=== PATIENT | female | born 1945 | race Caucasian/White ===

== ENCOUNTER → 2018-03-06 15:08 | Outpatient (CLI) | payer MEDICARE, OTHER, SELFPAY ==
--- NOTE | 2018-03-06 | DI.RAD.S_ITS ---
PROCEDURE: XR LUMBAR SPINE 2-3V INDICATIONS: BACK PAIN, HIP AND KNEE PAIN TECHNIQUE: 3 views of the lumbar spine were acquired. COMPARISON: None. FINDINGS: Bones: 5 [id number] vertebrae are present. There is normal bony alignment. No vertebral body compression fractures. No suspicious bony lesions. There is diffuse intervertebral disc space narrowing, endplate sclerosis, osteophytosis, and facet sclerosis. Vacuum disc phenomenon is present at L3-4 and L4-5. Soft tissues: Dense atheromatous calcifications are present throughout the abdominal aorta. IMPRESSION: 1. Degenerative change. 2. Aortic atherosclerosis. Dictated by: Deysi Arboleda M.D. on 03/06/2018 at 16:27 Approved by: Deysi Arboleda M.D. on 03/06/2018 at 16:28
--- NOTE | 2018-03-06 | DI.RAD.S_ITS ---
PROCEDURE: XR KNEE LT 3V INDICATIONS: BACK PAIN, HIP AND KNEE PAIN TECHNIQUE: 3 views of the knee were acquired. COMPARISON: None. FINDINGS: Bones: No acute fracture or dislocation. There are small tricompartmental osteophytes and femorotibial compartment narrowing. Soft tissues: No joint effusion. No suspicious soft tissue calcifications. IMPRESSION: Degenerative change. No acute radiographic findings. If there is continued pain, followup exam or additional imaging such as MRI or CT could be performed for further assessment. Dictated by: Deysi Arboleda M.D. on 03/06/2018 at 16:27 Approved by: Deysi Arboleda M.D. on 03/06/2018 at 16:27
--- NOTE | 2018-03-06 | DI.RAD.S_ITS ---
PROCEDURE: XR HIP W PEL IF DONE LT 2V INDICATIONS: BACK PAIN, HIP AND KNEE PAIN TECHNIQUE: AP pelvis with lateral view(s) of the left hip(s). COMPARISON: None. FINDINGS: Bones: No fractures or dislocations. Pelvic ring appears intact. No suspicious bony lesions. Soft tissues: The visualized bowel gas pattern is normal. No suspicious soft tissue calcifications. IMPRESSION: No acute radiographic findings. If there is continued pain, followup exam or additional imaging such as MRI or CT could be performed for further assessment. Dictated by: Deysi Arboleda M.D. on 03/06/2018 at 16:26 Approved by: Deysi Arboleda M.D. on 03/06/2018 at 16:27
== END ==
PROVIDERS: Visit Provider Internal Medicine
DX: M54.5 Low back pain (principal); M25.552 Pain in left hip; M25.562 Pain in left knee
CPT/HCPCS: 72100; 73502; 73562

== ENCOUNTER → 2018-10-28 16:11 | Outpatient (CLI) | payer MEDICARE, OTHER, SELFPAY ==
[2018-10-28 17:52] LABS: Hemoglobin A1C% w Est Avg Glu 5.4 % (4.0-6.0)
[2018-10-28 18:09] LABS: Free T4, Direct Thyroxine 1.08 ng/dL (0.78-2.19)
[2018-10-31 16:05] LABS: Triiodothyronine T3 Total 103 ng/dL (76-181)
== END ==
PROVIDERS: PCP Internal Medicine; Visit Provider Internal Medicine
DX: E03.9 Hypothyroidism, unspecified (principal); R73.03 Prediabetes
CPT/HCPCS: 36415; 83036; 84439; 84443; 84480

== ENCOUNTER → 2019-08-12 15:26 | Outpatient (CLI) | payer MEDICARE, OTHER, SELFPAY ==
[2019-08-12 17:11] LABS: INR 3.2 (0.9-1.3); Prothrombin Time 36.5 SECONDS (10.1-12.7)
[2019-08-12 17:30] LABS: Alanine Aminotransferase 23 IU/L (<35); Albumin 4.5 g/dL (3.5-5.0); Albumin Globulin Ratio 1.4 (1.0-2.8); Alkaline Phosphatase 104 U/L (38-126); Aspartate Aminotransferase 27 IU/L (14-36); BUN Creatinine Ratio 31.3 (6-22); Bilirubin Total 0.5 mg/dL (0.2-1.3); Blood Urea Nitrogen 25 mg/dL (7-17); Carbon Dioxide 28 mmol/L (22-32); Chloride 101 mmol/L (98-107); Cholesterol 216 mg/dL (140-199); Estimated Glomerular Filt Rate > 60.0 mL/min (>60); Globulin 3.2 g/dL (1.7-4.1); Glucose 117 mg/dL (80-110); HDL Cholesterol 74 mg/dL (40-60); HEMOLYSIS < 15 (0-50); Hemoglobin A1C% w Est Avg Glu 5.9 % (4.0-6.0); LDL Cholesterol Calculated 124 mg/dL (<100); Potassium 3.9 mmol/L (3.4-5.1); Sodium 139 mmol/L (137-145); Total Protein 7.7 g/dL (6.3-8.2); Triglycerides 90 mg/dL (35-150)
== END ==
PROVIDERS: PCP Internal Medicine; Referring Provider Internal Medicine; Visit Provider Internal Medicine
DX: I48.91 Unspecified atrial fibrillation (principal); I10 Essential (primary) hypertension; R73.03 Prediabetes; E78.5 Hyperlipidemia, unspecified
CPT/HCPCS: 36415; 80053; 80061; 83036; 85610

== ENCOUNTER → 2020-01-13 12:36 | Outpatient (CLI) | payer MEDICARE, OTHER, SELFPAY ==
[2020-01-13 13:16] LABS: Prothrombin Time 33.9 SECONDS (10.1-12.7)
== END ==
PROVIDERS: PCP Internal Medicine; Referring Provider Internal Medicine; Visit Provider Internal Medicine
DX: I48.91 Unspecified atrial fibrillation (principal)
CPT/HCPCS: 36415; 85610

== ENCOUNTER → 2020-07-23 20:00 | Outpatient (ROUT) | payer MEDICARE, OTHER, SELFPAY ==
[2020-07-23 20:35] LABS: Alanine Aminotransferase 22 IU/L (<35); Albumin 4.3 g/dL (3.5-5.0); Albumin Globulin Ratio 1.4 (1.0-2.8); Alkaline Phosphatase 99 U/L (38-126); Aspartate Aminotransferase 27 IU/L (14-36); BUN Creatinine Ratio 28.8 (6-22); Bilirubin Total 0.6 mg/dL (0.2-1.3); Blood Urea Nitrogen 21 mg/dL (7-17); Calcium 9.6 mg/dL (8.4-10.2); Carbon Dioxide 29 mmol/L (22-32); Chloride 101 mmol/L (98-107); Cholesterol 194 mg/dL (140-199); Estimated Glomerular Filt Rate > 60.0 mL/min (>60); Glucose 124 mg/dL (80-110); HDL Cholesterol 75 mg/dL (40-60); HEMOLYSIS < 15 (0-50); LDL Cholesterol Calculated 101 mg/dL (<100); Potassium 3.7 mmol/L (3.4-5.1); Sodium 137 mmol/L (137-145); Total Protein 7.3 g/dL (6.3-8.2); Triglycerides 89 mg/dL (35-150)
[2020-07-23 21:06] LABS: TSH w/ Reflex to FT4 1.82 uIU/mL (0.47-4.68)
== END ==
PROVIDERS: PCP Internal Medicine; Visit Provider Internal Medicine
DX: I48.91 Unspecified atrial fibrillation (principal); I10 Essential (primary) hypertension; E78.5 Hyperlipidemia, unspecified
CPT/HCPCS: 80053; 80061; 84443

== ENCOUNTER → 2020-08-17 15:33 | Outpatient (CLI) | payer MEDICARE, OTHER, SELFPAY ==
--- NOTE | 2020-08-17 15:35 | DI.ECHO.S_ITS ---
[facility] +---------+ [facility] +---------+ : : [address] [place] : : : : [id number] : : : : Phone: [phone]---------+ Echocardiogram Report + + :Name: PATRIC HERNANDEZ Study Date: 08/17/2020 Height: 66 in : :[facility] ReadingLocation: Weight: 200 lb : : Gender: Female BSA: 2.0 m2 : :: 1945 Age: 75 yrs BP: 136/98 mmHg: :Reason For Study: ATRIAL FIBRILLATION : :Ordering Physician: KEVIN : :BRANDIN Performed By: Christelle Hyde : :Referring: BRANDIN BROWN : + + Interpretation Summary 1) Normal left ventricular thickness, size, wall motion, and systolic function (EF 60-65%). 2) Normal right ventricular size and function. 3) No significant valvular abnormalities. 4) Atrial fibrillation with the ventricular rates in the 100s-130s range present during the study. 5) No prior Echo available for comparison. Procedure: A two-dimensional transthoracic echocardiogram with color flow and Doppler was performed. The study quality was technically adequate. There is no prior echocardiogram noted for this patient. The patient was in atrial fibrillation with heart rates between 95-127 bpm during the exam. Left Ventricle: The left ventricle is normal in size and wall thickness. Left ventricular systolic function appears normal without focal wall motion abnormalities. The ejection fraction is estimated to be 60-65%. Diastolic function could not be accurately assessed due to atrial fibrillation. Right Ventricle: The right ventricle is normal in size and function. Atria: The left atrium is mildly dilated. Right atrial size is normal. There is no Doppler evidence for an interatrial shunt. Mitral Valve: The mitral valve leaflets appear borderline thickened, but open well. There is trace mitral regurgitation. Aortic Valve: The aortic valve opens well. The aortic valve is slightly calcified. There is no aortic valve stenosis. No aortic regurgitation is present. Tricuspid Valve: The tricuspid valve is normal in structure and function. There is trace tricuspid regurgitation. Pulmonary artery pressures cannot be estimated because of the lack of a measurable TR jet velocity but the IVC suggests a CVP of around 3 mmHg. Pulmonic Valve: The pulmonic valve leaflets are thin and pliable; valve motion is normal. There is no pulmonic valvular regurgitation. Great Vessels: The aortic root is normal size. The dimensions of the ascending aorta are normal. The IVC is of normal diameter and collapses greater than 50% with a sniff. This suggests a low right atrial pressure of 3 mm Hg. Pericardium/ Pleura There is no pericardial effusion. There is an anterior echo-free space consistent with a fat pad. There is no pleural effusion. MMode/2D Measurements & Calculations LVIDd: 4.1 cm LVOT diam: 1.9 cm LVIDs: 2.5 cm Ao root diam: 2.9 cm FS: 38.5 % asc Aorta Diam: 2.9 cm EPSS: 1.1 cm Ao Arch Diam (Prox Trans): 3.1 cm IVSd: 1.0 cm LVPWd: 0.80 cm LV garcia. diameter/BSA (cm/m^2): 2.0 LV sys. diameter/BSA (cm/m^2): 1.3 LA A2 area: 19.6 cm2 RA long axis: 6.2 cm LA A4 area: 23.9 cm2 RA area: 18.8 cm2 LA length (vol): 5.8 cm RA vol: 48.7 ml LA vol: 68.9 ml RA : 24.3 ml/m2 LA vol index: 34.4 ml/m2 IVC diam: 0.86 cm TAPSE: 1.8 cm Doppler Measurements & Calculations Ao V2 max: 148.3 cm/sec LVOT Max Himanshu: 109.2 cm/sec Ao V2 mean: 102.8 cm/sec LV V1 max P.8 mmHg Ao max P.8 mmHg LV V1 VTI: 16.8 cm Ao mean P.7 mmHg BALJIT(I,D): 2.0 cm2 Ao V2 VTI: 23.2 cm BALJIT(V,D): 2.0 cm2 sev ratio: 0.72 BALJIT indexed to BSA (cm^2/m^2): 0.99 MV E max himanshu: 102.9 cm/sec PA V2 max: 96.7 cm/sec MV A max himanshu: 1.7 cm/sec PA V2 mean: 64.7 cm/sec MV E/A: 59.5 PA mean P.9 mmHg Med Peak E' Himanshu: 8.4 cm/sec PA pr(Accel): 35.3 mmHg E/E' med: 12.2 Lat Peak E' Himanshu: 10.3 cm/sec E/E' lat: 10.0 E/e' average: 11.1 MV dec time: 0.17 sec SVLVOT): 45.8 ml Reading Physician:05:39 PM
== END ==
PROVIDERS: PCP Internal Medicine; Referring Provider Internal Medicine; Visit Provider Internal Medicine
DX: I48.91 Unspecified atrial fibrillation (principal)
CPT/HCPCS: 93306

== ENCOUNTER → 2020-09-13 15:24 | Outpatient (CLI) | payer MEDICARE, OTHER, SELFPAY ==
[2020-09-22 14:12] LABS: Acetylcholine Blocking AB 16 % (0-25); Acetylcholine Modulating AB <12 % (0-20); Acetylcholine Receptor Bind AB <0.03 nmol/L (0.00-0.24)
[2020-09-24 19:38] LABS: MuSK Antibodies <1.0 U/mL (.)
== END ==
PROVIDERS: PCP Internal Medicine; Referring Provider Ophthalmology; Visit Provider Ophthalmology
DX: H02.403 Unspecified ptosis of bilateral eyelids (principal)
CPT/HCPCS: 36415; 83519

== ENCOUNTER → 2021-03-14 09:04 | Outpatient (CLI) | payer MEDICARE, OTHER, SELFPAY ==
[2021-03-14 13:40] LABS: COVID19 -Nasal RAPID Negative (Negative)
== END ==
PROVIDERS: PCP Internal Medicine; Visit Provider Nurse Practitioner Family
DX: Z20.822 Contact with and (suspected) exposure to COVID-19 (principal); Z01.812 Encounter for preprocedural laboratory examination
CPT/HCPCS: 87635; C9803

== ENCOUNTER 2021-03-15 11:40 | Day surgery (SDC) | payer MEDICARE, OTHER, SELFPAY ==
--- NOTE | 2021-03-15 | PATH_ITS ---
[facility] Accession Number: [id number] . 01 Material submitted: . PART A: colon - TRANSVERSE COLON POLYP PART B: colon - ASCENDING COLON POLYP X4 PART C: cecum - CECUM POLYP . 02 Diagnosis: A. Transverse Colon, Polyp, Biopsy: Colonic mucosa with no diagnostic abnormality consistent with polypoid redundancy. Additional levels were examined. Negative for dysplasia and malignancy. . B. Ascending Colon, Polyp x4, Biopsies: Tubular adenomas. . C. Cecum, Polyp, Biopsy: Tubular adenoma. MRV 03/18/2021 1311 Local . 02 Electronically signed: . Dorie Valente MD, Pathologist NPI- [id number] . 01 Gross description: . Part A: TRANSVERSE COLON POLYP: Received in formalin are minute fragment(s) of menjivar, soft tissue measuring 0.3 x 0.2 x 0.1 cm in aggregate submitted entirely in 1 cassette(s) Part B: ASCENDING COLON POLYP X4: Received in formalin are multiple fragment(s) of menjivar, soft tissue measuring 1.5 x 0.7 x 0.5 cm in aggregate submitted entirely in 1 cassette(s) Part C: CECUM POLYP: Received in formalin is 1 fragment(s) of menjivar, soft tissue measuring 0.5 x 0.3 x 0.1 cm submitted entirely in 1 cassette(s) /QBJ 03/16/2021 0718 Local . 02 Pathologist provided ICD-10: D12.2, D12.0 . 02 CPT . 292143, [id number], [id number] Performed at: 01 [facility] [address] [place] [address] [address] [facility], [place], [place] [id number] MD Zafar Beard MD Phone: [phone] Performed at: 02 [facility] [address] [place] [id number] MD Dorie Valente MD Phone: [phone]
[2021-03-15 12:46] VITALS: BMI 32.1
[2021-03-15 13:02] VITALS: BP 145/80; PULSE 110; RESP 18; TEMP 36.6; O2SAT 93
--- NOTE | 2021-03-15 13:34 | PM.HP.1 ---
History of Present Illness History of Present Illness Date Patient Seen: 03/15/21 Time Patient Seen: 13:34 Chief complaint: COLONOSCOPY Narrative: Here for colonoscopy. I reviewed Dr. Hill's recent clinic note February 15. No changes. Patient History Family & Social History Tobacco & Substance use: Smoking Status Never smoker alcohol intake frequency holiday/special occasion Substance Use Type does not use Meds Home Medications and Allergies Home Medications Medication Instructions Recorded Confirmed Type diltiazem HCl 360 mg capsule,24 360 mg PO QDAY #0 09/04/16 03/15/21 History hr,extended release warfarin 3 mg tablet (Coumadin) 3 mg PO QDAY #0 09/04/16 03/15/21 History enalapril maleate 20 mg tablet 20 mg 03/15/21 History hydrochlorothiazide 50 mg tablet mg 03/15/21 History metoprolol succinate 50 mg 50 mg PO 03/15/21 History tablet,extended release 24 hr simvastatin 40 mg tablet 40 mg 03/15/21 History Review of Systems Review of Systems ROS: Yes All systems reviewed with the patient and are negative except as otherwise documented Exam Vital Signs (past 8 hours): - 03/15/21 13:02 Temperature 97.8 F Pulse Rate 110 H Respiratory Rate 18 Blood Pressure 145/80 H Pulse Oximetry 93 Oxygen Delivery Method Room Air Const General: cooperative and comfortable Orientation: alert HENAK Head: normocephalic Ears: external ears normal Nose: external nose normal Face and sinus: normal facial exam Mouth: oral mucosae normal Eyes General: appearance normal, both eyes and all related structures Neck Neck: normal visual inspection Chest Chest: normal inspection of the chest Resp Effort & Inspection: normal respiratory effort Auscultation: clear to auscultation bilaterally Cardio Rate: regular rate Rhythm: regular rhythm Heart Sounds: no murmurs GI Inspection: normal to inspection Palpation: soft and No tender Auscultation: normal bowel sounds Skin General: no rashes or lesions noted and No jaundice Neuro General: patient alert and moves all extremities Cognition: normal cognition Speech: speech normal Extrem General: edema Psych Appearance: grossly normal Assessment & Plan Assessment & Plan narrative: 76-year-old female with a personal history of colon polyps. She is off her Coumadin for the last 5 days. Colonoscopy is planned for today. Time Spent With Patient Critical Care time: I spent a total of [] minutes of critical care time on this patient's care today; this time is exclusive of procedural time.
--- NOTE | 2021-03-15 13:36 | PM.PREOP ---
Pre-operative Note COVID-19 COVID-19 status: Negative Result date/Date tested (Pos, Neg/Pending): 03/14/21 Interval Note History & Physical reviewed/Exam performed by Physician: Yes Changes to H&P: No ASA Class (for procedural sedation): III
--- NOTE | 2021-03-15 14:24 | PM.OP.ENDO ---
Operative Date/Time/Diagnoses Date of procedure: 03/15/21 Time of procedure: 14:25 Pre-op diagnosis: Personal history of colon polyps Post-op diagnosis: same Procedure & Clinicians Study performed: Colonoscopy with hot snare polypectomy cold forceps polypectomy and prophylactic Endoclip deployment. Same procedure as scheduled: Yes Indications: Personal history of colon polyps. Surgeon: Omi Guerin Procedure Notes SCOAP/Timeout: Done Procedure in detail: After the risks and benefits were explained, written and verbal informed consent was obtained. The patient was brought into the procedure room and placed into the left lateral decubitus position. Please see nurse welt stitch cleaner notes for sedation details. Digital rectal examination was accomplished. The scope was introduced into the patient and advanced under direct visualization to the cecum as identified by the appendiceal orifice and ileocecal valve. The scope was slowly withdrawn to carefully examine the mucosa for any defects or lesions. Comprehensive imaging was accomplished throughout the rectum including the dentate line. The colon was decompressed, the scope was then removed from the patient who tolerated the procedure well. Bowel prep adequate Pediatric colonoscope Scope withdrawal time: 18 minutes Sedation minutes: 40 Complications: none Impression: Patient had some diverticulosis in the left colon. Patient had an extremely lengthy redundant colon. Abdominal pressure the stiffening rajesh were required to achieve cecal intubation. Almost all of the endoscope was required for this exam. The in the cecum there was a diminutive polyp removed with cold forceps. In the ascending colon there were 4 polyps removed with hot snare. These ranged in size from 5-12 mm. They were all sessile. The largest polyp demonstrated a small amount of persistent oozing after polypectomy and therefore a prophylactic Endoclip was deployed to guard against any post polypectomy hemorrhage. In the transverse colon there was 1 small sessile 6 mm polyp removed with hot snare. Procedure time was prolonged secondary to the difficulty with navigation and multiple polyps. Twenty-two modifier is therefore requested. Endoscopic diagnosis 1. Multiple colon polyps 2. Diverticulosis 3. Mild grade 1 internal hemorrhoids 4. Lengthy redundant colon Post-procedure Recommendations: Colonscopy in 3 years Plan for aftercare: 1. Await histopathology 2. Repeat colonoscopy in 3 years time. I would recommend a prolonged slot for this exam. 3. Patient can restart Coumadin starting tomorrow evening. Disposition: PACU
[2021-03-15 14:28] VITALS: BP 100/68; PULSE 102; RESP 15; TEMP 36.8; O2SAT 99
[2021-03-15 14:33] VITALS: BP 106/59; PULSE 81; RESP 15; O2SAT 98
[2021-03-15 14:38] VITALS: BP 112/63; PULSE 87; RESP 16; O2SAT 98
[2021-03-15 14:43] VITALS: BP 126/70; PULSE 99; RESP 12; TEMP 36.9; O2SAT 98
--- NOTE | 2021-03-15 14:47 | SUR.PHASEI ---
Stable pacu stay. to OPD.
[2021-03-15 14:52] VITALS: BP 111/75; PULSE 98; RESP 18; TEMP 36.5; O2SAT 97
== END 2021-03-15 15:00 | disposition home or self-care (01) ==
PROVIDERS: PCP Internal Medicine; Referring Provider Internal Medicine Gastroenterology; Visit Provider Internal Medicine Gastroenterology
PROC: 0DJD8ZZ Inspection of Lower Intestinal Tract, Via Natural or Artificial Opening Endoscopic (ICD-10-PCS; CPT 45378; principal; 2021-03-15 12:30)
DX: Z12.11 Encounter for screening for malignant neoplasm of colon (principal); Z86.010 Personal history of colon polyps; Z79.01 Long term (current) use of anticoagulants; K57.30 Diverticulosis of large intestine without perforation or abscess without bleeding; K64.0 First degree hemorrhoids; D12.0 Benign neoplasm of cecum; D12.2 Benign neoplasm of ascending colon
CPT/HCPCS: 45385; 45380; 45382; J2704

== ENCOUNTER 2021-11-30 11:37 | Inpatient (IN) | payer MEDICARE, OTHER, SELFPAY ==
[2021-11-30] VITALS (16 sets, daily range): BP systolic 98–150; BP diastolic 52–70; PULSE 89–133; RESP 16–23; TEMP 36–36.5; O2SAT 94–100; BMI 38.7; BMI 39.7
--- NOTE | 2021-11-30 11:58 | DI.RAD.S_ITS ---
PROCEDURE: XR CHEST 2V INDICATIONS: shortness of breath TECHNIQUE: 2 views of the chest were acquired. COMPARISON: None. FINDINGS: Surgical changes and devices: None. Lungs and pleura: Lungs are clear. No pleural effusions or pneumothorax. Mediastinum: Mediastinal contours are normal. Heart size is enlarged. Bones and chest wall: No suspicious bony abnormalities. Soft tissues appear unremarkable. IMPRESSION: No acute pulmonary process. Dictated by: Julieta Walters M.D. on 11/30/2021 at 13:13 Approved by: Julieta Walters M.D. on 11/30/2021 at 13:14
--- NOTE | 2021-11-30 12:41 | ED_ITS ---
HPI - General Adult General Chief complaint: Shortness of Breath/Dyspnea Stated complaint: stated legs are bitten by jiggers Time Seen by Provider: 11/30/21 12:04 Source: patient Mode of arrival: Wheelchair History of Present Illness HPI narrative: 76-year-old woman lives independently with history of rate controlled atrial fibrillation anticoagulated on warfarin, hypertension, hyperlipidemia but no prior known diagnosis of congestive heart failure of according to patient. She notes that on November 09 she had right cataract surgery and was significantly more swollen and had trouble getting her shoes on. Over the last week she has no ticed continued swelling in the lower extremities with weeping and then in the last 1-2 days she has noticed increasing redness and ?tiny spots', that she thinks might be bug bites. She notes that there is significant weeping from the legs to the point that she is soaking through socks and leaving puddles of fluid on the floor under her legs. She has been having both orthopnea and dyspnea. Does not complain about chest pain, cough, fevers or palpitations. She has not had vomiting or diarrhea. She notes that she frequently has urgency but she is having no dysuria and urinary symptoms have not changed. Related Data Home Medications Medication Instructions Recorded Confirmed diltiazem HCl 360 mg capsule,24 360 mg PO QDAY ##0 09/04/16 03/15/21 hr,extended release warfarin 3 mg tablet (Coumadin) 3 mg PO QDAY ##0 09/04/16 03/15/21 enalapril maleate 20 mg tablet 20 mg 03/15/21 hydrochlorothiazide 50 mg tablet mg 03/15/21 metoprolol succinate 50 mg 50 mg PO 03/15/21 tablet,extended release 24 hr simvastatin 40 mg tablet 40 mg 03/15/21 Allergies Allergy/AdvReac Type Severity Reaction Status Date / Time No Known Drug Allergies Allergy Verified 11/30/21 11:47 Review of Systems Review of Systems Narrative: Remainder of complete review of systems is otherwise unremarkable except for that included in the HPI. Patient History Medical History (Updated 11/30/21 @ 13:10 by Maggie Quiros MD) Atrial fibrillation Hyperlipidemia Hypertension Social History Smoking Status: Never smoker Smoking Status: Never smoker alcohol intake frequency: holidays/special occasions only Substance Use Type: does not use Exam Initial Vital Signs Initial Vital Signs: Vital Signs Temperature 97.7 F 11/30/21 11:47 Pulse Rate 108 H 11/30/21 11:47 Respiratory Rate 16 11/30/21 11:47 Blood Pressure 123/70 11/30/21 11:47 Pulse Oximetry 94 11/30/21 11:47 Oxygen Delivery Method 11/30/21 11:47 General: Chronically ill-appearing woman mildly dyspnea with able to speak in full sentences and Able to give a complete and coherent history. HEENT: Moist mucous membranes, normal sclera with reactive pupils, Neck: +JVD, supple Respiratory: Lungs with crackles to mid lung garza, no rhonchi. She is not using accessory muscles to breathe. There is no wheeze. Full and symmetrical air movement Cardiac: Irregular, mildly tachycardic, no murmurs appreciated Abdomen: Soft, nontender, good bowel tones, no flank pain Skin: Warm and well perfused upper extremities. Lower extremities with hyperemic induration with bulla developing over left lower extremity, significant swelling and serous drainage. Right lower extremity beginning to develop below with erythema developing around that no overt ulceration at this time. She is able to feel her feet and toes. Neurologic: Globally weak Grossly neurologically intact with no obvious asymmetries or abnormalities Extremities: Dramatic lower extremity edema with moderate upper extremity and facial edema as well. Psych: Cooperative, appropriate insight and affect Course Orders Ordered: ED Orders 11/30/21 11:58 XR chest 2V Stat EKG-12 Lead Stat Measure peak expiratory flow ONCE RT Consult Eval and Treat Now 11/30/21 13:13 EC echo doppler complete Routine 11/30/21 13:16 Complete Blood Count AUTO DIFF Stat Comprehensive Metabolic Panel Stat Lactate (Lactic Acid) Stat NT-proBNP (BNP-Adult 18+) Stat Prothrombin Time INR Stat Troponin & CK Cardiac Panel Stat 11/30/21 13:29 Blood Culture Stat 11/30/21 13:40 COVID19 -Nasal RAPID/Pre-Proc Stat Discontinued Medications Furosemide 120 mg/ Sodium (Chloride) 62 mls @ 124 mls/hr IV NOW ONE Stop: 11/30/21 13:03 Last Admin: 11/30/21 13:41 Dose: 124 mls/hr Documented By: CHRISTOPHER Ceftriaxone Sodium 2,000 mg/ (Sodium Chloride) 100 mls @ 200 mls/hr IV NOW ONE Stop: 11/30/21 13:03 Last Admin: 11/30/21 13:42 Dose: 200 mls/hr Documented By: CHRISTOPHER Metoprolol Tartrate (Metoprolol Ir 25 Mg Tablet) 50 mg PO NOW ONE Stop: 11/30/21 13:03 Last Admin: 11/30/21 13:42 Dose: 50 mg Documented By: CHRISTOPHER Vital Signs Vital signs: Vital Signs - 8 hr 11/30/21 11:47 11/30/21 13:01 11/30/21 13:30 Temperature 97.7 F Pulse Rate 108 H 106 H 97 H Respiratory Rate 16 23 Blood Pressure 123/70 Pulse Oximetry 94 99 100 Oxygen Delivery Method Room Air 11/30/21 13:34 11/30/21 13:34 Temperature Pulse Rate 97 H Respiratory Rate 21 Blood Pressure 121/56 L Pulse Oximetry 97 Oxygen Delivery Method Medical Decision Making Lab Data Result diagrams: 11/30/21 13:16 11/30/21 13:16 Labs: Lab Results 11/30/21 11/30/21 11/30/21 Range/Units 13:16 13:16 13:16 WBC 12.8 H (4.5-11.0) X10^3/uL RBC 4.54 (4.0-5.2) X10^6/uL Hgb 14.4 (12.0-16.0) g/dL Hct 41.7 (36-46) % MCV 91.9 (80-100) fL MCH 31.7 (26-34) PG MCHC 34.5 (30-36) % RDW 14.3 (11.6-14.8) % Plt Count 303 (150-400) X10^3/uL Neut % (Auto) 85.2 H (50-75) % Lymph % (Auto) 9.0 L (25-40) % [place] % (Auto) 5.0 (3-14) % Eos % (Auto) 0.1 L (2-4) % Baso % (Auto) 0.7 (0-2) % Neut # (Auto) 87232 H (7720-5082) /uL Lymph # (Auto) 1200 (0637-8659) /uL [place] # (Auto) 600 (0-900) /uL Eos # (Auto) 0 (0-450) /uL Baso # (Auto) 100 (0-100) /uL PT 24.9 H (10.1-12.7) SECONDS INR 2.2 H (0.9-1.3) Sodium 135 L (137-145) mmol/L Potassium 3.5 (3.4-5.1) mmol/L Chloride 94 L (98-107) mmol/L Carbon Dioxide 35 H (22-32) mmol/L BUN 24 H (7-17) mg/dL Creatinine 1.10 H (0.52-1.04) mg/dL Estimated GFR 52 L (>60) mL/min BUN/Creatinine Ratio 21.8 (6-22) Glucose 122 H (80-110) mg/dL Lactate (0.7-2.1) mmol/L Calcium 9.2 (8.4-10.2) mg/dL Total Bilirubin 1.4 H (0.2-1.3) mg/dL AST 23 (14-36) IU/L ALT 25 (<35) IU/L Alkaline Phosphatase 81 (38-126) U/L Total Creatine Kinase (30-135) U/L CK-MB (CK-2) CK-MB (CK-2) Rel Index Troponin I (0.01-0.034) ng/mL NT-Pro-B Natriuret Pep 306 (<450) pg/mL Total Protein 7.6 (6.3-8.2) g/dL Albumin 4.0 (3.5-5.0) g/dL Globulin 3.6 (1.7-4.1) g/dL Albumin/Globulin Ratio 1.1 (1.0-2.8) SARS-CoV-2 (PCR) (Negative) 11/30/21 11/30/21 11/30/21 Range/Units 13:16 13:16 13:40 WBC (4.5-11.0) X10^3/uL RBC (4.0-5.2) X10^6/uL Hgb (12.0-16.0) g/dL Hct (36-46) % MCV (80-100) fL MCH (26-34) PG MCHC (30-36) % RDW (11.6-14.8) % Plt Count (150-400) X10^3/uL Neut % (Auto) (50-75) % Lymph % (Auto) (25-40) % [place] % (Auto) (3-14) % Eos % (Auto) (2-4) % Baso % (Auto) (0-2) % Neut # (Auto) (8261-1885) /uL Lymph # (Auto) (5950-4066) /uL [place] # (Auto) (0-900) /uL Eos # (Auto) (0-450) /uL Baso # (Auto) (0-100) /uL PT (10.1-12.7) SECONDS INR (0.9-1.3) Sodium (137-145) mmol/L Potassium (3.4-5.1) mmol/L Chloride (98-107) mmol/L Carbon Dioxide (22-32) mmol/L BUN (7-17) mg/dL Creatinine (0.52-1.04) mg/dL Estimated GFR (>60) mL/min BUN/Creatinine Ratio (6-22) Glucose (80-110) mg/dL Lactate 2.3 H (0.7-2.1) mmol/L Calcium (8.4-10.2) mg/dL Total Bilirubin (0.2-1.3) mg/dL AST (14-36) IU/L ALT (<35) IU/L Alkaline Phosphatase (38-126) U/L Total Creatine Kinase 51 (30-135) U/L CK-MB (CK-2) TNP CK-MB (CK-2) Rel Index TNP Troponin I < 0.012 (0.01-0.034) ng/mL NT-Pro-B Natriuret Pep (<450) pg/mL Total Protein (6.3-8.2) g/dL Albumin (3.5-5.0) g/dL Globulin (1.7-4.1) g/dL Albumin/Globulin Ratio (1.0-2.8) SARS-CoV-2 (PCR) Negative (Negative) Urine Dip Bedside Urine Glucose Negative Bedside Urine Bilirubin - Negative Bedside Urine Ketone - Negative Urine Specific [place] 1.030 Bedside Urine Occult Blood - Negative Bedside Urine pH 6.0 Bedside Urine Protein +/- 15 Bedside Urine Urobilinogen +/- 1mg Bedside Urine Nitrite - Negative Bedside Urine Leukocytes - Negative Esterase Point of care testing: Urine Dip Bedside Urine Glucose Negative Bedside Urine Bilirubin - Negative Bedside Urine Ketone - Negative Urine Specific [place] 1.030 Bedside Urine Occult Blood - Negative Bedside Urine pH 6.0 Bedside Urine Protein +/- 15 Bedside Urine Urobilinogen +/- 1mg Bedside Urine Nitrite - Negative Bedside Urine Leukocytes - Negative Esterase Imaging Data Chest x-ray: Radiologist's Impression: FINDINGS:? ? Surgical changes and devices:? None.? ? Lungs and pleura:? Lungs are clear.? No pleural effusions or pneumothorax.? ? Mediastinum:? Mediastinal contours are normal.? Heart size is enlarged.? ? Bones and chest wall:? No suspicious bony abnormalities.? Soft tissues appear unremarkable.? ? IMPRESSION:? No acute pulmonary process. ? ? Dictated by: Julieta Walters M.D. on 11/30/2021 at 13:13? ?? ECG Data Interpretation: Atrial fibrillation at a rate of 107, Normal axis Lateral ST depression MDM Narrative Medical decision making narrative: 76-year-old woman presents with significant lower extremity edema to the point of bulla developing and dramatic weeping. Left with significant cellulitis and right beginning to develop bulla and cellulitis as well. Clinically appears to be in congestive heart failure however her proBNP is minimally elevated. She is in chronic atrial fibrillation appropriately anticoagulated with an INR 2.2 and rate is in the 100 range. She is mildly dyspneic, mildly orthopneic does not appear to be acutely septic. No evidence of acute coronary syndrome. At this point she needs hospital admission for help with diuresis of the lower extremities treatment of the left lower extremity cellulitis and developing cellulitis on the right lower extremity. Ceftriaxone has been initiated in the emergency department, she has been given 120 mg of IV Lasix. Will review care with the hospitalist. Discharge Plan Departure Patient Disposition: Admitted As Inpatient Prescriptions: No Action warfarin [Coumadin] 3 MG tablet 3 mg PO QDAY Qty: 0 diltiazem HCl 360 MG capsule,extended release 24 hr 360 mg PO QDAY Qty: 0 metoprolol succinate 50 mg tablet extended release 24 hr 50 mg PO hydrochlorothiazide 50 mg tablet enalapril maleate 20 mg tablet 20 mg simvastatin 40 mg tablet 40 mg Referrals: Elli Silverio MD [Primary Care Provider] - Admit Date/Time: 11/30/21 14:19
--- NOTE | 2021-11-30 13:13 | DI.ECHO.S_ITS ---
[facility]---------+ [facility] +---------+ : : [address] : : : : [id number] : : : : Phone: [phone]+ Echocardiogram Report + + :Name: PATRIC HERNANDEZ Study Date: 12/01/2021 Height: 66 in : :[facility] ReadingLocation: Weight: 240 lb : : Gender: Female BSA: 2.2 m2 : :: 1945 Age: 76 yrs BP: 113/51 mmHg: :Reason For Study: NEW CONGESTIVE HEART FAILURE : :Ordering Physician: STORM, : :ALONSO Patel Performed By: Christelle Hyde : :Referring: ALONSO ORO : + + Interpretation Summary 1) Normal left ventricular thickness, size, wall motion, and systolic function (EF 60-65%). 2) Normal right ventricular size and function. 3) No significant valvular abnormalities. 4) Compared to the Echo done 08/17/2020, no significant change. Procedure: A two-dimensional transthoracic echocardiogram with color flow and Doppler was performed. The study quality was technically adequate. Comparison is made with the echocardiogram of 08/17/2020. The patient was in atrial fibrillation with heart rates between 85-115 bpm during the exam. Left Ventricle: The left ventricle is normal in size and wall thickness. The ejection fraction is estimated to be 60-65%. Left ventricular systolic function appears normal without focal wall motion abnormalities. Diastolic function could not be accurately assessed due to atrial fibrillation. Right Ventricle: The right ventricle is normal in size and function. Atria: The left atrial size is normal. Right atrial size is normal. There is no Doppler evidence for an interatrial shunt. Mitral Valve: The mitral valve is normal in structure and function. There is trace mitral regurgitation. Aortic Valve: The aortic valve is trileaflet. The aortic valve opens well. There is no aortic valve stenosis. No aortic regurgitation is present. Tricuspid Valve: The tricuspid valve is normal in structure and function. There is trace tricuspid regurgitation. Pulmonic Valve: The pulmonic valve leaflets are thin and pliable; valve motion is normal. There is mild pulmonic regurgitation. Great Vessels: The aortic root is normal size. The dimensions of the ascending aorta are normal. The IVC is of normal diameter and collapses greater than 50% with a sniff. This suggests a low right atrial pressure of 3 mm Hg. Pericardium/ Pleura There is no pericardial effusion. There is no pleural effusion. MMode/2D Measurements & Calculations LVIDd: 4.5 cm LVOT diam: 2.0 cm LVIDs: 2.9 cm Ao root diam: 2.9 cm FS: 36.5 % asc Aorta Diam: 2.9 cm IVSd: 0.83 cm LVPWd: 0.71 cm LV garcia. diameter/BSA (cm/m^2): 2.1 LV sys. diameter/BSA (cm/m^2): 1.3 LA A2 area: 20.2 cm2 RA long axis: 5.8 cm LA A4 area: 20.3 cm2 RA area: 18.4 cm2 LA length (vol): 6.1 cm RA vol: 49.4 ml LA vol: 57.1 ml RA : 22.9 ml/m2 LA vol index: 26.4 ml/m2 IVC diam: 1.7 cm RVD1 (basal): 3.0 cm RVD2 (mid): 2.3 cm TAPSE: 1.7 cm Doppler Measurements & Calculations Ao V2 max: 137.9 cm/sec LVOT Max Dominique: 94.4 cm/sec Ao V2 mean: 92.6 cm/sec LV V1 max P.6 mmHg Ao max P.6 mmHg LV V1 VTI: 14.8 cm Ao mean P.9 mmHg BALJIT(I,D): 1.8 cm2 Ao V2 VTI: 24.7 cm BALJIT(V,D): 2.1 cm2 sev ratio: 0.60 BALJIT indexed to BSA (cm^2/m^2): 0.84 MV E max dominique: 106.2 cm/sec PA V2 max: 96.0 cm/sec MV A max dominique: 2.1 cm/sec PA V2 mean: 64.8 cm/sec MV E/A: 51.3 PA mean P.9 mmHg Med Peak E' Dominique: 9.8 cm/sec PA pr(Accel): 48.2 mmHg E/E' med: 10.9 Lat Peak E' Dominique: 11.4 cm/sec E/E' lat: 9.3 E/e' average: 10.1 MV dec time: 0.22 sec SV(LVOT): 44.8 ml Reading Physician:10:15 AM
[2021-11-30 13:30] LABS: Add Manual Diff / Slide Review NO; Basophils Absolute Auto 100 /uL (0-100); Basophils Percent Auto 0.7 % (0-2); Eosinophils Absolute Auto 0 /uL (0-450); Eosinophils Percent Auto 0.1 % (2-4); Hematocrit 41.7 % (36-46); Hemoglobin 14.4 g/dL (12.0-16.0); Lymphocytes Absolute Auto 1200 /uL (1100-4500); Mean Corpuscular HGB Conc 34.5 % (30-36); Mean Corpuscular Hemoglobin 31.7 PG (26-34); Mean Corpuscular Volume 91.9 fL (80-100); Monocytes Absolute Auto 600 /uL (0-900); Neutrophils Absolute Auto 10900 /uL (1500-7000); Neutrophils Percent Auto 85.2 % (50-75); Platelet Count 303 X10^3/uL (150-400); Red Blood Cell Count 4.54 X10^6/uL (4.0-5.2); Red Cell Distribution Width 14.3 % (11.6-14.8); White Blood Cell Count 12.8 X10^3/uL (4.5-11.0)
[2021-11-30 13:33] LABS: INR 2.2 (0.9-1.3); Prothrombin Time 24.9 SECONDS (10.1-12.7)
[2021-11-30 13:38] LABS: Alanine Aminotransferase 25 IU/L (<35); Albumin Globulin Ratio 1.1 (1.0-2.8); Alkaline Phosphatase 81 U/L (38-126); Aspartate Aminotransferase 23 IU/L (14-36); BUN Creatinine Ratio 21.8 (6-22); Bilirubin Total 1.4 mg/dL (0.2-1.3); Blood Urea Nitrogen 24 mg/dL (7-17); Calcium 9.2 mg/dL (8.4-10.2); Carbon Dioxide 35 mmol/L (22-32); Chloride 94 mmol/L (98-107); Creatine Kinase 51 U/L (30-135); Estimated Glomerular Filt Rate 52 mL/min (>60); Globulin 3.6 g/dL (1.7-4.1); Glucose 122 mg/dL (80-110); HEMOLYSIS < 15 (0-50); Potassium 3.5 mmol/L (3.4-5.1); Sodium 135 mmol/L (137-145); Total Protein 7.6 g/dL (6.3-8.2)
[2021-11-30 13:39] LABS: Lactate (Lactic Acid) 2.3 mmol/L (0.7-2.1)
[2021-11-30] MEDS: FUROSEMIDE 120 MG in SODIUM CHLORIDE 0.9% 50 ML 124 MG IV (13:41)
[2021-11-30] MEDS: cefTRIAXone 2,000 MG in SODIUM CHLORIDE 0.9% 100 ML 200 MG IV (13:42)
[2021-11-30] MEDS: METOPROLOL IR 25 MG TABLET 50 MG PO (13:42)
--- NOTE | 2021-11-30 13:43 | PC.NURSE ---
unable to scan ceftriaxone,verified with Verenice Ortega RN that the med was the correct med and dose.
[2021-11-30 13:47] LABS: NT-proBNP (BNP-Adult 18+) 306 pg/mL (<450)
[2021-11-30 13:50] LABS: Troponin I < 0.012 ng/mL (0.01-0.034)
[2021-11-30 14:05] LABS: COVID19 -Nasal RAPID Negative (Negative)
[2021-11-30 14:24] LABS: Appearance Urine UA CLEAR; Bilirubin Urine UA NEGATIVE (NEGATIVE); Color Urine UA YELLOW; Glucose Urine UA NEGATIVE (Negative); Ketones Urine UA NEGATIVE (NEGATIVE); Leukocyte Esterase Urine UA NEGATIVE (NEGATIVE); Nitrite Urine UA NEGATIVE (Negative); Occult Blood Urine UA NEGATIVE (Negative); Protein Urine UA TRACE (Negative); Specific Gravity Urine UA 1.025 (1.000-1.035)
[2021-11-30 14:33] LABS: Amorphous Sediment Urine 1+; Bacteria Urine Occasional (0-1); RBC Urine None Seen (0-5/HPF); Squamous Epithelial Cell Urine 1-5 /HPF (0-5/HPF); WBC Urine 1-5/HPF (0-5/HPF)
[2021-11-30 14:34] LABS: Mucus Urine 2+ (Negative)
[2021-11-30 15:20] LABS: Reflexed Lactate in 2 Hours Y
[2021-11-30 16:00] LABS: Lactate 2HR (Lactic Acid Rflx) 1.7 mmol/L (0.7-2.1)
--- NOTE | 2021-11-30 17:44 | P.HP_ITS ---
History of Present Illness History of Present Illness Date Patient Seen: 11/30/21 Time Patient Seen: 17:44 Chief complaint: stated legs are bitten by jiggers Narrative: 76 F PMH obesity, HTN, HLD, paroxysmal afib/flutter on Coumadin, JUDIE not on CPAP therapy due to intolerance who presented with 1 week of worsening redness on her bilateral legs. Patient states that for the past couple of weeks she has noticed that her legs have been more swollen than usual. Initially started out as normal skin color, but then they darken slightly before initially her right l eg became bright red which is actually improved today compared to a couple days ago. Her left leg, however, has been swollen, red, and painful for the last couple of days. Over the past couple of weeks as well she has noticed along with her leg swelling that she has been more short of breath. She states that she can only walk about 20 ft before she gets winded. She does not lay flat at night and props herself up with multiple pillows, but she denies any discomfort when lying flat, though she states the last time she did that was about 4 weeks ago. She also reports decreased appetite, weight gain, and some nausea. She denies any chest pain or palpitations. In the emergency room, her blood pressures were variable, as was her heart rate where she had intermittent episodes of AFib with RVR which improved overall with administration of oral metoprolol, which the patient takes at home. The remainder of her vital signs are unremarkable. Initial laboratory evaluation revealed a mild leukocytosis with WBC of 12.8, INR was within therapeutic limits at 2.2. Chemistries revealed a mildly elevated carbon dioxide level at 35 but the remainder of her chemistry panel was unremarkable. Troponin was within normal limits at less than 0.012. ProBNP was also within normal limits at 306, though this can be falsely negative in an obese patient. Urinalysis was unremarkable. COVID-19 testing was negative. Her chest x-ray showed no acute cardiopulmonary process. Patient was admitted for bilateral lower extremity cellulitis and possible new diagnosis of heart failure. She was given 120 mg of IV Lasix in the emergency room. Patient History Medical History Atrial fibrillation Hyperlipidemia Hypertension Surgical History H/O: hysterectomy History of appendectomy Family & Social History Family history unavailable: Yes (Patient does not know family history in her mother or father.) Social History: household members none Prior Living Arrangements House Safety & Behavioral: Feels Safe in Current Yes Environment Been Physically Hurt or No Threatened By a Person Tobacco & Substance use: Smoking Status Former smoker alcohol intake frequency holiday/special occasion Substance Use Type does not use Meds Home Medications and Allergies Home Medications Medication Instructions Recorded Confirmed Type diltiazem HCl 360 mg capsule,24 360 mg PO QDAY ##0 09/04/16 11/30/21 History hr,extended release enalapril maleate 20 mg tablet 10 mg PO DAILY 03/15/21 11/30/21 History hydrochlorothiazide 50 mg tablet 25 mg PO DAILY 03/15/21 11/30/21 History metoprolol succinate 50 mg 50 mg PO DAILY 03/15/21 11/30/21 History tablet,extended release 24 hr simvastatin 40 mg tablet 40 mg PO DAILY 03/15/21 11/30/21 History warfarin 5 mg tablet 2 tab PO DAILY 11/30/21 11/30/21 History Allergies Allergy/AdvReac Type Severity Reaction Status Date / Time No Known Drug Allergies Allergy Verified 11/30/21 11:47 Review of Systems Review of Systems Narrative: All other systems reviewed with the patient and are negative unless otherwise stated. Exam Vital Signs (past 8 hours): - 11/30/21 11:47 11/30/21 13:01 11/30/21 13:30 Temperature 97.7 F Pulse Rate 108 H 106 H 97 H Respiratory Rate 16 23 Blood Pressure 123/70 Pulse Oximetry 94 99 100 Oxygen Delivery Method Room Air Oxygen Flow Rate 11/30/21 13:34 11/30/21 13:34 11/30/21 13:40 Temperature Pulse Rate 97 H 99 H Respiratory Rate 21 20 Blood Pressure 121/56 L Pulse Oximetry 97 97 Oxygen Delivery Method Oxygen Flow Rate 11/30/21 13:40 11/30/21 14:00 11/30/21 14:01 Temperature Pulse Rate 106 H Respiratory Rate 20 Blood Pressure 104/52 L 150/63 H Pulse Oximetry 97 Oxygen Delivery Method Oxygen Flow Rate 11/30/21 14:01 11/30/21 14:20 11/30/21 14:20 Temperature Pulse Rate 108 H 95 H Respiratory Rate 20 21 Blood Pressure 98/55 L Pulse Oximetry 97 98 Oxygen Delivery Method Oxygen Flow Rate 11/30/21 14:30 11/30/21 14:40 11/30/21 14:40 Temperature Pulse Rate 133 H 94 H Respiratory Rate 20 22 Blood Pressure 115/64 Pulse Oximetry 98 Oxygen Delivery Method Oxygen Flow Rate 11/30/21 15:00 11/30/21 15:20 11/30/21 16:17 Temperature 97.5 F L Pulse Rate 100 H 89 Respiratory Rate 22 18 Blood Pressure 123/57 L Pulse Oximetry 98 97 Oxygen Delivery Method Room Air Oxygen Flow Rate 0 0 11/30/21 16:17 Temperature 97.5 F L Pulse Rate 89 Respiratory Rate 18 Blood Pressure 123/57 L Pulse Oximetry 97 Oxygen Delivery Method Oxygen Flow Rate 0 Oxygen Delivery Method Room Air Oxygen Flow Rate 0 Narrative Exam Narrative: General:? Patient is well developed and well nourished, obese with BMI 39.7, in no distress at this time. HEENT:? Normocephalic, atraumatic, extraocular muscles intact, oral pharynx is clear and mucous membranes are moist. Neck: supple and symmetric, trachea is midline, no cervical adenopathy. + JVD Chest:? Normal AP diameter and contour without kyphoscoliosis, no tachypnea, equal chest rise bilaterally. Lungs:? CTA b/l no wheezing rhonchi or rales but poor effort. Cardio:?RRR no m/r/g. Abdomen: S NT ND. No CVA tenderness. Musculoskeletal:? Muscle strength and tone are equal within normal limits, no deformity. Extremities: No edema or joint effusions. No cyanosis or clubbing. Skin:? L > R circumferential erythema, warmth and tenderness to her calves. weeping and blisters on her left. Neuro:? Alert and orientated x3,? sensation to touch intact in all extremities, no gross deficits noted of cranial nerves. Psych:? Patient has a well-kept appearance, appropriate affect, mental status attitude thought context and judgment are appropriate for age. Objective ECG Impression: Atrial fibrillation with rapid ventricular response Low voltage QRS There are mild ST depressions in V5 and V6 along with inferior leads Labs Result Diagrams: 11/30/21 13:16 11/30/21 13:16 Labs: Laboratory Results - last 24 hr 11/30/21 11/30/21 11/30/21 13:16 13:16 13:16 WBC 12.8 H RBC 4.54 Hgb 14.4 Hct 41.7 MCV 91.9 MCH 31.7 MCHC 34.5 RDW 14.3 Plt Count 303 Neut % (Auto) 85.2 H Lymph % (Auto) 9.0 L [place] % (Auto) 5.0 Eos % (Auto) 0.1 L Baso % (Auto) 0.7 Neut # (Auto) 86852 H Lymph # (Auto) 1200 [place] # (Auto) 600 Eos # (Auto) 0 Baso # (Auto) 100 PT 24.9 H INR 2.2 H Sodium 135 L Potassium 3.5 Chloride 94 L Carbon Dioxide 35 H BUN 24 H Creatinine 1.10 H Estimated GFR 52 L BUN/Creatinine Ratio 21.8 Glucose 122 H Lactate Calcium 9.2 Total Bilirubin 1.4 H AST 23 ALT 25 Alkaline Phosphatase 81 Total Creatine Kinase CK-MB (CK-2) CK-MB (CK-2) Rel Index Troponin I NT-Pro-B Natriuret Pep 306 Total Protein 7.6 Albumin 4.0 Globulin 3.6 Albumin/Globulin Ratio 1.1 Urine Color Urine Appearance Urine pH Ur Specific [place] Urine Protein Urine Glucose (UA) Urine Ketones Urine Occult Blood Urine Nitrate Urine Bilirubin Urine Urobilinogen Ur Leukocyte Esterase Urine RBC Urine WBC Ur Squamous Epith Cells Amorphous Sediment Urine Bacteria Urine Mucus Ur Culture Indicated? SARS-CoV-2 (PCR) 11/30/21 11/30/21 11/30/21 13:16 13:16 13:40 WBC RBC Hgb Hct MCV MCH MCHC RDW Plt Count Neut % (Auto) Lymph % (Auto) [place] % (Auto) Eos % (Auto) Baso % (Auto) Neut # (Auto) Lymph # (Auto) [place] # (Auto) Eos # (Auto) Baso # (Auto) PT INR Sodium Potassium Chloride Carbon Dioxide BUN Creatinine Estimated GFR BUN/Creatinine Ratio Glucose Lactate 2.3 H Calcium Total Bilirubin AST ALT Alkaline Phosphatase Total Creatine Kinase 51 CK-MB (CK-2) TNP CK-MB (CK-2) Rel Index TNP Troponin I < 0.012 NT-Pro-B Natriuret Pep Total Protein Albumin Globulin Albumin/Globulin Ratio Urine Color Urine Appearance Urine pH Ur Specific [place] Urine Protein Urine Glucose (UA) Urine Ketones Urine Occult Blood Urine Nitrate Urine Bilirubin Urine Urobilinogen Ur Leukocyte Esterase Urine RBC Urine WBC Ur Squamous Epith Cells Amorphous Sediment Urine Bacteria Urine Mucus Ur Culture Indicated? SARS-CoV-2 (PCR) Negative 11/30/21 11/30/21 14:00 15:35 WBC RBC Hgb Hct MCV MCH MCHC RDW Plt Count Neut % (Auto) Lymph % (Auto) [place] % (Auto) Eos % (Auto) Baso % (Auto) Neut # (Auto) Lymph # (Auto) [place] # (Auto) Eos # (Auto) Baso # (Auto) PT INR Sodium Potassium Chloride Carbon Dioxide BUN Creatinine Estimated GFR BUN/Creatinine Ratio Glucose Lactate 1.7 Calcium Total Bilirubin AST ALT Alkaline Phosphatase Total Creatine Kinase CK-MB (CK-2) CK-MB (CK-2) Rel Index Troponin I NT-Pro-B Natriuret Pep Total Protein Albumin Globulin Albumin/Globulin Ratio Urine Color Yellow Urine Appearance Clear Urine pH 5.0 Ur Specific [place] 1.025 Urine Protein Trace H Urine Glucose (UA) Negative Urine Ketones Negative Urine Occult Blood Negative Urine Nitrate Negative Urine Bilirubin Negative Urine Urobilinogen 1.0 Ur Leukocyte Esterase Negative Urine RBC None seen Urine WBC 1-5/hpf Ur Squamous Epith Cells 1-5 /hpf Amorphous Sediment 1+ Urine Bacteria Occasional (0-1) Urine Mucus 2+ H Ur Culture Indicated? Culture not indicate SARS-CoV-2 (PCR) Assessment & Plan Assessment & Plan narrative: 1. Cellulitis, bilateral, of the lower leg -continue ceftriaxone for non purulence cellulitis, consider vancomycin if no improvement -will check a DVT study of her lower extremities to rule out DVT 2. Possible heart failure, new diagnosis, dyspnea on exertion - TTE pending - continue lasix IV BID starting tomorrow, given 120 mg in the ER. - continue beta leonela and diltiazem. - further possibilites for her symptoms include uncontrolled JUDIE, OHS, pulmonary HTN, or other obstructive lung disease. - possible ST depressions on EKG, though no chest pain. Will repeat troponin / EKG to rule out ACS. 3. obesity, BMI 39 - likely contributing to worsening symptoms and underlying comorbidities. 4. chronic afib /flutter on AC with RVR - continue home warfarin and rate control agents. 5. HTN - continue home medications 6. HLD - continue home medications 7. JUDIE not on CPAP Code: Full, declines surrogate decision maker but this was discussed with patient. DVT: On AC Dispo: Admitted as inpatient as her stay is expected to exceed 2 midnights. I have utilized all available immediate resources to obtain, update, or review the patient's current medications. Time Spent With Patient Critical Care time: I spent a total of [] minutes of critical care time on this patient's care to day; this time is exclusive of procedural time. Quality VTE Deep Vein Thrombosis/Pulmonary Embolism Present on Admission: No MIPS - Admit I confirm the patient?s Advance Care Plan is present, Code status is documented, Surrogate decision maker is in patient?s record [If Yes, STOP here]: No The patient?s Advance Care plan is not present because I confirmed today that the patient does not wish or was not able to name a surrogate decision maker or provide an Advance Care Plan.: Yes
--- NOTE | 2021-11-30 19:19 | DI.US.S_ITS ---
PROCEDURE: US PERIPH VENOUS LOW EXTREM BI INDICATIONS: EDEMA TECHNIQUE: Real-time imaging, as well as color and pulse Doppler interrogation, were performed of the deep veins of both legs from the inguinal ligament to the popliteal fossa. COMPARISON: None. FINDINGS: Right: The common femoral, femoral and popliteal veins are normally compressible, and free of intraluminal thrombus. Color and pulse Doppler demonstrate normal phasic intravascular flow. There is normal augmentation response to distal compression maneuver. Left: The common femoral, femoral and popliteal veins are normally compressible, and free of intraluminal thrombus. Color and pulse Doppler demonstrate normal phasic intravascular flow. There is normal augmentation response to distal compression maneuver. IMPRESSION: Negative for deep venous thrombosis. Dictated by: Nithin Cade M.D. on 12/01/2021 at 7:35 Approved by: Nithin Cade M.D. on 12/01/2021 at 7:35
[2021-11-30] MEDS: ATORVASTATIN 20 MG TABLET 40 MG PO (21:25)
[2021-12-01] VITALS (10 sets, daily range): BP systolic 94–113; BP diastolic 38–71; PULSE 88–110; RESP 18–19; TEMP 35.8–37.2; O2SAT 94–98
[2021-12-01 06:53] LABS: Add Manual Diff / Slide Review NO; Basophils Absolute Auto 100 /uL (0-100); Basophils Percent Auto 0.7 % (0-2); Eosinophils Absolute Auto 100 /uL (0-450); Eosinophils Percent Auto 0.9 % (2-4); Hematocrit 37.4 % (36-46); Hemoglobin 13.1 g/dL (12.0-16.0); Lymphocytes Absolute Auto 1700 /uL (1100-4500); Lymphocytes Percent Auto 20.3 % (25-40); Mean Corpuscular HGB Conc 35.1 % (30-36); Mean Corpuscular Hemoglobin 32.2 PG (26-34); Mean Corpuscular Volume 91.7 fL (80-100); Monocytes Absolute Auto 700 /uL (0-900); Monocytes Percent Auto 7.9 % (3-14); Neutrophils Absolute Auto 5900 /uL (1500-7000); Neutrophils Percent Auto 70.2 % (50-75); Platelet Count 264 X10^3/uL (150-400); Red Blood Cell Count 4.08 X10^6/uL (4.0-5.2); Red Cell Distribution Width 14.1 % (11.6-14.8); White Blood Cell Count 8.4 X10^3/uL (4.5-11.0)
[2021-12-01 06:59] LABS: INR 1.9 (0.9-1.3)
[2021-12-01 07:03] LABS: BUN Creatinine Ratio 23.7 (6-22); Blood Urea Nitrogen 23 mg/dL (7-17); Calcium 8.5 mg/dL (8.4-10.2); Carbon Dioxide 39 mmol/L (22-32); Chloride 95 mmol/L (98-107); Estimated Glomerular Filt Rate > 60 mL/min (>60); Glucose 110 mg/dL (80-110); HEMOLYSIS < 15 (0-50); Magnesium 2.1 mg/dL (1.6-2.3); Potassium 3.4 mmol/L (3.4-5.1); Sodium 135 mmol/L (137-145)
[2021-12-01] MEDS: METOPROLOL ER 50 MG TABLET PO (08:54)
[2021-12-01] MEDS: FUROSEMIDE 40 MG/4 ML VIAL IV ×2 (08:54→17:07)
[2021-12-01] MEDS: dilTIAZem CD 180 MG CAP 360 MG PO (08:54)
--- NOTE | 2021-12-01 09:00 | PC.RNWOUND ---
Patient sitting on side of bed after using restroom, gets back in bed. Hospitalist in to see patient. Patient's LLE redness more severe than RLE- outline marked with pen. There is a 2.5 x 0.4 x 0.05 open area to the left lower leg where the epidermis has split due to increased edema and a 1.5cm intact bulla to the left medial lower leg. There is a large amount of serous drainage from the open area. There is also some serous drainage from RLE but no open areas noted at this time. LLE wound is gently cleansed with saline and dressed with absorptive dressing, secured gently with kerlix, skin prep applied to periwound for protection of surrounding skin. 2+ pitting pedal edema is noted, tender to touch, capillary refill less than 3 seconds. Patient verbalizes understanding of verbal education given by Dr and wound nurse to elevate LEs above heart throughout day and do foot pump exercises. Patient says she does wear compression stockings at home on occasion and when on a plane and wound nurse stresses importance of wearing regularly. Patient tolerates cares well/
[2021-12-01] MEDS: POTASSIUM CHLORIDE 20 MEQ TAB 40 MEQ PO (10:00)
--- NOTE | 2021-12-01 12:09 | P.PN_ITS ---
Subjective Subjective Interval history: pt is c/o legs swelling for 3 weeks now, she contacted PCP for that but nothing was done from her standpoint. She denies chest pain, shortness of breath, denies nausea, vomiting Exam Vital Signs (past 8 hours): - 12/01/21 08:54 12/01/21 10:00 Pulse Rate 90 103 H Blood Pressure 112/53 L 105/46 L Oxygen Delivery Method Room Air Oxygen Flow Rate 0 Const General: cooperative and well developed Orientation: alert, awake and oriented x3 HENMT Head: normal to inspection Ears: external ears normal Mouth: oral mucosae normal Eyes Pupils: PERRL EOM: EOM intact bilaterally Neck Neck: normal visual inspection and full ROM Resp Effort & Inspection: normal respiratory effort Auscultation: clear to auscultation bilaterally Cardio Rate: regular rate Rhythm: regular rhythm GI Palpation: soft and no hepatosplenomegaly Auscultation: normal bowel sounds Skin General: no rashes or lesions noted Neuro General: patient alert, patient awake, patient oriented x3, moves all extremities and no focal motor deficits Speech: speech normal Extrem General: full ROM, edema, pedal edema and other (bilateral edema L>R , + 3 pitting edema up to midshin) Psych Appearance: grossly normal Objective Labs Result Diagrams: 12/01/21 06:30 12/01/21 06:30 Labs: Laboratory Results - last 24 hr 11/30/21 11/30/21 11/30/21 13:16 13:16 13:16 WBC 12.8 H RBC 4.54 Hgb 14.4 Hct 41.7 MCV 91.9 MCH 31.7 MCHC 34.5 RDW 14.3 Plt Count 303 Neut % (Auto) 85.2 H Lymph % (Auto) 9.0 L [place] % (Auto) 5.0 Eos % (Auto) 0.1 L Baso % (Auto) 0.7 Neut # (Auto) 11906 H Lymph # (Auto) 1200 [place] # (Auto) 600 Eos # (Auto) 0 Baso # (Auto) 100 PT 24.9 H INR 2.2 H Sodium 135 L Potassium 3.5 Chloride 94 L Carbon Dioxide 35 H BUN 24 H Creatinine 1.10 H Estimated GFR 52 L BUN/Creatinine Ratio 21.8 Glucose 122 H Lactate Calcium 9.2 Magnesium Total Bilirubin 1.4 H AST 23 ALT 25 Alkaline Phosphatase 81 Total Creatine Kinase CK-MB (CK-2) CK-MB (CK-2) Rel Index Troponin I NT-Pro-B Natriuret Pep 306 Total Protein 7.6 Albumin 4.0 Globulin 3.6 Albumin/Globulin Ratio 1.1 Urine Color Urine Appearance Urine pH Ur Specific [place] Urine Protein Urine Glucose (UA) Urine Ketones Urine Occult Blood Urine Nitrate Urine Bilirubin Urine Urobilinogen Ur Leukocyte Esterase Urine RBC Urine WBC Ur Squamous Epith Cells Amorphous Sediment Urine Bacteria Urine Mucus Ur Culture Indicated? SARS-CoV-2 (PCR) 11/30/21 11/30/21 11/30/21 13:16 13:16 13:40 WBC RBC Hgb Hct MCV MCH MCHC RDW Plt Count Neut % (Auto) Lymph % (Auto) [place] % (Auto) Eos % (Auto) Baso % (Auto) Neut # (Auto) Lymph # (Auto) [place] # (Auto) Eos # (Auto) Baso # (Auto) PT INR Sodium Potassium Chloride Carbon Dioxide BUN Creatinine Estimated GFR BUN/Creatinine Ratio Glucose Lactate 2.3 H Calcium Magnesium Total Bilirubin AST ALT Alkaline Phosphatase Total Creatine Kinase 51 CK-MB (CK-2) TNP CK-MB (CK-2) Rel Index TNP Troponin I < 0.012 NT-Pro-B Natriuret Pep Total Protein Albumin Globulin Albumin/Globulin Ratio Urine Color Urine Appearance Urine pH Ur Specific [place] Urine Protein Urine Glucose (UA) Urine Ketones Urine Occult Blood Urine Nitrate Urine Bilirubin Urine Urobilinogen Ur Leukocyte Esterase Urine RBC Urine WBC Ur Squamous Epith Cells Amorphous Sediment Urine Bacteria Urine Mucus Ur Culture Indicated? SARS-CoV-2 (PCR) Negative 11/30/21 11/30/21 12/01/21 14:00 15:35 06:30 WBC RBC Hgb Hct MCV MCH MCHC RDW Plt Count Neut % (Auto) Lymph % (Auto) [place] % (Auto) Eos % (Auto) Baso % (Auto) Neut # (Auto) Lymph # (Auto) [place] # (Auto) Eos # (Auto) Baso # (Auto) PT 21.0 H INR 1.9 H Sodium Potassium Chloride Carbon Dioxide BUN Creatinine Estimated GFR BUN/Creatinine Ratio Glucose Lactate 1.7 Calcium Magnesium Total Bilirubin AST ALT Alkaline Phosphatase Total Creatine Kinase CK-MB (CK-2) CK-MB (CK-2) Rel Index Troponin I NT-Pro-B Natriuret Pep Total Protein Albumin Globulin Albumin/Globulin Ratio Urine Color Yellow Urine Appearance Clear Urine pH 5.0 Ur Specific [place] 1.025 Urine Protein Trace H Urine Glucose (UA) Negative Urine Ketones Negative Urine Occult Blood Negative Urine Nitrate Negative Urine Bilirubin Negative Urine Urobilinogen 1.0 Ur Leukocyte Esterase Negative Urine RBC None seen Urine WBC 1-5/hpf Ur Squamous Epith Cells 1-5 /hpf Amorphous Sediment 1+ Urine Bacteria Occasional (0-1) Urine Mucus 2+ H Ur Culture Indicated? Culture not indicate SARS-CoV-2 (PCR) 12/01/21 12/01/21 06:30 06:30 WBC 8.4 RBC 4.08 Hgb 13.1 Hct 37.4 MCV 91.7 MCH 32.2 MCHC 35.1 RDW 14.1 Plt Count 264 Neut % (Auto) 70.2 Lymph % (Auto) 20.3 L [place] % (Auto) 7.9 Eos % (Auto) 0.9 L Baso % (Auto) 0.7 Neut # (Auto) 5900 Lymph # (Auto) 1700 [place] # (Auto) 700 Eos # (Auto) 100 Baso # (Auto) 100 PT INR Sodium 135 L Potassium 3.4 Chloride 95 L Carbon Dioxide 39 H BUN 23 H Creatinine 0.97 Estimated GFR > 60 BUN/Creatinine Ratio 23.7 H Glucose 110 Lactate Calcium 8.5 Magnesium 2.1 Total Bilirubin AST ALT Alkaline Phosphatase Total Creatine Kinase CK-MB (CK-2) CK-MB (CK-2) Rel Index Troponin I NT-Pro-B Natriuret Pep Total Protein Albumin Globulin Albumin/Globulin Ratio Urine Color Urine Appearance Urine pH Ur Specific [place] Urine Protein Urine Glucose (UA) Urine Ketones Urine Occult Blood Urine Nitrate Urine Bilirubin Urine Urobilinogen Ur Leukocyte Esterase Urine RBC Urine WBC Ur Squamous Epith Cells Amorphous Sediment Urine Bacteria Urine Mucus Ur Culture Indicated? 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 eventually progressed to Cellulitis - continue empiric ceftriaxone -demarcation line was drawn to see progression in 24 h -continue to elevated legs -wound care on board with BID dressing changes HFpEF likely heart failure with preserved EF ECHO with EF 60% but clinically pt retaining fluids and as above dermatosis stasis because of that pt is eating salty food and I drink a lot of water -states , I have encouraged her to follow los salt diet , decrease po fluids intake - continue diuresis Chronic A fib -continue telemetry monitoring -continue diltiazem -continue anticoagulation -daily INR Hypertension -continue home meds -BP controlled Hyperlipidemia -continue atorvastatin JUDIE secondary to obesity - telemetry monitoring Morbid obesity -counseled in regards to life style modifications -long discussion about diet, salt restriction, fluid restriction DVT prophylaxis: coumadin 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 Quality VTE Deep Vein Thrombosis/Pulmonary Embolism Present on Admission: No
[2021-12-01] MEDS: cefTRIAXone 1,000 MG in SODIUM CHLORIDE 0.9% 100 ML 200 MG IV (12:54)
--- NOTE | 2021-12-01 13:21 | OT.IPNOTE ---
OT eval orders recieved. Chart reviewed and discussed with nursing, patient, and MD. Pt is at her baseline for ADLs and functional mobility and ambulating in the room without assist at this time. Will discharge OT and P.T. orders per discussion with MD. Please reorder if pt shows a decline in functional mobility or ADls.
--- NOTE | 2021-12-01 13:34 | CM.DANOTE ---
Addendum entered by OSWALDO Chou 12/01/21 14:13: ADD: Reviewed note from OCTAVIA, OT. Patient deemed at functional baseline, ambulating w/o assist in room so will be discharged from inpatient therapies. R/o need for HH upon DC BRIAN Original Note: Initial DCP Assessment Note CM team will be following closely to discuss dispo options w/patient. 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 Patient considering moving into an [facility] but states needs assistance navigation selling her home, securing an DENEEN and moving Discharge Planning/Care Management CM Discharge Assessment Start: 12/01/21 13:28 Freq: Status: Active Protocol: Document 12/01/21 13:28 BRIAN (Rec: 12/01/21 13:34 BRIAN [id number]) Discharge Planning Assessment Assigned Commercial Ocean Clammer OSWALDO Bess DPOA/Assigned Designee Name No Contacts per patient Advance Directives? No History Provided By Patient Prior Living Arrangements House Household Members none Type of transportation used prior to Relies on Others admit Independent with ADL's Yes Is patient alert and oriented? Yes Patient/Family Preference Longterm Facility Barriers to Discharge Yes Comment Patient lives alone and relies on [facility] for transport. Patient states no adult children, no family, no friends/Caodaism community etc. Patient has considered Independent living Apt or Assisted Living Facility; she would need to hire someone to help her sell her home and help her move Discharge Plan Longterm Facility Transportation Arrangement TBD Additional Comment Will discuss Dispo options after patient has an opportunity to work w/PT/OT. Patient tearful this afternoon speaking w/hortencia CHACON and does not want to discuss DC planning further
--- NOTE | 2021-12-01 15:04 | PT-IP ANOTE ---
OT reviewed chart and spoke with pt regarding mobility and informed PT that pt is moving independently in her room and discussed to MD and agreed to d/c PT eval order.
[2021-12-01 15:56] LABS: Add Manual Diff / Slide Review NO; Basophils Absolute Auto 100 /uL (0-100); Basophils Percent Auto 1.1 % (0-2); Eosinophils Absolute Auto 100 /uL (0-450); Eosinophils Percent Auto 1.1 % (2-4); Hematocrit 37.4 % (36-46); Hemoglobin 12.8 g/dL (12.0-16.0); Lymphocytes Absolute Auto 1400 /uL (1100-4500); Lymphocytes Percent Auto 15.1 % (25-40); Mean Corpuscular HGB Conc 34.4 % (30-36); Mean Corpuscular Hemoglobin 31.7 PG (26-34); Mean Corpuscular Volume 92.2 fL (80-100); Monocytes Absolute Auto 1000 /uL (0-900); Monocytes Percent Auto 10.3 % (3-14); Neutrophils Absolute Auto 6800 /uL (1500-7000); Neutrophils Percent Auto 72.4 % (50-75); Platelet Count 275 X10^3/uL (150-400); Red Blood Cell Count 4.05 X10^6/uL (4.0-5.2); Red Cell Distribution Width 13.8 % (11.6-14.8); White Blood Cell Count 9.4 X10^3/uL (4.5-11.0)
[2021-12-01 16:02] LABS: INR 1.6 (0.9-1.3); Prothrombin Time 18.2 SECONDS (10.1-12.7)
[2021-12-01 16:09] LABS: BUN Creatinine Ratio 30.5 (6-22); Blood Urea Nitrogen 29 mg/dL (7-17); Calcium 8.1 mg/dL (8.4-10.2); Carbon Dioxide 34 mmol/L (22-32); Chloride 95 mmol/L (98-107); Estimated Glomerular Filt Rate > 60 mL/min (>60); Glucose 111 mg/dL (80-110); HEMOLYSIS < 15 (0-50); Potassium 3.8 mmol/L (3.4-5.1); Sodium 133 mmol/L (137-145)
[2021-12-01] MEDS: WARFARIN 5 MG TABLET 10 MG PO (17:07)
[2021-12-01] MEDS: ACETAMINOPHEN 325 MG TABLET 975 MG PO (18:14)
[2021-12-01] MEDS: ATORVASTATIN 20 MG TABLET 40 MG PO (20:44)
[2021-12-01 22:07] LABS: Troponin I < 0.012 ng/mL (0.01-0.034)
[2021-12-02] VITALS (13 sets, daily range): BP systolic 98–137; BP diastolic 49–90; PULSE 76–108; RESP 14–22; TEMP 36.2–36.8; O2SAT 94–98
[2021-12-02 07:14] LABS: Add Manual Diff / Slide Review NO; Basophils Absolute Auto 0 /uL (0-100); Basophils Percent Auto 0.7 % (0-2); Eosinophils Absolute Auto 100 /uL (0-450); Eosinophils Percent Auto 1.6 % (2-4); Hematocrit 36.5 % (36-46); Hemoglobin 12.6 g/dL (12.0-16.0); INR 1.6 (0.9-1.3); Lymphocytes Absolute Auto 1500 /uL (1100-4500); Lymphocytes Percent Auto 24.4 % (25-40); Mean Corpuscular HGB Conc 34.5 % (30-36); Mean Corpuscular Hemoglobin 31.5 PG (26-34); Mean Corpuscular Volume 91.5 fL (80-100); Monocytes Absolute Auto 700 /uL (0-900); Neutrophils Absolute Auto 3800 /uL (1500-7000); Neutrophils Percent Auto 61.3 % (50-75); Platelet Count 277 X10^3/uL (150-400); Prothrombin Time 17.7 SECONDS (10.1-12.7); Red Blood Cell Count 3.99 X10^6/uL (4.0-5.2); Red Cell Distribution Width 13.8 % (11.6-14.8); White Blood Cell Count 6.2 X10^3/uL (4.5-11.0)
[2021-12-02 07:47] LABS: Sodium 136 mmol/L (137-145)
[2021-12-02 07:48] LABS: BUN Creatinine Ratio 30.6 (6-22); Blood Urea Nitrogen 26 mg/dL (7-17); Calcium 8.1 mg/dL (8.4-10.2); Carbon Dioxide 35 mmol/L (22-32); Chloride 97 mmol/L (98-107); Estimated Glomerular Filt Rate > 60 mL/min (>60); Glucose 108 mg/dL (80-110); HEMOLYSIS < 15 (0-50); Magnesium 2.1 mg/dL (1.6-2.3); Potassium 3.3 mmol/L (3.4-5.1)
[2021-12-02] MEDS: dilTIAZem CD 180 MG CAP 360 MG PO (08:49)
[2021-12-02] MEDS: METOPROLOL ER 50 MG TABLET PO (08:49)
[2021-12-02] MEDS: FUROSEMIDE 40 MG/4 ML VIAL IV ×2 (08:49→17:48)
--- NOTE | 2021-12-02 09:51 | P.PN_ITS ---
Subjective Subjective Interval history: pt is c/o lconstipation She denies chest pain, shortness of breath, denies nausea, vomiting Exam Vital Signs (past 8 hours): - 12/02/21 02:52 12/02/21 04:00 12/02/21 06:00 Temperature 97.9 F Pulse Rate 88 88 Respiratory Rate 22 20 Blood Pressure 137/65 126/70 Pulse Oximetry 97 97 97 Oxygen Delivery Method Nasal Cannula Oxygen Flow Rate 0 2 0 12/02/21 08:49 Temperature Pulse Rate 88 Respiratory Rate Blood Pressure 126/80 Pulse Oximetry Oxygen Delivery Method Oxygen Flow Rate Oxygen Delivery Method Nasal Cannula Oxygen Flow Rate 0 Const General: cooperative and well developed Orientation: alert, awake and oriented x3 HENMT Head: normal to inspection Ears: external ears normal Mouth: oral mucosae normal Eyes Pupils: PERRL EOM: EOM intact bilaterally Neck Neck: normal visual inspection and full ROM Resp Effort & Inspection: normal respiratory effort Auscultation: clear to auscultation bilaterally Cardio Rate: regular rate Rhythm: regular rhythm GI Palpation: soft and no hepatosplenomegaly Auscultation: normal bowel sounds Skin General: no rashes or lesions noted Neuro General: patient alert, patient awake, patient oriented x3, moves all extremities and no focal motor deficits Speech: speech normal Extrem General: full ROM, edema, pedal edema and other (bilateral edema L>R , + 2 pitting edema up to midshin) Psych Appearance: grossly normal Objective Labs Result Diagrams: 12/02/21 06:39 12/02/21 06:39 Labs: Laboratory Results - last 24 hr 12/01/21 12/01/21 12/01/21 15:35 15:35 15:35 WBC 9.4 RBC 4.05 Hgb 12.8 Hct 37.4 MCV 92.2 MCH 31.7 MCHC 34.4 RDW 13.8 Plt Count 275 Neut % (Auto) 72.4 Lymph % (Auto) 15.1 L [place] % (Auto) 10.3 Eos % (Auto) 1.1 L Baso % (Auto) 1.1 Neut # (Auto) 6800 Lymph # (Auto) 1400 [place] # (Auto) 1000 H Eos # (Auto) 100 Baso # (Auto) 100 PT 18.2 H INR 1.6 H Sodium 133 L Potassium 3.8 Chloride 95 L Carbon Dioxide 34 H BUN 29 H Creatinine 0.95 Estimated GFR > 60 BUN/Creatinine Ratio 30.5 H Glucose 111 H Calcium 8.1 L Magnesium Troponin I 12/01/21 12/02/21 12/02/21 21:16 06:39 06:39 WBC 6.2 RBC 3.99 L Hgb 12.6 Hct 36.5 MCV 91.5 MCH 31.5 MCHC 34.5 RDW 13.8 Plt Count 277 Neut % (Auto) 61.3 Lymph % (Auto) 24.4 L [place] % (Auto) 12.0 Eos % (Auto) 1.6 L Baso % (Auto) 0.7 Neut # (Auto) 3800 Lymph # (Auto) 1500 [place] # (Auto) 700 Eos # (Auto) 100 Baso # (Auto) 0 PT 17.7 H INR 1.6 H Sodium Potassium Chloride Carbon Dioxide BUN Creatinine Estimated GFR BUN/Creatinine Ratio Glucose Calcium Magnesium Troponin I < 0.012 12/02/21 06:39 WBC RBC Hgb Hct MCV MCH MCHC RDW Plt Count Neut % (Auto) Lymph % (Auto) [place] % (Auto) Eos % (Auto) Baso % (Auto) Neut # (Auto) Lymph # (Auto) [place] # (Auto) Eos # (Auto) Baso # (Auto) PT INR Sodium 136 L Potassium 3.3 L Chloride 97 L Carbon Dioxide 35 H BUN 26 H Creatinine 0.85 Estimated GFR > 60 BUN/Creatinine Ratio 30.6 H Glucose 108 Calcium 8.1 L Magnesium 2.1 Troponin I [facility] Medical History Atrial fibrillation Hyperlipidemia Hypertension Surgical History H/O: hysterectomy History of appendectomy Social History household members: none Smoking Status: Former smoker Assessment & Plan Assessment & Plan narrative: Bilateral cellulitis /dermatosis stasis some improvement overnight - continue empiric ceftriaxone - continue to elevated legs - continue wound care HFpEF likely heart failure with preserved EF ECHO with EF 60% - continue diuresis Chronic A fib -continue telemetry monitoring -continue diltiazem -continue anticoagulation with warfarin -daily INR ( INR 1.6 today) Hypertension -continue home meds -BP controlled Hyperlipidemia -continue atorvastatin JUDIE secondary to obesity - telemetry monitoring Morbid obesity -counseled in regards to life style modifications -long discussion about diet, salt restriction, fluid restriction DVT prophylaxis: coumadin 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 Quality VTE Deep Vein Thrombosis/Pulmonary Embolism Present on Admission: No
--- NOTE | 2021-12-02 12:03 | P.PN_ITS ---
Subjective Subjective Interval history: feels a little bit better , pain in legs improved Exam Vital Signs (past 8 hours): - 12/02/21 06:00 12/02/21 08:49 12/02/21 10:00 Temperature 97.9 F 97.1 F L Pulse Rate 88 88 98 H Respiratory Rate 20 18 Blood Pressure 126/70 126/80 122/49 L Pulse Oximetry 97 97 Oxygen Flow Rate 0 1 Oxygen Delivery Method Nasal Cannula Oxygen Flow Rate 1 Const General: cooperative and well developed Orientation: alert, awake and oriented x3 HENMT Head: normal to inspection Ears: external ears normal Mouth: oral mucosae normal Eyes Pupils: PERRL EOM: EOM intact bilaterally Neck Neck: normal visual inspection and full ROM Resp Effort & Inspection: normal respiratory effort Auscultation: clear to auscultation bilaterally Cardio Rate: regular rate Rhythm: regular rhythm GI Palpation: soft and no hepatosplenomegaly Auscultation: normal bowel sounds Skin General: no rashes or lesions noted Neuro General: patient alert, patient awake, patient oriented x3, moves all extremities and no focal motor deficits Speech: speech normal Extrem General: full ROM, edema, pedal edema and other (bilateral edema L>R , + 2 pitting edema up to midshin) Psych Appearance: grossly normal Objective Labs Result Diagrams: 12/02/21 06:39 12/02/21 06:39 Labs: Laboratory Results - last 24 hr 12/01/21 12/01/21 12/01/21 15:35 15:35 15:35 WBC 9.4 RBC 4.05 Hgb 12.8 Hct 37.4 MCV 92.2 MCH 31.7 MCHC 34.4 RDW 13.8 Plt Count 275 Neut % (Auto) 72.4 Lymph % (Auto) 15.1 L [place] % (Auto) 10.3 Eos % (Auto) 1.1 L Baso % (Auto) 1.1 Neut # (Auto) 6800 Lymph # (Auto) 1400 [place] # (Auto) 1000 H Eos # (Auto) 100 Baso # (Auto) 100 PT 18.2 H INR 1.6 H Sodium 133 L Potassium 3.8 Chloride 95 L Carbon Dioxide 34 H BUN 29 H Creatinine 0.95 Estimated GFR > 60 BUN/Creatinine Ratio 30.5 H Glucose 111 H Calcium 8.1 L Magnesium Troponin I 12/01/21 12/02/2122 21:16 06:39 06:39 WBC 6.2 RBC 3.99 L Hgb 12.6 Hct 36.5 MCV 91.5 MCH 31.5 MCHC 34.5 RDW 13.8 Plt Count 277 Neut % (Auto) 61.3 Lymph % (Auto) 24.4 L [place] % (Auto) 12.0 Eos % (Auto) 1.6 L Baso % (Auto) 0.7 Neut # (Auto) 3800 Lymph # (Auto) 1500 [place] # (Auto) 700 Eos # (Auto) 100 Baso # (Auto) 0 PT 17.7 H INR 1.6 H Sodium Potassium Chloride Carbon Dioxide BUN Creatinine Estimated GFR BUN/Creatinine Ratio Glucose Calcium Magnesium Troponin I < 0.012 12/02/21 06:39 WBC RBC Hgb Hct MCV MCH MCHC RDW Plt Count Neut % (Auto) Lymph % (Auto) [place] % (Auto) Eos % (Auto) Baso % (Auto) Neut # (Auto) Lymph # (Auto) [place] # (Auto) Eos # (Auto) Baso # (Auto) PT INR Sodium 136 L Potassium 3.3 L Chloride 97 L Carbon Dioxide 35 H BUN 26 H Creatinine 0.85 Estimated GFR > 60 BUN/Creatinine Ratio 30.6 H Glucose 108 Calcium 8.1 L Magnesium 2.1 Troponin I [facility] Medical History Atrial fibrillation Hyperlipidemia Hypertension Surgical History H/O: hysterectomy History of appendectomy Social History household members: none Smoking Status: Former smoker Assessment & Plan Assessment & Plan narrative: Bilateral cellulitis /dermatosis stasis some improvement overnight - continue empiric ceftriaxone - continue to elevated legs - continue wound care HFpEF likely heart failure with preserved EF ECHO with EF 60% - continue diuresis Chronic A fib -continue telemetry monitoring -continue diltiazem -continue anticoagulation with warfarin -daily INR ( INR 1.6 today) Hypertension -continue home meds -BP controlled Hyperlipidemia -continue atorvastatin JUDIE secondary to obesity - telemetry monitoring Morbid obesity -counseled in regards to life style modifications -long discussion about diet, salt restriction, fluid restriction DVT prophylaxis: coumadin 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 Quality VTE Deep Vein Thrombosis/Pulmonary Embolism Present on Admission: No
[2021-12-02] MEDS: POTASSIUM CHLORIDE 20 MEQ TAB 40 MEQ PO (13:21)
[2021-12-02] MEDS: cefTRIAXone 1,000 MG in SODIUM CHLORIDE 0.9% 100 ML 200 MG IV (13:22)
--- NOTE | 2021-12-02 14:05 | CM.DPNOTE ---
DCP Note Long conversation at patient's bedside this morning; patient tearful as she recalled some of her life history; provided listening support and a platform to reflect Patient explains she will be returning home, alone, just as she came, and does not require HH services. Patient says she prefers to live a private lifestyle without invasion Patient plans to drive herself home, unless she can secure a ride from a friend or neighbor, and says if I can have a few supplies I can do this (wound dressing changes) myself Patient says she has meals and food in the fridge to heat up upon her return home Plan: DC expected over the next 24 hrs, home w/outpatient f/u recommended JW
[2021-12-02] MEDS: WARFARIN 5 MG TABLET 10 MG PO (17:54)
[2021-12-02] MEDS: ATORVASTATIN 20 MG TABLET 40 MG PO (20:33)
[2021-12-03] VITALS (15 sets, daily range): BP systolic 112–123; BP diastolic 60–90; PULSE 77–95; RESP 16–17; TEMP 35.6–36.6; O2SAT 92–98
[2021-12-03 07:00] LABS: Add Manual Diff / Slide Review NO; Basophils Absolute Auto 100 /uL (0-100); Basophils Percent Auto 1.2 % (0-2); Eosinophils Absolute Auto 100 /uL (0-450); Eosinophils Percent Auto 1.8 % (2-4); Hematocrit 36.2 % (36-46); Hemoglobin 12.7 g/dL (12.0-16.0); Lymphocytes Absolute Auto 1500 /uL (1100-4500); Lymphocytes Percent Auto 23.6 % (25-40); Mean Corpuscular Volume 91.4 fL (80-100); Monocytes Absolute Auto 700 /uL (0-900); Monocytes Percent Auto 11.5 % (3-14); Neutrophils Absolute Auto 4000 /uL (1500-7000); Neutrophils Percent Auto 61.9 % (50-75); Platelet Count 297 X10^3/uL (150-400); Red Blood Cell Count 3.96 X10^6/uL (4.0-5.2); Red Cell Distribution Width 14.2 % (11.6-14.8); White Blood Cell Count 6.4 X10^3/uL (4.5-11.0)
[2021-12-03 07:03] LABS: INR 1.7 (0.9-1.3); Prothrombin Time 19.4 SECONDS (10.1-12.7)
[2021-12-03] MEDS: FUROSEMIDE 40 MG/4 ML VIAL IV ×2 (07:52→17:55)
[2021-12-03 07:56] LABS: BUN Creatinine Ratio 32.2 (6-22); Blood Urea Nitrogen 28 mg/dL (7-17); Carbon Dioxide 34 mmol/L (22-32); Chloride 95 mmol/L (98-107); Estimated Glomerular Filt Rate > 60 mL/min (>60); Glucose 112 mg/dL (80-110); HEMOLYSIS < 15 (0-50); Magnesium 1.9 mg/dL (1.6-2.3); Potassium 3.2 mmol/L (3.4-5.1); Sodium 137 mmol/L (137-145)
[2021-12-03] MEDS: METOPROLOL ER 50 MG TABLET PO (08:30)
[2021-12-03] MEDS: dilTIAZem CD 180 MG CAP 360 MG PO (08:32)
--- NOTE | 2021-12-03 09:23 | PM.PN.1 ---
Subjective Subjective Interval history: feels better, pain is controlled, diuresing well Exam Vital Signs (past 8 hours): - 12/03/21 06:00 12/03/21 04:00 12/03/21 08:00 Temperature 97.9 F 96.0 F L Pulse Rate 77 87 Respiratory Rate 16 17 Blood Pressure 118/60 120/90 Pulse Oximetry 98 97 98 Oxygen Delivery Method Nasal Cannula Oxygen Flow Rate 2 2 2 12/03/21 08:30 Temperature Pulse Rate 87 Respiratory Rate Blood Pressure 120/90 Pulse Oximetry Oxygen Delivery Method Oxygen Flow Rate Oxygen Delivery Method Nasal Cannula Oxygen Flow Rate 2 Const General: cooperative and well developed Orientation: alert, awake and oriented x3 HENMT Head: normal to inspection Ears: external ears normal Mouth: oral mucosae normal Eyes Pupils: PERRL EOM: EOM intact bilaterally Neck Neck: normal visual inspection and full ROM Resp Effort & Inspection: normal respiratory effort Auscultation: clear to auscultation bilaterally Cardio Rate: regular rate Rhythm: regular rhythm GI Palpation: soft and no hepatosplenomegaly Auscultation: normal bowel sounds Skin General: no rashes or lesions noted Neuro General: patient alert, patient awake, patient oriented x3, moves all extremities and no focal motor deficits Speech: speech normal Extrem General: full ROM, edema, pedal edema and other (bilateral edema L>R , + 2 pitting edema up to midshin) Psych Appearance: grossly normal Objective Labs Result Diagrams: 12/03/21 06:34 12/03/21 06:34 Labs: Laboratory Results - last 24 hr 12/03/21 12/03/21 12/03/21 06:34 06:34 06:34 WBC 6.4 RBC 3.96 L Hgb 12.7 Hct 36.2 MCV 91.4 MCH 32.0 MCHC 35.0 RDW 14.2 Plt Count 297 Neut % (Auto) 61.9 Lymph % (Auto) 23.6 L [place] % (Auto) 11.5 Eos % (Auto) 1.8 L Baso % (Auto) 1.2 Neut # (Auto) 4000 Lymph # (Auto) 1500 [place] # (Auto) 700 Eos # (Auto) 100 Baso # (Auto) 100 PT 19.4 H INR 1.7 H Sodium 137 Potassium 3.2 L Chloride 95 L Carbon Dioxide 34 H BUN 28 H Creatinine 0.87 Estimated GFR > 60 BUN/Creatinine Ratio 32.2 H Glucose 112 H Calcium 8.0 L Magnesium 1.9 PFSH Medical History Atrial fibrillation Hyperlipidemia Hypertension Surgical History H/O: hysterectomy History of appendectomy Social History household members: none Smoking Status: Former smoker Assessment & Plan Assessment & Plan narrative: Bilateral cellulitis /dermatosis stasis clearing below demarcation line, swelling improved - continue empiric ceftriaxone - continue to elevated legs - continue wound care HFpEF (ECHO with EF 60% ) - continue diuresis Chronic A fib -continue telemetry monitoring -continue diltiazem -continue anticoagulation with warfarin -daily INR ( INR 1.7 today) Hypertension -continue home meds -BP controlled Hyperlipidemia -continue atorvastatin JUDIE secondary to obesity - telemetry monitoring -continue supplemental O2 Morbid obesity -counseled in regards to life style modifications - DVT prophylaxis: coumadin 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 Quality VTE Deep Vein Thrombosis/Pulmonary Embolism Present on Admission: No
[2021-12-03] MEDS: cefTRIAXone 1,000 MG in SODIUM CHLORIDE 0.9% 100 ML 200 MG IV (13:45)
[2021-12-03] MEDS: POTASSIUM CHLORIDE 20 MEQ TAB 40 MEQ PO ×2 (14:00→20:22)
[2021-12-03] MEDS: ATORVASTATIN 20 MG TABLET 40 MG PO (20:21)
[2021-12-03] MEDS: WARFARIN 5 MG TABLET 10 MG PO (20:22)
[2021-12-04] VITALS (17 sets, daily range): BP systolic 101–126; BP diastolic 55–73; PULSE 74–97; RESP 16–18; TEMP 35.6–36.7; O2SAT 92–99
[2021-12-04] MEDS: METOPROLOL ER 50 MG TABLET PO (08:27)
[2021-12-04] MEDS: FUROSEMIDE 40 MG/4 ML VIAL IV ×2 (08:27→15:55)
[2021-12-04] MEDS: dilTIAZem CD 180 MG CAP 360 MG PO (08:27)
--- NOTE | 2021-12-04 11:58 | P.PN_ITS ---
Subjective Subjective Interval history: pt denies shortness of breath, chest pain, she is doing and feeling better Exam Vital Signs (past 8 hours): - 12/04/21 04:00 12/04/21 06:00 12/04/21 08:27 Temperature 97.0 F L Pulse Rate 84 90 Respiratory Rate 16 Blood Pressure 105/64 117/68 Pulse Oximetry 96 94 Oxygen Delivery Method Nasal Cannula Oxygen Flow Rate 2 0 12/04/21 08:57 12/04/21 09:03 12/04/21 11:48 Temperature 96.3 F L 96.1 F L Pulse Rate 97 H 90 Respiratory Rate 17 18 Blood Pressure 101/55 L 109/59 L Pulse Oximetry 96 95 95 Oxygen Delivery Method Room Air Oxygen Flow Rate 0 0 12/04/21 11:49 Temperature Pulse Rate Respiratory Rate Blood Pressure Pulse Oximetry 99 Oxygen Delivery Method Room Air Oxygen Flow Rate Oxygen Delivery Method Room Air Oxygen Flow Rate 0 Const General: cooperative and well developed Orientation: alert, awake and oriented x3 HENMT Head: normal to inspection Ears: external ears normal Mouth: oral mucosae normal Eyes Pupils: PERRL EOM: EOM intact bilaterally Neck Neck: normal visual inspection and full ROM Resp Effort & Inspection: normal respiratory effort Auscultation: clear to auscultation bilaterally Cardio Rate: regular rate Rhythm: regular rhythm GI Palpation: soft and no hepatosplenomegaly Auscultation: normal bowel sounds Skin General: no rashes or lesions noted Neuro General: patient alert, patient awake, patient oriented x3, moves all e xtremities and no focal motor deficits Speech: speech normal Extrem General: full ROM, edema, pedal edema and other (bilateral edema L>R , + 2 pitting edema up to midshin) Psych Appearance: grossly normal Objective Labs Result Diagrams: 12/03/21 06:34 12/03/21 06:34 [facility] Medical History Atrial fibrillation Hyperlipidemia Hypertension Surgical History H/O: hysterectomy History of appendectomy Social History household members: none Smoking Status: Former smoker Assessment & Plan Assessment & Plan narrative: Bilateral cellulitis /dermatosis stasis continue improving - continue empiric ceftriaxone - continue to elevated legs - continue wound care HFpEF (ECHO with EF 60% ) - continue diuresis - fluid restriction, low salt diet Chronic A fib -continue telemetry monitoring -continue diltiazem -continue anticoagulation with warfarin -daily INR ( no INR today) Hypertension -continue home meds -BP controlled Hyperlipidemia -continue atorvastatin JUDIE secondary to obesity - telemetry monitoring -continue supplemental O2 Morbid obesity -counseled in regards to life style modifications - DVT prophylaxis: coumadin Code stats : full disposition: needs few days of IV abx Time Spent With Patient Critical Care time: I spent a total of [] minutes of critical care time on this patient's care today; this time is exclusive of procedural time. Quality VTE Deep Vein Thrombosis/Pulmonary Embolism Present on Admission: No
[2021-12-04] MEDS: cefTRIAXone 1,000 MG in SODIUM CHLORIDE 0.9% 100 ML 200 MG IV (15:23)
[2021-12-04] MEDS: WARFARIN 5 MG TABLET 10 MG PO (15:55)
[2021-12-04] MEDS: ATORVASTATIN 20 MG TABLET 40 MG PO (20:16)
[2021-12-05] VITALS (13 sets, daily range): BP systolic 95–134; BP diastolic 51–70; PULSE 74–110; RESP 16–18; TEMP 35.9–36.5; O2SAT 93–97
[2021-12-05] MEDS: dilTIAZem CD 180 MG CAP 360 MG PO (08:12)
[2021-12-05] MEDS: METOPROLOL ER 50 MG TABLET PO (08:12)
[2021-12-05] MEDS: FUROSEMIDE 40 MG/4 ML VIAL IV ×2 (08:13→16:34)
[2021-12-05] MEDS: cefTRIAXone 1,000 MG in SODIUM CHLORIDE 0.9% 100 ML 200 MG IV (12:51)
[2021-12-05 13:02] LABS: INR 2.3 (0.9-1.3); Prothrombin Time 26.2 SECONDS (10.1-12.7)
--- NOTE | 2021-12-05 13:14 | PC.RNWOUND ---
Patient resting in bed, BLE dressings clean, dry and intact, appear to have been changed recently. Legs are elevated on pillows with heels floating. Patient says drainage not nearly what it was before. Patient says she has been doing foot pumps.
--- NOTE | 2021-12-05 13:17 | PM.PN.1 ---
Subjective Subjective Interval history: pt is feeling better, swelling continue to improve Exam Vital Signs (past 8 hours): - 12/05/21 07:32 12/05/21 08:12 12/05/21 08:00 Temperature 96.7 F L Pulse Rate 80 88 93 H Respiratory Rate 18 18 Blood Pressure 123/53 L 95/57 L Pulse Oximetry 96 97 Oxygen Delivery Method Room Air 12/05/21 09:10 12/05/21 07:00 12/05/21 07:00 Temperature Pulse Rate 74 Respiratory Rate Blood Pressure 125/70 Pulse Oximetry Oxygen Delivery Method Room Air Room Air 12/05/21 11:00 12/05/21 11:36 Temperature Pulse Rate Respiratory Rate Blood Pressure Pulse Oximetry 96 Oxygen Delivery Method Room Air Room Air Oxygen Delivery Method Room Air Oxygen Flow Rate 0 Const General: cooperative and well developed Orientation: alert, awake and oriented x3 HENMT Head: normal to inspection Ears: external ears normal Mouth: oral mucosae normal Eyes Pupils: PERRL EOM: EOM intact bilaterally Neck Neck: normal visual inspection and full ROM Resp Effort & Inspection: normal respiratory effort Auscultation: clear to auscultation bilaterally Cardio Rate: regular rate Rhythm: regular rhythm GI Palpation: soft and no hepatosplenomegaly Auscultation: normal bowel sounds Skin General: no rashes or lesions noted Neuro General: patient alert, patient awake, patient oriented x3, moves all extremities and no focal motor deficits Speech: speech normal Extrem General: full ROM, edema, pedal edema and other (bilateral edema L>R , + 2 pitting edema up to midshin) Psych Appearance: grossly normal Objective Labs Result Diagrams: 12/03/21 06:34 12/03/21 06:34 Labs: Laboratory Results - last 24 hr 12/05/21 12:22 PT 26.2 H D INR 2.3 H PFSH Medical History Atrial fibrillation Hyperlipidemia Hypertension Surgical History H/O: hysterectomy History of appendectomy Social History household members: none Smoking Status: Former smoker Assessment & Plan Assessment & Plan narrative: Bilateral cellulitis /dermatosis stasis continue improving - continue empiric ceftriaxone, add clinda - continue to elevated legs - continue wound care HFpEF (ECHO with EF 60% ) - continue diuresis - fluid restriction, low salt diet Chronic A fib -continue telemetry monitoring -continue diltiazem -continue anticoagulation with warfarin -daily INR ( 2.3 today at goal) Hypertension -continue home meds -BP controlled Hyperlipidemia -continue atorvastatin JUDIE secondary to obesity - telemetry monitoring -continue supplemental O2 Morbid obesity -counseled in regards to life style modifications - DVT prophylaxis: coumadin Code stats : full disposition: hopefully in 24-48 h Time Spent With Patient Critical Care time: I spent a total of [] minutes of critical care time on this patient's care today; this time is exclusive of procedural time. Quality VTE Deep Vein Thrombosis/Pulmonary Embolism Present on Admission: No
--- NOTE | 2021-12-05 16:18 | CM.DPC ---
DCP Cont: Per MD, pt making progress but still requiring IV-Abx and progressing slower than anticipated, may be stable for d/c in the next 1-2 days. Per Wound RN, pt's wound care needs are improving with less drainage. Pt has continued to decline HH needs and preference is home with outpt follow up when stable. Plan: SW to follow for likely pt d/c home in the next 1-2 days on oral meds and outpt f/u and any further identified needs. Elina Moore MSW
[2021-12-05] MEDS: WARFARIN 5 MG TABLET 10 MG PO (16:34)
[2021-12-05] MEDS: CLINDAMYCIN 600 MG/50 ML PIGGYBACK 50 MG IV (19:05)
[2021-12-05] MEDS: ATORVASTATIN 20 MG TABLET 40 MG PO (21:52)
[2021-12-06] VITALS (7 sets, daily range): BP systolic 108–132; BP diastolic 64–78; PULSE 74–89; RESP 16–18; TEMP 36.7; O2SAT 93–100
[2021-12-06] MEDS: CLINDAMYCIN 600 MG/50 ML PIGGYBACK 50 MG IV ×2 (02:36→09:19)
--- NOTE | 2021-12-06 09:01 | P.DS_ITS ---
History of Present Illness History of Present Illness Date Patient Seen: 11/30/21 Time Patient Seen: 17:44 Chief complaint: stated legs are bitten by jiggers Narrative: 76 F PMH obesity, HTN, HLD, paroxysmal afib/flutter on Coumadin, JUDIE not on CPAP therapy due to intolerance who presented with 1 week of worsening redness on her bilateral legs. Patient states that for the past couple of weeks she has noticed that her legs have been more swollen than usual. Initially started out as normal skin color, but then they darken slightly before initially her right l eg became bright red which is actually improved today compared to a couple days ago. Her left leg, however, has been swollen, red, and painful for the last couple of days. Over the past couple of weeks as well she has noticed along with her leg swelling that she has been more short of breath. She states that she can only walk about 20 ft before she gets winded. She does not lay flat at night and props herself up with multiple pillows, but she denies any discomfort when lying flat, though she states the last time she did that was about 4 weeks ago. She also reports decreased appetite, weight gain, and some nausea. She denies any chest pain or palpitations. In the emergency room, her blood pressures were variable, as was her heart rate where she had intermittent episodes of AFib with RVR which improved overall with administration of oral metoprolol, which the patient takes at home. The remainder of her vital signs are unremarkable. Initial laboratory evaluation revealed a mild leukocytosis with WBC of 12.8, INR was within therapeutic limits at 2.2. Chemistries revealed a mildly elevated carbon dioxide level at 35 but the remainder of her chemistry panel was unremarkable. Troponin was within normal limits at less than 0.012. ProBNP was also within normal limits at 306, though this can be falsely negative in an obese patient. Urinalysis was unremarkable. COVID-19 testing was negative. Her chest x-ray showed no acute cardiopulmonary process. Patient was admitted for bilateral lower extremity cellulitis and possible new diagnosis of heart failure. She was given 120 mg of IV Lasix in the emergency room. Discharge Providers Provider Date of admission: 12/02/21 15:00 Discharge Date: 12/06/21 Primary care physician: Elli Silverio MD Consults: 11/30/21 16:32 Consult to Inpatient Wound Care Nurse Routine Comment: Reason for consultation: bilateral lower extremeties 12/01/21 12:00 Consult to Occupational Therapy Evaluate & Treat Comment: Physician Instructions: Evaluate and treat Consult to Physical Therapy Evaluate & Treat Comment: Physician Instructions: Evaluate and Treat 12/02/21 12:50 Consult to Respiratory Therapy Evaluate & Treat Comment: evaluate for need for Home 02 Physician Instructions: Evaluate and treat Discharge provider: Clark Guardado Summary Hospital Course Discharge Diagnosis: bilateral LE cellulitis Hospital Course: Bilateral cellulitis /dermatosis stasis- treated for 4 days with IV abx, improved, d/c on oral clinda to finish course of treatment, pt will be doinf wound care herself at home HFpEF (ECHO with EF 60% ) - continued diuresis with IV lasix, d/c on oral lasix 40 mg daily Chronic A fib - continued diltiazem,anticoagulation with warfarin, INR at goal Hypertension-continued home meds Hyperlipidemia -continued statin OSAsecondary to obesity, pt advised to sleep on CPAP , non-compliance with CPAP Morbid obesity -counseled in regards to life style modifications Exam Vital Signs (past 8 hours): - 12/06/21 03:20 12/06/21 03:00 12/06/21 07:00 Temperature 98.1 F Pulse Rate 74 89 Respiratory Rate 16 18 Blood Pressure 108/71 111/64 Pulse Oximetry 93 93 95 Oxygen Delivery Method Room Air Oxygen Flow Rate 0 0 Oxygen Delivery Method Room Air Oxygen Flow Rate 0 Const General: cooperative and well developed Orientation: alert, awake and oriented x3 HENMT Head: normal to inspection Ears: external ears normal Mouth: oral mucosae normal Eyes Pupils: PERRL EOM: EOM intact bilaterally Neck Neck: normal visual inspection and full ROM Resp Effort & Inspection: normal respiratory effort Auscultation: clear to auscultation bilaterally Cardio Rate: regular rate Rhythm: regular rhythm GI Palpation: soft and no hepatosplenomegaly Auscultation: normal bowel sounds Skin General: no rashes or lesions noted Neuro General: patient alert, patient awake, patient oriented x3, moves all extre mities and no focal motor deficits Speech: speech normal Extrem General: full ROM, edema, pedal edema and other (bilateral edema L>R , + 2 pitting edema up to midshin) Psych Appearance: grossly normal Objective Labs Result Diagrams: 12/03/21 06:34 12/03/21 06:34 Labs: Laboratory Results - last 24 hr 12/05/21 12:22 PT 26.2 H D INR 2.3 H PFSH Medical History Atrial fibrillation Hyperlipidemia Hypertension Surgical History H/O: hysterectomy History of appendectomy Social History household members: none Smoking Status: Former smoker Discharge Plan Discharge Plan Patient Disposition: Home Nursing Discharge Comment: please give to pt supply for dressing changes/wound care Discharge orders & Medications Prescriptions: New furosemide 40 mg tablet 40 mg PO QAM Qty: 30 0RF clindamycin HCl 300 mg capsule 300 mg PO TID Qty: 18 0RF Continued diltiazem HCl 360 MG capsule,extended release 24 hr 360 mg PO QDAY Qty: 0 metoprolol succinate 50 mg tablet extended release 24 hr 50 mg PO DAILY hydrochlorothiazide 50 mg tablet 25 mg PO DAILY enalapril maleate 20 mg tablet 10 mg PO DAILY simvastatin 40 mg tablet 40 mg PO DAILY warfarin 5 mg tablet 2 tab PO DAILY Follow up/Referrals: Elli Silverio MD [Primary Care Provider] - Diet/Activity/Treatments Diet: Diet as Tolerated Activity: as tolerates Skin/Wound/Dressing Care Dressing: daily herself Discharge Data Primary Care Provider: Elli Silverio Quality VTE Deep Vein Thrombosis/Pulmonary Embolism Present on Admission: No
[2021-12-06] MEDS: FUROSEMIDE 40 MG/4 ML VIAL IV (09:19)
[2021-12-06] MEDS: METOPROLOL ER 50 MG TABLET PO (09:20)
[2021-12-06] MEDS: dilTIAZem CD 180 MG CAP 360 MG PO (09:21)
--- NOTE | 2021-12-06 11:15 | PC.RNWOUND ---
Patient resting in bed, dressings removed to BLE's. Right lower extremity has some scattered dry adherent crust/scabs to lower posterior leg, no drainage, trace edema only. Left lower extremity edema appears much improved since yesterday, redness has receeded significantly from skin marker and is only evident now at the left lateral aspect of where patient had leg dependent. There is a small area of dried adherent crust and a 9 x 5.5cm bulla which appears to have almost drained and is still drainage a small amount of serous fluid. This wound is gently cleansed with saline and dressed to orders. Small allevyn is placed to dried crust areas for absorption and protection. Dorsalis pedal pulses are easily palpated, capillary refill less than 3 seconds to bilateral great toes. Patient verbalizes understanding to elevate legs for 20 minutes or more twice a day, do foot pumps regularly, wear compression at home, and follow up at wound clinic. Patient tolerates cares well.
--- NOTE | 2021-12-06 11:29 | PM.PN.1 ---
Subjective Subjective Interval history: more alert and interactive today, denies any new complaint Exam Vital Signs (past 8 hours): - 12/06/21 07:00 12/06/21 09:20 12/06/21 10:14 Pulse Rate 89 89 88 Respiratory Rate 18 18 Blood Pressure 111/64 111/64 Pulse Oximetry 95 100 Oxygen Delivery Method Room Air Oxygen Flow Rate 0 Oxygen Delivery Method Room Air Oxygen Flow Rate 0 Const General: cooperative and well developed Orientation: alert, awake and oriented x3 HENMT Head: normal to inspection Ears: external ears normal Mouth: oral mucosae normal Eyes Pupils: PERRL EOM: EOM intact bilaterally Neck Neck: normal visual inspection and full ROM Resp Effort & Inspection: normal respiratory effort Auscultation: clear to auscultation bilaterally Cardio Rate: regular rate Rhythm: regular rhythm GI Palpation: soft and no hepatosplenomegaly Auscultation: normal bowel sounds Skin General: no rashes or lesions noted Neuro General: patient alert, patient awake, patient oriented x3, moves all extremities and no focal motor deficits Speech: speech normal Extrem General: full ROM, edema, pedal edema and other (bilateral edema L>R , + 2 pitting edema up to midshin) Psych Appearance: grossly normal Objective Labs Result Diagrams: 12/03/21 06:34 12/03/21 06:34 Labs: Laboratory Results - last 24 hr 12/05/21 12:22 PT 26.2 H D INR 2.3 H PFSH Medical History Atrial fibrillation Hyperlipidemia Hypertension Surgical History H/O: hysterectomy History of appendectomy Social History household members: none Smoking Status: Former smoker Assessment & Plan Assessment & Plan narrative: Bilateral cellulitis /dermatosis stasis continue improving - continue empiric ceftriaxone, add clinda - continue to elevated legs - continue wound care HFpEF (ECHO with EF 60% ) - continue diuresis - fluid restriction, low salt diet Chronic A fib -continue telemetry monitoring -continue diltiazem -continue anticoagulation with warfarin -daily INR ( 2.3 today at goal) Hypertension -continue home meds -BP controlled Hyperlipidemia -continue atorvastatin JUDIE secondary to obesity - telemetry monitoring -continue supplemental O2 Morbid obesity -counseled in regards to life style modifications - DVT prophylaxis: coumadin Code stats : full disposition: hopefully in 24-48 h Time Spent With Patient Critical Care time: I spent a total of [] minutes of critical care time on this patient's care today; this time is exclusive of procedural time. Quality VTE Deep Vein Thrombosis/Pulmonary Embolism Present on Admission: No
[2021-12-06] MEDS: cefTRIAXone 1,000 MG in SODIUM CHLORIDE 0.9% 100 ML 200 MG IV (12:05)
[2021-12-06 12:35] LABS: INR 2.7 (0.9-1.3); Prothrombin Time 31.9 SECONDS (10.1-12.7)
== END 2021-12-06 14:24 | disposition home or self-care (01) | DRG 603 ==
LOC: ED 13:20 → AC 14:24
PROVIDERS: Internal Medicine; Admitting Provider Internal Medicine; Emergency Provider Emergency Medicine; PCP Internal Medicine; Referring Provider Emergency Medicine; Visit Provider Internal Medicine
DX: L03.116 Cellulitis of left lower limb (principal); I50.30 Unspecified diastolic (congestive) heart failure; I48.20 Chronic atrial fibrillation, unspecified; I48.92 Unspecified atrial flutter; L03.115 Cellulitis of right lower limb; I11.0 Hypertensive heart disease with heart failure; E66.01 Morbid (severe) obesity due to excess calories; G47.33 Obstructive sleep apnea (adult) (pediatric); E78.5 Hyperlipidemia, unspecified; Z20.822 Contact with and (suspected) exposure to COVID-19; Z87.891 Personal history of nicotine dependence; Z68.39 Body mass index [BMI] 39.0-39.9, adult; Z79.01 Long term (current) use of anticoagulants
CPT/HCPCS: 36415; 71046; 80048; 80053; 81001; 81003; 82550; 83605; 83735; 83880; 84484; 85025; 85610; 87040; 87086; 87635; 93005; 93010; 93306; 93970; 94760; 96365; 96368; 99284; C9803; G0378; J0696; J1940

== ENCOUNTER → 2021-12-16 13:26 | Outpatient (CLI) | payer MEDICARE, OTHER, SELFPAY ==
[2021-11-30 16:00] VITALS: BMI 39.7
== END ==
PROVIDERS: Family Provider Internal Medicine; PCP Internal Medicine; Referring Provider Internal Medicine; Visit Provider Nurse Practitioner Family
DX: I87.2 Venous insufficiency (chronic) (peripheral) (principal); L97.822 Non-pressure chronic ulcer of other part of left lower leg with fat layer exposed; R60.0 Localized edema; I11.0 Hypertensive heart disease with heart failure; I50.9 Heart failure, unspecified; I48.91 Unspecified atrial fibrillation; Z79.01 Long term (current) use of anticoagulants
CPT/HCPCS: 11042; 99204; 99213

== ENCOUNTER → 2021-12-23 14:23 | Outpatient (CLI) | payer MEDICARE, OTHER, SELFPAY ==
[2021-11-30 16:00] VITALS: BMI 39.7
== END ==
PROVIDERS: Family Provider Internal Medicine; PCP Internal Medicine; Referring Provider Internal Medicine; Visit Provider Family Medicine
DX: Z09 Encounter for follow-up examination after completed treatment for conditions other than malignant neoplasm (principal); I87.2 Venous insufficiency (chronic) (peripheral); R60.0 Localized edema; I11.0 Hypertensive heart disease with heart failure; I50.9 Heart failure, unspecified; I48.91 Unspecified atrial fibrillation; Z79.01 Long term (current) use of anticoagulants; Z87.2 Personal history of diseases of the skin and subcutaneous tissue
CPT/HCPCS: 99213

== ENCOUNTER 2022-02-14 15:37 | Emergency (ER) | payer MEDICARE, OTHER, SELFPAY ==
[2021-11-30 16:00] VITALS: BMI 39.7
[2022-02-14 15:57] VITALS: BP 108/51; PULSE 95; RESP 22; TEMP 36.9; O2SAT 96
--- NOTE | 2022-02-14 19:35 | ED_ITS ---
HPI - Skin/Abscess/Foreign Bdy General Chief complaint: Skin/Abscess/Foreign Body Stated complaint: Wound left leg Time Seen by Provider: 02/14/22 19:30 Source: patient Mode of arrival: Wheelchair History of Present Illness HPI narrative: 77-year-old female former smoker with history of CHF, AFib on anticoagulation and hypertension along with chronic wound on her left lower extremity presents with a chief complaint of some new erythema surrounding the wound. She admits to minimal pain, no red streaks or significant swelling. She denies any systemic findings such as dizziness, weakness or lightheadedness and has no fever or chills. She states that she had spoken with wound care was sent here to obtain a wound culture. She had last been on antibiotics in November after an admission for significant cellulitis and sepsis and responded well to clindamycin Related Data Home Medications Medication Instructions Recorded Confirmed diltiazem HCl 360 mg capsule,24 360 mg PO QDAY ##0 09/04/16 11/30/21 hr,extended release enalapril maleate 20 mg tablet 10 mg PO DAILY 03/15/21 11/30/21 hydrochlorothiazide 50 mg tablet 25 mg PO DAILY 03/15/21 11/30/21 metoprolol succinate 50 mg 50 mg PO DAILY 03/15/21 11/30/21 tablet,extended release 24 hr simvastatin 40 mg tablet 40 mg PO DAILY 03/15/21 11/30/21 warfarin 5 mg tablet 2 tab PO DAILY 11/30/21 11/30/21 Previous Rx's Medication Instructions Recorded clindamycin HCl 300 mg capsule 300 mg PO TID #18 caps 12/06/21 furosemide 40 mg tablet 40 mg PO QAM #30 tabs 12/06/21 clindamycin HCl 300 mg capsule 300 mg PO Q8H 10 days #30 caps 02/14/22 Allergies Allergy/AdvReac Type Severity Reaction Status Date / Time No Known Drug Allergies Allergy Verified 11/30/21 11:47 Review of Systems Review of Systems Narrative: GENERAL: Denies chills, fatigue, malaise, fever, sweats. HEENT: Denies sinus pain, ear pain, sore throat, difficulty swallowing, dizziness. RESPIRATORY: Denies dyspnea, cough, wheezing, hemoptysis, sputum. CARDIOVASCULAR: Denies chest pain, palpitations, orthopnea, edema, GASTROINTESTINAL: Denies nausea, vomiting, abdominal pain, diarrhea, constipation, melena. : Denies dysuria, frequency, incontinence, hematuria, urinary retention. MUSCULOSKELETAL: denies weakness, joint pain, or bony pain SKIN: See HPI NEUROLOGIC: Denies weakness, headache, numbness, change in speech, confusion, seizures, incoordination. PSYCHIATRIC: No concerning psychosocial issues. 12 point review of systems is negative except for those stated above Patient History Medical History Atrial fibrillation Hyperlipidemia Hypertension Surgical History H/O: hysterectomy History of appendectomy Social History household members: none Smoking Status: Former smoker Smoking Status: Former smoker alcohol intake frequency: holidays/special occasions only Substance Use Type: does not use Exam Narrative Exam Narrative: GEN: AOx3 and in mild distress EYES: Pupils are equal, round, and reactive to light and accommodation. Extraoccular muscles are intact bilaterally. There is no subconjunctival hemorr k[place] or exudate. CHEST: Lungs are clear to auscultation bilaterally and free of wheezes, rales, or rhonchi. Heart rate is regular rhythm, there are no murmurs, clicks, rubs, or gallops. There is no chest wall tenderness. ABD: Abdomen is soft and nontender. There is no guarding or rebound. Bowel sounds are normal in all 4 quadrants. There is no mass or organomegaly. EXT: 1+ pitting edema bilaterally Full painless ROM of all extremities with no loss of sensation or strength. SKIN: 4 x 6 cm area of erythema without induration, fluctuance or surrounding lymphangitis on left anterior hoover, very small amount of spontaneous drainage of serous fluid which has been cultured Initial Vital Signs Initial Vital Signs: Vital Signs Temperature 98.5 F 02/14/22 15:57 Pulse Rate 95 H 02/14/22 15:57 Respiratory Rate 22 02/14/22 15:57 Blood Pressure 108/51 L 02/14/22 15:57 Pulse Oximetry 96 02/14/22 15:57 Oxygen Delivery Method 02/14/22 15:57 Course Orders Ordered: ED Orders 02/14/22 19:35 Wound Culture and Gram Stain Stat Discontinued Medications Clindamycin HCl (Clindamycin 150 Mg Capsule) 300 mg PO NOW ONE Stop: 02/14/22 19:41 Last Admin: 02/14/22 19:46 Dose: 300 mg Documented By: CARRILLO Vital Signs Vital signs: Vital Signs - 8 hr 02/14/22 19:53 Pulse Rate 95 H Respiratory Rate 24 Blood Pressure 115/85 Pulse Oximetry 96 Oxygen Delivery Method Room Air MDM - Skin/Abscess/Foreign Bdy MDM Narrative Medical decision making narrative: Patient with history of chronic left lower extremity wound presents for evaluation. She denies fever, chills nor nausea or vomiting. She has no chest pain or shortness of breath. She has very minimal erythema. There is no evidence of significant underlying infection, culture has been obtained, antibiotics ordered. She does state that she feels like both of her legs are slightly more swollen than normal despite use of Lasix. I encouraged her to take an increased dose for the next 3 days and then return to her prior dosing regimen. Return precautions given and questions have been answered to her apparent satisfaction Discharge Plan Departure Patient Disposition: Home Clinical Impression: Cellulitis, Edema of lower extremity Instructions: DI for Cellulitis -- Adult Activity Restrictions/Additional Instructions: *You have been diagnosed with [minimal left lower extremity cellulitis] *What to do: *Please take an extra Lasix daily for each of the next 3 days and then return to your normal dosing, otherwise please continue to take your regular medications as directed. [x ] New medication prescriptions sent to your pharmacy: [[facility] ] [ ] New medication written as a paper prescription [ ] No new medications given *Please follow up with your primary care provider in 2-3 days, call for an appointment. Let them know you were seen in the Emergency Department and that we ask that you be seen in follow up. We will electronically transmit a record of today's note if your PCP is in our system *If you do not have a primary care provider please contact the [facility] Resource line at [phone]. They will ask some questions about your medical history and help get you set up with a doctor in the community. *Return to Emergency Department if you should have any new, worsening or concerning symptoms, such as [fever greater than 101 F, shaking chills, worsening pain, persistent vomiting or other bothersome symptoms] Prescriptions: New clindamycin HCl 300 mg capsule 300 mg PO Q8H 10 Days Qty: 30 0RF No Action diltiazem HCl 360 MG capsule,extended release 24 hr 360 mg PO QDAY Qty: 0 metoprolol succinate 50 mg tablet extended release 24 hr 50 mg PO DAILY hydrochlorothiazide 50 mg tablet 25 mg PO DAILY enalapril maleate 20 mg tablet 10 mg PO DAILY simvastatin 40 mg tablet 40 mg PO DAILY warfarin 5 mg tablet 2 tab PO DAILY furosemide 40 mg tablet 40 mg PO QAM Qty: 30 0RF clindamycin HCl 300 mg capsule 300 mg PO TID Qty: 18 0RF Visit Report Forms: Patient Portal/API
[2022-02-14] MEDS: CLINDAMYCIN 150 MG CAPSULE 300 MG PO (19:46)
[2022-02-14 19:53] VITALS: BP 115/85; PULSE 95; RESP 24; O2SAT 96
== END 2022-02-14 19:59 | disposition home or self-care (01) ==
PROVIDERS: Emergency Provider Emergency Medicine
DX: L03.116 Cellulitis of left lower limb (principal); R60.0 Localized edema
CPT/HCPCS: 87070; 87075; 87147; 87205; 99283

== ENCOUNTER → 2022-02-16 14:50 | Outpatient (CLI) | payer MEDICARE, OTHER, SELFPAY ==
[2021-11-30 16:00] VITALS: BMI 39.7
== END ==
PROVIDERS: PCP Internal Medicine; Referring Provider Internal Medicine; Visit Provider Nurse Practitioner Family
DX: I87.2 Venous insufficiency (chronic) (peripheral) (principal); L97.821 Non-pressure chronic ulcer of other part of left lower leg limited to breakdown of skin; R60.0 Localized edema
CPT/HCPCS: 99213

== ENCOUNTER → 2022-02-17 14:12 | Outpatient (CLI) | payer MEDICARE, OTHER, SELFPAY ==
[2021-11-30 16:00] VITALS: BMI 39.7
== END ==
PROVIDERS: PCP Internal Medicine; Referring Provider Internal Medicine; Visit Provider Nurse Practitioner Family
DX: L03.116 Cellulitis of left lower limb (principal); I87.2 Venous insufficiency (chronic) (peripheral); L97.821 Non-pressure chronic ulcer of other part of left lower leg limited to breakdown of skin; R60.9 Edema, unspecified; Z79.01 Long term (current) use of anticoagulants
CPT/HCPCS: 99213

== ENCOUNTER → 2022-02-28 16:23 | Outpatient (CLI) | payer MEDICARE, OTHER, SELFPAY ==
[2021-11-30 16:00] VITALS: BMI 39.7
--- NOTE | 2022-02-28 16:28 | DI.RAD.S_ITS ---
PROCEDURE: XR HIP W PEL IF DONE RT 2V INDICATIONS: RIGHT HIP PAIN TECHNIQUE: AP pelvis with lateral view(s) of the both hip(s). COMPARISON: [facility], , XR HIP W PEL IF DONE LT 2V, 03/06/2018, 15:02. FINDINGS: Bones: No fractures or dislocations. Pelvic ring appears intact. No suspicious bony lesions. Soft tissues: The visualized bowel gas pattern is normal. No suspicious soft tissue calcifications. IMPRESSION: Negative hips and pelvis. Dictated by: Ace Irizarry M.D. on 02/28/2022 at 17:12 Approved by: Ace Irizarry M.D. on 02/28/2022 at 17:14
== END ==
PROVIDERS: PCP Internal Medicine; Referring Provider Internal Medicine; Visit Provider Internal Medicine
DX: M25.551 Pain in right hip (principal)
CPT/HCPCS: 73502

== ENCOUNTER → 2022-06-27 14:18 | Outpatient (CLI) | payer MEDICARE, OTHER, SELFPAY ==
[2021-11-30 16:00] VITALS: BMI 39.7
== END ==
PROVIDERS: PCP Internal Medicine; Referring Provider Internal Medicine; Visit Provider Surgery
DX: I89.0 Lymphedema, not elsewhere classified (principal); I87.2 Venous insufficiency (chronic) (peripheral); L97.822 Non-pressure chronic ulcer of other part of left lower leg with fat layer exposed; L97.812 Non-pressure chronic ulcer of other part of right lower leg with fat layer exposed; R60.0 Localized edema; M79.605 Pain in left leg; M79.604 Pain in right leg
CPT/HCPCS: 29581; 87070; 87075; 87077; 87186; 87205; 99214; 99215

== ENCOUNTER → 2022-06-29 14:47 | Outpatient (CLI) | payer MEDICARE, OTHER, SELFPAY ==
[2021-11-30 16:00] VITALS: BMI 39.7
== END ==
PROVIDERS: PCP Internal Medicine; Referring Provider Internal Medicine; Visit Provider Surgery
DX: I89.0 Lymphedema, not elsewhere classified (principal); L97.822 Non-pressure chronic ulcer of other part of left lower leg with fat layer exposed; L97.812 Non-pressure chronic ulcer of other part of right lower leg with fat layer exposed; R60.0 Localized edema
CPT/HCPCS: 99212

== ENCOUNTER → 2022-07-03 14:48 | Outpatient (CLI) | payer MEDICARE, OTHER, SELFPAY ==
[2021-11-30 16:00] VITALS: BMI 39.7
== END ==
PROVIDERS: PCP Internal Medicine; Referring Provider Internal Medicine; Visit Provider Surgery
DX: I89.0 Lymphedema, not elsewhere classified (principal); L97.822 Non-pressure chronic ulcer of other part of left lower leg with fat layer exposed; L97.812 Non-pressure chronic ulcer of other part of right lower leg with fat layer exposed; R60.0 Localized edema; M79.605 Pain in left leg
CPT/HCPCS: 99213

== ENCOUNTER → 2022-07-05 15:10 | Outpatient (CLI) | payer MEDICARE, OTHER, SELFPAY ==
[2021-11-30 16:00] VITALS: BMI 39.7
== END ==
PROVIDERS: PCP Internal Medicine; Referring Provider Internal Medicine; Visit Provider Surgery
DX: I89.0 Lymphedema, not elsewhere classified (principal); I87.2 Venous insufficiency (chronic) (peripheral); L97.822 Non-pressure chronic ulcer of other part of left lower leg with fat layer exposed; L97.812 Non-pressure chronic ulcer of other part of right lower leg with fat layer exposed; R60.0 Localized edema
CPT/HCPCS: 97597

== ENCOUNTER → 2022-07-07 14:03 | Outpatient (CLI) | payer MEDICARE, OTHER, SELFPAY ==
[2021-11-30 16:00] VITALS: BMI 39.7
== END ==
PROVIDERS: PCP Internal Medicine; Referring Provider Internal Medicine; Visit Provider Nurse Practitioner Family
DX: I89.0 Lymphedema, not elsewhere classified (principal); L97.822 Non-pressure chronic ulcer of other part of left lower leg with fat layer exposed; L97.812 Non-pressure chronic ulcer of other part of right lower leg with fat layer exposed; R60.0 Localized edema
CPT/HCPCS: 99213

== ENCOUNTER → 2022-07-10 15:17 | Outpatient (CLI) | payer MEDICARE, OTHER, SELFPAY ==
[2021-11-30 16:00] VITALS: BMI 39.7
== END ==
PROVIDERS: PCP Internal Medicine; Referring Provider Internal Medicine; Visit Provider Surgery
DX: I89.0 Lymphedema, not elsewhere classified (principal); L97.822 Non-pressure chronic ulcer of other part of left lower leg with fat layer exposed; L97.812 Non-pressure chronic ulcer of other part of right lower leg with fat layer exposed; R60.0 Localized edema
CPT/HCPCS: 99213

== ENCOUNTER → 2022-07-12 15:11 | Outpatient (CLI) | payer MEDICARE, OTHER, SELFPAY ==
[2021-11-30 16:00] VITALS: BMI 39.7
== END ==
PROVIDERS: PCP Internal Medicine; Referring Provider Internal Medicine; Visit Provider Surgery
DX: I89.0 Lymphedema, not elsewhere classified (principal); I87.2 Venous insufficiency (chronic) (peripheral); L97.822 Non-pressure chronic ulcer of other part of left lower leg with fat layer exposed; L97.812 Non-pressure chronic ulcer of other part of right lower leg with fat layer exposed; E66.9 Obesity, unspecified
CPT/HCPCS: 99213; 99214

== ENCOUNTER → 2022-07-14 15:11 | Outpatient (CLI) | payer MEDICARE, OTHER, SELFPAY ==
[2021-11-30 16:00] VITALS: BMI 39.7
== END ==
PROVIDERS: Family Provider Internal Medicine; PCP Internal Medicine; Referring Provider Internal Medicine; Visit Provider Nurse Practitioner Family
DX: I89.0 Lymphedema, not elsewhere classified (principal); L97.822 Non-pressure chronic ulcer of other part of left lower leg with fat layer exposed; L97.812 Non-pressure chronic ulcer of other part of right lower leg with fat layer exposed
CPT/HCPCS: 99213

== ENCOUNTER → 2022-07-21 15:00 | Outpatient (CLI) | payer MEDICARE, OTHER, SELFPAY ==
[2021-11-30 16:00] VITALS: BMI 39.7
== END ==
PROVIDERS: Family Provider Internal Medicine; PCP Internal Medicine; Referring Provider Internal Medicine; Visit Provider Nurse Practitioner Family
DX: I89.0 Lymphedema, not elsewhere classified (principal); S81.802A Unspecified open wound, left lower leg, initial encounter; S81.801A Unspecified open wound, right lower leg, initial encounter
CPT/HCPCS: 99213

== ENCOUNTER → 2022-07-24 14:27 | Outpatient (CLI) | payer MEDICARE, OTHER, SELFPAY ==
[2021-11-30 16:00] VITALS: BMI 39.7
== END ==
PROVIDERS: Family Provider Internal Medicine; PCP Internal Medicine; Referring Provider Internal Medicine; Visit Provider Surgery
DX: I89.0 Lymphedema, not elsewhere classified (principal); I87.2 Venous insufficiency (chronic) (peripheral); L97.822 Non-pressure chronic ulcer of other part of left lower leg with fat layer exposed; L97.812 Non-pressure chronic ulcer of other part of right lower leg with fat layer exposed
CPT/HCPCS: 99213

== ENCOUNTER → 2022-07-28 14:42 | Outpatient (CLI) | payer MEDICARE, OTHER, SELFPAY ==
[2021-11-30 16:00] VITALS: BMI 39.7
== END ==
PROVIDERS: Family Provider Internal Medicine; PCP Internal Medicine; Referring Provider Internal Medicine; Visit Provider Nurse Practitioner Family
DX: I89.0 Lymphedema, not elsewhere classified (principal); L97.822 Non-pressure chronic ulcer of other part of left lower leg with fat layer exposed; L89.313 Pressure ulcer of right buttock, stage 3; L08.9 Local infection of the skin and subcutaneous tissue, unspecified; I87.2 Venous insufficiency (chronic) (peripheral); L97.812 Non-pressure chronic ulcer of other part of right lower leg with fat layer exposed
CPT/HCPCS: 87070; 87205; 97597; 99214

== ENCOUNTER → 2022-07-31 14:51 | Outpatient (CLI) | payer MEDICARE, OTHER, SELFPAY ==
[2021-11-30 16:00] VITALS: BMI 39.7
== END ==
PROVIDERS: Family Provider Internal Medicine; PCP Internal Medicine; Referring Provider Internal Medicine; Visit Provider Surgery
DX: I89.0 Lymphedema, not elsewhere classified (principal); I87.2 Venous insufficiency (chronic) (peripheral); L89.313 Pressure ulcer of right buttock, stage 3; L97.822 Non-pressure chronic ulcer of other part of left lower leg with fat layer exposed; L97.812 Non-pressure chronic ulcer of other part of right lower leg with fat layer exposed; L08.9 Local infection of the skin and subcutaneous tissue, unspecified; R60.0 Localized edema
CPT/HCPCS: 29581; 99213

== ENCOUNTER → 2022-08-02 15:31 | Outpatient (CLI) | payer MEDICARE, OTHER, SELFPAY ==
[2021-11-30 16:00] VITALS: BMI 39.7
== END ==
PROVIDERS: Family Provider Internal Medicine; PCP Internal Medicine; Referring Provider Internal Medicine; Visit Provider Surgery
DX: I89.0 Lymphedema, not elsewhere classified (principal); L97.822 Non-pressure chronic ulcer of other part of left lower leg with fat layer exposed; L89.313 Pressure ulcer of right buttock, stage 3; L97.812 Non-pressure chronic ulcer of other part of right lower leg with fat layer exposed
CPT/HCPCS: 29581

== ENCOUNTER → 2022-08-04 13:15 | Outpatient (CLI) | payer MEDICARE, OTHER, SELFPAY ==
[2021-11-30 16:00] VITALS: BMI 39.7
== END ==
PROVIDERS: Family Provider Internal Medicine; PCP Internal Medicine; Referring Provider Internal Medicine; Visit Provider Nurse Practitioner Family
DX: I89.0 Lymphedema, not elsewhere classified (principal); L97.822 Non-pressure chronic ulcer of other part of left lower leg with fat layer exposed; L97.812 Non-pressure chronic ulcer of other part of right lower leg with fat layer exposed; L89.313 Pressure ulcer of right buttock, stage 3
CPT/HCPCS: 99214

== ENCOUNTER → 2022-08-07 15:09 | Outpatient (CLI) | payer MEDICARE, OTHER, SELFPAY ==
[2021-11-30 16:00] VITALS: BMI 39.7
== END ==
PROVIDERS: Family Provider Internal Medicine; PCP Internal Medicine; Referring Provider Internal Medicine; Visit Provider Surgery
DX: I89.0 Lymphedema, not elsewhere classified (principal); I87.2 Venous insufficiency (chronic) (peripheral); L89.313 Pressure ulcer of right buttock, stage 3; L97.822 Non-pressure chronic ulcer of other part of left lower leg with fat layer exposed; L97.812 Non-pressure chronic ulcer of other part of right lower leg with fat layer exposed
CPT/HCPCS: 29581; 97602; 99212; 99213

== ENCOUNTER → 2022-09-01 13:26 | Outpatient (CLI) | payer MEDICARE, OTHER, SELFPAY ==
[2021-11-30 16:00] VITALS: BMI 39.7
== END ==
PROVIDERS: Family Provider Internal Medicine; PCP Internal Medicine; Referring Provider Internal Medicine; Visit Provider Nurse Practitioner Family
DX: I89.0 Lymphedema, not elsewhere classified (principal); L97.812 Non-pressure chronic ulcer of other part of right lower leg with fat layer exposed; I87.2 Venous insufficiency (chronic) (peripheral)
CPT/HCPCS: 87070; 87075; 87077; 87185; 87186; 87205; 97597; 97598; 99213

== ENCOUNTER → 2022-09-08 10:21 | Outpatient (CLI) | payer MEDICARE, OTHER, SELFPAY ==
[2021-11-30 16:00] VITALS: BMI 39.7
== END ==
PROVIDERS: Family Provider Internal Medicine; PCP Internal Medicine; Referring Provider Internal Medicine; Visit Provider Nurse Practitioner Family
DX: I89.0 Lymphedema, not elsewhere classified (principal); L97.812 Non-pressure chronic ulcer of other part of right lower leg with fat layer exposed
CPT/HCPCS: 29581

== ENCOUNTER → 2022-09-12 14:05 | Outpatient (CLI) | payer MEDICARE, OTHER, SELFPAY ==
[2021-11-30 16:00] VITALS: BMI 39.7
== END ==
PROVIDERS: Family Provider Internal Medicine; PCP Internal Medicine; Referring Provider Internal Medicine; Visit Provider Surgery
DX: I89.0 Lymphedema, not elsewhere classified (principal); L97.812 Non-pressure chronic ulcer of other part of right lower leg with fat layer exposed
CPT/HCPCS: 29581

== ENCOUNTER → 2022-09-15 14:10 | Outpatient (CLI) | payer MEDICARE, OTHER, SELFPAY ==
[2021-11-30 16:00] VITALS: BMI 39.7
== END ==
PROVIDERS: Family Provider Internal Medicine; PCP Internal Medicine; Referring Provider Internal Medicine; Visit Provider Nurse Practitioner Family
DX: I89.0 Lymphedema, not elsewhere classified (principal); I87.2 Venous insufficiency (chronic) (peripheral); L97.812 Non-pressure chronic ulcer of other part of right lower leg with fat layer exposed; R60.0 Localized edema
CPT/HCPCS: 11042; 11045

== ENCOUNTER → 2022-09-22 13:25 | Outpatient (CLI) | payer MEDICARE, OTHER, SELFPAY ==
[2021-11-30 16:00] VITALS: BMI 39.7
== END ==
PROVIDERS: Family Provider Internal Medicine; PCP Internal Medicine; Referring Provider Internal Medicine; Visit Provider Nurse Practitioner Family
DX: I89.0 Lymphedema, not elsewhere classified (principal); I87.2 Venous insufficiency (chronic) (peripheral)
CPT/HCPCS: 29581; 99213

== ENCOUNTER → 2022-09-29 13:22 | Outpatient (CLI) | payer MEDICARE, OTHER, SELFPAY ==
[2021-11-30 16:00] VITALS: BMI 39.7
== END ==
PROVIDERS: Family Provider Internal Medicine; PCP Internal Medicine; Referring Provider Internal Medicine; Visit Provider Nurse Practitioner Family
DX: I89.0 Lymphedema, not elsewhere classified (principal); I87.2 Venous insufficiency (chronic) (peripheral)
CPT/HCPCS: 29581; 99213

== ENCOUNTER → 2022-12-28 13:42 | Outpatient (CLI) | payer MEDICARE, OTHER, SELFPAY ==
[2021-11-30 16:00] VITALS: BMI 39.7
[2022-12-28 15:01] LABS: INR 2.5 (0.9-1.3); Prothrombin Time 28.9 SECONDS (10.1-12.7)
== END ==
PROVIDERS: Family Provider Internal Medicine; PCP Internal Medicine; Referring Provider Internal Medicine; Visit Provider Internal Medicine
DX: Z79.01 Long term (current) use of anticoagulants (principal); Z51.81 Encounter for therapeutic drug level monitoring
CPT/HCPCS: 36415; 85610

== ENCOUNTER → 2023-01-03 14:36 | Outpatient (CLI) | payer MEDICARE, OTHER, SELFPAY ==
[2021-11-30 16:00] VITALS: BMI 39.7
[2023-01-03 16:43] LABS: INR 1.7 (0.9-1.3); Prothrombin Time 20.1 SECONDS (10.1-12.7)
== END ==
PROVIDERS: Family Provider Internal Medicine; PCP Internal Medicine; Referring Provider Internal Medicine; Visit Provider Internal Medicine
DX: Z51.81 Encounter for therapeutic drug level monitoring (principal); Z79.01 Long term (current) use of anticoagulants
CPT/HCPCS: 36415; 85610

== ENCOUNTER 2023-01-03 17:09 | Emergency (ER) | payer MEDICARE, OTHER, SELFPAY ==
[2021-11-30 16:00] VITALS: BMI 39.7
[2023-01-03 17:37] VITALS: BP 102/53; PULSE 81; RESP 20; TEMP 36.2; O2SAT 97; BMI 45.1
--- NOTE | 2023-01-03 19:25 | PC.NURSE ---
Pt states she has not been using her lymphedema machine r/t high INR. INR rechecked today. c/o pain / discomfort. No overt s/s of infection.
[2023-01-03 19:36] VITALS: PULSE 75; TEMP 36.7; O2SAT 95
--- NOTE | 2023-01-03 19:38 | ED.LOWEXIN ---
HPI - Extremity Injury (Lower) General Chief Complaint: Extremity Injury, Lower Stated Complaint: states needs antibiotics Time Seen by Provider: 01/03/23 17:49 Source: patient Mode of arrival: Ambulatory History of Present Illness HPI Narrative: Patient is a 77-year-old female. Has chronic issues with her lower extremities to include ulcers. She has been under the care by wound care in the past but not currently. She is not currently on the antibiotics. Over the past couple days she has noticed increased in pain and redness to both of her lower extremities but specifically her left lower extremity. She also has quite a bit of pain on both of her heels. She is here with concerns of an infection in her lower extremity. She denies any fevers. No chest pain or shortness of breath or abdominal pain. She is ambulatory but it hurts for her to walk. Related Data Home Medications Medication Instructions Recorded Confirmed diltiazem HCl 360 mg capsule,24 360 mg PO QDAY ##0 09/04/16 03/14/22 hr,extended release enalapril maleate 20 mg tablet 10 mg PO DAILY 03/15/21 03/14/22 hydrochlorothiazide 50 mg tablet 25 mg PO DAILY 03/15/21 03/14/22 metoprolol succinate 50 mg 50 mg PO DAILY 03/15/21 03/14/22 tablet,extended release 24 hr simvastatin 40 mg tablet 40 mg PO DAILY 03/15/21 03/14/22 warfarin 5 mg tablet 2 tab PO DAILY 11/30/21 03/14/22 Previous Rx's Medication Instructions Recorded clindamycin HCl 300 mg capsule 300 mg PO TID #18 caps 12/06/21 furosemide 40 mg tablet 40 mg PO QAM #30 tabs 12/06/21 cephalexin 500 mg capsule 500 mg PO QID 5 days #20 caps 01/03/23 gabapentin 100 mg capsule 100 mg PO TID #90 caps 01/03/23 Allergies Allergy/AdvReac Type Severity Reaction Status Date / Time pneumococcal vaccine AdvReac Unknown Verified 03/14/22 14:13 Review of Systems Constitutional Constitutional: Reports system reviewed and no additional complaints, except as documented Cardiovascular Cardiovascular: Reports system reviewed and no additional complaints, except as documented Musculoskeletal Musculoskeletal: Reports system reviewed and no additional complaints, except as documented Integumentary/Breasts Skin/Breast: Reports system reviewed and no additional complaints, except as documented Neurologic Neurologic: Reports system reviewed and no additional complaints, except as documented Hematologic/Lymphatic On Anticoagulants: Yes Patient History Medical History Atrial fibrillation Hyperlipidemia Hypertension Surgical History H/O: hysterectomy History of appendectomy Social History household members: none Smoking Status: Former smoker Smoking Status: Former smoker alcohol intake frequency: holidays/special occasions only Substance Use Type: does not use Exam Initial Vital Signs Initial Vital Signs: Vital Signs Temperature 97.2 F L 01/03/23 17:37 Pulse Rate 81 01/03/23 17:37 Respiratory Rate 20 01/03/23 17:37 Blood Pressure 102/53 L 01/03/23 17:37 Pulse Oximetry 97 01/03/23 17:37 Oxygen Delivery Method Room Air 01/03/23 17:37 HENMT Head: normal to inspection and normocephalic Skin Other: Patient does have peeling skin on both of her lower extremities with what some ulcerations on both of her heels. There is no drainage. She does have slight redness to her left lower extremity on the anterior portion of her hoover that is somewhat warm to touch. Neuro Sensory Exam: no sensory deficits noted Extrem Other: Swelling bilateral lower extremities equal bilateral Course Orders Ordered: Discontinued Medications Cephalexin HCl (Cephalexin 250 Mg Capsule) 500 mg PO NOW ONE Stop: 01/03/23 19:44 Last Admin: 01/03/23 20:07 Dose: 500 mg Documented By: ORIANA Gabapentin (Gabapentin 100 Mg Capsule) 100 mg PO NOW ONE Stop: 01/03/23 19:44 Last Admin: 01/03/23 20:17 Dose: 100 mg Documented By: ORIANA Vital Signs Vital signs: Vital Signs - 8 hr 01/03/23 17:37 01/03/23 19:36 01/03/23 20:08 Temperature 97.2 F L 98.1 F Pulse Rate 81 75 Pulse Rate [Bilateral Dorsalis Pedis] 70 Respiratory Rate 20 Blood Pressure 102/53 L Pulse Oximetry 97 95 Oxygen Delivery Method Room Air Room Air 01/03/23 20:11 Temperature Pulse Rate 74 Pulse Rate [Bilateral Dorsalis Pedis] Respiratory Rate 16 Blood Pressure 123/57 L Pulse Oximetry 97 Oxygen Delivery Method Room Air MDM - Extremity Injury (Lower) MDM Narrative Medical decision making narrative: Patient does some redness and warmth to the anterior portion of the left hoover. Given her baseline swelling in her lower extremities and her history she is at risk for developing an infection. Who will start her on antibiotics. She was given 1st dose here in the emergency department. 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 She is not on any medication for this. Will start her on gabapentin. She was advised to contact her primary doctor for follow-up. She expressed understanding and agreement. Discharge Plan Departure Patient Disposition: Home Clinical Impression: Cellulitis Instructions: Cellulitis Activity Restrictions/Additional Instructions: Continue to take all of your medications as directed. Contact your primary doctor for a follow-up. Return to the emergency department for new or worsening symptoms. Prescriptions: New cephalexin 500 mg capsule 500 mg PO QID 5 Days Qty: 20 0RF gabapentin 100 mg capsule 100 mg PO TID Qty: 90 0RF No Action diltiazem HCl 360 MG capsule,extended release 24 hr 360 mg PO QDAY Qty: 0 metoprolol succinate 50 mg tablet extended release 24 hr 50 mg PO DAILY hydrochlorothiazide 50 mg tablet 25 mg PO DAILY enalapril maleate 20 mg tablet 10 mg PO DAILY simvastatin 40 mg tablet 40 mg PO DAILY warfarin 5 mg tablet 2 tab PO DAILY furosemide 40 mg tablet 40 mg PO QAM Qty: 30 0RF clindamycin HCl 300 mg capsule 300 mg PO TID Qty: 18 0RF Referrals: Elli Silverio MD [Primary Care Provider] - Stand Alone Forms: Patient Portal/API
[2023-01-03] MEDS: cephALEXin 250 MG CAPSULE 500 MG PO (20:07)
[2023-01-03 20:08] VITALS: PULSE 70
[2023-01-03 20:11] VITALS: BP 123/57; PULSE 74; RESP 16; O2SAT 97
[2023-01-03] MEDS: GABAPENTIN 100 MG CAPSULE PO (20:17)
== END 2023-01-03 20:20 | disposition home or self-care (01) ==
PROVIDERS: Emergency Provider Emergency Medicine; Family Provider Internal Medicine; PCP Internal Medicine; Referring Provider Internal Medicine
DX: L03.116 Cellulitis of left lower limb (principal); Z51.81 Encounter for therapeutic drug level monitoring; Z79.01 Long term (current) use of anticoagulants
CPT/HCPCS: 36415; 85610; 99283

== ENCOUNTER 2023-02-05 15:00 | Outpatient (RCR) | payer MEDICARE, OTHER, SELFPAY ==
[2021-11-30 16:00] VITALS: BMI 39.7
--- NOTE | 2022-09-05 17:06 | PT.OIE ---
Current Diagnoses Lymphedema, not elsewhere classified (09/05/22) Difficulty in walking, not elsewhere classified (09/05/22) Weakness (09/05/22) Past Medical History (Last Reviewed 03/14/22 @ 16:24 by Dagoberto Ureña MD) Atrial fibrillation Hyperlipidemia Hypertension Past Surgical History (Last Reviewed 03/14/22 @ 16:24 by Dagoberto Ureña MD) H/O: hysterectomy History of appendectomy Visit Care Team Role Provider Type Elli Silverio MD Family Provider Physician Primary Care Provider Specialty: Internal Medicine Address: [place], [address] Phone: Email: Jovan Pérez MD Attending Provider Physician Referring Provider Specialty: Wound Care Address: [address] [place] [address], [place], [address] Email: [email or web address] Physical Therapy Initial Evaluation PT-OP-A Visit Information Start: 09/04/22 16:42 Freq: Status: Active Protocol: Document 09/05/22 14:32 [facility] (Rec: 09/05/22 17:02 [facility] [id number]) Out-Patient Physical Therapy Visit Information Visit Information Visit Type Initial Evaluation Visit Note PT 20 min late Visit Start Time 14:45 Visit Stop Time 16:00 Total Visit Minutes 70 Visit Number 1 Precautions Precautions HTN, back pain, CHF? (patient reports uncertain, Dr. Silverio doesn't think she does), open wound, fungus right great toe PT-OP-B Current Condition Start: 09/04/22 16:42 Freq: Status: Active Protocol: Document 09/05/22 14:32 [facility] (Rec: 09/05/22 17:02 [facility] [id number]) Current Condition History of Current Condition Onset Date 8 years Current Complaints edema myron LE left greater than History of Current Condition Reports she has been c/o swelling and weeping of LE's for 8 years. Gradually increasing edema myron LEs, developed wound left LE in November 2021, went into hospital November 28, there for about 1 week. Was discharged home. States progressive worsening mobility, increase in pain in LE's, hard to move legs. Has had 4 different types of inatibiotics, still swollen. Stopped coming to wound care about 1 month ago due to weather, coming again. Nothing has helped swelling. Legs are wrapped in Coban Prior Treatments and Tests seen by wound care for lateral lower left leg wound Treatment Goals Patient/Caregiver Goals Decrease her lymphedema, be able to self-manage, improve strengh and mobility Prior Functional Status Baseline Function- Gait limited to household and physician appointments. Has someone do grocery sh Baseline Function- Recreation/Hobbies travelled extensively, no difficulty Baseline Function- Other PMH: Atrial fibrillation Hyperlipidemia Hypertension Chronic wound left LE; seeing wound care, history of cellulitis, CHF. Current Functional Impairments (Reported) Functional Limitations- ADL's independent, takes longer, has to sit primarily Functional Limitations- Mobility/Gait limited to household and physician visits Functional Limitations- Recreation/ not able to take walks or Hobbies travel Functional Limitations- Other is basically housebound except for medical appintments Personal Factors Other Personal Factors That May Effect Patient lives alone, has Therapy/Recovery difficulty reaching her feet PT-OP-C Subjective Start: 09/04/22 16:42 Freq: Status: Active Protocol: Document 09/05/22 14:32 [facility] (Rec: 09/05/22 17:02 [facility] [id number]) OP-PT Pain Assessment Pain Assessment Grid Paper Pain Assessment Grid Completed Yes Location myron LE's Pain Location Details see pain chart Intensity 9 Scale Used Numeric (0 - 10) Description Aching,Burning,Sharp,Shooting, Spasm,Tender,Tightness Frequency Frequent Pain Aggravating Factors ADL's,Activity,Exercise, Standing,Sitting Home Pain Medication Use Pain Medications Used Yes PT-OP-G Mobility & Gait Start: 09/04/22 16:42 Freq: Status: Active Protocol: Document 09/05/22 14:32 [facility] (Rec: 09/05/22 17:02 [facility] [id number]) OP Gait Assessment Gait Gait Assistance Required: Standby Assistance Distance (Feet) 75 Assistive Devices Assistive Device None Factors Limiting Gait Function Factors Limiting Gait Function Decreased Strength,Pain Comments Gait Comments heaviness of LE's due to lymphedema myron PT-OP-H Neuro Start: 09/04/22 16:42 Freq: Status: Active Protocol: Document 09/05/22 14:32 [facility] (Rec: 09/05/22 17:02 [facility] [id number]) Sensation Evaluation Gross Sensation Gross Sensation Left LE Impaired,Right LE Impaired PT-OP-J Posture/Palpation/Skin Start: 09/04/22 16:42 Freq: Status: Active Protocol: Document 09/05/22 14:32 [facility] (Rec: 09/05/22 17:02 [facility] [id number]) Skin Assessment Edema Assessment myron LE's Comments 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 Positive Stemmer sign. PT-OP-K Range of Motion Start: 09/04/22 16:42 Freq: Status: Active Protocol: Document 09/05/22 14:32 [facility] (Rec: 09/05/22 17:02 [facility] [id number]) Hip Goniometric Range of Motion Hip ROM Limitations Comments myron mod limited due to lymphedema Knee Goniometric Range of Motion Knee ROM Limitations Comments mod limited due to lymphedema Ankle and Foot Goniometric Range of Motion Ankle and Foot ROM Limitations Comments mod decrease due to edema PT-OP-M Strength Start: 09/04/22 16:42 Freq: Status: Active Protocol: Document 09/05/22 14:32 [facility] (Rec: 09/05/22 17:02 [facility] [id number]) Hip Strength Hip Manual Muscle Testing myron Flexion (L2) 3- Fair- Knee Strength Knee Manual Muscle Testing myron Extension (L3) 3 Fair Ankle/Foot Strength Ankle and Foot Manual Muscle Testing myron Dorsiflexion (L4) 3+ Fair+ Plantarflexion (S1) 3+ Fair+ PT-OP-Q Treatments Start: 09/04/22 16:42 Freq: Status: Active Protocol: Document 09/05/22 14:32 [facility] (Rec: 09/05/22 17:02 [facility] [id number]) Lymphedema Treatment Manual Lymphatic Drainage Comments discussed, will need clearance for CHF before this can be done. Issued written handouts Lymphedema Wrapping Body Location myron LE's Materials white foam, large Coban myron toes to knees Sequential Lymphedema Exercises Location myron LE's Comments Initiated instruction, issued handout Compression Garment Assessment Compression Garment Assessment Details brief discussion Patient Education Lymphedema Pathology discussed Lymphedema Prevention information issued Lymphedema Precautions information issued Compression Garments discussed Self Manual Lymphatic Drainage information issued, waiting for CHF clearance Sequential Lymphedema Exercises information issued PT-OP-T Assessment and Plan Start: 09/04/22 16:42 Freq: Status: Active Protocol: Document 09/05/22 14:32 [facility] (Rec: 09/05/22 17:02 [facility] [id number]) Physical Therapy Assessment Evaluation Complexity Number of Personal Factors/Comorbidities 3 or More Number of Body Systems Impaired 4 or More Clinical Presentation at Evaluation Unstable Impairments Impairments Edema,Functional Mobility Other Concerns Barriers to Rehabilitation patient lives alone, can't reach her feet. Goals Three Impairment lymphedema life impact scale 65% Short Term Goal (STG) Decrease lymphedema life impact scale score to no greater than 50% as measure of improved function and quality of life Alf Goal (LTG) Decrease lymphedema life impact scale score to no greater than 30% as measure of improved function and quality of life LTG Duration 11/05/22 Two Impairment Impaired strength and ROM M[employer] Supervisor Goal (LTG) Patient to LE strength of at least 4/5 and ROM WNL to allow her to return to prior level of functional mobility in the home and community LTG Duration 11/05/22 One Impairment edema myron LE Short Term Goal (STG) Patient to be instructed in all aspects of lymphedemamanagement to include skin care, self-manual lymphatic drainage, lymphatic exericse,and compression STG Duration 10/06/22 [employer] Supervisor Goal (LTG) Decrease myron lymphedema to stable level (no increase or decrease greater than 1 cm over the course of 1 week) and patient to be independent with all aspects of lymphedema care including obtaining appropriate compression for self management, and possible pump for home use LTG Duration 11/05/22 Assessment Summary Assessment Patient presents to PT with 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 She also had a recent bout with cellulitis. Reports gradually worsening edema in her LE's for 8 years with no diagnosis or treatment . At this time she doesn't leave the home except for medical appointments and occasionally to grocery store. She was able to walk in to PT though with difficulty and inability to fit her feet into any shoes. Required use of wheelchair due to fatigue and weakness after PT evaluation today. Feel she would benefit from PT to decrease her lymphedema to stable level and assure she obtains appropriate compression garment and is independent with all aspects of self care for lymphedema. Additionally the decrease in strength and mobility resulting from her lymphedema has severely limited her mobility and as component of her treatment we need to work on her strength and mobility, which will also allow her to self-manage. It is likely she will need custom compression alternatives for ease of donning and adjustability of fit. Patient does not have assistance in the home which will complicate her recovery as she is unable to reach her feet for selfl- bandaging. She has been seeing wound care for chronic wounds, no change in edema. Feel she would benefit highly from the use of a sequential lymphatic pump in the home including trunk component. If scheduling allows and patient is able to increase the frequency would recommend 4x/wk for first 2 weeks of PT treatment but at this time it is not available. Physical Therapy Plan Frequency and Duration Frequency of Treatment 2x/Week Duration of treatment (weeks) 8 Plan of Care Start Date 09/05/22 Plan of Care End Date 11/05/20 Therapeutic Interventions Therapeutic Interventions Home Exercise Program, Lymphedema Management,Manual Therapy,Patient/Caregiver Education,Self-Care/Home Management,Taping,Therapeutic Activities,Therapeutic Exercises Modalities Vasopneumatic Devices Next Visit Focus/Plan Next Note Type Treatment Note Next Visit Plan MLD if cleared by Dr. Silverio regarding CHF. Consider trial sequential pneumatic pump. Lymphedema bandaging. Lymphedema exercises. Discuss and show options for compression garments.
--- NOTE | 2022-09-05 17:06 | PT.OPPOC ---
Physical, Occupational & Speech Therapy At [facility] Current Diagnoses Lymphedema, not elsewhere classified (09/05/22) Difficulty in walking, not elsewhere classified (09/05/22) Weakness (09/05/22) Visit Care Team Role Provider Type Elli Silverio MD Family Provider Physician Primary Care Provider Specialty: Internal Medicine Address: [place], [address] Phone: Email: Jovan Pérez MD Attending Provider Physician Referring Provider Specialty: Wound Care Address: [address] [place] [address], [id number] Email: [email or web address] Plan Of Care PT-OP-T Assessment and Plan Start: 09/04/22 16:42 Freq: Status: Active Protocol: Document 09/05/22 14:32 [facility] (Rec: 09/05/22 17:02 [facility] [id number]) Physical Therapy Assessment Evaluation Complexity Number of Personal Factors/Comorbidities 3 or More Number of Body Systems Impaired 4 or More Clinical Presentation at Evaluation Unstable Impairments Impairments Edema,Functional Mobility Other Concerns Barriers to Rehabilitation patient lives alone, can't reach her feet. Goals Three Impairment lymphedema life impact scale 65% Short Term Goal (STG) Decrease lymphedema life impact scale score to no greater than 50% as measure of improved function and quality of life Group Home Goal (LTG) Decrease lymphedema life impact scale score to no greater than 30% as measure of improved function and quality of life LTG Duration 11/05/22 Two Impairment Impaired strength and ROM Group Home Goal (LTG) Patient to LE strength of at least 4/5 and ROM WNL to allow her to return to prior level of functional mobility in the home and community LTG Duration 11/05/22 One Impairment edema myron LE Short Term Goal (STG) Patient to be instructed in all aspects of lymphedemamanagement to include skin care, self-manual lymphatic drainage, lymphatic exericse,and compression STG Duration 10/06/22 Group Home Goal (LTG) Decrease myron lymphedema to stable level (no increase or decrease greater than 1 cm over the course of 1 week) and patient to be independent with all aspects of lymphedema care including obtaining appropriate compression for self management, and possible pump for home use LTG Duration 11/05/22 Assessment Summary Assessment Patient presents to PT with 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 She also had a recent bout with cellulitis. Reports gradually worsening edema in her LE's for 8 years with no diagnosis or treatment . At this time she doesn't leave the home except for medical appointments and occasionally to grocery store. She was able to walk in to PT though with difficulty and inability to fit her feet into any shoes. Required use of wheelchair due to fatigue and weakness after PT evaluation today. Feel she would benefit from PT to decrease her lymphedema to stable level and assure she obtains appropriate compression garment and is independent with all aspects of self care for lymphedema. Additionally the decrease in strength and mobility resulting from her lymphedema has severely limited her mobility and as component of her treatment we need to work on her strength and mobility, which will also allow her to self-manage. It is likely she will need custom compression alternatives for ease of donning and adjustability of fit. Patient does not have assistance in the home which will complicate her recovery as she is unable to reach her feet for selfl- bandaging. She has been seeing wound care for chronic wounds, no change in edema. Feel she would benefit highly from the use of a sequential lymphatic pump in the home including trunk component. If scheduling allows and patient is able to increase the frequency would recommend 4x/wk for first 2 weeks of PT treatment but at this time it is not available. Physical Therapy Plan Frequency and Duration Frequency of Treatment 2x/Week Duration of treatment (weeks) 8 Plan of Care Start Date 09/05/22 Plan of Care End Date 11/05/20 Therapeutic Interventions Therapeutic Interventions Home Exercise Program, Lymphedema Management,Manual Therapy,Patient/Caregiver Education,Self-Care/Home Management,Taping,Therapeutic Activities,Therapeutic Exercises Modalities Vasopneumatic Devices Next Visit Focus/Plan Next Note Type Treatment Note Next Visit Plan MLD if cleared by Dr. Silverio regarding CHF. Consider trial sequential pneumatic pump. Lymphedema bandaging. Lymphedema exercises. Discuss and show options for compression garments. Plan of Care Dates Plan of Care Start Date 09/05/22 Plan of Care End Date 11/05/20 Electronically Signed by: Leti Mercado, PT 09/05/22 1706 If you are in agreement with this Plan of Care, please return a signed and dated copy. I have reviewed this Plan of Care and certify that the skilled therapy services above are required to meet the patient?s needs. Physician Signature Date Printed Name and Credentials Clinical Instructor Signature Printed Name and Credentials
--- NOTE | 2022-09-12 14:22 | PT.OTN ---
Current Diagnoses Lymphedema, not elsewhere classified (09/12/22) Difficulty in walking, not elsewhere classified (09/12/22) Weakness (09/12/22) Physical Therapy Treatment Note PT-OP-A Visit Information Start: 09/04/22 16:42 Freq: Status: Active Protocol: Document 09/12/22 13:01 [facility]AK (Rec: 09/12/22 14:21 [facility] [id number]) Out-Patient Physical Therapy Visit Information Visit Information Visit Type Treatment Note Visit Start Time 13:01 Visit Number 2 Evaluation Information Evaluation Date 09/05/22 Precautions Precautions HTN, back pain, CHF? (patient reports uncertain, Dr. Silverio doesn't think she does), open wound, fungus right great toe PT-OP-B Current Condition Start: 09/04/22 16:42 Freq: Status: Active Protocol: Document 09/12/22 13:01 SAK (Rec: 09/12/22 14:21 [facility] [id number]) Current Condition History of Current Condition Onset Date 8 years Current Complaints edema myron LE left greater than History of Current Condition Reports she has been c/o swelling and weeping of LE's for 8 years. Gradually increasing edema myron LEs, developed wound left LE in November 2021, went into hospital November 28, there for about 1 week. Was discharged home. States progressive worsening mobility, increase in pain in LE's, hard to move legs. Has had 4 different types of inatibiotics, still swollen. Stopped coming to wound care about 1 month ago due to weather, coming again. Nothing has helped swelling. Legs are wrapped in Coban Prior Treatments and Tests seen by wound care for lateral lower left leg wound Treatment Goals Patient/Caregiver Goals Decrease her lymphedema, be able to self-manage, improve strengh and mobility PT-OP-C Subjective Start: 09/04/22 16:42 Freq: Status: Active Protocol: Document 09/12/22 13:01 SAK (Rec: 09/12/22 14:21 [facility] [id number]) OP-PT Subjective Patient Comments Patient Comments States none of her shoes work, she doesn't get online, will need to have someone take her shopping to find appropriate shoes. Compliant to lymphedema exercises. PT-OP-G Mobility & Gait Start: 09/04/22 16:42 Freq: Status: Active Protocol: Document 09/05/22 14:32 SAK (Rec: 09/05/22 17:02 [facility] [id number]) OP Gait Assessment Gait Gait Assistance Required: Standby Assistance Distance (Feet) 75 Assistive Devices Assistive Device None Factors Limiting Gait Function Factors Limiting Gait Function Decreased Strength,Pain Comments Gait Comments heaviness of LE's due to lymphedema myron PT-OP-H Neuro Start: 09/04/22 16:42 Freq: Status: Active Protocol: Document 09/05/22 14:32 [facility] (Rec: 09/05/22 17:02 [facility] [id number]) Sensation Evaluation Gross Sensation Gross Sensation Left LE Impaired,Right LE Impaired PT-OP-J Posture/Palpation/Skin Start: 09/04/22 16:42 Freq: Status: Active Protocol: Document 09/05/22 14:32 [facility] (Rec: 09/05/22 17:02 [facility] [id number]) Skin Assessment Edema Assessment myron LE's Comments 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 Positive Stemmer sign. PT-OP-K Range of Motion Start: 09/04/22 16:42 Freq: Status: Active Protocol: Document 09/05/22 14:32 [facility] (Rec: 09/05/22 17:02 [facility] [id number]) Hip Goniometric Range of Motion Hip ROM Limitations Comments myron mod limited due to lymphedema Knee Goniometric Range of Motion Knee ROM Limitations Comments mod limited due to lymphedema Ankle and Foot Goniometric Range of Motion Ankle and Foot ROM Limitations Comments mod decrease due to edema PT-OP-M Strength Start: 09/04/22 16:42 Freq: Status: Active Protocol: Document 09/05/22 14:32 [facility] (Rec: 09/05/22 17:02 [facility] [id number]) Hip Strength Hip Manual Muscle Testing myron Flexion (L2) 3- Fair- Knee Strength Knee Manual Muscle Testing myron Extension (L3) 3 Fair Ankle/Foot Strength Ankle and Foot Manual Muscle Testing myorn Dorsiflexion (L4) 3+ Fair+ Plantarflexion (S1) 3+ Fair+ PT-OP-N Lymphedema Start: 09/04/22 16:42 Freq: Status: Active Protocol: Document 09/12/22 13:01 [facility] (Rec: 09/12/22 14:21 [facility] [id number]) Lymphedema Measurements Lower Extremity Circumference Measurements Left Affected Mid-foot 24.8 cm Medial Malleolus 33.2 cm Knee Joint 52.9 cm - Measurements unchanged significantly after 30 min sequential pneumatic pump toes to hip at max 25 mm Hg, but good tolerance. Will need to try with inc compression level next session PT-OP-Q Treatments Start: 09/04/22 16:42 Freq: Status: Active Protocol: Document 09/12/22 13:01 [facility] (Rec: 09/12/22 14:21 [facility] [id number]) Therapeutic Exercises Sitting Exercises ankle pumps Reps/Minutes 10x2 quad sets Reps/Minutes 10x2 gluteal sets Reps/Minutes 10x2 Self-Care/Home Management Treatment Education Patient Education Home Exercise Program Lymphedema Treatment Manual Lymphatic Drainage Comments performed with reference to HO for HEP, PT and patient performed together proximal to hips, then PT MLD right LE during sequential pneumatic pump to left LE. Lymphedema Wrapping Other not done today due to seeing wound care after PT Sequential Lymphedema Exercises Comments discussed, patient able to verbalize ex from handout Compression Garment Assessment Compression Garment Assessment Details discussion of compression options Patient Education Lymphedema Pathology further education Lymphedema Prevention further education Compression Garments discussed options as above Self Manual Lymphatic Drainage instructed patient, performed together Sequential Lymphedema Exercises verbal review of HEP PT-OP-R Modalities Start: 09/04/22 16:42 Freq: Status: Active Protocol: Document 09/12/22 13:01 [facility] (Rec: 09/12/22 14:21 [facility] [id number]) Compression Pump Treatment Treatment Location Left Leg Pressure Amount (mmHg) (mmHG) 25 Inflation Time (Seconds) 30 Deflation Time (Seconds) 10 Treatment Duration (minutes) 30 Treatment Tolerance Good Treatment Comments no significant change in measurements, feel will need increased compression level PT-OP-T Assessment and Plan Start: 09/04/22 16:42 Freq: Status: Active Protocol: Document 09/12/22 13:01 [facility] (Rec: 09/12/22 14:21 [facility] [id number]) Physical Therapy Assessment Impairments Impairments Edema,Functional Mobility Goals Three Impairment lymphedema life impact scale 65% Short Term Goal (STG) Decrease lymphedema life impact scale score to no greater than 50% as measure of improved function and quality of life Nursing Home Goal (LTG) Decrease lymphedema life impact scale score to no greater than 30% as measure of improved function and quality of life LTG Duration 11/05/22 Two Impairment Impaired strength and ROM Nursing Home Goal (LTG) Patient to LE strength of at least 4/5 and ROM WNL to allow her to return to prior level of functional mobility in the home and community LTG Duration 11/05/22 One Impairment edema myron LE Short Term Goal (STG) Patient to be instructed in all aspects of lymphedemamanagement to include skin care, self-manual lymphatic drainage, lymphatic exericse,and compression STG Duration 10/06/22 Senior Painter Goal (LTG) Decrease myron lymphedema to stable level (no increase or decrease greater than 1 cm over the course of 1 week) and patient to be independent with all aspects of lymphedema care including obtaining appropriate compression for self management, and possible pump for home use LTG Duration 11/05/22 Assessment Summary Assessment Trial sequential pneumatic pump today left LE with minimal significant change; feel need inc compression level and inc time; next session will try 60 min at 30- 35 mm Hg compression or up to 40 if mark. Patient demonstrates good understanding of ther ex for HEP. Has not yet obtained different shoes which would allow for improved safety with mobility and some foot compression as well. She does not have a computer so will need to assist more with looking at options for compression. Unable to do bandaging with short stretch bandages due to patient going to wound care immediately after PT, and unable to do 90 min session due to wound care scheduled 1 hr after PT. Physical Therapy Plan Frequency and Duration Frequency of Treatment 2x/Week Duration of treatment (weeks) 8 Plan of Care Start Date 09/05/22 Plan of Care End Date 11/05/20 Therapeutic Interventions Therapeutic Interventions Home Exercise Program, Lymphedema Management,Manual Therapy,Patient/Caregiver Education,Self-Care/Home Management,Taping,Therapeutic Activities,Therapeutic Exercises Modalities Vasopneumatic Devices Next Visit Focus/Plan Next Note Type Treatment Note Next Visit Plan Compression pump at 30-40mm Hg , continue patient education, show options for compression, consider Ready Wrap type compression alternatives. Compression bandaging if able. Sci-Fit recumbant elliptical after bandaging as tolerated for strengthening and to facilitate lymphatic flow.
--- NOTE | 2022-09-18 16:23 | PT.OTN ---
Current Diagnoses Lymphedema, not elsewhere classified (09/18/22) Difficulty in walking, not elsewhere classified (09/18/22) Weakness (09/18/22) Physical Therapy Treatment Note PT-OP-A Visit Information Start: 09/04/22 16:42 Freq: Status: Active Protocol: Document 09/18/22 13:01 [facility] (Rec: 09/18/22 14:29 [facility] [id number]) Out-Patient Physical Therapy Visit Information Visit Information Visit Type Treatment Note Visit Start Time 13:01 Visit Stop Time 14:25 Total Visit Minutes 84 Visit Number 3 Evaluation Information Evaluation Date 09/05/22 Precautions Precautions HTN, back pain, CHF? (patient reports uncertain, Dr. Silverio doesn't think she does), open wound, fungus right great toe PT-OP-B Current Condition Start: 09/04/22 16:42 Freq: Status: Active Protocol: Document 09/18/22 13:01 [facility] (Rec: 09/18/22 14:29 [facility] [id number]) Current Condition History of Current Condition Onset Date 8 years Current Complaints edema myron LE left greater than History of Current Condition Reports she has been c/o swelling and weeping of LE's for 8 years. Gradually increasing edema myron LEs, developed wound left LE in November 2021, went into hospital November 28, there for about 1 week. Was discharged home. States progressive worsening mobility, increase in pain in LE's, hard to move legs. Has had 4 different types of inatibiotics, still swollen. Stopped coming to wound care about 1 month ago due to weather, coming again. Nothing has helped swelling. Legs are wrapped in Coban Prior Treatments and Tests seen by wound care for lateral lower left leg wound Treatment Goals Patient/Caregiver Goals Decrease her lymphedema, be able to self-manage, improve strengh and mobility PT-OP-C Subjective Start: 09/04/22 16:42 Freq: Status: Active Protocol: Document 09/18/22 13:01 [facility] (Rec: 09/18/22 14:29 [facility] [id number]) OP-PT Subjective Patient Comments Patient Comments States she feels PT helpful last session; noticed some decrease in swelling. [place] good enough to go to get her mail the other day. Agreeable to bandaging with lymphedema bandages. PT-OP-G Mobility & Gait Start: 09/04/22 16:42 Freq: Status: Active Protocol: Document 09/05/22 14:32 [facility] (Rec: 09/05/22 17:02 [facility] [id number]) OP Gait Assessment Gait Gait Assistance Required: Standby Assistance Distance (Feet) 75 Assistive Devices Assistive Device None Factors Limiting Gait Function Factors Limiting Gait Function Decreased Strength,Pain Comments Gait Comments heaviness of LE's due to lymphedema myron PT-OP-H Neuro Start: 09/04/22 16:42 Freq: Status: Active Protocol: Document 09/05/22 14:32 [facility] (Rec: 09/05/22 17:02 [facility] [id number]) Sensation Evaluation Gross Sensation Gross Sensation Left LE Impaired,Right LE Impaired PT-OP-J Posture/Palpation/Skin Start: 09/04/22 16:42 Freq: Status: Active Protocol: Document 09/05/22 14:32 [facility] (Rec: 09/05/22 17:02 [facility] [id number]) Skin Assessment Edema Assessment myron LE's Comments 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 Positive Stemmer sign. PT-OP-K Range of Motion Start: 09/04/22 16:42 Freq: Status: Active Protocol: Document 09/05/22 14:32 [facility] (Rec: 09/05/22 17:02 [facility] [id number]) Hip Goniometric Range of Motion Hip ROM Limitations Comments myron mod limited due to lymphedema Knee Goniometric Range of Motion Knee ROM Limitations Comments mod limited due to lymphedema Ankle and Foot Goniometric Range of Motion Ankle and Foot ROM Limitations Comments mod decrease due to edema PT-OP-M Strength Start: 09/04/22 16:42 Freq: Status: Active Protocol: Document 09/05/22 14:32 [facility] (Rec: 09/05/22 17:02 [facility] [id number]) Hip Strength Hip Manual Muscle Testing myron Flexion (L2) 3- Fair- Knee Strength Knee Manual Muscle Testing myron Extension (L3) 3 Fair Ankle/Foot Strength Ankle and Foot Manual Muscle Testing myron Dorsiflexion (L4) 3+ Fair+ Plantarflexion (S1) 3+ Fair+ PT-OP-N Lymphedema Start: 09/04/22 16:42 Freq: Status: Active Protocol: Document 09/18/22 13:01 [facility] (Rec: 09/18/22 14:29 [facility] [id number]) Lymphedema Measurements Lower Extremity Circumference Measurements Left Affected MT Heads 23.2 cm Mid-foot 24 cm Medial Malleolus 33.7 cm - 54.4 largest calf Right Affected MT Heads 23.2 cm Mid-foot 23.3 cm Medial Malleolus 29.3 cm Knee Joint 53.5 cm Hip 71.8 cm - calf 54.1 PT-OP-Q Treatments Start: 09/04/22 16:42 Freq: Status: Active Protocol: Document 09/18/22 13:01 [facility] (Rec: 09/18/22 14:29 [facility] [id number]) Therapeutic Exercises Sitting Exercises hip IR/ER Reps/Minutes 10x ankle pumps Reps/Minutes 10x2 quad sets Reps/Minutes 10x2 gluteal sets Reps/Minutes 10x2 Lymphedema Treatment Manual Lymphatic Drainage Comments performed with reference to HO for HEP, PT and patient performed together proximal to hips, then PT MLD right LE during sequential pneumatic pump to left LE. Lymphedema Wrapping Body Location myron LE's toes to knees Materials size G Tricofix, Artiflex (2 rolls), Comprilan 6,8,10 cm Sequential Lymphedema Exercises Location myron LE's as above in ther ex section of note Compression Garment Assessment Compression Garment Assessment Details discussion of compression options, given information regarding ready wrap compression alternatives PT-OP-R Modalities Start: 09/04/22 16:42 Freq: Status: Active Protocol: Document 09/18/22 13:01 [facility] (Rec: 09/18/22 14:29 [facility] [id number]) Compression Pump Treatment Treatment Location Left Leg Pressure Amount (mmHg) (mmHG) 35 Inflation Time (Seconds) 30 Deflation Time (Seconds) 10 Treatment Duration (minutes) 30 Treatment Tolerance Good Treatment Comments no significant change in measurements, feel will need increased compression level PT-OP-T Assessment and Plan Start: 09/04/22 16:42 Freq: Status: Active Protocol: Document 09/18/22 13:01 [facility] (Rec: 09/18/22 14:29 [facility] [id number]) Physical Therapy Assessment Impairments Impairments Edema,Functional Mobility Goals Three Impairment lymphedema life impact scale 65% Short Term Goal (STG) Decrease lymphedema life impact scale score to no greater than 50% as measure of improved function and quality of life [facility] Goal (LTG) Decrease lymphedema life impact scale score to no greater than 30% as measure of improved function and quality of life LTG Duration 11/05/22 Two Impairment Impaired strength and ROM [facility] Goal (LTG) Patient to LE strength of at least 4/5 and ROM WNL to allow her to return to prior level of functional mobility in the home and community LTG Duration 11/05/22 One Impairment edema myron LE Short Term Goal (STG) Patient to be instructed in all aspects of lymphedemamanagement to include skin care, self-manual lymphatic drainage, lymphatic exericse,and compression STG Duration 10/06/22 [facility] Goal (LTG) Decrease myron lymphedema to stable level (no increase or decrease greater than 1 cm over the course of 1 week) and patient to be independent with all aspects of lymphedema care including obtaining appropriate compression for self management, and possible pump for home use LTG Duration 11/05/22 Assessment Summary Assessment Patient reporting decreased swelling in her legs after last session and some improvement in activity tolerance. TRial bandaging with short stretch bandages for lymphedema done today. Patient still needs shoes that fit her but has difficulty going shopping. Unable to wear her slide sandles with lymphedema bandaging; provided with hospital slippers. Good tolerance for inc compression level to 35 mm Hg Physical Therapy Plan Frequency and Duration Frequency of Treatment 2x/Week Duration of treatment (weeks) 8 Plan of Care Start Date 09/05/22 Plan of Care End Date 11/05/20 Therapeutic Interventions Therapeutic Interventions Home Exercise Program, Lymphedema Management,Manual Therapy,Patient/Caregiver Education,Self-Care/Home Management,Taping,Therapeutic Activities,Therapeutic Exercises Modalities Vasopneumatic Devices Next Visit Focus/Plan Next Note Type Treatment Note Next Visit Plan Continue lymphedema management . Discuss compression options further. Sci-Fit if time allows end of treatment or consider first of treatment if bandages still in place
--- NOTE | 2022-09-21 16:27 | PT.OTN ---
Current Diagnoses Lymphedema, not elsewhere classified (09/21/22) Difficulty in walking, not elsewhere classified (09/21/22) Weakness (09/21/22) Physical Therapy Treatment Note PT-OP-A Visit Information Start: 09/04/22 16:42 Freq: Status: Active Protocol: Document 09/21/22 12:53 [facility] (Rec: 09/21/22 13:45 [facility] [id number]) Out-Patient Physical Therapy Visit Information Visit Information Visit Type Treatment Note Visit Start Time 13:00 Visit Stop Time 14:25 Total Visit Minutes 85 Visit Number 4 Evaluation Information Evaluation Date 09/05/22 Precautions Precautions HTN, back pain, CHF? (patient reports uncertain, Dr. Silverio doesn't think she does), open wound, fungus right great toe PT-OP-B Current Condition Start: 09/04/22 16:42 Freq: Status: Active Protocol: Document 09/21/22 12:53 [facility] (Rec: 09/21/22 13:45 [facility] [id number]) Current Condition History of Current Condition Onset Date 8 years Current Complaints edema myron LE left greater than History of Current Condition Reports she has been c/o swelling and weeping of LE's for 8 years. Gradually increasing edema myron LEs, developed wound left LE in November 2021, went into hospital November 28, there for about 1 week. Was discharged home. States progressive worsening mobility, increase in pain in LE's, hard to move legs. Has had 4 different types of inatibiotics, still swollen. Stopped coming to wound care about 1 month ago due to weather, coming again. Nothing has helped swelling. Legs are wrapped in Coban Prior Treatments and Tests seen by wound care for lateral lower left leg wound Treatment Goals Patient/Caregiver Goals Decrease her lymphedema, be able to self-manage, improve strengh and mobility PT-OP-C Subjective Start: 09/04/22 16:42 Freq: Status: Active Protocol: Document 09/21/22 12:53 [facility] (Rec: 09/21/22 13:45 [facility] [id number]) OP-PT Subjective Patient Comments Patient Comments Very fatigued, difficulty breathing. Tolerated bandages ok, left came undone some and slid down, right stayed intact. PT-OP-G Mobility & Gait Start: 09/04/22 16:42 Freq: Status: Active Protocol: Document 09/05/22 14:32 [facility]AK (Rec: 09/05/22 17:02 [facility] [id number]) OP Gait Assessment Gait Gait Assistance Required: Standby Assistance Distance (Feet) 75 Assistive Devices Assistive Device None Factors Limiting Gait Function Factors Limiting Gait Function Decreased Strength,Pain Comments Gait Comments heaviness of LE's due to lymphedema myron PT-OP-H Neuro Start: 09/04/22 16:42 Freq: Status: Active Protocol: Document 09/05/22 14:32 [facility] (Rec: 09/05/22 17:02 [facility] [id number]) Sensation Evaluation Gross Sensation Gross Sensation Left LE Impaired,Right LE Impaired PT-OP-J Posture/Palpation/Skin Start: 09/04/22 16:42 Freq: Status: Active Protocol: Document 09/05/22 14:32 [facility] (Rec: 09/05/22 17:02 [facility] [id number]) Skin Assessment Edema Assessment myron LE's Comments 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 Positive Stemmer sign. PT-OP-K Range of Motion Start: 09/04/22 16:42 Freq: Status: Active Protocol: Document 09/05/22 14:32 [facility] (Rec: 09/05/22 17:02 [facility] [id number]) Hip Goniometric Range of Motion Hip ROM Limitations Comments myron mod limited due to lymphedema Knee Goniometric Range of Motion Knee ROM Limitations Comments mod limited due to lymphedema Ankle and Foot Goniometric Range of Motion Ankle and Foot ROM Limitations Comments mod decrease due to edema PT-OP-M Strength Start: 09/04/22 16:42 Freq: Status: Active Protocol: Document 09/05/22 14:32 [facility] (Rec: 09/05/22 17:02 [facility] [id number]) Hip Strength Hip Manual Muscle Testing myron Flexion (L2) 3- Fair- Knee Strength Knee Manual Muscle Testing myron Extension (L3) 3 Fair Ankle/Foot Strength Ankle and Foot Manual Muscle Testing myron Dorsiflexion (L4) 3+ Fair+ Plantarflexion (S1) 3+ Fair+ PT-OP-N Lymphedema Start: 09/04/22 16:42 Freq: Status: Active Protocol: Document 09/21/22 12:53 [facility] (Rec: 09/21/22 13:45 [facility] [id number]) Lymphedema Measurements Lower Extremity Circumference Measurements Left Affected MT Heads 24 cm Mid-foot 24.2 cm Medial Malleolus 31.7 cm Knee Joint 53.2 cm - 53.2 Right Affected MT Heads 24.2 cm Mid-foot 23 cm Medial Malleolus 33.8 cm Knee Joint 53 cm Hip 71.7 cm - 53.4 PT-OP-Q Treatments Start: 09/04/22 16:42 Freq: Status: Active Protocol: Document 09/21/22 12:53 [facility] (Rec: 09/21/22 16:27 [facility] [id number]) Therapeutic Exercises Sitting Exercises hip IR/ER Reps/Minutes 10x ankle pumps Reps/Minutes 10x2 quad sets Reps/Minutes 10x2 gluteal sets Reps/Minutes 10x2 Lymphedema Treatment Manual Lymphatic Drainage Duration 30 Comments performed with reference to HO for HEP, PT and patient performed together proximal to hips, then PT MLD right LE during sequential pneumatic pump to left LE; continue in sitting position due to patient not tolerating supine position Lymphedema Wrapping Body Location myron LE's toes to knees Materials size G Tricofix, Artiflex (2 rolls), Comprilan 6,8,10 cm Sequential Lymphedema Exercises Location myron LE's as above in ther ex section of note Compression Garment Assessment Compression Garment Assessment Details given information regarding Marline Rand for lymphedema pump PT-OP-R Modalities Start: 09/04/22 16:42 Freq: Status: Active Protocol: Document 09/21/22 12:53 [facility] (Rec: 09/21/22 16:27 [facility] [id number]) Compression Pump Treatment Treatment Location Left Leg Pressure Amount (mmHg) (mmHG) 40 Inflation Time (Seconds) 30 Deflation Time (Seconds) 10 Treatment Duration (minutes) 30 Treatment Tolerance Good Treatment Comments decreased measurements noted after pump (see scanned measurements) PT-OP-T Assessment and Plan Start: 09/04/22 16:42 Freq: Status: Active Protocol: Document 09/21/22 12:53 [facility] (Rec: 09/21/22 13:45 [facility] [id number]) Physical Therapy Assessment Goals Three Impairment lymphedema life impact scale 65% Short Term Goal (STG) Decrease lymphedema life impact scale score to no greater than 50% as measure of improved function and quality of life Skilled Nursing Goal (LTG) Decrease lymphedema life impact scale score to no greater than 30% as measure of improved function and quality of life LTG Duration 11/05/22 Two Impairment Impaired strength and ROM Registered Midwife Goal (LTG) Patient to LE strength of at least 4/5 and ROM WNL to allow her to return to prior level of functional mobility in the home and community LTG Duration 11/05/22 One Impairment edema myron LE Short Term Goal (STG) Patient to be instructed in all aspects of lymphedemamanagement to include skin care, self-manual lymphatic drainage, lymphatic exericse,and compression STG Duration 10/06/22 Skilled Nursing Goal (LTG) Decrease myron lymphedema to stable level (no increase or decrease greater than 1 cm over the course of 1 week) and patient to be independent with all aspects of lymphedema care including obtaining appropriate compression for self management, and possible pump for home use LTG Duration 11/05/22 Assessment Summary Assessment Patient able to tolerate wearing compression wraps, but did not attempt to rewrap pieces that came loose; instructed in importance of rewrapping as tolerated. Unable to tolerate PT more than 2x/wk despite recommendation for 4x/wk PT. She was very fatigued today and needed handhold assist mod to walk back to room and wheelchair assist back to her car. Treatment provided in sitting as patient unable to tolerate laying supine. Decrease in circumference noted after use of sequential pneumatic pump left LE at 40 mm Hg today, and in right calf on which lymphedema bandaging stayed mostly intact. Importance of exercise as much as tolerated encouraged for use of muscle pump to decrease edema, especially when bandaged. Feel she would benefit from use of pump in the home due to difficulty with self management, and recommended compression alternatives but patient has not looked at those further. Physical Therapy Plan Frequency and Duration Frequency of Treatment 2x/Week Duration of treatment (weeks) 8 Plan of Care Start Date 09/05/22 Plan of Care End Date 11/05/20 Therapeutic Interventions Therapeutic Interventions Home Exercise Program, Lymphedema Management,Manual Therapy,Patient/Caregiver Education,Self-Care/Home Management,Taping,Therapeutic Activities,Therapeutic Exercises Modalities Vasopneumatic Devices Next Visit Focus/Plan Next Note Type Treatment Note Next Visit Plan Continue lymphedema management . Discuss compression options further including sequential pneumatic pump and make recommendations to physician.
--- NOTE | 2022-09-25 15:50 | PT.OTN ---
Current Diagnoses Lymphedema, not elsewhere classified (09/25/22) Difficulty in walking, not elsewhere classified (09/25/22) Weakness (09/25/22) Physical Therapy Treatment Note PT-OP-A Visit Information Start: 09/04/22 16:42 Freq: Status: Active Protocol: Document 09/25/22 13:05 [facility] (Rec: 09/25/22 14:01 [facility] [id number]) Out-Patient Physical Therapy Visit Information Visit Information Visit Type Treatment Note Visit Start Time 13:00 Visit Stop Time 14:25 Total Visit Minutes 85 Visit Number 5 Evaluation Information Evaluation Date 09/05/22 Precautions Precautions HTN, back pain, CHF? (patient reports uncertain, Dr. Silverio doesn't think she does), open wound, fungus right great toe PT-OP-B Current Condition Start: 09/04/22 16:42 Freq: Status: Active Protocol: Document 09/25/22 13:05 [facility] (Rec: 09/25/22 14:01 [facility] [id number]) Current Condition History of Current Condition Onset Date 8 years Current Complaints edema myron LE left greater than History of Current Condition Reports she has been c/o swelling and weeping of LE's for 8 years. Gradually increasing edema myron LEs, developed wound left LE in November 2021, went into hospital November 28, there for about 1 week. Was discharged home. States progressive worsening mobility, increase in pain in LE's, hard to move legs. Has had 4 different types of inatibiotics, still swollen. Stopped coming to wound care about 1 month ago due to weather, coming again. Nothing has helped swelling. Legs are wrapped in Coban Prior Treatments and Tests seen by wound care for lateral lower left leg wound PT-OP-C Subjective Start: 09/04/22 16:42 Freq: Status: Active Protocol: Document 09/25/22 13:05 [facility] (Rec: 09/25/22 14:01 [facility] [id number]) OP-PT Subjective Patient Comments Patient Comments States wound care said she is fully healed; goes back for follow-up Sunday for hopeful graduation from wound care. Reports day after PT urinates more, offloading fluid. Called Mar[facility] Pérezs about lymphedema pump and they plan to call doctor's office. PT-OP-G Mobility & Gait Start: 09/04/22 16:42 Freq: Status: Active Protocol: Document 09/05/22 14:32 [facility] (Rec: 09/05/22 17:02 [facility] [id number]) OP Gait Assessment Gait Gait Assistance Required: Standby Assistance Distance (Feet) 75 Assistive Devices Assistive Device None Factors Limiting Gait Function Factors Limiting Gait Function Decreased Strength,Pain Comments Gait Comments heaviness of LE's due to lymphedema myron PT-OP-H Neuro Start: 09/04/22 16:42 Freq: Status: Active Protocol: Document 09/05/22 14:32 [facility] (Rec: 09/05/22 17:02 [facility] [id number]) Sensation Evaluation Gross Sensation Gross Sensation Left LE Impaired,Right LE Impaired PT-OP-J Posture/Palpation/Skin Start: 09/04/22 16:42 Freq: Status: Active Protocol: Document 09/05/22 14:32 [facility] (Rec: 09/05/22 17:02 [facility] [id number]) Skin Assessment Edema Assessment myron LE's Comments 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 Positive Stemmer sign. PT-OP-K Range of Motion Start: 09/04/22 16:42 Freq: Status: Active Protocol: Document 09/05/22 14:32 [facility] (Rec: 09/05/22 17:02 [facility] [id number]) Hip Goniometric Range of Motion Hip ROM Limitations Comments myron mod limited due to lymphedema Knee Goniometric Range of Motion Knee ROM Limitations Comments mod limited due to lymphedema Ankle and Foot Goniometric Range of Motion Ankle and Foot ROM Limitations Comments mod decrease due to edema PT-OP-M Strength Start: 09/04/22 16:42 Freq: Status: Active Protocol: Document 09/05/22 14:32 [facility] (Rec: 09/05/22 17:02 [facility] [id number]) Hip Strength Hip Manual Muscle Testing myron Flexion (L2) 3- Fair- Knee Strength Knee Manual Muscle Testing myron Extension (L3) 3 Fair Ankle/Foot Strength Ankle and Foot Manual Muscle Testing myron Dorsiflexion (L4) 3+ Fair+ Plantarflexion (S1) 3+ Fair+ PT-OP-N Lymphedema Start: 09/04/22 16:42 Freq: Status: Active Protocol: Document 09/25/22 13:05 [facility] (Rec: 09/25/22 14:01 [facility] [id number]) Lymphedema Measurements Lower Extremity Circumference Measurements Left Affected MT Heads 24.3 cm Mid-foot 24.7 cm Medial Malleolus 23.7 cm - 53.0 Right Affected MT Heads 23.5 cm Mid-foot 23 cm Medial Malleolus 33.3 cm 10 cm From Medial Malleolus 23.4 cm Knee Joint 52.8 cm - 52.9 PT-OP-Q Treatments Start: 09/04/22 16:42 Freq: Status: Active Protocol: Document 09/25/22 13:05 [facility] (Rec: 09/25/22 14:01 [facility] [id number]) Cardio Equipment Recumbent Stepper (Sci-Fit) Duration (Minutes) 5 Resistance 1 Seat Position 10 Therapeutic Exercises Sitting Exercises ankle pumps Reps/Minutes 10x2 quad sets Reps/Minutes 10x2 gluteal sets Reps/Minutes 10x2 Lymphedema Treatment Manual Lymphatic Drainage Duration 30 Comments performed with reference to HO for HEP, PT and patient performed together proximal to hips, then PT MLD right LE during sequential pneumatic pump to left LE; continue in sitting position due to patient not tolerating supine position Lymphedema Wrapping Body Location myron LE's toes to knees Materials white foam, Coban Other skin care: Cetaphil applied liberally myron LE's toes to knees Sequential Lymphedema Exercises Location myron LE's as above in ther ex section of note Compression Garment Assessment Compression Garment Assessment Details given information regarding Marline Cares for lymphedema pump Patient Education Lymphedema Pathology further education Lymphedema Prevention further education Compression Garments discussed options as above Self Manual Lymphatic Drainage instructed patient, performed together Sequential Lymphedema Exercises verbal review of HEP PT-OP-R Modalities Start: 09/04/22 16:42 Freq: Status: Active Protocol: Document 09/25/22 13:05 [facility] (Rec: 09/25/22 15:50 [facility] [id number]) Compression Pump Treatment Treatment Location Right Leg Pressure Amount (mmHg) (mmHG) 40 Inflation Time (Seconds) 30 Deflation Time (Seconds) 10 Treatment Duration (minutes) 30 Treatment Tolerance Good Left Leg Pressure Amount (mmHg) (mmHG) 40 Inflation Time (Seconds) 30 Deflation Time (Seconds) 10 Treatment Duration (minutes) 30 Treatment Tolerance Good Treatment Comments decreased measurements noted after pump (see scanned measurements) PT-OP-T Assessment and Plan Start: 09/04/22 16:42 Freq: Status: Active Protocol: Document 04/10/23 13:05 [facility] (Rec: 09/25/22 14:01 [facility] [id number]) Physical Therapy Assessment Goals Three Impairment lymphedema life impact scale 65% Short Term Goal (STG) Decrease lymphedema life impact scale score to no greater than 50% as measure of improved function and quality of life STG Duration 10/06/22 Senior Care Goal (LTG) Decrease lymphedema life impact scale score to no greater than 30% as measure of improved function and quality of life LTG Duration 11/05/22 Two Impairment Impaired strength and ROM Senior Care Goal (LTG) Patient to LE strength of at least 4/5 and ROM WNL to allow her to return to prior level of functional mobility in the home and community LTG Duration 11/05/22 One Impairment edema myron LE Short Term Goal (STG) Patient to be instructed in all aspects of lymphedemamanagement to include skin care, self-manual lymphatic drainage, lymphatic exericse,and compression STG Duration 10/06/22 Senior Care Goal (LTG) Decrease myron lymphedema to stable level (no increase or decrease greater than 1 cm over the course of 1 week) and patient to be independent with all aspects of lymphedema care including obtaining appropriate compression for self management, and possible pump for home use LTG Duration 11/05/22 Assessment Summary Assessment Patient reports good wound healing, good response to PT. Able to do 5 min Sci-Fit today with L1 resistance for strengthening, facilitation of lymph flow. Patient did not bring lymphedema bandages to treatment today, so current white foam and Coban reapplied to patient; she will bring new bandages next session. Hyperkeratosis, elephantiasis complicates progress. Physical Therapy Plan Frequency and Duration Frequency of Treatment 2x/Week Duration of treatment (weeks) 8 Plan of Care Start Date 09/05/22 Plan of Care End Date 11/05/20 Therapeutic Interventions Therapeutic Interventions Home Exercise Program, Lymphedema Management,Manual Therapy,Patient/Caregiver Education,Self-Care/Home Management,Taping,Therapeutic Activities,Therapeutic Exercises Modalities Vasopneumatic Devices Next Visit Focus/Plan Next Note Type Treatment Note Next Visit Plan Continue lymphedema management . Discuss compression options further; today patient reporting she just wants to wear tubing once done with PT but educated that is not adequate. Will show sample compression alternative next session.
--- NOTE | 2022-09-28 16:12 | PT.OTN ---
Current Diagnoses Lymphedema, not elsewhere classified (09/28/22) Difficulty in walking, not elsewhere classified (09/28/22) Weakness (09/28/22) Physical Therapy Treatment Note PT-OP-A Visit Information Start: 09/04/22 16:42 Freq: Status: Active Protocol: Document 09/28/22 16:08 [facility] (Rec: 09/28/22 16:12 [facility] [id number]) Out-Patient Physical Therapy Visit Information Visit Information Visit Type Treatment Note Visit Start Time 13:00 Visit Stop Time 14:25 Total Visit Minutes 85 Visit Number 6 Evaluation Information Evaluation Date 09/05/22 Precautions Precautions HTN, back pain, CHF? (patient reports uncertain, Dr. Silverio doesn't think she does), open wound, fungus right great toe PT-OP-B Current Condition Start: 09/04/22 16:42 Freq: Status: Active Protocol: Document 09/28/22 16:08 [facility] (Rec: 09/28/22 16:12 [facility] [id number]) Current Condition History of Current Condition Onset Date 8 years Current Complaints edema myron LE left greater than History of Current Condition Reports she has been c/o swelling and weeping of LE's for 8 years. Gradually increasing edema myron LEs, developed wound left LE in November 2021, went into hospital November 28, there for about 1 week. Was discharged home. States progressive worsening mobility, increase in pain in LE's, hard to move legs. Has had 4 different types of inatibiotics, still swollen. Stopped coming to wound care about 1 month ago due to weather, coming again. Nothing has helped swelling. Legs are wrapped in Coban Prior Treatments and Tests seen by wound care for lateral lower left leg wound Treatment Goals Patient/Caregiver Goals Decrease her lymphedema, be able to self-manage, improve strengh and mobility Prior Functional Status Baseline Function- Gait limited to household and physician appointments. Has someone do grocery sh Baseline Function- Recreation/Hobbies travelled extensively, no difficulty Baseline Function- Other PMH: Atrial fibrillation Hyperlipidemia Hypertension Chronic wound left LE; seeing wound care, history of cellulitis, CHF. Current Functional Impairments (Reported) Functional Limitations- ADL's independent, takes longer, has to sit primarily Functional Limitations- Mobility/Gait limited to household and physician visits Functional Limitations- Recreation/ not able to take walks or Hobbies travel Functional Limitations- Other is basically housebound except for medical appintments Personal Factors Other Personal Factors That May Effect Patient lives alone, has Therapy/Recovery difficulty reaching her feet PT-OP-C Subjective Start: 09/04/22 16:42 Freq: Status: Active Protocol: Document 09/28/22 16:08 [facility] (Rec: 09/28/22 16:12 [facility] [id number]) OP-PT Subjective Patient Comments Patient Comments States legs very tired today. Sees wound care tomorrow for possible final visit. Hasn't obtained new shoes yet. Compliant to HEP and self- massage. PT-OP-G Mobility & Gait Start: 09/04/22 16:42 Freq: Status: Active Protocol: Document 09/05/22 14:32 [facility] (Rec: 09/05/22 17:02 [facility] [id number]) OP Gait Assessment Gait Gait Assistance Required: Standby Assistance Distance (Feet) 75 Assistive Devices Assistive Device None Factors Limiting Gait Function Factors Limiting Gait Function Decreased Strength,Pain Comments Gait Comments heaviness of LE's due to lymphedema myron PT-OP-H Neuro Start: 09/04/22 16:42 Freq: Status: Active Protocol: Document 09/05/22 14:32 [facility] (Rec: 09/05/22 17:02 [facility] [id number]) Sensation Evaluation Gross Sensation Gross Sensation Left LE Impaired,Right LE Impaired PT-OP-J Posture/Palpation/Skin Start: 09/04/22 16:42 Freq: Status: Active Protocol: Document 09/05/22 14:32 [facility] (Rec: 09/05/22 17:02 [facility] [id number]) Skin Assessment Edema Assessment myron LE's Comments 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 Positive Stemmer sign. PT-OP-K Range of Motion Start: 09/04/22 16:42 Freq: Status: Active Protocol: Document 09/05/22 14:32 [facility] (Rec: 09/05/22 17:02 [facility] [id number]) Hip Goniometric Range of Motion Hip ROM Limitations Comments myron mod limited due to lymphedema Knee Goniometric Range of Motion Knee ROM Limitations Comments mod limited due to lymphedema Ankle and Foot Goniometric Range of Motion Ankle and Foot ROM Limitations Comments mod decrease due to edema PT-OP-M Strength Start: 09/04/22 16:42 Freq: Status: Active Protocol: Document 09/05/22 14:32 [facility] (Rec: 09/05/22 17:02 [facility] [id number]) Hip Strength Hip Manual Muscle Testing myron Flexion (L2) 3- Fair- Knee Strength Knee Manual Muscle Testing myron Extension (L3) 3 Fair Ankle/Foot Strength Ankle and Foot Manual Muscle Testing myron Dorsiflexion (L4) 3+ Fair+ Plantarflexion (S1) 3+ Fair+ PT-OP-N Lymphedema Start: 09/04/22 16:42 Freq: Status: Active Protocol: Document 09/25/22 13:05 [facility] (Rec: 09/25/22 14:01 [facility] [id number]) Lymphedema Measurements Lower Extremity Circumference Measurements Left Affected MT Heads 24.3 cm Mid-foot 24.7 cm Medial Malleolus 23.7 cm - 53.0 Right Affected MT Heads 23.5 cm Mid-foot 23 cm Medial Malleolus 33.3 cm 10 cm From Medial Malleolus 23.4 cm Knee Joint 52.8 cm - 52.9 PT-OP-Q Treatments Start: 09/04/22 16:42 Freq: Status: Active Protocol: Document 09/28/22 16:08 [facility] (Rec: 09/28/22 16:12 [facility] [id number]) Cardio Equipment Recumbent Stepper (Sci-Fit) Duration (Minutes) 6 Resistance 1 Seat Position 11 Therapeutic Exercises Sitting Exercises hip IR/ER Reps/Minutes 10x ankle pumps Reps/Minutes 10x2 quad sets Reps/Minutes 10x2 gluteal sets Reps/Minutes 10x2 Lymphedema Treatment Manual Lymphatic Drainage Duration 30 Comments performed with reference to HO for HEP, PT and patient performed together proximal to hips, then PT MLD right LE during sequential pneumatic pump to left LE; continue in sitting position due to patient not tolerating supine position Lymphedema Wrapping Body Location myron LE's toes to knees Materials size G Tricofix, Artiflex (2 rolls), Comprilan 6,8,10 cm Other skin care: Cetaphil applied liberally myron LE's toes to knees Sequential Lymphedema Exercises Location myron LE's as above in ther ex section of note PT-OP-R Modalities Start: 09/04/22 16:42 Freq: Status: Active Protocol: Document 09/28/22 16:08 [facility] (Rec: 09/28/22 16:12 [facility] [id number]) Compression Pump Treatment Treatment Location Right Leg Pressure Amount (mmHg) (mmHG) 40 Inflation Time (Seconds) 30 Deflation Time (Seconds) 10 Treatment Duration (minutes) 30 Treatment Tolerance Good Left Leg Pressure Amount (mmHg) (mmHG) 40 Inflation Time (Seconds) 30 Deflation Time (Seconds) 10 Treatment Duration (minutes) 30 Treatment Tolerance Good PT-OP-T Assessment and Plan Start: 09/04/22 16:42 Freq: Status: Active Protocol: Document 09/28/22 16:08 [facility] (Rec: 09/28/22 16:12 [facility] [id number]) Physical Therapy Assessment Goals Three Impairment lymphedema life impact scale 65% Short Term Goal (STG) Decrease lymphedema life impact scale score to no greater than 50% as measure of improved function and quality of life STG Duration 10/06/22 Penitentiary Goal (LTG) Decrease lymphedema life impact scale score to no greater than 30% as measure of improved function and quality of life LTG Duration 11/05/22 Two Impairment Impaired strength and ROM Borematic Operator Goal (LTG) Patient to LE strength of at least 4/5 and ROM WNL to allow her to return to prior level of functional mobility in the home and community LTG Duration 11/05/22 One Impairment edema myron LE Short Term Goal (STG) Patient to be instructed in all aspects of lymphedemamanagement to include skin care, self-manual lymphatic drainage, lymphatic exericse,and compression STG Duration 10/06/22 Borematic Operator Goal (LTG) Decrease myron lymphedema to stable level (no increase or decrease greater than 1 cm over the course of 1 week) and patient to be independent with all aspects of lymphedema care including obtaining appropriate compression for self management, and possible pump for home use LTG Duration 11/05/22 Physical Therapy Plan Frequency and Duration Frequency of Treatment 2x/Week Duration of treatment (weeks) 8 Plan of Care Start Date 09/05/22 Plan of Care End Date 11/05/20 Therapeutic Interventions Therapeutic Interventions Home Exercise Program, Lymphedema Management,Manual Therapy,Patient/Caregiver Education,Self-Care/Home Management,Taping,Therapeutic Activities,Therapeutic Exercises Modalities Vasopneumatic Devices
--- NOTE | 2022-10-02 16:25 | PT.OTN ---
Current Diagnoses Lymphedema, not elsewhere classified (10/02/22) Difficulty in walking, not elsewhere classified (10/02/22) Weakness (10/02/22) Physical Therapy Treatment Note PT-OP-A Visit Information Start: 09/04/22 16:42 Freq: Status: Active Protocol: Document 10/02/22 12:56 [facility] (Rec: 10/02/22 14:30 [facility] [id number]) Out-Patient Physical Therapy Visit Information Visit Information Visit Type Treatment Note Visit Start Time 13:00 Visit Stop Time 14:25 Total Visit Minutes 85 Visit Number 7 Evaluation Information Evaluation Date 09/05/22 Precautions Precautions HTN, back pain, CHF? (patient reports uncertain, Dr. Silverio doesn't think she does), open wound, fungus right great toe PT-OP-B Current Condition Start: 09/04/22 16:42 Freq: Status: Active Protocol: Document 10/02/22 12:56 [facility] (Rec: 10/02/22 14:30 [facility] [id number]) Current Condition History of Current Condition Onset Date 8 years Current Complaints edema myron LE left greater than History of Current Condition Reports she has been c/o swelling and weeping of LE's for 8 years. Gradually increasing edema myron LEs, developed wound left LE in November 2021, went into hospital November 28, there for about 1 week. Was discharged home. States progressive worsening mobility, increase in pain in LE's, hard to move legs. Has had 4 different types of inatibiotics, still swollen. Stopped coming to wound care about 1 month ago due to weather, coming again. Nothing has helped swelling. Legs are wrapped in Coban Prior Treatments and Tests seen by wound care for lateral lower left leg wound Prior Functional Status Baseline Function- Other PMH: Atrial fibrillation Hyperlipidemia Hypertension Chronic wound left LE; seeing wound care, history of cellulitis, CHF. PT-OP-C Subjective Start: 09/04/22 16:42 Freq: Status: Active Protocol: Document 10/02/22 12:56 [facility] (Rec: 10/02/22 14:30 [facility] [id number]) OP-PT Subjective Patient Comments Patient Comments Went to wound care on Sunday, forgot to ask about lymphedema pump. States her heels were very sore over the weekend so didn't move much. States was exhausted after last PT session which included recumbant elliptical with inc time to 6 min PT-OP-G Mobility & Gait Start: 09/04/22 16:42 Freq: Status: Active Protocol: Document 09/05/22 14:32 [facility] (Rec: 09/05/22 17:02 [facility] [id number]) OP Gait Assessment Gait Gait Assistance Required: Standby Assistance Distance (Feet) 75 Assistive Devices Assistive Device None Factors Limiting Gait Function Factors Limiting Gait Function Decreased Strength,Pain Comments Gait Comments heaviness of LE's due to lymphedema myron PT-OP-H Neuro Start: 09/04/22 16:42 Freq: Status: Active Protocol: Document 09/05/22 14:32 [facility] (Rec: 09/05/22 17:02 [facility] [id number]) Sensation Evaluation Gross Sensation Gross Sensation Left LE Impaired,Right LE Impaired PT-OP-J Posture/Palpation/Skin Start: 09/04/22 16:42 Freq: Status: Active Protocol: Document 09/05/22 14:32 [facility] (Rec: 09/05/22 17:02 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 Positive Stemmer sign. PT-OP-K Range of Motion Start: 09/04/22 16:42 Freq: Status: Active Protocol: Document 09/05/22 14:32 [facility] (Rec: 09/05/22 17:02 [facility] [id number]) Hip Goniometric Range of Motion Hip ROM Limitations Comments myron mod limited due to lymphedema Knee Goniometric Range of Motion Knee ROM Limitations Comments mod limited due to lymphedema Ankle and Foot Goniometric Range of Motion Ankle and Foot ROM Limitations Comments mod decrease due to edema PT-OP-M Strength Start: 09/04/22 16:42 Freq: Status: Active Protocol: Document 09/05/22 14:32 [facility] (Rec: 09/05/22 17:02 [facility] [id number]) Hip Strength Hip Manual Muscle Testing myron Flexion (L2) 3- Fair- Knee Strength Knee Manual Muscle Testing myron Extension (L3) 3 Fair Ankle/Foot Strength Ankle and Foot Manual Muscle Testing myron Dorsiflexion (L4) 3+ Fair+ Plantarflexion (S1) 3+ Fair+ PT-OP-N Lymphedema Start: 09/04/22 16:42 Freq: Status: Active Protocol: Document 09/25/22 13:05 [facility] (Rec: 09/25/22 14:01 [facility] [id number]) Lymphedema Measurements Lower Extremity Circumference Measurements Left Affected MT Heads 24.3 cm Mid-foot 24.7 cm Medial Malleolus 23.7 cm - 53.0 Right Affected MT Heads 23.5 cm Mid-foot 23 cm Medial Malleolus 33.3 cm 10 cm From Medial Malleolus 23.4 cm Knee Joint 52.8 cm - 52.9 PT-OP-Q Treatments Start: 09/04/22 16:42 Freq: Status: Active Protocol: Document 10/02/22 12:56 [facility] (Rec: 10/02/22 14:30 [facility] [id number]) Cardio Equipment Recumbent Stepper (Sci-Fit) Duration (Minutes) 6 Resistance 1 Seat Position 11 Therapeutic Exercises Sitting Exercises hip IR/ER Reps/Minutes 10x ankle pumps Reps/Minutes 10x2 quad sets Reps/Minutes 10x2 gluteal sets Reps/Minutes 10x2 Therapeutic Activity Therapeutic Activity gait training with 4WW Reps/Minutes 5 min Comments 40ftx 2, 80ft x 1 with cues for safe use including brakes on when transferring sit >< stand. Lymphedema Treatment Manual Lymphatic Drainage Duration 30 Comments performed with reference to HO for HEP, PT and patient performed together proximal to hips, then PT MLD right LE during sequential pneumatic pump to left LE; continue in sitting position due to patient not tolerating supine position Lymphedema Wrapping Body Location myron LE's toes to knees Materials Size F Tubigrip ankles to knees, padded Coban toes to above ankle, covered by regular Coban (patient did not bring Artiflex and Comprilan today) Other skin care: Cetaphil applied liberally myron LE's toes to knees Sequential Lymphedema Exercises Location myron LE's as above in ther ex section of note PT-OP-R Modalities Start: 09/04/22 16:42 Freq: Status: Active Protocol: Document 10/02/22 12:56 [facility] (Rec: 10/02/22 14:30 [facility] [id number]) Compression Pump Treatment Treatment Location Right Leg Pressure Amount (mmHg) (mmHG) 40 Inflation Time (Seconds) 30 Deflation Time (Seconds) 10 Treatment Duration (minutes) 30 Treatment Tolerance Good Left Leg Pressure Amount (mmHg) (mmHG) 40 Inflation Time (Seconds) 30 Deflation Time (Seconds) 10 Treatment Duration (minutes) 30 Treatment Tolerance Good PT-OP-T Assessment and Plan Start: 09/04/22 16:42 Freq: Status: Active Protocol: Document 10/02/22 12:56 [facility] (Rec: 10/02/22 14:30 [facility] [id number]) Physical Therapy Assessment Goals Three Impairment lymphedema life impact scale 65% Short Term Goal (STG) Decrease lymphedema life impact scale score to no greater than 50% as measure of improved function and quality of life STG Duration 10/06/22 Assisted Goal (LTG) Decrease lymphedema life impact scale score to no greater than 30% as measure of improved function and quality of life LTG Duration 11/05/22 Two Impairment Impaired strength and ROM Obstetrics Specialist Goal (LTG) Patient to LE strength of at least 4/5 and ROM WNL to allow her to return to prior level of functional mobility in the home and community LTG Duration 11/05/22 One Impairment edema myron LE Short Term Goal (STG) Patient to be instructed in all aspects of lymphedemamanagement to include skin care, self-manual lymphatic drainage, lymphatic exericse,and compression STG Duration 10/06/22 Assisted Goal (LTG) Decrease myron lymphedema to stable level (no increase or decrease greater than 1 cm over the course of 1 week) and patient to be independent with all aspects of lymphedema care including obtaining appropriate compression for self management, and possible pump for home use LTG Duration 11/05/22 Assessment Summary Assessment Patient safe with gait with 4WW after instruction, recommend she borrow her sister's and use to allow increased activity level with improved safety and less pain. Circumference measurements better at feet but worse in calves due to wound care bandages (Coban) sliding down. Physical Therapy Plan Frequency and Duration Frequency of Treatment 2x/Week Duration of treatment (weeks) 8 Plan of Care Start Date 09/05/22 Plan of Care End Date 11/05/20 Therapeutic Interventions Therapeutic Interventions Home Exercise Program, Lymphedema Management,Manual Therapy,Patient/Caregiver Education,Self-Care/Home Management,Taping,Therapeutic Activities,Therapeutic Exercises Modalities Vasopneumatic Devices Next Visit Focus/Plan Next Note Type Treatment Note Next Visit Plan Continue lymphedema management . Lymphedema bandaging to above knee. Increase ther ex component of treatment.
--- NOTE | 2022-10-04 16:21 | PT.OTN ---
Current Diagnoses Lymphedema, not elsewhere classified (10/04/22) Difficulty in walking, not elsewhere classified (10/04/22) Weakness (10/04/22) Physical Therapy Treatment Note PT-OP-A Visit Information Start: 09/04/22 16:42 Freq: Status: Active Protocol: Document 10/04/22 12:58 [facility] (Rec: 10/04/22 13:53 [facility] [id number]) Out-Patient Physical Therapy Visit Information Visit Information Visit Type Treatment Note Visit Start Time 13:00 Visit Stop Time 14:25 Total Visit Minutes 85 Visit Number 8 Evaluation Information Evaluation Date 09/05/22 Precautions Precautions HTN, back pain, CHF? (patient reports uncertain, Dr. Silverio doesn't think she does), open wound, fungus right great toe PT-OP-B Current Condition Start: 09/04/22 16:42 Freq: Status: Active Protocol: Document 10/04/22 12:58 [facility] (Rec: 10/04/22 13:53 [facility] [id number]) Current Condition History of Current Condition Onset Date 8 years Current Complaints edema myron LE left greater than History of Current Condition Reports she has been c/o swelling and weeping of LE's for 8 years. Gradually increasing edema myron LEs, developed wound left LE in November 2021, went into hospital November 28, there for about 1 week. Was discharged home. States progressive worsening mobility, increase in pain in LE's, hard to move legs. Has had 4 different types of inatibiotics, still swollen. Stopped coming to wound care about 1 month ago due to weather, coming again. Nothing has helped swelling. Legs are wrapped in Coban Prior Treatments and Tests seen by wound care for lateral lower left leg wound Treatment Goals Patient/Caregiver Goals Decrease her lymphedema, be able to self-manage, improve strengh and mobility Prior Functional Status Baseline Function- Other PMH: Atrial fibrillation Hyperlipidemia Hypertension Chronic wound left LE; seeing wound care, history of cellulitis, CHF. PT-OP-C Subjective Start: 09/04/22 16:42 Freq: Status: Active Protocol: Document 10/04/22 12:58 [facility] (Rec: 10/04/22 13:53 [facility] [id number]) OP-PT Subjective Patient Comments Patient Comments Legs seem to be working a little better today. Easier for her to walk with bandaging combination last session. Admits to best reduction with stretchy bandages (short stretch) but going to customer manager tomorrow and can't be bandaged. Agreeable to Tubigrip PT-OP-G Mobility & Gait Start: 09/04/22 16:42 Freq: Status: Active Protocol: Document 09/05/22 14:32 [facility] (Rec: 09/05/22 17:02 [facility] [id number]) OP Gait Assessment Gait Gait Assistance Required: Standby Assistance Distance (Feet) 75 Assistive Devices Assistive Device None Factors Limiting Gait Function Factors Limiting Gait Function Decreased Strength,Pain Comments Gait Comments heaviness of LE's due to lymphedema myron PT-OP-H Neuro Start: 09/04/22 16:42 Freq: Status: Active Protocol: Document 09/05/22 14:32 [facility] (Rec: 09/05/22 17:02 [facility] [id number]) Sensation Evaluation Gross Sensation Gross Sensation Left LE Impaired,Right LE Impaired PT-OP-J Posture/Palpation/Skin Start: 09/04/22 16:42 Freq: Status: Active Protocol: Document 09/05/22 14:32 [facility] (Rec: 09/05/22 17:02 [facility] [id number]) Skin Assessment Edema Assessment myron LE's Comments 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 Positive Stemmer sign. PT-OP-K Range of Motion Start: 09/04/22 16:42 Freq: Status: Active Protocol: Document 09/05/22 14:32 [facility] (Rec: 09/05/22 17:02 [facility] [id number]) Hip Goniometric Range of Motion Hip ROM Limitations Comments myron mod limited due to lymphedema Knee Goniometric Range of Motion Knee ROM Limitations Comments mod limited due to lymphedema Ankle and Foot Goniometric Range of Motion Ankle and Foot ROM Limitations Comments mod decrease due to edema PT-OP-M Strength Start: 09/04/22 16:42 Freq: Status: Active Protocol: Document 09/05/22 14:32 [facility] (Rec: 09/05/22 17:02 [facility] [id number]) Hip Strength Hip Manual Muscle Testing myron Flexion (L2) 3- Fair- Knee Strength Knee Manual Muscle Testing myron Extension (L3) 3 Fair Ankle/Foot Strength Ankle and Foot Manual Muscle Testing myron Dorsiflexion (L4) 3+ Fair+ Plantarflexion (S1) 3+ Fair+ PT-OP-N Lymphedema Start: 09/04/22 16:42 Freq: Status: Active Protocol: Document 10/04/22 12:58 [facility] (Rec: 10/04/22 13:53 [facility] [id number]) Lymphedema Measurements Lower Extremity Circumference Measurements Left Affected MT Heads 23.4 cm Mid-foot 22.5 cm Medial Malleolus 29.4 cm 10 cm From Medial Malleolus 57.2 cm Knee Joint 52.2 cm - 57 Right Affected MT Heads 23.5 cm Mid-foot 23 cm Medial Malleolus 25.5 cm 10 cm From Medial Malleolus 23.4 cm Knee Joint 51.4 cm - 55 PT-OP-Q Treatments Start: 09/04/22 16:42 Freq: Status: Active Protocol: Document 10/04/22 12:58 [facility] (Rec: 10/04/22 13:53 [facility] [id number]) Cardio Equipment Recumbent Stepper (Sci-Fit) Duration (Minutes) 8 Resistance 1 Seat Position 12 Therapeutic Exercises Sitting Exercises hip IR/ER Reps/Minutes 10x ankle pumps Reps/Minutes 10x2 quad sets Reps/Minutes 10x2 gluteal sets Reps/Minutes 10x2 Therapeutic Activity Therapeutic Activity gait training with 4WW Reps/Minutes 5 min Comments 40ftx 2, 80ft x 1 Lymphedema Treatment Manual Lymphatic Drainage Duration 30 Comments performed with reference to HO for HEP, PT and patient performed together proximal to hips, then PT MLD right LE during sequential pneumatic pump to left LE; continue in sitting position due to patient not tolerating supine position Lymphedema Wrapping Body Location myron LE's toes to knees Materials Size G Tubigrip ankles to knees with 2 layers, size E Tubigrip toes to above ankles 2 layers Other skin care: Cetaphil applied liberally myron LE's toes to knees Sequential Lymphedema Exercises Location myron LE's as above in ther ex section of note PT-OP-R Modalities Start: 09/04/22 16:42 Freq: Status: Active Protocol: Document 10/04/22 12:58 [facility] (Rec: 10/04/22 13:53 [facility] [id number]) Compression Pump Treatment Treatment Location Right Leg Pressure Amount (mmHg) (mmHG) 40 Inflation Time (Seconds) 30 Deflation Time (Seconds) 10 Treatment Duration (minutes) 30 Treatment Tolerance Good Left Leg Pressure Amount (mmHg) (mmHG) 40 Inflation Time (Seconds) 30 Deflation Time (Seconds) 10 Treatment Duration (minutes) 30 Treatment Tolerance Good PT-OP-T Assessment and Plan Start: 09/04/22 16:42 Freq: Status: Active Protocol: Document 10/04/22 12:58 [facility] (Rec: 10/04/22 13:53 [facility] [id number]) Physical Therapy Assessment Goals Three Impairment lymphedema life impact scale 65% Short Term Goal (STG) Decrease lymphedema life impact scale score to no greater than 50% as measure of improved function and quality of life STG Duration 10/06/22 Manager Field Goal (LTG) Decrease lymphedema life impact scale score to no greater than 30% as measure of improved function and quality of life LTG Duration 11/05/22 Two Impairment Impaired strength and ROM Manager Field Goal (LTG) Patient to LE strength of at least 4/5 and ROM WNL to allow her to return to prior level of functional mobility in the home and community LTG Duration 11/05/22 One Impairment edema myron LE Short Term Goal (STG) Patient to be instructed in all aspects of lymphedemamanagement to include skin care, self-manual lymphatic drainage, lymphatic exericse,and compression STG Duration 10/06/22 [facility] Goal (LTG) Decrease myron lymphedema to stable level (no increase or decrease greater than 1 cm over the course of 1 week) and patient to be independent with all aspects of lymphedema care including obtaining appropriate compression for self management, and possible pump for home use LTG Duration 11/05/22 Assessment Summary Assessment Patient circumferential measurements decreased. Noting improved mobility, LE strength though heel pain persists (sees customer manager tomorrow). Able to inc time on Sci-Fit recumbant elliptical today. Physical Therapy Plan Frequency and Duration Frequency of Treatment 2x/Week Duration of treatment (weeks) 8 Plan of Care Start Date 09/05/22 Plan of Care End Date 11/05/20 Therapeutic Interventions Therapeutic Interventions Home Exercise Program, Lymphedema Management,Manual Therapy,Patient/Caregiver Education,Self-Care/Home Management,Taping,Therapeutic Activities,Therapeutic Exercises Modalities Vasopneumatic Devices Next Visit Focus/Plan Next Note Type Treatment Note Next Visit Plan Continue lymphedema management . Patient to consult with [facility] regarding compression alternative garments.
--- NOTE | 2022-10-09 16:47 | PT.OTN ---
Current Diagnoses Lymphedema, not elsewhere classified (10/09/22) Difficulty in walking, not elsewhere classified (10/09/22) Weakness (10/09/22) Physical Therapy Treatment Note PT-OP-A Visit Information Start: 09/04/22 16:42 Freq: Status: Active Protocol: Document 10/09/22 14:28 [facility] (Rec: 10/09/22 14:31 [facility] [id number]) Out-Patient Physical Therapy Visit Information Visit Information Visit Type Treatment Note Visit Start Time 13:00 Visit Stop Time 14:25 Total Visit Minutes 85 Visit Number 9 Precautions Precautions HTN, back pain, CHF? (patient reports uncertain, Dr. Silverio doesn't think she does), open wound, fungus right great toe PT-OP-B Current Condition Start: 09/04/22 16:42 Freq: Status: Active Protocol: Document 10/09/22 14:28 [facility] (Rec: 10/09/22 14:31 [facility] [id number]) Current Condition History of Current Condition Onset Date 8 years Current Complaints edema myron LE left greater than History of Current Condition Reports she has been c/o swelling and weeping of LE's for 8 years. Gradually increasing edema myron LEs, developed wound left LE in November 2021, went into hospital November 28, there for about 1 week. Was discharged home. States progressive worsening mobility, increase in pain in LE's, hard to move legs. Has had 4 different types of inatibiotics, still swollen. Stopped coming to wound care about 1 month ago due to weather, coming again. Nothing has helped swelling. Legs are wrapped in Coban Prior Treatments and Tests seen by wound care for lateral lower left leg wound Treatment Goals Patient/Caregiver Goals Decrease her lymphedema, be able to self-manage, improve strengh and mobility Prior Functional Status Baseline Function- Other PMH: Atrial fibrillation Hyperlipidemia Hypertension Chronic wound left LE; seeing wound care, history of cellulitis, CHF. PT-OP-C Subjective Start: 09/04/22 16:42 Freq: Status: Active Protocol: Document 10/09/22 14:28 [facility] (Rec: 10/09/22 14:31 [facility] [id number]) OP-PT Subjective Patient Comments Patient Comments Saw foot tender, had nails trimmed but foot tender didn't look at her feet. Stated she wouldn't see patient again until she obtains shoes. Has only been wearing Tubigrip on lower legs, not feet since last seen in PT. Has talked with Marline Rand. Spoke with [facility] about compression alternative wraps who recommended she order on [employer]. Patient tearful, states didn't sleep last night , had a couple friends last week. PT-OP-G Mobility & Gait Start: 09/04/22 16:42 Freq: Status: Active Protocol: Document 09/05/22 14:32 [facility] (Rec: 09/05/22 17:02 [facility] [id number]) OP Gait Assessment Gait Gait Assistance Required: Standby Assistance Distance (Feet) 75 Assistive Devices Assistive Device None Factors Limiting Gait Function Factors Limiting Gait Function Decreased Strength,Pain Comments Gait Comments heaviness of LE's due to lymphedema myron PT-OP-H Neuro Start: 09/04/22 16:42 Freq: Status: Active Protocol: Document 09/05/22 14:32 [facility] (Rec: 09/05/22 17:02 [facility] [id number]) Sensation Evaluation Gross Sensation Gross Sensation Left LE Impaired,Right LE Impaired PT-OP-J Posture/Palpation/Skin Start: 09/04/22 16:42 Freq: Status: Active Protocol: Document 09/05/22 14:32 [facility] (Rec: 09/05/22 17:02 [facility] [id number]) Skin Assessment Edema Assessment myron LE's Comments 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 Positive Stemmer sign. PT-OP-K Range of Motion Start: 09/04/22 16:42 Freq: Status: Active Protocol: Document 09/05/22 14:32 [facility] (Rec: 09/05/22 17:02 [facility] [id number]) Hip Goniometric Range of Motion Hip ROM Limitations Comments myron mod limited due to lymphedema Knee Goniometric Range of Motion Knee ROM Limitations Comments mod limited due to lymphedema Ankle and Foot Goniometric Range of Motion Ankle and Foot ROM Limitations Comments mod decrease due to edema PT-OP-M Strength Start: 09/04/22 16:42 Freq: Status: Active Protocol: Document 09/05/22 14:32 [facility] (Rec: 09/05/22 17:02 [facility] [id number]) Hip Strength Hip Manual Muscle Testing myron Flexion (L2) 3- Fair- Knee Strength Knee Manual Muscle Testing myron Extension (L3) 3 Fair Ankle/Foot Strength Ankle and Foot Manual Muscle Testing myron Dorsiflexion (L4) 3+ Fair+ Plantarflexion (S1) 3+ Fair+ PT-OP-N Lymphedema Start: 09/04/22 16:42 Freq: Status: Active Protocol: Document 10/04/22 12:58 [facility] (Rec: 10/04/22 13:53 [facility] [id number]) Lymphedema Measurements Lower Extremity Circumference Measurements Left Affected MT Heads 23.4 cm Mid-foot 22.5 cm Medial Malleolus 29.4 cm 10 cm From Medial Malleolus 57.2 cm Knee Joint 52.2 cm - 57 Right Affected MT Heads 23.5 cm Mid-foot 23 cm Medial Malleolus 25.5 cm 10 cm From Medial Malleolus 23.4 cm Knee Joint 51.4 cm - 55 PT-OP-Q Treatments Start: 09/04/22 16:42 Freq: Status: Active Protocol: Document 10/09/22 14:28 [facility] (Rec: 10/09/22 14:31 [facility] [id number]) Cardio Equipment Recumbent Stepper (Sci-Fit) Duration (Minutes) 8 Resistance 1 Seat Position 12 Self-Care/Home Management Treatment Education Other Education education regarding appropriate compression garments for LE's with measurements take for appropriate sizes: Circ-Aid Juxta lite XL full calf, and size M foot for myron LE's Lymphedema Treatment Manual Lymphatic Drainage Duration 30 Comments performed with reference to HO for HEP, PT and patient performed together proximal to hips, then PT MLD right LE during sequential pneumatic pump to left LE; continue in sitting position due to patient not tolerating supine position Lymphedema Wrapping Body Location myron LE's toes to knees Materials size G Tricofix, Artiflex (2 rolls), Comprilan 6,8,10 cm Other skin care: Cetaphil applied liberally myron LE's toes to knees Patient Education Compression Garments given size to order, [employer] phone number PT-OP-R Modalities Start: 09/04/22 16:42 Freq: Status: Active Protocol: Document 10/09/22 14:28 [facility] (Rec: 10/09/22 14:31 [facility] [id number]) Compression Pump Treatment Treatment Location Right Leg Pressure Amount (mmHg) (mmHG) 40 Inflation Time (Seconds) 30 Deflation Time (Seconds) 10 Treatment Duration (minutes) 30 Treatment Tolerance Good PT-OP-T Assessment and Plan Start: 09/04/22 16:42 Freq: Status: Active Protocol: Document 10/09/22 14:28 [facility] (Rec: 10/09/22 14:31 [facility] [id number]) Physical Therapy Assessment Goals Three Impairment lymphedema life impact scale 65% Short Term Goal (STG) Decrease lymphedema life impact scale score to no greater than 50% as measure of improved function and quality of life 10/09/22: not met, patient has had difficulty following through with recommendations for obtaining shoes, compression garments, no help in the home. STG Duration 10/06/22 Custodial Goal (LTG) Decrease lymphedema life impact scale score to no greater than 30% as measure of improved function and quality of life LTG Duration 11/05/22 Two Impairment Impaired strength and ROM Currency Exchange Specialist Goal (LTG) Patient to inc LE strength of at least 4/5 and ROM WNL to allow her to return to prior level of functional mobility in the home and community 10/09/22: not met LTG Duration 11/05/22 One Impairment edema myron LE Short Term Goal (STG) Patient to be instructed in all aspects of lymphedemamanagement to include skin care, self-manual lymphatic drainage, lymphatic exericse,and compression 10/09/22: goal met STG Duration GOAL MET [employer]rency Exchange Specialist Goal (LTG) Decrease myron lymphedema to stable level (no increase or decrease greater than 1 cm over the course of 1 week) and patient to be independent with all aspects of lymphedema care including obtaining appropriate compression for self management, and possible pump for home use LTG Duration 11/05/22 Assessment Summary Assessment Patient edema level increased today after not having compression bandaging last session due to going to foot tender. She has not obtained shoes and her heels continue to hurt, not addressed by foot tender. Awaiting lymphedema pump from [employer]. Legs measured for size for compression alternatives; Circ-Aid Juxta Lite, patient to order via phone, given size info. Physical Therapy Plan Frequency and Duration Frequency of Treatment 2x/Week Duration of treatment (weeks) 8 Plan of Care Start Date 09/05/22 Plan of Care End Date 11/05/20 Therapeutic Interventions Therapeutic Interventions Home Exercise Program, Lymphedema Management,Manual Therapy,Patient/Caregiver Education,Self-Care/Home Management,Taping,Therapeutic Activities,Therapeutic Exercises Modalities Vasopneumatic Devices Next Visit Focus/Plan Next Note Type Treatment Note Next Visit Plan Instruct in use of home pump and compression garmentswhen arrive. Continue lymphedema management 1x/wk after next visit to help patient become independent with self- management. Assure patient obtains shoes or consider cast shoes.
--- NOTE | 2022-10-12 09:26 | PT-OP ANOTE ---
cancelled via [facility]
--- NOTE | 2022-10-31 16:39 | PT.OTRE ---
Current Diagnoses Lymphedema, not elsewhere classified (10/09/22) Difficulty in walking, not elsewhere classified (10/09/22) Weakness (10/09/22) Past Medical History (Last Reviewed 03/14/22 @ 16:24 by Dagoberto Ureña MD) Atrial fibrillation Hyperlipidemia Hypertension Surgical History (Last Reviewed 03/14/22 @ 16:24 by Dagoberto Ureña MD) H/O: hysterectomy History of appendectomy Visit Care Team Role Provider Type Elli Silverio MD Family Provider Physician Primary Care Provider Specialty: Internal Medicine Address: [place], [address] Phone: Email: Jovan Pérez MD Attending Provider Physician Referring Provider Specialty: Wound Care Address: [address] [place] [address], [place], [address] Email: [email or web address] Physical Therapy Re-Evaluation PT-OP-A Visit Information Start: 09/04/22 16:42 Freq: Status: Active Protocol: Document 10/31/22 16:30 [facility] (Rec: 10/31/22 16:39 [facility] [id number]) Out-Patient Physical Therapy Visit Information Visit Information Visit Type Re-Evaluation PT-OP-B Current Condition Start: 09/04/22 16:42 Freq: Status: Active Protocol: Document 10/09/22 14:28 [facility] (Rec: 10/09/22 14:31 [facility] [id number]) Current Condition History of Current Condition Onset Date 8 years Current Complaints edema myron LE left greater than History of Current Condition Reports she has been c/o swelling and weeping of LE's for 8 years. Gradually increasing edema myron LEs, developed wound left LE in November 2021, went into hospital November 28, there for about 1 week. Was discharged home. States progressive worsening mobility, increase in pain in LE's, hard to move legs. Has had 4 different types of inatibiotics, still swollen. Stopped coming to wound care about 1 month ago due to weather, coming again. Nothing has helped swelling. Legs are wrapped in Coban Prior Treatments and Tests seen by wound care for lateral lower left leg wound Treatment Goals Patient/Caregiver Goals Decrease her lymphedema, be able to self-manage, improve strengh and mobility Prior Functional Status Baseline Function- Other PMH: Atrial fibrillation Hyperlipidemia Hypertension Chronic wound left LE; seeing wound care, history of cellulitis, CHF. 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 Stated she wouldn't see patient again until she obtains shoes. Has only been wearing Tubigrip on lower legs, not feet since last seen in PT. Has talked with Marline Rand. Spoke with [facility] about compression alternative wraps who recommended she order on [employer]. Patient tearful, states didn't sleep last night , had a couple friends last week. PT-OP-G Mobility & Gait Start: 09/04/22 16:42 Freq: Status: Active Protocol: Document 09/05/22 14:32 [facility] (Rec: 09/05/22 17:02 [facility] [id number]) OP Gait Assessment Gait Gait Assistance Required: Standby Assistance Distance (Feet) 75 Assistive Devices Assistive Device None Factors Limiting Gait Function Factors Limiting Gait Function Decreased Strength,Pain Comments Gait Comments heaviness of LE's due to lymphedema myron PT-OP-H Neuro Start: 09/04/22 16:42 Freq: Status: Active Protocol: Document 09/05/22 14:32 [facility] (Rec: 09/05/22 17:02 [facility] [id number]) Sensation Evaluation Gross Sensation Gross Sensation Left LE Impaired,Right LE Impaired PT-OP-J Posture/Palpation/Skin Start: 09/04/22 16:42 Freq: Status: Active Protocol: Document 09/05/22 14:32 [facility] (Rec: 09/05/22 17:02 [facility] [id number]) Skin Assessment Edema Assessment myron LE's Comments 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 Positive Stemmer sign. PT-OP-K Range of Motion Start: 09/04/22 16:42 Freq: Status: Active Protocol: Document 09/05/22 14:32 [facility] (Rec: 09/05/22 17:02 [facility] [id number]) Hip Goniometric Range of Motion Hip ROM Limitations Comments myron mod limited due to lymphedema Knee Goniometric Range of Motion Knee ROM Limitations Comments mod limited due to lymphedema Ankle and Foot Goniometric Range of Motion Ankle and Foot ROM Limitations Comments mod decrease due to edema PT-OP-M Strength Start: 09/04/22 16:42 Freq: Status: Active Protocol: Document 09/05/22 14:32 [facility] (Rec: 09/05/22 17:02 [facility] [id number]) Hip Strength Hip Manual Muscle Testing myron Flexion (L2) 3- Fair- Knee Strength Knee Manual Muscle Testing myron Extension (L3) 3 Fair Ankle/Foot Strength Ankle and Foot Manual Muscle Testing myron Dorsiflexion (L4) 3+ Fair+ Plantarflexion (S1) 3+ Fair+ PT-OP-N Lymphedema Start: 09/04/22 16:42 Freq: Status: Active Protocol: Document 10/04/22 12:58 [facility] (Rec: 10/04/22 13:53 [facility] [id number]) Lymphedema Measurements Lower Extremity Circumference Measurements Left Affected MT Heads 23.4 cm Mid-foot 22.5 cm Medial Malleolus 29.4 cm 10 cm From Medial Malleolus 57.2 cm Knee Joint 52.2 cm - 57 Right Affected MT Heads 23.5 cm Mid-foot 23 cm Medial Malleolus 25.5 cm 10 cm From Medial Malleolus 23.4 cm Knee Joint 51.4 cm - 55 PT-OP-Q Treatments Start: 09/04/22 16:42 Freq: Status: Active Protocol: Document 10/09/22 14:28 [facility] (Rec: 10/09/22 14:31 [facility] [id number]) Cardio Equipment Recumbent Stepper (Sci-Fit) Duration (Minutes) 8 Resistance 1 Seat Position 12 Self-Care/Home Management Treatment Education Other Education education regarding appropriate compression garments for LE's with measurements take for appropriate sizes: Circ-Aid Juxta lite XL full calf, and size M foot for myron LE's Lymphedema Treatment Manual Lymphatic Drainage Duration 30 Comments performed with reference to HO for HEP, PT and patient performed together proximal to hips, then PT MLD right LE during sequential pneumatic pump to left LE; continue in sitting position due to patient not tolerating supine position Lymphedema Wrapping Body Location myron LE's toes to knees Materials size G Tricofix, Artiflex (2 rolls), Comprilan 6,8,10 cm Other skin care: Cetaphil applied liberally myron LE's toes to knees Patient Education Compression Garments given size to order, [employer] phone number PT-OP-R Modalities Start: 09/04/22 16:42 Freq: Status: Active Protocol: Document 10/09/22 14:28 [facility] (Rec: 10/09/22 14:31 [facility] [id number]) Compression Pump Treatment Treatment Location Right Leg Pressure Amount (mmHg) (mmHG) 40 Inflation Time (Seconds) 30 Deflation Time (Seconds) 10 Treatment Duration (minutes) 30 Treatment Tolerance Good PT-OP-T Assessment and Plan Start: 09/04/22 16:42 Freq: Status: Active Protocol: Document 10/31/22 16:30 [facility] (Rec: 10/31/22 16:39 [facility] [id number]) Physical Therapy Assessment Impairments Impairments Edema,Functional Mobility Goals Three Impairment lymphedema life impact scale 65% Short Term Goal (STG) Decrease lymphedema life impact scale score to no greater than 50% as measure of improved function and quality of life 10/09/22: not met, patient has had difficulty following through with recommendations for obtaining shoes, compression garments, no help in the home. 10/31/22: goal not met, patient lives alone and has difficulty following through with self-care. Feel use of lymphedema pump in the home will be helpful; has arrived in PT clinic and patient scheduled for training STG Duration 12/01/22 Usp Goal (LTG) Decrease lymphedema life impact scale score to no greater than 30% as measure of improved function and quality of life LTG Duration 01/31/23 Two Impairment Impaired strength and ROM Usp Goal (LTG) Patient to inc LE strength of at least 4/5 and ROM WNL to allow her to return to prior level of functional mobility in the home and community 10/09/22: not met LTG Duration 01/31/23 One Impairment edema myron LE Short Term Goal (STG) Patient to be instructed in all aspects of lymphedemamanagement to include skin care, self-manual lymphatic drainage, lymphatic exericse,and compression 10/09/22: goal met STG Duration GOAL MET Usp Goal (LTG) Decrease myron lymphedema to stable level (no increase or decrease greater than 1 cm over the course of 1 week) and patient to be independent with all aspects of lymphedema care including obtaining appropriate compression for self management, and possible pump for home use 10/31/22: not met LTG Duration 01/31/23 Assessment Summary Assessment Patient has had difficulty complying with self care for lymphedema management due to multiple health issues, difficulty with doing self- massage, low activity tolerance, and limited availability of appointments for PT. Patient requires further PT to be trained in use of her lymphedema pump which has arrived at PT clinic . This PT to be gone for 1 month, patient will benefit from further PT for lymphedema management when PT returns Physical Therapy Plan Frequency and Duration Frequency of Treatment 20 visits Duration of treatment (weeks) 12 Plan of Care Start Date 10/31/22 Plan of Care End Date 01/31/23 Therapeutic Interventions Therapeutic Interventions Home Exercise Program, Lymphedema Management,Manual Therapy,Patient/Caregiver Education,Self-Care/Home Management,Taping,Therapeutic Activities,Therapeutic Exercises Modalities Vasopneumatic Devices Next Visit Focus/Plan Next Note Type Treatment Note Next Visit Plan Instruct in use of home pump and compression garments when arrive. Continue lymphedema management when PT returns from 1 month away.
--- NOTE | 2022-10-31 16:39 | PT.OPPOC ---
Physical, Occupational & Speech Therapy At [facility] Current Diagnoses Lymphedema, not elsewhere classified (10/09/22) Difficulty in walking, not elsewhere classified (10/09/22) Weakness (10/09/22) Visit Care Team Role Provider Type Elli Silverio MD Family Provider Physician Primary Care Provider Specialty: Internal Medicine Address: [place], [address] Phone: Email: Jovan Pérez MD Attending Provider Physician Referring Provider Specialty: Wound Care Address: [address] [place] [address], [address] Email: [email or web address] Plan Of Care PT-OP-T Assessment and Plan Start: 09/04/22 16:42 Freq: Status: Active Protocol: Document 10/31/22 16:30 [facility] (Rec: 10/31/22 16:39 [facility] [id number]) Physical Therapy Assessment Impairments Impairments Edema,Functional Mobility Goals Three Impairment lymphedema life impact scale 65% Short Term Goal (STG) Decrease lymphedema life impact scale score to no greater than 50% as measure of improved function and quality of life 10/09/22: not met, patient has had difficulty following through with recommendations for obtaining shoes, compression garments, no help in the home. 10/31/22: goal not met, patient lives alone and has difficulty following through with self-care. Feel use of lymphedema pump in the home will be helpful; has arrived in PT clinic and patient scheduled for training STG Duration 12/01/22 Retirement Goal (LTG) Decrease lymphedema life impact scale score to no greater than 30% as measure of improved function and quality of life LTG Duration 01/31/23 Two Impairment Impaired strength and ROM Retirement Goal (LTG) Patient to inc LE strength of at least 4/5 and ROM WNL to allow her to return to prior level of functional mobility in the home and community 10/09/22: not met LTG Duration 01/31/23 One Impairment edema myron LE Short Term Goal (STG) Patient to be instructed in all aspects of lymphedemamanagement to include skin care, self-manual lymphatic drainage, lymphatic exericse,and compression 10/09/22: goal met STG Duration GOAL MET Retirement Goal (LTG) Decrease myron lymphedema to stable level (no increase or decrease greater than 1 cm over the course of 1 week) and patient to be independent with all aspects of lymphedema care including obtaining appropriate compression for self management, and possible pump for home use 10/31/22: not met LTG Duration 01/31/23 Assessment Summary Assessment Patient has had difficulty complying with self care for lymphedema management due to multiple health issues, difficulty with doing self- massage, low activity tolerance, and limited availability of appointments for PT. Patient requires further PT to be trained in use of her lymphedema pump which has arrived at PT clinic . This PT to be gone for 1 month, patient will benefit from further PT for lymphedema management when PT returns Physical Therapy Plan Frequency and Duration Frequency of Treatment 20 visits Duration of treatment (weeks) 12 Plan of Care Start Date 10/31/22 Plan of Care End Date 01/31/23 Therapeutic Interventions Therapeutic Interventions Home Exercise Program, Lymphedema Management,Manual Therapy,Patient/Caregiver Education,Self-Care/Home Management,Taping,Therapeutic Activities,Therapeutic Exercises Modalities Vasopneumatic Devices Next Visit Focus/Plan Next Note Type Treatment Note Next Visit Plan Instruct in use of home pump and compression garments when arrive. Continue lymphedema management when PT returns from 1 month away. Plan of Care Dates Plan of Care Start Date 10/31/22 Plan of Care End Date 01/31/23 Electronically Signed by: Leti Mercado, PT 10/31/22 3526 If you are in agreement with this Plan of Care, please return a signed and dated copy. I have reviewed this Plan of Care and certify that the skilled therapy services above are required to meet the patient?s needs. Physician Signature Date Printed Name and Credentials Clinical Instructor Signature Printed Name and Credentials
--- NOTE | 2022-11-08 12:50 | PT.OTN ---
Current Diagnoses Lymphedema, not elsewhere classified (11/08/22) Difficulty in walking, not elsewhere classified (11/08/22) Weakness (11/08/22) Physical Therapy Treatment Note PT-OP-A Visit Information Start: 09/04/22 16:42 Freq: Status: Active Protocol: Document 11/08/22 07:58 [facility] (Rec: 11/08/22 08:44 [facility] [id number]) Out-Patient Physical Therapy Visit Information Visit Information Visit Type Treatment Note Visit Start Time 08:00 Visit Stop Time 08:45 Total Visit Minutes 45 Visit Number 10 PT-OP-B Current Condition Start: 09/04/22 16:42 Freq: Status: Active Protocol: Document 10/09/22 14:28 [facility] (Rec: 10/09/22 14:31 [facility] [id number]) Current Condition History of Current Condition Onset Date 8 years Current Complaints edema myron LE left greater than History of Current Condition Reports she has been c/o swelling and weeping of LE's for 8 years. Gradually increasing edema myron LEs, developed wound left LE in November 2021, went into hospital November 28, there for about 1 week. Was discharged home. States progressive worsening mobility, increase in pain in LE's, hard to move legs. Has had 4 different types of inatibiotics, still swollen. Stopped coming to wound care about 1 month ago due to weather, coming again. Nothing has helped swelling. Legs are wrapped in Coban Prior Treatments and Tests seen by wound care for lateral lower left leg wound Treatment Goals Patient/Caregiver Goals Decrease her lymphedema, be able to self-manage, improve strengh and mobility Prior Functional Status Baseline Function- Other PMH: Atrial fibrillation Hyperlipidemia Hypertension Chronic wound left LE; seeing wound care, history of cellulitis, CHF. PT-OP-C Subjective Start: 09/04/22 16:42 Freq: Status: Active Protocol: Document 11/08/22 07:58 [facility] (Rec: 11/08/22 08:44 [facility] [id number]) OP-PT Subjective Patient Comments Patient Comments I've been trying with lymphedema management. Hasn't gotten compression alternatives as recommended; agreed that she will order; previously given sizes needed. REady to be instructed in Lymphedema pump from [facility] that has arrived at PT department. PT-OP-G Mobility & Gait Start: 09/04/22 16:42 Freq: Status: Active Protocol: Document 09/05/22 14:32 [facility] (Rec: 09/05/22 17:02 [facility] [id number]) OP Gait Assessment Gait Gait Assistance Required: Standby Assistance Distance (Feet) 75 Assistive Devices Assistive Device None Factors Limiting Gait Function Factors Limiting Gait Function Decreased Strength,Pain Comments Gait Comments heaviness of LE's due to lymphedema myron PT-OP-H Neuro Start: 09/04/22 16:42 Freq: Status: Active Protocol: Document 09/05/22 14:32 [facility] (Rec: 09/05/22 17:02 [facility] [id number]) Sensation Evaluation Gross Sensation Gross Sensation Left LE Impaired,Right LE Impaired PT-OP-J Posture/Palpation/Skin Start: 09/04/22 16:42 Freq: Status: Active Protocol: Document 09/05/22 14:32 [facility] (Rec: 09/05/22 17:02 [facility] [id number]) Skin Assessment Edema Assessment myron LE's Comments 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 Positive Stemmer sign. PT-OP-K Range of Motion Start: 09/04/22 16:42 Freq: Status: Active Protocol: Document 09/05/22 14:32 [facility] (Rec: 09/05/22 17:02 [facility] [id number]) Hip Goniometric Range of Motion Hip ROM Limitations Comments myron mod limited due to lymphedema Knee Goniometric Range of Motion Knee ROM Limitations Comments mod limited due to lymphedema Ankle and Foot Goniometric Range of Motion Ankle and Foot ROM Limitations Comments mod decrease due to edema PT-OP-M Strength Start: 09/04/22 16:42 Freq: Status: Active Protocol: Document 09/05/22 14:32 [facility] (Rec: 09/05/22 17:02 [facility] [id number]) Hip Strength Hip Manual Muscle Testing myron Flexion (L2) 3- Fair- Knee Strength Knee Manual Muscle Testing myron Extension (L3) 3 Fair Ankle/Foot Strength Ankle and Foot Manual Muscle Testing myron Dorsiflexion (L4) 3+ Fair+ Plantarflexion (S1) 3+ Fair+ PT-OP-N Lymphedema Start: 09/04/22 16:42 Freq: Status: Active Protocol: Document 10/04/22 12:58 [facility] (Rec: 10/04/22 13:53 [facility] [id number]) Lymphedema Measurements Lower Extremity Circumference Measurements Left Affected MT Heads 23.4 cm Mid-foot 22.5 cm Medial Malleolus 29.4 cm 10 cm From Medial Malleolus 57.2 cm Knee Joint 52.2 cm - 57 Right Affected MT Heads 23.5 cm Mid-foot 23 cm Medial Malleolus 25.5 cm 10 cm From Medial Malleolus 23.4 cm Knee Joint 51.4 cm - 55 PT-OP-Q Treatments Start: 09/04/22 16:42 Freq: Status: Active Protocol: Document 11/08/22 07:58 [facility] (Rec: 11/08/22 08:44 [facility] [id number]) Lymphedema Treatment Lymphedema Wrapping Materials re-applied patient Tubigrip myron LEs Other skin care: Cetaphil applied liberally myron LE's toes to knees Patient Education Compression Garments reviewed size, need to order compression alternatives. Other Other Instruction in set up and use of Airos 6 sequential pneumatic pump, review of self -care. PT-OP-R Modalities Start: 09/04/22 16:42 Freq: Status: Active Protocol: Document 10/09/22 14:28 [facility] (Rec: 10/09/22 14:31 [facility] [id number]) Compression Pump Treatment Treatment Location Right Leg Pressure Amount (mmHg) (mmHG) 40 Inflation Time (Seconds) 30 Deflation Time (Seconds) 10 Treatment Duration (minutes) 30 Treatment Tolerance Good PT-OP-T Assessment and Plan Start: 09/04/22 16:42 Freq: Status: Active Protocol: Document 11/08/22 07:58 [facility] (Rec: 11/08/22 08:44 [facility] [id number]) Physical Therapy Assessment Impairments Impairments Edema,Functional Mobility Goals Three Impairment lymphedema life impact scale 65% Short Term Goal (STG) Decrease lymphedema life impact scale score to no greater than 50% as measure of improved function and quality of life 10/09/22: not met, patient has had difficulty following through with recommendations for obtaining shoes, compression garments, no help in the home. 10/31/22: goal not met, patient lives alone and has difficulty following through with self-care. Feel use of lymphedema pump in the home will be helpful; has arrived in PT clinic and patient scheduled for training STG Duration 12/01/22 Senior Care Goal (LTG) Decrease lymphedema life impact scale score to no greater than 30% as measure of improved function and quality of life LTG Duration 01/31/23 Two Impairment Impaired strength and ROM Vice Principal Goal (LTG) Patient to inc LE strength of at least 4/5 and ROM WNL to allow her to return to prior level of functional mobility in the home and community 10/09/22: not met LTG Duration 01/31/23 One Impairment edema myron LE Short Term Goal (STG) Patient to be instructed in all aspects of lymphedemamanagement to include skin care, self-manual lymphatic drainage, lymphatic exericse,and compression 10/09/22: goal met STG Duration GOAL MET Vice Principal Goal (LTG) Decrease myron lymphedema to stable level (no increase or decrease greater than 1 cm over the course of 1 week) and patient to be independent with all aspects of lymphedema care including obtaining appropriate compression for self management, and possible pump for home use 10/31/22: not met LTG Duration 01/31/23 Assessment Summary Assessment Patient demonstrated good understanding of set-up and use of lymphedema pump and it was issued to her. Information in instruction manual for contacting [facility]line [facility] with any problems or questions. Reviewed prior instruction that pump is not the only solution; needs the compression that has been recommended for her; information was given regarding product, sizes, and where to order. Curren wearing of Tubigrip not adequate and she is at high risk for developing further wounds and cellulitis. Patient agreed she will order garments. No measurements taken due to time constraints today. Physical Therapy Plan Frequency and Duration Frequency of Treatment 20 visits Duration of treatment (weeks) 12 Plan of Care Start Date 10/31/22 Plan of Care End Date 01/31/23 Therapeutic Interventions Therapeutic Interventions Home Exercise Program, Lymphedema Management,Manual Therapy,Patient/Caregiver Education,Self-Care/Home Management,Taping,Therapeutic Activities,Therapeutic Exercises Modalities Vasopneumatic Devices Next Visit Focus/Plan Next Note Type Treatment Note Next Visit Plan Assess circumferential measurements, discuss use of pump and problem solve as needed. Assess fit of compression garments. continue lymphedema management .
--- NOTE | 2022-12-20 16:56 | PT.OTN ---
Current Diagnoses Lymphedema, not elsewhere classified (12/20/22) Difficulty in walking, not elsewhere classified (12/20/22) Weakness (12/20/22) Physical Therapy Treatment Note PT-OP-A Visit Information Start: 09/04/22 16:42 Freq: Status: Active Protocol: Document 12/20/22 12:34 [facility] (Rec: 12/20/22 14:03 [facility] [id number]) Out-Patient Physical Therapy Visit Information Visit Information Visit Type Treatment Note Visit Start Time 12:35 Visit Stop Time 13:55 Total Visit Minutes 80 Visit Number 11 Precautions Precautions pt anxious. Severe heel pain left greater than right PT-OP-B Current Condition Start: 09/04/22 16:42 Freq: Status: Active Protocol: Document 10/09/22 14:28 [facility]AK (Rec: 10/09/22 14:31 [facility] [id number]) Current Condition History of Current Condition Onset Date 8 years Current Complaints edema myron LE left greater than History of Current Condition Reports she has been c/o swelling and weeping of LE's for 8 years. Gradually increasing edema myron LEs, developed wound left LE in November 2021, went into hospital November 28, there for about 1 week. Was discharged home. States progressive worsening mobility, increase in pain in LE's, hard to move legs. Has had 4 different types of inatibiotics, still swollen. Stopped coming to wound care about 1 month ago due to weather, coming again. Nothing has helped swelling. Legs are wrapped in Coban Prior Treatments and Tests seen by wound care for lateral lower left leg wound Treatment Goals Patient/Caregiver Goals Decrease her lymphedema, be able to self-manage, improve strengh and mobility Prior Functional Status Baseline Function- Other PMH: Atrial fibrillation Hyperlipidemia Hypertension Chronic wound left LE; seeing wound care, history of cellulitis, CHF. PT-OP-C Subjective Start: 09/04/22 16:42 Freq: Status: Active Protocol: Document 12/20/22 12:34 [facility]AK (Rec: 12/20/22 14:03 [facility] [id number]) OP-PT Subjective Patient Comments Patient Comments Got two Circ Aid compression garments ankle to knee that include socks for wearing under. Did not yet obtain ankle foot garment due to recommendation to Circ Aid company online. Received pump while on vacation; has used a few times but blew fuse and kasper Took shower prior to PT so didn't apply compression garment. Hasn't used compression pump for 2 weeks due to blown fuse, needs to get fixed, states it feels helpful when used. PT-OP-G Mobility & Gait Start: 09/04/22 16:42 Freq: Status: Active Protocol: Document 09/05/22 14:32 [facility] (Rec: 09/05/22 17:02 [facility] [id number]) OP Gait Assessment Gait Gait Assistance Required: Standby Assistance Distance (Feet) 75 Assistive Devices Assistive Device None Factors Limiting Gait Function Factors Limiting Gait Function Decreased Strength,Pain Comments Gait Comments heaviness of LE's due to lymphedema myron PT-OP-H Neuro Start: 09/04/22 16:42 Freq: Status: Active Protocol: Document 09/05/22 14:32 [facility] (Rec: 09/05/22 17:02 [facility] [id number]) Sensation Evaluation Gross Sensation Gross Sensation Left LE Impaired,Right LE Impaired PT-OP-J Posture/Palpation/Skin Start: 09/04/22 16:42 Freq: Status: Active Protocol: Document 09/05/22 14:32 [facility] (Rec: 09/05/22 17:02 [facility] [id number]) Skin Assessment Edema Assessment myron LE's Comments 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 Positive Stemmer sign. PT-OP-K Range of Motion Start: 09/04/22 16:42 Freq: Status: Active Protocol: Document 09/05/22 14:32 [facility] (Rec: 09/05/22 17:02 [facility] [id number]) Hip Goniometric Range of Motion Hip ROM Limitations Comments myron mod limited due to lymphedema Knee Goniometric Range of Motion Knee ROM Limitations Comments mod limited due to lymphedema Ankle and Foot Goniometric Range of Motion Ankle and Foot ROM Limitations Comments mod decrease due to edema PT-OP-M Strength Start: 09/04/22 16:42 Freq: Status: Active Protocol: Document 09/05/22 14:32 [facility] (Rec: 09/05/22 17:02 [facility] [id number]) Hip Strength Hip Manual Muscle Testing myron Flexion (L2) 3- Fair- Knee Strength Knee Manual Muscle Testing myron Extension (L3) 3 Fair Ankle/Foot Strength Ankle and Foot Manual Muscle Testing myron Dorsiflexion (L4) 3+ Fair+ Plantarflexion (S1) 3+ Fair+ PT-OP-N Lymphedema Start: 09/04/22 16:42 Freq: Status: Active Protocol: Document 12/20/22 12:34 [facility] (Rec: 12/20/22 14:03 [facility] [id number]) Lymphedema Measurements Lower Extremity Circumference Measurements Left Affected MT Heads 24 cm Mid-foot 25.1 cm Medial Malleolus 36.2 cm 10 cm From Medial Malleolus 45 cm 20 cm From Medial Malleolus 52.4 cm 30 cm From Medial Malleolus 46.3 cm 40 cm From Medial Malleolus 47.8 cm 50 cm From Medial Malleolus 66.8 cm 60 cm From Medial Malleolus 70.9 cm Knee Joint 45.4 cm Right Affected MT Heads 23.4 cm Mid-foot 23.5 cm Medial Malleolus 31.8 cm 10 cm From Medial Malleolus 41 cm 20 cm From Medial Malleolus 49.8 cm 30 cm From Medial Malleolus 46.8 cm 40 cm From Medial Malleolus 52.8 cm 50 cm From Medial Malleolus 66.3 cm 60 cm From Medial Malleolus 70.2 cm Knee Joint 49.7 cm PT-OP-Q Treatments Start: 09/04/22 16:42 Freq: Status: Active Protocol: Document 12/20/22 12:34 [facility] (Rec: 12/20/22 16:56 [facility] [id number]) Manual Therapy Treatment Other Other Manual Treatments LE circumferential measurements Lymphedema Treatment Manual Lymphatic Drainage Comments reviewed with patient Compression Garment Assessment Compression Garment Assessment Details good fit of Circ Aid circumferentially, doesn't cover full lower leg to knee, use distally around ankle stressed. Patient Education Self Manual Lymphatic Drainage reviewed Sequential Lymphedema Exercises reviewed, patient may obtain small exercise machine to allow her to ex Other Stressed importance of HEP, dec time spent sitting with recommendation pt obtain recliner to be able to elevate her LEs, obtain shoes and walker for safe ambulation and for shoes to assist with compression of feet, get fuse repaired and resume use of compression pump. Other Other Cetaphil lotion applied myron LE 's Patient instructed in donning of stocking and Circ Aid compression alternatives for myron LE's; unable to don stocking due to heel pain and size of left LE so Tubigrip size G applied under instead. PT-OP-R Modalities Start: 09/04/22 16:42 Freq: Status: Active Protocol: Document 10/09/22 14:28 SAK (Rec: 10/09/22 14:31 [facility] [id number]) Compression Pump Treatment Treatment Location Right Leg Pressure Amount (mmHg) (mmHG) 40 Inflation Time (Seconds) 30 Deflation Time (Seconds) 10 Treatment Duration (minutes) 30 Treatment Tolerance Good PT-OP-T Assessment and Plan Start: 09/04/22 16:42 Freq: Status: Active Protocol: Document 12/20/22 12:34 [facility] (Rec: 12/20/22 14:03 [facility] [id number]) Physical Therapy Assessment Impairments Impairments Edema,Functional Mobility Goals Three Impairment lymphedema life impact scale 65% Short Term Goal (STG) Decrease lymphedema life impact scale score to no greater than 50% as measure of improved function and quality of life 10/09/22: not met, patient has had difficulty following through with recommendations for obtaining shoes, compression garments, no help in the home. 10/31/22: goal not met, patient lives alone and has difficulty following through with self-care. Feel use of lymphedema pump in the home will be helpful; has arrived in PT clinic and patient scheduled for training STG Duration 12/01/22 Alf Goal (LTG) Decrease lymphedema life impact scale score to no greater than 30% as measure of improved function and quality of life LTG Duration 01/31/23 Two Impairment Impaired strength and ROM Alf Goal (LTG) Patient to inc LE strength of at least 4/5 and ROM WNL to allow her to return to prior level of functional mobility in the home and community 10/09/22: not met LTG Duration 01/31/23 One Impairment edema myron LE Short Term Goal (STG) Patient to be instructed in all aspects of lymphedemamanagement to include skin care, self-manual lymphatic drainage, lymphatic exericse,and compression 10/09/22: goal met STG Duration GOAL MET Alf Goal (LTG) Decrease myron lymphedema to stable level (no increase or decrease greater than 1 cm over the course of 1 week) and patient to be independent with all aspects of lymphedema care including obtaining appropriate compression for self management, and possible pump for home use 10/31/22: not met LTG Duration 01/31/23 Assessment Summary Assessment After instruction patient able to don sock and assist with donning Circ Aid right, not able to tolerate sock on left so Tubigrip size G applied to left foot and lower leg by patient followed by Circ aid over Tubigrip with patient demonstrating improved understanding. PT recommended patient obtain recliner due to her reporting she sits all day with her feet on the ground, doesn't go anywhere, doesn't elevate legs. Also encouraged to obtain shoes ( wearing slide on slippers with no back) and obtain walker due to her limited ability to walk (currently using single trekking pole which isn't adequate). Get fuse repaired so able to use pump daily, continue to try to apply sock under Circ Aid for better compression in foot and ankle after pump. Recommend follow- up appointment to assess compliance to compression garment wearing with remeasuring of LE circumference. Problem solve any self management issues as needed. Physical Therapy Plan Frequency and Duration Frequency of Treatment 20 visits Duration of treatment (weeks) 12 Plan of Care Start Date 10/31/22 Plan of Care End Date 01/31/23 Therapeutic Interventions Therapeutic Interventions Home Exercise Program, Lymphedema Management,Manual Therapy,Patient/Caregiver Education,Self-Care/Home Management,Taping,Therapeutic Activities,Therapeutic Exercises Modalities Vasopneumatic Devices Next Visit Focus/Plan Next Note Type Treatment Note Next Visit Plan Circumferential measurements, assess compliance and problem solve any further issues with self management.
--- NOTE | 2022-12-28 16:14 | PT.OTN ---
Current Diagnoses Lymphedema, not elsewhere classified (12/28/22) Difficulty in walking, not elsewhere classified (12/28/22) Weakness (12/28/22) Physical Therapy Treatment Note PT-OP-A Visit Information Start: 09/04/22 16:42 Freq: Status: Active Protocol: Document 12/28/22 12:29 [facility]AK (Rec: 12/28/22 13:18 [facility] [id number]) Out-Patient Physical Therapy Visit Information Visit Information Visit Type Treatment Note Visit Start Time 12:30 Visit Stop Time 13:15 Total Visit Minutes 45 Visit Number 12 PT-OP-B Current Condition Start: 09/04/22 16:42 Freq: Status: Active Protocol: Document 10/09/22 14:28 SAK (Rec: 10/09/22 14:31 [facility] [id number]) Current Condition History of Current Condition Onset Date 8 years Current Complaints edema myron LE left greater than History of Current Condition Reports she has been c/o swelling and weeping of LE's for 8 years. Gradually increasing edema myron LEs, developed wound left LE in November 2021, went into hospital November 28, there for about 1 week. Was discharged home. States progressive worsening mobility, increase in pain in LE's, hard to move legs. Has had 4 different types of inatibiotics, still swollen. Stopped coming to wound care about 1 month ago due to weather, coming again. Nothing has helped swelling. Legs are wrapped in Coban Prior Treatments and Tests seen by wound care for lateral lower left leg wound Treatment Goals Patient/Caregiver Goals Decrease her lymphedema, be able to self-manage, improve strengh and mobility Prior Functional Status Baseline Function- Other PMH: Atrial fibrillation Hyperlipidemia Hypertension Chronic wound left LE; seeing wound care, history of cellulitis, CHF. PT-OP-C Subjective Start: 09/04/22 16:42 Freq: Status: Active Protocol: Document 12/28/22 12:29 [facility]AK (Rec: 12/28/22 13:18 [facility] [id number]) OP-PT Subjective Patient Comments Patient Comments Not wearing compression wraps because in the washing machine ; reports able to don and doff ok. Not using compression pump because of INR too high right now, wants to get approval for using pump. Both heels continue to hurt, hasn't gotten to call or contact centre coach yet as recommended and referred. PT-OP-G Mobility & Gait Start: 09/04/22 16:42 Freq: Status: Active Protocol: Document 09/05/22 14:32 [facility] (Rec: 09/05/22 17:02 [facility] [id number]) OP Gait Assessment Gait Gait Assistance Required: Standby Assistance Distance (Feet) 75 Assistive Devices Assistive Device None Factors Limiting Gait Function Factors Limiting Gait Function Decreased Strength,Pain Comments Gait Comments heaviness of LE's due to lymphedema myron PT-OP-H Neuro Start: 09/04/22 16:42 Freq: Status: Active Protocol: Document 09/05/22 14:32 [facility] (Rec: 09/05/22 17:02 [facility] [id number]) Sensation Evaluation Gross Sensation Gross Sensation Left LE Impaired,Right LE Impaired PT-OP-J Posture/Palpation/Skin Start: 09/04/22 16:42 Freq: Status: Active Protocol: Document 09/05/22 14:32 [facility] (Rec: 09/05/22 17:02 [facility] [id number]) Skin Assessment Edema Assessment myron LE's Comments 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 Positive Stemmer sign. PT-OP-K Range of Motion Start: 09/04/22 16:42 Freq: Status: Active Protocol: Document 09/05/22 14:32 [facility] (Rec: 09/05/22 17:02 [facility] [id number]) Hip Goniometric Range of Motion Hip ROM Limitations Comments myron mod limited due to lymphedema Knee Goniometric Range of Motion Knee ROM Limitations Comments mod limited due to lymphedema Ankle and Foot Goniometric Range of Motion Ankle and Foot ROM Limitations Comments mod decrease due to edema PT-OP-M Strength Start: 09/04/22 16:42 Freq: Status: Active Protocol: Document 09/05/22 14:32 [facility]AK (Rec: 09/05/22 17:02 [facility] [id number]) Hip Strength Hip Manual Muscle Testing myron Flexion (L2) 3- Fair- Knee Strength Knee Manual Muscle Testing myron Extension (L3) 3 Fair Ankle/Foot Strength Ankle and Foot Manual Muscle Testing myron Dorsiflexion (L4) 3+ Fair+ Plantarflexion (S1) 3+ Fair+ PT-OP-N Lymphedema Start: 09/04/22 16:42 Freq: Status: Active Protocol: Document 12/28/22 12:29 [facility] (Rec: 12/28/22 13:18 [facility] [id number]) Lymphedema Measurements Lower Extremity Circumference Measurements Left Affected MT Heads 23.7 cm Mid-foot 25.7 cm Medial Malleolus 34.6 cm 10 cm From Medial Malleolus 45 cm 20 cm From Medial Malleolus 52.3 cm 30 cm From Medial Malleolus 45.6 cm 40 cm From Medial Malleolus 48.8 cm 50 cm From Medial Malleolus 67 cm 60 cm From Medial Malleolus 71.2 cm Knee Joint 48.8 cm Right Affected MT Heads 22.5 cm Mid-foot 23.5 cm Medial Malleolus 29.2 cm 10 cm From Medial Malleolus 41.8 cm 20 cm From Medial Malleolus 50.7 cm 30 cm From Medial Malleolus 49.5 cm 40 cm From Medial Malleolus 52.9 cm 50 cm From Medial Malleolus 66.5 cm 60 cm From Medial Malleolus 71 cm Knee Joint 49.3 cm PT-OP-Q Treatments Start: 09/04/22 16:42 Freq: Status: Active Protocol: Document 12/28/22 12:29 [facility] (Rec: 12/28/22 16:09 [facility] [id number]) Lymphedema Treatment Manual Lymphatic Drainage Comments reviewed with patient Lymphedema Wrapping Other pt ed importance of consistent compression Sequential Lymphedema Exercises Comments review Patient Education Self Manual Lymphatic Drainage Call doctor to make sure with INR level she is ok to use lymphedema pump Other Pt ed: Wear second set of compression bandages while other set is in the wash, obtain gel heel cushions and better shoes for support, cushion, and compression, make appointment with call or contact centre coach. Consider foot component of compression garments due to ankle edema. Other Other circumferential measurements taken myron LE's PT-OP-R Modalities Start: 09/04/22 16:42 Freq: Status: Active Protocol: Document 10/09/22 14:28 [facility] (Rec: 10/09/22 14:31 [facility] [id number]) Compression Pump Treatment Treatment Location Right Leg Pressure Amount (mmHg) (mmHG) 40 Inflation Time (Seconds) 30 Deflation Time (Seconds) 10 Treatment Duration (minutes) 30 Treatment Tolerance Good PT-OP-T Assessment and Plan Start: 09/04/22 16:42 Freq: Status: Active Protocol: Document 12/28/22 12:29 [facility] (Rec: 12/28/22 13:18 [facility] [id number]) Physical Therapy Assessment Impairments Impairments Edema,Functional Mobility Goals Three Impairment lymphedema life impact scale 65% Short Term Goal (STG) Decrease lymphedema life impact scale score to no greater than 50% as measure of improved function and quality of life 10/09/22: not met, patient has had difficulty following through with recommendations for obtaining shoes, compression garments, no help in the home. 10/31/22: goal not met, patient lives alone and has difficulty following through with self-care. Feel use of lymphedema pump in the home will be helpful; has arrived in PT clinic and patient scheduled for training STG Duration 12/01/22 Car Conditioner Goal (LTG) Decrease lymphedema life impact scale score to no greater than 30% as measure of improved function and quality of life LTG Duration 01/31/23 Two Impairment Impaired strength and ROM Car Conditioner Goal (LTG) Patient to inc LE strength of at least 4/5 and ROM WNL to allow her to return to prior level of functional mobility in the home and community 10/09/22: not met LTG Duration 01/31/23 One Impairment edema myron LE Short Term Goal (STG) Patient to be instructed in all aspects of lymphedemamanagement to include skin care, self-manual lymphatic drainage, lymphatic exericse,and compression 10/09/22: goal met STG Duration GOAL MET Car Conditioner Goal (LTG) Decrease myron lymphedema to stable level (no increase or decrease greater than 1 cm over the course of 1 week) and patient to be independent with all aspects of lymphedema care including obtaining appropriate compression for self management, and possible pump for home use 10/31/22: not met LTG Duration 01/31/23 Assessment Summary Assessment Patient only wearing Tubigrip today due to one set of compression wraps in wash; PT stressed wear second set compression wraps while first in washing machine. Continues to wear poorly fitting sandals and PT again stressed need for improved footwear with gel cushion and to provide some compression due to patient not wearing foot component of compression garment. Encouraged her to go to [facility] as well for further recommendations. Patient mobility still limited by her heel pain. Use of walker encouraged. Physical Therapy Plan Frequency and Duration Frequency of Treatment 20 visits Duration of treatment (weeks) 12 Plan of Care Start Date 10/31/22 Plan of Care End Date 01/31/23 Therapeutic Interventions Therapeutic Interventions Home Exercise Program, Lymphedema Management,Manual Therapy,Patient/Caregiver Education,Self-Care/Home Management,Taping,Therapeutic Activities,Therapeutic Exercises Modalities Vasopneumatic Devices Next Visit Focus/Plan Next Note Type Re-Evaluation Next Visit Plan Patient to go to call or contact centre coach to consult regarding heel, obtain gel heel cushions, wear 2nd compression wraps when first is in the laundry, buy diabetic shoes or other supportive and well fitting shoes. See for follow-up to assure compliance with recommendations and assess lymphedema self-management
--- NOTE | 2023-02-05 16:37 | PT.OTRE ---
Current Diagnoses Lymphedema, not elsewhere classified (02/05/23) Difficulty in walking, not elsewhere classified (02/05/23) Weakness (02/05/23) Past Medical History (Last Reviewed 01/03/23 @ 23:23 by Ace Hernandez DO) Atrial fibrillation Hyperlipidemia Hypertension Surgical History (Last Reviewed 03/14/22 @ 16:24 by Dagoberto Ureña MD) H/O: hysterectomy History of appendectomy Visit Care Team Role Provider Type Elli Silverio MD Family Provider Physician Primary Care Provider Specialty: Internal Medicine Address: [place], [address] Phone: Email: Jovan Pérez MD Attending Provider Physician Referring Provider Specialty: Wound Care Address: [address] [place] [address], [place], [address] Email: [email or web address] [facility] Re-Evaluation PT-OP-A Visit Information Start: 09/04/22 16:42 Freq: Status: Active Protocol: Document 02/05/23 15:04 [facility] (Rec: 02/05/23 16:36 [facility] [id number]) Out-Patient Physical Therapy Visit Information Visit Information Visit Type Treatment Note Visit Start Time 15:05 Visit Stop Time 16:07 Total Visit Minutes 62 Visit Number 13 Precautions Precautions pt anxious. Severe heel pain left greater than right PT-OP-B Current Condition Start: 09/04/22 16:42 Freq: Status: Active Protocol: Document 10/09/22 14:28 [facility] (Rec: 10/09/22 14:31 [facility] [id number]) Current Condition History of Current Condition Onset Date 8 years Current Complaints edema myron LE left greater than History of Current Condition Reports she has been c/o swelling and weeping of LE's for 8 years. Gradually increasing edema myron LEs, developed wound left LE in November 2021, went into hospital November 28, there for about 1 week. Was discharged home. States progressive worsening mobility, increase in pain in LE's, hard to move legs. Has had 4 different types of inatibiotics, still swollen. Stopped coming to wound care about 1 month ago due to weather, coming again. Nothing has helped swelling. Legs are wrapped in Coban Prior Treatments and Tests seen by wound care for lateral lower left leg wound Treatment Goals Patient/Caregiver Goals Decrease her lymphedema, be able to self-manage, improve strengh and mobility Prior Functional Status Baseline Function- Other PMH: Atrial fibrillation Hyperlipidemia Hypertension Chronic wound left LE; seeing wound care, history of cellulitis, CHF. PT-OP-C Subjective Start: 09/04/22 16:42 Freq: Status: Active Protocol: Document 02/05/23 15:04 [facility] (Rec: 02/05/23 16:36 [facility] [id number]) OP-PT Subjective Patient Comments Patient Comments Was diagnosed with cellulitis 01/03/23; was prescribed antibiotics, but chose not to take. Not wearing compression wraps because she is scared of the way she walks with the velcro rubbing that she will fall. Agreeable to trying to wear wraps in modified way with velcro to the outside. PT-OP-G Mobility & Gait Start: 09/04/22 16:42 Freq: Status: Active Protocol: Document 09/05/22 14:32 [facility] (Rec: 09/05/22 17:02 [facility] [id number]) OP Gait Assessment Gait Gait Assistance Required: Standby Assistance Distance (Feet) 75 Assistive Devices Assistive Device None Factors Limiting Gait Function Factors Limiting Gait Function Decreased Strength,Pain Comments Gait Comments heaviness of LE's due to lymphedema myron PT-OP-H Neuro Start: 09/04/22 16:42 Freq: Status: Active Protocol: Document 09/05/22 14:32 [facility] (Rec: 09/05/22 17:02 [facility] [id number]) Sensation Evaluation Gross Sensation Gross Sensation Left LE Impaired,Right LE Impaired PT-OP-J Posture/Palpation/Skin Start: 09/04/22 16:42 Freq: Status: Active Protocol: Document 09/05/22 14:32 [facility] (Rec: 09/05/22 17:02 [facility] [id number]) Skin Assessment Edema Assessment myron LE's Comments 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 Positive Stemmer sign. PT-OP-K Range of Motion Start: 09/04/22 16:42 Freq: Status: Active Protocol: Document 09/05/22 14:32 [facility] (Rec: 09/05/22 17:02 [facility] [id number]) Hip Goniometric Range of Motion Hip ROM Limitations Comments myron mod limited due to lymphedema Knee Goniometric Range of Motion Knee ROM Limitations Comments mod limited due to lymphedema Ankle and Foot Goniometric Range of Motion Ankle and Foot ROM Limitations Comments mod decrease due to edema PT-OP-M Strength Start: 09/04/22 16:42 Freq: Status: Active Protocol: Document 09/05/22 14:32 [facility] (Rec: 09/05/22 17:02 [facility] [id number]) Hip Strength Hip Manual Muscle Testing myron Flexion (L2) 3- Fair- Knee Strength Knee Manual Muscle Testing myron Extension (L3) 3 Fair Ankle/Foot Strength Ankle and Foot Manual Muscle Testing myron Dorsiflexion (L4) 3+ Fair+ Plantarflexion (S1) 3+ Fair+ PT-OP-N Lymphedema Start: 09/04/22 16:42 Freq: Status: Active Protocol: Document 02/05/23 15:04 [facility] (Rec: 02/05/23 16:36 [facility] [id number]) Lymphedema Measurements Lower Extremity Circumference Measurements Left Affected MT Heads 23 cm Mid-foot 25.6 cm Medial Malleolus 31.4 cm 10 cm From Medial Malleolus 44 cm 20 cm From Medial Malleolus 51.7 cm 30 cm From Medial Malleolus 45 cm 40 cm From Medial Malleolus 48.7 cm 50 cm From Medial Malleolus 67 cm 60 cm From Medial Malleolus 71.8 cm Knee Joint 48.7 cm Right Affected MT Heads 22.7 cm Mid-foot 23 cm Medial Malleolus 34.5 cm 10 cm From Medial Malleolus 42.3 cm 20 cm From Medial Malleolus 52 cm 30 cm From Medial Malleolus 51 cm 40 cm From Medial Malleolus 50.5 cm 50 cm From Medial Malleolus 62.9 cm 60 cm From Medial Malleolus 68 cm Knee Joint 50.5 cm PT-OP-Q Treatments Start: 09/04/22 16:42 Freq: Status: Active Protocol: Document 02/05/23 15:04 [facility] (Rec: 02/05/23 16:36 [facility] [id number]) Lymphedema Treatment Lymphedema Wrapping Other reviewed importance of adequate, consistent compression, shoes that fit that don't cause pressure on heel Compression Garment Assessment Compression Garment Assessment Details Patient advised to try wearing compression wrap again, bring to next appointment. When using Tubigrip, use the smaller size for inc compression and don't let cause tourniquet effect. Patient Education Compression Garments discussed as above, recommended compression tights Other PT stressed importance of well -fitting shoes with cushion for heels especially left. Other Other circumferential measurements taken myron LE's; left LE showing some dec, right LE inc . Cetaphil lotion applied myron LE 's PT-OP-R Modalities Start: 09/04/22 16:42 Freq: Status: Active Protocol: Document 10/09/22 14:28 [facility] (Rec: 10/09/22 14:31 [facility] [id number]) Compression Pump Treatment Treatment Location Right Leg Pressure Amount (mmHg) (mmHG) 40 Inflation Time (Seconds) 30 Deflation Time (Seconds) 10 Treatment Duration (minutes) 30 Treatment Tolerance Good PT-OP-T Assessment and Plan Start: 09/04/22 16:42 Freq: Status: Active Protocol: Document 02/05/23 15:04 [facility] (Rec: 02/05/23 16:36 [facility] [id number]) Physical Therapy Assessment Impairments Impairments Edema,Functional Mobility Goals Three Impairment lymphedema life impact scale 65% Short Term Goal (STG) Decrease lymphedema life impact scale score to no greater than 50% as measure of improved function and quality of life 10/09/22: not met, patient has had difficulty following through with recommendations for obtaining shoes, compression garments, no help in the home. 10/31/22: goal not met, patient lives alone and has difficulty following through with self-care. Feel use of lymphedema pump in the home will be helpful; has arrived in PT clinic and patient scheduled for training 02/05/23: patient now using compression pump consistently, struggles with other aspects of self-management for lymphedema as above STG Duration 03/08/23 [facility] Goal (LTG) Decrease lymphedema life impact scale score to no greater than 30% as measure of improved function and quality of life LTG Duration 04/07/23 Two Impairment Impaired strength and ROM [facility] Goal (LTG) Patient to inc LE strength of at least 4/5 and ROM WNL to allow her to return to prior level of functional mobility in the home and community 10/09/22: not met 02/05/23: Patient only fair compliance with HEP due to pain, low activity tolerance LTG Duration 04/07/23 One Impairment edema myron LE Short Term Goal (STG) Patient to be instructed in all aspects of lymphedemamanagement to include skin care, self-manual lymphatic drainage, lymphatic exericse,and compression 10/09/22: goal met STG Duration GOAL MET Follow Up Manager Goal (LTG) Decrease myron lymphedema to stable level (no increase or decrease greater than 1 cm over the course of 1 week) and patient to be independent with all aspects of lymphedema care including obtaining appropriate compression for self management, and possible pump for home use 10/31/22: not met 02/05/23: assisted patient in obtaining sequential pneumatic pump for home use; she is using consistently, but struggles with other aspects of lymphedema self-care. Have encouraged she get help in the home but she says at this time her house is in such bad condition she wouldn't let anyone in. Have instructed her in appropriate compression wear, skin care, ther ex but compliance limited. She is at high risk for further medical complications LTG Duration 04/07/23 Assessment Summary Assessment Patient struggling with self care for her lymphedema. Recently diagnosed with cellulitis (1 month ago), though chose not to take the antibiotics. No evidence for cellulitis this date but left heel discolored and appears could open with wound if not addressed due to pressure on the heel from ill fitting cheap sandals, pt doesn't wear shoes at home. She has not beein wearing compression alternative wraps due to fear of falling if velcro gets caught. She has been using compression pump consistently at home per her report and reports she can see a decrease in size after that is done. PT stressed importance of applying appropriate compression garments after pumping done. Recommend continue to follow patient in PT to assure she follows through with physician, obtains well-fitting shoes, and improves her compliance with compression. She is at high risk for further wounds and cellulitis, and left foot has pressure discoloration that could easily develop into a wound. Patient is at high risk for further medical complications and she was instructed to follow-up with her physician, obtain supportive well-fitting shoes, wear adequate compression, perform skin care and lymphedema exercises prior to next follow-up appointmentwith PT. Physical Therapy Plan Frequency and Duration Frequency of Treatment 4 Duration of treatment (weeks) 8 Plan of Care Start Date 02/05/23 Plan of Care End Date 10/21/23 Therapeutic Interventions Therapeutic Interventions Home Exercise Program, Lymphedema Management,Manual Therapy,Patient/Caregiver Education,Self-Care/Home Management,Taping,Therapeutic Activities,Therapeutic Exercises Modalities Vasopneumatic Devices Next Visit Focus/Plan Next Note Type Re-Evaluation Next Visit Plan Patient to go to consult regarding heel, obtain gel heel cushions, wear 2nd compression wraps when first is in the laundry, buy diabetic shoes or other supportive and well fitting shoes. See for follow-up to assure compliance with recommendations and assess lymphedema self-management
--- NOTE | 2023-02-05 16:37 | PT.OPPOC ---
Physical, Occupational & Speech Therapy At [facility] Current Diagnoses Lymphedema, not elsewhere classified (02/05/23) Difficulty in walking, not elsewhere classified (02/05/23) Weakness (02/05/23) Visit Care Team Role Provider Type Elli Silverio MD Family Provider Physician Primary Care Provider Specialty: Internal Medicine Address: [place], [address] Phone: Email: Jovan Pérez MD Attending Provider Physician Referring Provider Specialty: Wound Care Address: [address] [place] [address], [address] Email: [email or web address] Plan Of Care PT-OP-T Assessment and Plan Start: 09/04/22 16:42 Freq: Status: Active Protocol: Document 02/05/23 15:04 [facility] (Rec: 02/05/23 16:36 [facility] [id number]) Physical Therapy Assessment Impairments Impairments Edema,Functional Mobility Goals Three Impairment lymphedema life impact scale 65% Short Term Goal (STG) Decrease lymphedema life impact scale score to no greater than 50% as measure of improved function and quality of life 10/09/22: not met, patient has had difficulty following through with recommendations for obtaining shoes, compression garments, no help in the home. 10/31/22: goal not met, patient lives alone and has difficulty following through with self-care. Feel use of lymphedema pump in the home will be helpful; has arrived in PT clinic and patient scheduled for training 02/05/23: patient now using compression pump consistently, struggles with other aspects of self-management for lymphedema as above STG Duration 03/08/23 Half-Way Goal (LTG) Decrease lymphedema life impact scale score to no greater than 30% as measure of improved function and quality of life LTG Duration 04/07/23 Two Impairment Impaired strength and ROM Half-Way Goal (LTG) Patient to inc LE strength of at least 4/5 and ROM WNL to allow her to return to prior level of functional mobility in the home and community 10/09/22: not met 02/05/23: Patient only fair compliance with HEP due to pain, low activity tolerance LTG Duration 04/07/23 One Impairment edema myron LE Short Term Goal (STG) Patient to be instructed in all aspects of lymphedemamanagement to include skin care, self-manual lymphatic drainage, lymphatic exericse,and compression 10/09/22: goal met STG Duration GOAL MET Half-Way Goal (LTG) Decrease myron lymphedema to stable level (no increase or decrease greater than 1 cm over the course of 1 week) and patient to be independent with all aspects of lymphedema care including obtaining appropriate compression for self management, and possible pump for home use 10/31/22: not met 02/05/23: assisted patient in obtaining sequential pneumatic pump for home use; she is using consistently, but struggles with other aspects of lymphedema self-care. Have encouraged she get help in the home but she says at this time her house is in such bad condition she wouldn't let anyone in. Have instructed her in appropriate compression wear, skin care, ther ex but compliance limited. She is at high risk for further medical complications LTG Duration 04/07/23 Assessment Summary Assessment Patient struggling with self care for her lymphedema. Recently diagnosed with cellulitis (1 month ago), though chose not to take the antibiotics. No evidence for cellulitis this date but left heel discolored and appears could open with wound if not addressed due to pressure on the heel from ill fitting cheap sandals, pt doesn't wear shoes at home. She has not beein wearing compression alternative wraps due to fear of falling if velcro gets caught. She has been using compression pump consistently at home per her report and reports she can see a decrease in size after that is done. PT stressed importance of applying appropriate compression garments after pumping done. Recommend continue to follow patient in PT to assure she follows through with physician, obtains well-fitting shoes, and improves her compliance with compression. She is at high risk for further wounds and cellulitis, and left foot has pressure discoloration that could easily develop into a wound. Patient is at high risk for further medical complications and she was instructed to follow-up with her physician, obtain supportive well-fitting shoes, wear adequate compression, perform skin care and lymphedema exercises prior to next follow-up appointmentwith PT. Physical Therapy Plan Frequency and Duration Frequency of Treatment 4 Duration of treatment (weeks) 8 Plan of Care Start Date 02/05/23 Plan of Care End Date 04/07/23 Therapeutic Interventions Therapeutic Interventions Home Exercise Program, Lymphedema Management,Manual Therapy,Patient/Caregiver Education,Self-Care/Home Management,Taping,Therapeutic Activities,Therapeutic Exercises Modalities Vasopneumatic Devices Next Visit Focus/Plan Next Note Type Re-Evaluation Next Visit Plan Patient to go to consult regarding heel, obtain gel heel cushions, wear 2nd compression wraps when first is in the laundry, buy diabetic shoes or other supportive and well fitting shoes. See for follow-up to assure compliance with recommendations and assess lymphedema self-management Plan of Care Dates Plan of Care Start Date 02/05/23 Plan of Care End Date 04/07/23 Electronically Signed by: Leti Mercado, PT 02/05/23 [id number] If you are in agreement with this Plan of Care, please return a signed and dated copy. I have reviewed this Plan of Care and certify that the skilled therapy services above are required to meet the patient?s needs. Physician Signature Date Printed Name and Credentials Clinical Instructor Signature Printed Name and Credentials
--- NOTE | 2023-03-05 10:25 | PT-OP ANOTE ---
Patient cancelled appointment via [employer]
--- NOTE | 2023-04-09 08:40 | PT.OPDS ---
Current Diagnoses Lymphedema, not elsewhere classified (02/05/23) Difficulty in walking, not elsewhere classified (02/05/23) Weakness (02/05/23) Visit Care Team Role Provider Type Elli Silverio MD Family Provider Physician Primary Care Provider Specialty: Internal Medicine Address: [place], [address] Email: Jovan Pérez MD Attending Provider Physician Referring Provider Specialty: Wound Care Address: [address] [place] [address], [id number] Email: [email or web address] Visit Number Visit Number 13 Discharge Summary PT-OP-B Current Condition Start: 09/04/22 16:42 Freq: Status: Active Protocol: Document 10/09/22 14:28 SAK (Rec: 10/09/22 14:31 [facility] [id number]) Current Condition History of Current Condition Onset Date 8 years Current Complaints edema myron LE left greater than History of Current Condition Reports she has been c/o swelling and weeping of LE's for 8 years. Gradually increasing edema myron LEs, developed wound left LE in November 2021, went into hospital November 28, there for about 1 week. Was discharged home. States progressive worsening mobility, increase in pain in LE's, hard to move legs. Has had 4 different types of inatibiotics, still swollen. Stopped coming to wound care about 1 month ago due to weather, coming again. Nothing has helped swelling. Legs are wrapped in [place] Prior Treatments and Tests seen by wound care for lateral lower left leg wound Treatment Goals Patient/Caregiver Goals Decrease her lymphedema, be able to self-manage, improve strengh and mobility Prior Functional Status Baseline Function- Other PMH: Atrial fibrillation Hyperlipidemia Hypertension Chronic wound left LE; seeing wound care, history of cellulitis, CHF. PT-OP-C Subjective Start: 09/04/22 16:42 Freq: Status: Active Protocol: Document 02/05/23 15:04 SAK (Rec: 02/05/23 16:36 SAK [id number]) OP-PT Subjective Patient Comments Patient Comments Was diagnosed with cellulitis 01/03/23; was prescribed antibiotics, but chose not to take. Not wearing compression wraps because she is scared of the way she walks with the velcro rubbing that she will fall. Agreeable to trying to wear wraps in modified way with velcro to the outside. PT-OP-G Mobility & Gait Start: 09/04/22 16:42 Freq: Status: Active Protocol: Document 09/05/22 14:32 [facility] (Rec: 09/05/22 17:02 [facility] [id number]) OP Gait Assessment Gait Gait Assistance Required: Standby Assistance Distance (Feet) 75 Assistive Devices Assistive Device None Factors Limiting Gait Function Factors Limiting Gait Function Decreased Strength,Pain Comments Gait Comments heaviness of LE's due to lymphedema myron PT-OP-H Neuro Start: 09/04/22 16:42 Freq: Status: Active Protocol: Document 09/05/22 14:32 [facility] (Rec: 09/05/22 17:02 [facility] [id number]) Sensation Evaluation Gross Sensation Gross Sensation Left LE Impaired,Right LE Impaired PT-OP-J Posture/Palpation/Skin Start: 09/04/22 16:42 Freq: Status: Active Protocol: Document 09/05/22 14:32 [facility] (Rec: 09/05/22 17:02 [facility] [id number]) Skin Assessment Edema Assessment myron LE's Comments 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 Positive Stemmer sign. PT-OP-K Range of Motion Start: 09/04/22 16:42 Freq: Status: Active Protocol: Document 09/05/22 14:32 [facility] (Rec: 09/05/22 17:02 [facility] [id number]) Hip Goniometric Range of Motion Hip ROM Limitations Comments myron mod limited due to lymphedema Knee Goniometric Range of Motion Knee ROM Limitations Comments mod limited due to lymphedema Ankle and Foot Goniometric Range of Motion Ankle and Foot ROM Limitations Comments mod decrease due to edema PT-OP-M Strength Start: 09/04/22 16:42 Freq: Status: Active Protocol: Document 09/05/22 14:32 [facility] (Rec: 09/05/22 17:02 [facility] [id number]) Hip Strength Hip Manual Muscle Testing myron Flexion (L2) 3- Fair- Knee Strength Knee Manual Muscle Testing myron Extension (L3) 3 Fair Ankle/Foot Strength Ankle and Foot Manual Muscle Testing myron Dorsiflexion (L4) 3+ Fair+ Plantarflexion (S1) 3+ Fair+ PT-OP-N Lymphedema Start: 09/04/22 16:42 Freq: Status: Active Protocol: Document 02/05/23 15:04 [facility] (Rec: 02/05/23 16:36 [facility] [id number]) Lymphedema Measurements Lower Extremity Circumference Measurements Left Affected MT Heads 23 cm Mid-foot 25.6 cm Medial Malleolus 31.4 cm 10 cm From Medial Malleolus 44 cm 20 cm From Medial Malleolus 51.7 cm 30 cm From Medial Malleolus 45 cm 40 cm From Medial Malleolus 48.7 cm 50 cm From Medial Malleolus 67 cm 60 cm From Medial Malleolus 71.8 cm Knee Joint 48.7 cm Right Affected MT Heads 22.7 cm Mid-foot 23 cm Medial Malleolus 34.5 cm 10 cm From Medial Malleolus 42.3 cm 20 cm From Medial Malleolus 52 cm 30 cm From Medial Malleolus 51 cm 40 cm From Medial Malleolus 50.5 cm 50 cm From Medial Malleolus 62.9 cm 60 cm From Medial Malleolus 68 cm Knee Joint 50.5 cm PT-OP-T Assessment and Plan Start: 09/04/22 16:42 Freq: Status: Active Protocol: Document 04/09/23 08:35 [facility] (Rec: 04/09/23 08:39 [facility] [id number]) Physical Therapy Plan Discharge Physical Therapy Discharge Reasons No Longer Attending PT Discharge Comments Patient cancelled last PT appointment. Has chosen not to make any further appointments. Patient repeatedly advised to obtain different shoes for improved fit and comfort for her heels due to c/o persistent pain but she wears old sandals that are too small and put pressure on her heels. Assisted patient in obtaining sequential pneumatic pump for home use to help her with self -management of lymphedema. Feel she may benefit from further PT in the future.
== END 2023-04-11 10:22 | disposition home or self-care (01) ==
LOC: PHYS 15:00
PROVIDERS: Family Provider Internal Medicine; PCP Internal Medicine; Referring Provider Surgery; Visit Provider Surgery
DX: I89.0 Lymphedema, not elsewhere classified (principal); R53.1 Weakness; R26.2 Difficulty in walking, not elsewhere classified
CPT/HCPCS: 97110; 97116; 97140; 97163; 97535

== ENCOUNTER → 2023-02-20 | Outpatient (CLI) | payer MEDICARE, OTHER, SELFPAY ==
[2021-11-30 16:00] VITALS: BMI 39.7
--- NOTE | 2023-02-20 | DI.RAD.S_ITS ---
PROCEDURE: XR CALCANEOUS LT MIN 2V INDICATIONS: weeping wound left heel TECHNIQUE: Two views of the calcaneus were acquired. COMPARISON: None. FINDINGS: Bones: No fractures or dislocations. No suspicious bony lesions. No advanced osteomyelitis is seen. Plantar and retrocalcaneal spurring. Soft tissues: No suspicious calcifications. Achilles tendon appears thickened with dystrophic calcifications. Soft tissue ulceration seen along the posterior plantar aspect of the calcaneus. IMPRESSION: 1. Although no bony erosions are identified, plain film radiography is relatively insensitive in the acute phases of osteomyelitis and may not demonstrate radiographic changes for 15 days. If acute osteomyelitis is of clinical concern, nuclear medicine regional bone scan or MRI is recommended. 2. Soft tissue ulceration adjacent to the posterior calcaneus. 3. Achilles tendon thickening and tendinosis cannot be excluded. 4. Calcaneal enthesopathy. Dictated by: Josiah Tellez [facility] Interpreted: Manpreet Hodges MD on 02/20/2023 at 20:28 Transcribed by: CAMPOS on 02/21/2023 at 8:16 Approved by: Manpreet Hodges M.D. on 02/21/2023 at 12:27
== END ==
LOC: DI 16:46
PROVIDERS: Family Provider Internal Medicine; PCP Internal Medicine; Referring Provider Podiatrist; Visit Provider Podiatrist
DX: L97.422 Non-pressure chronic ulcer of left heel and midfoot with fat layer exposed (principal); M79.672 Pain in left foot; M77.32 Calcaneal spur, left foot
CPT/HCPCS: 73650

== ENCOUNTER 2024-08-11 13:39 | Emergency (ER) | payer MEDICARE, OTHER, SELFPAY ==
[2021-11-30 16:00] VITALS: BMI 39.7
[2024-08-11] VITALS (25 sets, daily range): BP systolic 96–131; BP diastolic 47–68; PULSE 79–95; RESP 16–24; TEMP 36.9; O2SAT 86–99; BMI 37.8
--- NOTE | 2024-08-11 16:12 | DI.RAD.S_ITS ---
PROCEDURE: XR CHEST 1V INDICATIONS: chest pain TECHNIQUE: One view of the chest was acquired. COMPARISON: [facility], CR, XR CHEST 2V, 11/30/2021, 12:04. FINDINGS: Surgical changes and devices: None. Lungs and pleura: Lungs are clear. No pleural effusions or pneumothorax. Mediastinum: Mediastinal contours appear normal. Heart size is enlarged. Bones and chest wall: No suspicious bony lesions. Overlying soft tissues appear unremarkable. IMPRESSION: No acute cardiopulmonary pathology. Dictated by: Guilherme Sykes M.D. on 08/11/2024 at 17:04 Approved by: Guilherme Sykes M.D. on 08/11/2024 at 17:04
--- NOTE | 2024-08-11 16:12 | EKG_ITS ---
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
[2024-08-11 16:17] LABS: Add Manual Diff / Slide Review NO; Basophils Absolute Auto 100 /uL (0-100); Basophils Percent Auto 0.5 % (0-2); Eosinophils Absolute Auto 0 /uL (0-450); Eosinophils Percent Auto 0.1 % (2-4); Hemoglobin 11.9 g/dL (12.0-16.0); Lymphocytes Absolute Auto 600 /uL (1100-4500); Lymphocytes Percent Auto 6.3 % (25-40); Mean Corpuscular Hemoglobin 32.4 PG (26-34); Mean Corpuscular Volume 95.2 fL (80-100); Monocytes Absolute Auto 500 /uL (0-900); Monocytes Percent Auto 4.7 % (3-14); Neutrophils Absolute Auto 8900 /uL (1500-7000); Neutrophils Percent Auto 88.4 % (50-75); Platelet Count 207 X10^3/uL (150-400); Red Blood Cell Count 3.68 X10^6/uL (4.0-5.2); Red Cell Distribution Width 14.9 % (11.6-14.8)
--- NOTE | 2024-08-11 16:22 | PC.NURSE ---
Pt arrived to ED today because her severely edemetous legs started weeping. Skin is red, scaly and dimply. pt is also experiencing some generalized weakness and difficulty with mobility. Pt wraps legs with compression bands at home and states that she does not want RN to unwrap legs. Pt also states that the wound on her left heel is draining. C/o SOB with exertion. Pt is a&Ox4.
[2024-08-11 16:28] LABS: INR 3.5 (0.9-1.3); Prothrombin Time 38.2 SECONDS (9.4-12.5)
[2024-08-11 16:30] LABS: Alanine Aminotransferase 29 IU/L (<35); Albumin 3.7 g/dL (3.5-5.0); Albumin Globulin Ratio 1.2 (1.0-2.8); Alkaline Phosphatase 63 U/L (38-126); Aspartate Aminotransferase 33 IU/L (14-36); BUN Creatinine Ratio 37.5 (6-22); Blood Urea Nitrogen 51 mg/dL (7-17); Calcium 9.3 mg/dL (8.4-10.2); Carbon Dioxide 30 mmol/L (22-32); Chloride 99 mmol/L (98-107); Creatine Kinase 81 U/L (30-135); Estimated Glomerular Filt Rate 39 mL/min (>60); Globulin 3.2 g/dL (1.7-4.1); Glucose 115 mg/dL (80-110); HEMOLYSIS 44 (0-50); Lipase 55 U/L (23-300); Magnesium 2.2 mg/dL (1.6-2.3); Potassium 3.5 mmol/L (3.4-5.1); Sodium 138 mmol/L (137-145); Total Protein 6.9 g/dL (6.3-8.2)
[2024-08-11 16:31] LABS: PTT Partial Thromboplastin Tim 24 SECONDS (25.1-36.5)
[2024-08-11 16:40] LABS: NT-proBNP (BNP-Adult 18+) 2360 pg/mL (<450); Troponin I < 0.012 ng/mL (0.01-0.034)
--- NOTE | 2024-08-11 17:39 | ED_ITS ---
HPI - General Adult <Maddie Olsen DO - Last Filed: 08/12/24 18:54> General Chief complaint: Weakness Stated complaint: weakness, diarrhea Time Seen by Provider: 08/11/24 17:28 Source: patient, RN notes reviewed and old records reviewed Mode of arrival: Wheelchair Limitations: no limitations History of Present Illness HPI narrative: 79-year-old female history hypertension, bilateral lower extremity edema/CHF, atrial fibrillation on warfarin who presents with complaint generalized weakness, diarrhea and a sensation of incomplete emptying of her bladder for the past several days. Patient notes her legs are quite swollen she states they have chronically been swollen are maybe a little bit more than normal. Her left leg is more edematous than the right patient states that is normal for she states no fevers or chills. Denies any chest pain, no shortness of breath, no nausea or vomiting currently but did have some nausea earlier. Patient has had diarrhea on and off in the past but has been frequent this week. No black or bloody stools that she was aware of. Patient denies any abdominal pain or flank pain. States she has been so weak she was had a hard time getting to the bathroom. Shows pretty significant swelling of her lower extremities chronically states he might be little bit worse than usual. States it is normally uncomfortable for her to ambulate but she does ambulate and lives in her own home independently. Patient states she does take warfarin daily as well on medications for blood pressure and cholesterol she is unsure of all of her medications. States she has had prior hysterectomy, has had prior colonoscopies and had colon polyps on both, no known drug allergies. No tobacco, occasional alcohol, no recreational drugs. Dr. Silverio is her primary care physician. She states she does not follow with cardiology. Related Data Home Medications Medication Instructions Recorded Confirmed diltiazem HCl 360 mg capsule,24 360 mg PO QDAY ##0 09/04/16 08/11/24 hr,extended release enalapril maleate 20 mg tablet 10 mg PO DAILY 03/15/21 08/11/24 hydrochlorothiazide 50 mg tablet 25 mg PO DAILY 03/15/21 08/11/24 metoprolol succinate 50 mg 50 mg PO DAILY 03/15/21 08/11/24 tablet,extended release 24 hr simvastatin 40 mg tablet 20 mg PO DAILY 03/15/21 08/11/24 warfarin 5 mg tablet 2 tab PO DAILY 11/30/21 08/11/24 furosemide 40 mg tablet 20 mg PO BID 08/11/24 08/11/24 gabapentin 100 mg capsule 300 mg PO TID 08/11/24 08/11/24 Previous Rx's Medication Instructions Recorded doxycycline hyclate 100 mg tablet 100 mg PO BID #10 tabs 08/12/24 Allergies Allergy/AdvReac Type Severity Reaction Status Date / Time pneumococcal vaccine AdvReac Unknown Verified 08/11/24 13:46 Review of Systems <Maddie Olsen DO - Last Filed: 08/12/24 18:54> Review of Systems ROS Unobtainable: All systems reviewed & are unremarkable except as noted in HPI and below Patient History <Maddie Olsen DO - Last Filed: 08/12/24 18:54> Medical History Hyperlipidemia Hypertension Atrial fibrillation Surgical History History of appendectomy H/O: hysterectomy Social History household members: none Smoking Status: Former smoker Smoking Status: Former smoker alcohol intake frequency: holidays/special occasions only Exam <Maddie Olsen DO - Last Filed: 08/12/24 18:54> Narrative Exam Narrative: GENERAL: Alert and oriented x three, obese female in mild distress HEENT: Head normocephalic, atraumatic, EOMI, pupils reactive, face symmetric, moist mucous membranes NECK: Supple, full range of motion CARDIOVASCULAR: Regular rate and rhythm without murmurs, rubs or gallops. RESPIRATORY: Breath sounds equal bilaterally, no wheezes rales or rhonchi. ABDOMEN: Soft, nontender. Normoactive bowel sounds all 4 quadrants. No guarding or rebound, rigidity, no mass : No CVA tenderness EXTREMITIES: Normal range of motion, patient has significant edema bilateral lower extremities, 2+, pitting, patient has weeping. Patient's left extremity does not appear erythematous with chronic venous stasis changes anterior line of the foot. There is no warmth. Patient states this is her normal. Neurovascularly intact NEUROLOGICAL: Cranial nerves II through XII grossly intact. Moving all extremities SKIN: Warm, dry, no petechiae, no rashes or lesions. Initial Vital Signs Initial Vital Signs: Vital Signs Temperature 98.5 F 08/11/24 13:46 Pulse Rate 83 08/11/24 13:46 Respiratory Rate 18 08/11/24 13:46 Blood Pressure 125/53 L 08/11/24 13:46 Pulse Oximetry 98 08/11/24 13:46 Oxygen Delivery Method Room Air 08/11/24 13:46 <Justin Cat, DO - Last Filed: 08/12/24 03:48> Initial Vital Signs Initial Vital Signs: Vital Signs Temperature 98.5 F 08/11/24 13:46 Pulse Rate 83 08/11/24 13:46 Respiratory Rate 18 08/11/24 13:46 Blood Pressure 125/53 L 08/11/24 13:46 Pulse Oximetry 98 08/11/24 13:46 Oxygen Delivery Method Room Air 08/11/24 13:46 Course <Maddie Olsen, DO - Last Filed: 08/12/24 18:54> Orders Ordered: ED Orders 08/12/24 13:04 Consult to Home Health Stat Discontinued Medications Diltiazem HCl (Diltiazem Cd 180 Mg Cap) 360 mg PO DAILY [facility] Last Admin: 08/12/24 08:28 Dose: 360 mg Documented By: KALEB Doxycycline Hyclate (Doxycycline Hyclate 100 Mg Tablet) 100 mg PO BID [facility] Last Admin: 08/12/24 08:29 Dose: 100 mg Documented By: Admin: 08/12/24 00:41 Dose: Not Given Documented By: MARLENE Enalapril Maleate (Enalapril 5 Mg Tablet) 10 mg PO DAILY [facility] Last Admin: 08/12/24 08:26 Dose: 10 mg Documented By: KALEB Furosemide (Furosemide 40 Mg/4 Ml Vial) 40 mg IV NOW ONE Stop: 08/11/24 17:52 Last Admin: 08/11/24 18:37 Dose: 40 mg Documented By: JOANNA Furosemide (Furosemide 20 Mg Tablet) 20 mg PO BID [facility] Last Admin: 08/12/24 08:30 Dose: Not Given Documented By: KALEB Gabapentin (Gabapentin 300 Mg Capsule) 300 mg PO TID [facility] Last Admin: 08/12/24 08:30 Dose: Not Given Documented By: KALEB Hydrochlorothiazide (Hydrochlorothiazide 25 Mg Tablet) 25 mg PO DAILY [facility] Last Admin: 08/12/24 08:29 Dose: 25 mg Documented By: KALEB Metoprolol Succinate (Metoprolol Er 50 Mg Tablet) 50 mg PO DAILY [facility] Last Admin: 08/12/24 08:28 Dose: 50 mg Documented By: KALEB Vital Signs Vital signs: Vital Signs - 8 hr 08/12/24 11:00 08/12/24 11:30 08/12/24 12:00 Temperature Pulse Rate 87 76 82 Respiratory Rate 19 19 Blood Pressure Pulse Oximetry 97 97 97 Oxygen Delivery Method 08/12/24 13:20 Temperature 97.9 F Pulse Rate Respiratory Rate 17 Blood Pressure 111/56 L Pulse Oximetry Oxygen Delivery Method Room Air <Justin Cat DO - Last Filed: 08/12/24 03:48> Orders Ordered: ED Orders 08/12/24 13:04 Consult to Home Health Stat Discontinued Medications Diltiazem HCl (Diltiazem Cd 180 Mg Cap) 360 mg PO DAILY [facility] Last Admin: 08/12/24 08:28 Dose: 360 mg Documented By: KALEB Doxycycline Hyclate (Doxycycline Hyclate 100 Mg Tablet) 100 mg PO BID [facility] Last Admin: 08/12/24 08:29 Dose: 100 mg Documented By: Admin: 08/12/24 00:41 Dose: Not Given Documented By: MARLENE Enalapril Maleate (Enalapril 5 Mg Tablet) 10 mg PO DAILY [facility] Last Admin: 08/12/24 08:26 Dose: 10 mg Documented By: KALEB Furosemide (Furosemide 40 Mg/4 Ml Vial) 40 mg IV NOW ONE Stop: 08/11/24 17:52 Last Admin: 08/11/24 18:37 Dose: 40 mg Documented By: JOANNA Furosemide (Furosemide 20 Mg Tablet) 20 mg PO BID [facility] Last Admin: 08/12/24 08:30 Dose: Not Given Documented By: KALEB Gabapentin (Gabapentin 300 Mg Capsule) 300 mg PO TID [facility] Last Admin: 08/12/24 08:30 Dose: Not Given Documented By: KALEB Hydrochlorothiazide (Hydrochlorothiazide 25 Mg Tablet) 25 mg PO DAILY [facility] Last Admin: 08/12/24 08:29 Dose: 25 mg Documented By: KALEB Metoprolol Succinate (Metoprolol Er 50 Mg Tablet) 50 mg PO DAILY [facility] Last Admin: 08/12/24 08:28 Dose: 50 mg Documented By: KALEB Vital Signs Vital signs: Vital Signs - 8 hr 08/12/24 11:00 08/12/24 11:30 08/12/24 12:00 Temperature Pulse Rate 87 76 82 Respiratory Rate 19 19 Blood Pressure Pulse Oximetry 97 97 97 Oxygen Delivery Method 08/12/24 13:20 Temperature 97.9 F Pulse Rate Respiratory Rate 17 Blood Pressure 111/56 L Pulse Oximetry Oxygen Delivery Method Room Air Medical Decision Making <Maddie Olsen, - Last Filed: 08/12/24 18:54> Lab Data 08/11/24 16:06 08/11/24 16:06 Labs: Lab Results 08/11/24 Range/Units 16:06 WBC 10.0 (4.5-11.0) X10^3/uL RBC 3.68 L (4.0-5.2) X10^6/uL Hgb 11.9 L (12.0-16.0) g/dL Hct 35.0 L (36-46) % MCV 95.2 (80-100) fL MCH 32.4 (26-34) PG MCHC 34.0 (30-36) % RDW 14.9 H (11.6-14.8) % Plt Count 207 (150-400) X10^3/uL Neut % (Auto) 88.4 H (50-75) % Lymph % (Auto) 6.3 L (25-40) % Labette % (Auto) 4.7 (3-14) % Eos % (Auto) 0.1 L (2-4) % Baso % (Auto) 0.5 (0-2) % Neut # (Auto) 8900 H (8166-1959) /uL Lymph # (Auto) 600 L (3464-5122) /uL Labette # (Auto) 500 (0-900) /uL Eos # (Auto) 0 (0-450) /uL Baso # (Auto) 100 (0-100) /uL PT 38.2 H (9.4-12.5) SECONDS INR 3.5 H (0.9-1.3) APTT 24 L (25.1-36.5) SECONDS Sodium 138 (137-145) mmol/L Potassium 3.5 (3.4-5.1) mmol/L Chloride 99 (98-107) mmol/L Carbon Dioxide 30 (22-32) mmol/L BUN 51 H (7-17) mg/dL Creatinine 1.36 H (0.52-1.04) mg/dL Estimated GFR 39 L (>60) mL/min BUN/Creatinine Ratio 37.5 H (6-22) Glucose 115 H (80-110) mg/dL Calcium 9.3 (8.4-10.2) mg/dL Magnesium 2.2 (1.6-2.3) mg/dL Total Bilirubin 2.0 H (0.2-1.3) mg/dL AST 33 (14-36) IU/L ALT 29 (<35) IU/L Alkaline Phosphatase 63 (38-126) U/L Total Creatine Kinase 81 (30-135) U/L Troponin I < 0.012 (0.01-0.034) ng/mL NT-Pro-B Natriuret Pep 2360 H (<450) pg/mL Total Protein 6.9 (6.3-8.2) g/dL Albumin 3.7 (3.5-5.0) g/dL Globulin 3.2 (1.7-4.1) g/dL Albumin/Globulin Ratio 1.2 (1.0-2.8) Lipase 55 (23-300) U/L MDM Narrative Medical decision making narrative: EKG shows AFib rate of 77 QRS is 70 QTC of 391 patient does have a history of atrial fibrillation in his anticoagulated. Labs show white count of 10 hemoglobin 11.9 was 12.7 in November of 2021, platelets are 207, INR slightly elevated at 3.5, creatinine is 1.36 up from November of 2021 BUN 51 with otherwise normal electrolytes glucose of 115 bilirubin is 2, LFTs are negative troponins less than 0.012 with a BNP of 2360 1800 (Dr. Cat): Received sign-out from Dr. Olsen, patient is a 79-year-old female with a past medical history of AFib on warfarin, hypertension, bilateral lower extremity edema, presents for generalized weakness diarrhea, she states that she has baseline swollen legs. On my evaluation patient with significant amount lymphedema to bilateral lower extremities consistent with venous stasis, there does appear to be some stage I ulcerations noted to the bottom of the left foot as well as to the thigh/buttock region, but no overt sign of cellulitis no purulent discharge, patient states that she lives at home alone has had difficulty taking care of herself as well as her house. Dispo pending CT scan and re-evaluation 2004: Patient re-evaluated no new complaints at this time, informed her of her negative CT scan results, patient states that she does not feel safe going home, she states that she has difficulty caring for herself and would like to talk to social work for possible sniff placement. We will prophylactically treat patient for cellulitis given patient with ulcers noted to her lower extremity and previously with soiled pants. Doxy b.i.d. ordered, social work consult placed. Patient's home medications ordered we will continue to monitor 08.12.24 @ 0700: Patient was signed out to Dr. Olsen. Patient pending social work consult, patient requesting penitentiary facility placement or home health given difficulty caring for herself. Patient's home medications ordered. 08/12/24 Dr. Olsen @ 0855: Patient states she was doing well overnight noted to be on O2. He was put on while she was sleeping we will turn off and re-evaluate patient states she does not normally use any oxygen. Reviewed her findings from earlier in the day patient states her main concern is at she was having quite a bit of difficulty at home. She was aware of plan to meet with PHARMACEUTICAL OFFICER. Patient met with PHARMACEUTICAL OFFICER she was having trouble keeping up with her activities of daily living does have an ulcer on her leg I think she would benefit from home health care and wound care along with this as her habitus we will make it somewhat difficult for her to deal with her chronic venous stasis and edema in her lower extremities as well as the wound. Patient was able to walk and drove herself for feel she was appropriate for discharge home we will continue with doxycycline for the wound on her leg. Patient feels comfortable with this plan. Discussed with patient she had her warfarin held last night while boarding here we will have her resume but has not INR rechecked in the next 1-2 days. <Justin Cat, DO - Last Filed: 08/12/24 03:48> Lab Data Labs: Lab Results 08/11/24 Range/Units 16:06 WBC 10.0 (4.5-11.0) X10^3/uL RBC 3.68 L (4.0-5.2) X10^6/uL Hgb 11.9 L (12.0-16.0) g/dL Hct 35.0 L (36-46) % MCV 95.2 (80-100) fL MCH 32.4 (26-34) PG MCHC 34.0 (30-36) % RDW 14.9 H (11.6-14.8) % Plt Count 207 (150-400) X10^3/uL Neut % (Auto) 88.4 H (50-75) % Lymph % (Auto) 6.3 L (25-40) % Labette % (Auto) 4.7 (3-14) % Eos % (Auto) 0.1 L (2-4) % Baso % (Auto) 0.5 (0-2) % Neut # (Auto) 8900 H (0191-4840) /uL Lymph # (Auto) 600 L (0549-1312) /uL Labette # (Auto) 500 (0-900) /uL Eos # (Auto) 0 (0-450) /uL Baso # (Auto) 100 (0-100) /uL PT 38.2 H (9.4-12.5) SECONDS INR 3.5 H (0.9-1.3) APTT 24 L (25.1-36.5) SECONDS Sodium 138 (137-145) mmol/L Potassium 3.5 (3.4-5.1) mmol/L Chloride 99 (98-107) mmol/L Carbon Dioxide 30 (22-32) mmol/L BUN 51 H (7-17) mg/dL Creatinine 1.36 H (0.52-1.04) mg/dL Estimated GFR 39 L (>60) mL/min BUN/Creatinine Ratio 37.5 H (6-22) Glucose 115 H (80-110) mg/dL Calcium 9.3 (8.4-10.2) mg/dL Magnesium 2.2 (1.6-2.3) mg/dL Total Bilirubin 2.0 H (0.2-1.3) mg/dL AST 33 (14-36) IU/L ALT 29 (<35) IU/L Alkaline Phosphatase 63 (38-126) U/L Total Creatine Kinase 81 (30-135) U/L Troponin I < 0.012 (0.01-0.034) ng/mL NT-Pro-B Natriuret Pep 2360 H (<450) pg/mL Total Protein 6.9 (6.3-8.2) g/dL Albumin 3.7 (3.5-5.0) g/dL Globulin 3.2 (1.7-4.1) g/dL Albumin/Globulin Ratio 1.2 (1.0-2.8) Lipase 55 (23-300) U/L Imaging Data CT scan - abdomen/pelvis: Radiologist's Impression: [place] [address] CT Scan Report Signed Patient: Ho Hilliard MR#: [id number] : 1945 Acct:[id number] Age/Sex: 79 / F Date of Service: 08/11/24 Loc: ED Accession Number: [id number] Procedure: CT kidney ureter bladder (KUB) Ordering Provider: Maddie Olsen D.O. PROCEDURE: CT KIDNEY URETER BLADDER (KUB) INDICATIONS: diarrhea, urinary problems. TECHNIQUE: Axial sections were acquired from the lung bases to the pubic symphysis. Coronal and sagittal reformats were performed. For radiation dose reduction, the following was used: automated exposure control, adjustment of mA and/or kV according to patient size. COMPARISON: None. FINDINGS: Image quality: Diagnostic. Lower Chest: No significant findings. URINARY: Right Kidney: No stones or hydronephrosis. Right Ureter: No hydroureter. Left Kidney: No stones or hydronephrosis. Left Ureter: No hydroureter. Bladder: Normal wall thickness. No stones. ABDOMEN: Liver: No contour-deforming solid mass. Gallbladder: No radiopaque gallstones or wall thickening. Biliary ducts: No biliary dilation. Pancreas: No ductal dilation. Spleen: Size is within normal limits. Adrenal Glands: Thickening of the left adrenal gland overall nonspecific with Hounsfield units measuring 14 suggestive of adenoma.. Stomach and Bowel: Normal colonic caliber, without significant wall thickening. Peritoneum: No abnormal intraperitoneal fluid. No free air. Ventral Wall: No hernia. Abdominal Nodes: No enlarged retroperitoneal or mesenteric lymph nodes. Scattered subcentimeter lymph nodes. Vessels: Aorta and inferior vena cava are normal in size. PELVIS: Pelvic Organs: Unremarkable. Pelvic Nodes: Scattered subcentimeter lymph nodes. Miscellaneous: No inguinal hernias are seen. Bones: Unremarkable. IMPRESSION: No obstructing stones or hydronephrosis. No visualized inflammatory change within the abdomen or pelvis. Benign left adrenal adenoma. Chest x-ray: Radiologist's Impression: [address] [address] XRay Report Signed Patient: Ho Hilliard MR#: [id number] : 1945 Acct:[id number] Age/Sex: 79 / F Date of Service: 08/11/24 Loc: ED Accession Number: [id number] Procedure: XR chest 1V Ordering Provider: Maddie Olsen D.O. PROCEDURE: XR CHEST 1V INDICATIONS: chest pain TECHNIQUE: One view of the chest was acquired. COMPARISON: [facility], , XR CHEST 2V, 11/30/2021, 12:04. FINDINGS: Surgical changes and devices: None. Lungs and pleura: Lungs are clear. No pleural effusions or pneumothorax. Mediastinum: Mediastinal contours appear normal. Heart size is enlarged. Bones and chest wall: No suspicious bony lesions. Overlying soft tissues appear unremarkable. IMPRESSION: No acute cardiopulmonary pathology. ECG Data Interpretation: EKG interpreted by ED physician atrial fibrillation 77 beats per minute QTC [address] changes no STEMI MDM Narrative Medical decision making narrative: EKG shows AFib rate of 77 QRS is 70 QTC of 391 patient does have a history of atrial fibrillation in his anticoagulated. Labs show white count of 10 hemoglobin 11.9 was 12.7 in November of 2021, platelets are 207, INR slightly elevated at 3.5, creatinine is 1.36 up from November of 2021 BUN 51 with otherwise normal electrolytes glucose of 115 bilirubin is 2, LFTs are negative troponins less than 0.012 with a BNP of 2360 1800 (Dr. Cat): Received sign-out from Dr. Olsen, patient is a 79-year-old female with a past medical history of AFib on warfarin, hypertension, bilateral lower extremity edema, presents for generalized weakness diarrhea, she states that she has baseline swollen legs. On my evaluation patient with significant amount lymphedema to bilateral lower extremities consistent with venous stasis, there does appear to be some stage I ulcerations noted to the bottom of the left foot as well as to the thigh/buttock region, but no overt sign of cellulitis no purulent discharge, patient states that she lives at home alone has had difficulty taking care of herself as well as her house. Dispo pending CT scan and re-evaluation 2004: Patient re-evaluated no new complaints at this time, informed her of her negative CT scan results, patient states that she does not feel safe going home, she states that she has difficulty caring for herself and would like to talk to social work for possible sniff placement. We will prophylactically treat patient for cellulitis given patient with ulcers noted to her lower extremity and previously with soiled pants. Doxy b.i.d. ordered, social work consult placed. Patient's home medications ordered we will continue to monitor 2..25 @ 0700: Patient was signed out to Dr. Olsen. Patient pending social work consult, patient requesting penitentiary facility placement or home health given difficulty caring for herself. Patient's home medications ordered. Discharge Plan Departure Patient Disposition: Home Clinical Impression: Ulcer of lower extremity Activity Restrictions/Additional Instructions: Please continue the antibiotics as prescribed. A prescription was [facility] to [facility] in [place]. Your INR was elevated at 3.5 you had a dose held today you can resume your normal dosing at home but please have your INR rechecked in the next 1.2 days. The antibiotic you have been prescribed can potentially cause issues with your warfarin/INR level. Continue your other home medications as prescribed. Our PHARMACEUTICAL OFFICER has sent orders for home health care and wound care. Please return if you have any new or worsening symptoms, signs of infection at the ulcer on your lower extremity, through worsening weakness, fevers, chest pain or shortness of breath, increasing swelling of your extremities or other new or concerning changes. Prescriptions: New doxycycline hyclate 100 mg tablet 100 mg PO BID Qty: 10 0RF No Action diltiazem HCl 360 MG capsule,extended release 24 hr 360 mg PO QDAY Qty: 0 metoprolol succinate 50 mg tablet extended release 24 hr 50 mg PO DAILY hydrochlorothiazide 50 mg tablet 25 mg PO DAILY enalapril maleate 20 mg tablet 10 mg PO DAILY simvastatin 40 mg tablet 20 mg PO DAILY warfarin 5 mg tablet 2 tab PO DAILY furosemide 40 mg tablet 20 mg PO BID gabapentin 100 mg capsule 300 mg PO TID Referrals: Elli Silverio MD [Primary Care Provider] - Stand Alone Forms: Patient Portal/API/Survey
--- NOTE | 2024-08-11 17:50 | DI.CT.S_ITS ---
PROCEDURE: CT KIDNEY URETER BLADDER (KUB) INDICATIONS: diarrhea, urinary problems. TECHNIQUE: Axial sections were acquired from the lung bases to the pubic symphysis. Coronal and sagittal reformats were performed. For radiation dose reduction, the following was used: automated exposure control, adjustment of mA and/or kV according to patient size. COMPARISON: None. FINDINGS: Image quality: Diagnostic. Lower Chest: No significant findings. URINARY: Right Kidney: No stones or hydronephrosis. Right Ureter: No hydroureter. Left Kidney: No stones or hydronephrosis. Left Ureter: No hydroureter. Bladder: Normal wall thickness. No stones. ABDOMEN: Liver: No contour-deforming solid mass. Gallbladder: No radiopaque gallstones or wall thickening. Biliary ducts: No biliary dilation. Pancreas: No ductal dilation. Spleen: Size is within normal limits. Adrenal Glands: Thickening of the left adrenal gland overall nonspecific with Hounsfield units measuring 14 suggestive of adenoma.. Stomach and Bowel: Normal colonic caliber, without significant wall thickening. Peritoneum: No abnormal intraperitoneal fluid. No free air. Ventral Wall: No hernia. Abdominal Nodes: No enlarged retroperitoneal or mesenteric lymph nodes. Scattered subcentimeter lymph nodes. Vessels: Aorta and inferior vena cava are normal in size. PELVIS: Pelvic Organs: Unremarkable. Pelvic Nodes: Scattered subcentimeter lymph nodes. Miscellaneous: No inguinal hernias are seen. Bones: Unremarkable. IMPRESSION: No obstructing stones or hydronephrosis. No visualized inflammatory change within the abdomen or pelvis. Benign left adrenal adenoma. Dictated by: Julieta Walters M.D. on 08/11/2024 at 18:49 Approved by: Julieta Walters M.D. on 08/11/2024 at 18:53
[2024-08-11] MEDS: FUROSEMIDE 40 MG/4 ML VIAL IV (18:37)
--- NOTE | 2024-08-11 18:41 | PC.NURSE ---
Brief changed and pure wick placed. Large stage II pressure injury on buttocks bilaterally. Pressure injury blanchable. Compression dressings removed from pt's legs due to being covered in stool. Pt's bilateral LE large, red, shiny, scaly and edemetous. Left leg is more swollen than right leg. Toenails long and untrimmed. Pt has several wounds on heels bilaterally in various degrees of healing. Pt states that she has been having diarrhea and increased weakness. Denies sob & cp. Hx of CHF, HTN and lymphedema.
--- NOTE | 2024-08-11 21:30 | PC.NURSE ---
Pt resting quietly with eyes closed, resps even and not labored. No distress noted at this time. Pt connected to blood pressure and pulse ox monitors with alarms on and audible. Call light within reach. Purewick in place for patient comfort.
--- NOTE | 2024-08-11 23:30 | PC.NURSE ---
No change in patient condition or status. Pt resting quietly with eyes closed, resps even and not labored. No distress noted at this time. Pt remains connected to blood pressure and pulse ox monitors with alarms on and audible. Call light within reach. Purewick remains in place for patient comfort.
[2024-08-12] VITALS (33 sets, daily range): BP systolic 100–122; BP diastolic 47–58; PULSE 76–96; RESP 17–23; TEMP 36.6; O2SAT 91–99
--- NOTE | 2024-08-12 05:00 | PC.NURSE ---
Pt calls RN to exam room stating I think I'm having a hot flash. Pt noted to have saturated Purewick and saturated stretcher with urine. Pt and stretcher cleaned and changed. New Purewick applied. Pt states feeling better and no longer feeling like having a hot flash. Ice water provided as requested. No other needs or requests at this time. Pt remains connected to blood pressure and pulse ox monitors with alarms on and audible. Call light within reach.
--- NOTE | 2024-08-12 06:00 | PC.NURSE ---
Pt resting quietly with eyes closed, resps even and not labored. No distress noted at this time. Pt remains connected to blood pressure and pulse ox monitors with alarms on and audible. Call light within reach. Corinne effectively working at this time.
[2024-08-12] MEDS: ENALAPRIL 5 MG TABLET 10 MG PO (08:26)
[2024-08-12] MEDS: dilTIAZem CD 180 MG CAP 360 MG PO (08:28)
[2024-08-12] MEDS: METOPROLOL ER 50 MG TABLET PO (08:28)
[2024-08-12] MEDS: hydroCHLOROthiazide 25 MG TABLET PO (08:29)
[2024-08-12] MEDS: DOXYCYCLINE HYCLATE 100 MG TABLET PO (08:29)
--- NOTE | 2024-08-12 09:09 | PC.NURSE ---
Lower leg swelling; pt reports frequent falls at home and difficulty getting around. Pt reports she would like assistance at SNF/AL. Respirations regular and unlabored. Pt eats independently. Pt refuses to sit on the side of the bed stating it hurts her feet. Lower leg swelling noted.
--- NOTE | 2024-08-12 09:15 | PC.NURSE ---
Pharmacy stated they can manage warfarin medication dosing if it is ordered; MD Olsen stated to hold off on ordering home warfarin dose until BUS INSPECTOR speaks w/ patient.
--- NOTE | 2024-08-12 13:37 | CM.SWNOTE ---
ED SPRING UPHOLSTERER Note Patient is 79 y/o female who presents to ED via POV last night due to concern for diarrhea, incontinence, wound leakage from legs and difficulty ambulating recently. Patient's PCP is Dr. Elli Silverio, patient has Medicare and [facility] insurance. Patient has hx of hypertension, bilateral lower extremity edema, CHF, and AFib SPRING UPHOLSTERER enters room to meet with patient. Patient presents as A/Ox4, patient states she is feeling better, patient has been boarding in the ED since yesterday afternoon. There is no admitting diagnosis at this time. Patient endorsed interest in SNF rehab or Home health. Patient resides alone in [place], patient denies any local supports. Patient states that she manages ADLs independently but has been struggling to clean her house lately and takes her time to ambulate. Patient states she uses furniture as supports when ambulating in her house and patient states she uses a cane when outside. Patient drives. SPRING UPHOLSTERER discusses SNF rehab and Home health, patient denies preference for private pay SNF rehab at this time. Patient endorses interest in Home health, patient denies agency preference for HH. SPRING UPHOLSTERER discusses hiring caregivers, house electrical accessories assembler and reaching out to supports for in home support. 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 Patient endorses that [facility]. SPRING UPHOLSTERER provides patient with senior resource guide, lists of private pay caregivers, and list of DME resources. SPRING UPHOLSTERER contacts [facility] regarding new referral for PT, OT, RN, HH aide and SPRING UPHOLSTERER. SPRING UPHOLSTERER sends referral, order and clinicals for review. [facility] reviewing referral at this time. Patient agrees to d/c to home upon medical clearance and was able to ambulate upon d/c. SPRING UPHOLSTERER provides patient with [facility] brochure. SPRING UPHOLSTERER calls patient's PCP office regarding patient's presentation to the ED and HH referral, patient to f/u in a few days for lab draw. Plan: patient to d/c to home upon medical clearance with [facility] referral in place, resources provided, patient seek out caregiver and supports in the home. Sarah Johns, GRIZZLY WORKER
--- NOTE | 2024-08-14 12:47 | CM.SWNOTE ---
ED FLUMER Follow Up Note: Reviewed chart and discussed with multidisciplinary team pt's medical status and initial discharge needs. Pt's PCP (Elli Silverio MD) office called this FLUMER and requested follow up on which labs are needed per dc summary. FLUMER forwarded that pt would need a recheck of INR in 1-2 days per ED discharge summary. No other needs identified at this time. Plan: Pt to follow up with PCP and [facility]. ADRIANA Francois
== END 2024-08-12 13:21 | disposition home or self-care (01) ==
PROVIDERS: Emergency Provider Emergency Medicine; Family Provider Internal Medicine; PCP Internal Medicine
DX: L97.429 Non-pressure chronic ulcer of left heel and midfoot with unspecified severity (principal); L97.129 Non-pressure chronic ulcer of left thigh with unspecified severity; R19.7 Diarrhea, unspecified; I10 Essential (primary) hypertension; I48.91 Unspecified atrial fibrillation; Z79.01 Long term (current) use of anticoagulants; R60.0 Localized edema; R07.9 Chest pain, unspecified
CPT/HCPCS: 36415; 71045; 74176; 80053; 82550; 83690; 83735; 83880; 84484; 85025; 85610; 85730; 93005; 96374; 99285; J1940

== ENCOUNTER 2024-08-30 19:08 | Inpatient (IN) | payer MEDICARE, OTHER, SELFPAY ==
[2021-11-30 16:00] VITALS: BMI 39.7
[2024-08-30] VITALS (12 sets, daily range): BP systolic 120–157; BP diastolic 61–90; PULSE 103–124; RESP 18–34; TEMP 36.6; O2SAT 95–100; BMI 40.3
--- NOTE | 2024-08-30 19:43 | EKG_ITS ---
[place] [id number] [place] [id number] Test Date: 2024-08-30 Pat Name: Ho Hilliard Department: [facility] Room: Gender: Female Retail Marketing Specialist: : 1945 Requested By: Order Number: [id number] Reading MD: Van Sosa Measurements Intervals [place] Rate: 108 P: [place]: QRS: 130 QRSD: 62 T: -6 QT: 320 QTc: 428 Interpretive Statements Suspect arm lead reversal, interpretation assumes no reversal Atrial fibrillation with rapid ventricular response Low voltage QRS Anterolateral infarct , age undetermined Electronically Signed On 09-01-2024 7:42:57 PDT by Van Sosa
--- NOTE | 2024-08-30 19:43 | DI.RAD.S_ITS ---
PROCEDURE: XR CHEST 1V INDICATIONS: Shortness of breath TECHNIQUE: One view of the chest was acquired. COMPARISON: [facility], CR, XR CHEST 1V, 08/11/2024, 16:36. [facility], CR, XR CHEST 2V, 11/30/2021, 12:04. FINDINGS: Surgical changes and devices: None. Lungs and pleura: Perihilar opacities. Small pleural effusions. Peribronchial cuffing. Mediastinum: Mediastinal contours appear normal. Heart size is enlarged. Bones and chest wall: No suspicious bony lesions. Overlying soft tissues appear unremarkable. IMPRESSION: Moderate pulmonary edema with small pleural effusions. Perihilar opacities could be a manifestation of pulmonary edema versus aspiration. Dictated by: Duane Dumont M.D. on 08/30/2024 at 20:37 Approved by: Duane Dumont M.D. on 08/30/2024 at 20:41
[2024-08-30 19:54] LABS: Add Manual Diff / Slide Review NO; Basophils Absolute Auto 100 /uL (0-100); Basophils Percent Auto 0.8 % (0-2); Eosinophils Absolute Auto 0 /uL (0-450); Eosinophils Percent Auto 0.1 % (2-4); Hematocrit 33.1 % (36-46); Hemoglobin 11.2 g/dL (12.0-16.0); Lymphocytes Absolute Auto 600 /uL (1100-4500); Lymphocytes Percent Auto 7.4 % (25-40); Mean Corpuscular Hemoglobin 32.2 PG (26-34); Mean Corpuscular Volume 94.9 fL (80-100); Monocytes Absolute Auto 900 /uL (0-900); Monocytes Percent Auto 10.2 % (3-14); Neutrophils Absolute Auto 7000 /uL (1500-7000); Neutrophils Percent Auto 81.5 % (50-75); Platelet Count 278 X10^3/uL (150-400); Red Blood Cell Count 3.49 X10^6/uL (4.0-5.2); Red Cell Distribution Width 14.9 % (11.6-14.8); White Blood Cell Count 8.5 X10^3/uL (4.5-11.0)
[2024-08-30 20:01] LABS: INR 2.4 (0.9-1.3); Prothrombin Time 26.5 SECONDS (9.4-12.5)
--- NOTE | 2024-08-30 20:03 | PC.NURSE ---
CLIVE #1 Drawn and sent to the lab
[2024-08-30 20:09] LABS: Creatine Kinase 110 U/L (30-135); Lipase 55 U/L (23-300)
[2024-08-30 20:10] LABS: Alanine Aminotransferase 23 IU/L (<35); Albumin 3.4 g/dL (3.5-5.0); Alkaline Phosphatase 78 U/L (38-126); Aspartate Aminotransferase 38 IU/L (14-36); BUN Creatinine Ratio 26.2 (6-22); Bilirubin Total 3.3 mg/dL (0.2-1.3); Blood Urea Nitrogen 22 mg/dL (7-17); Calcium 8.9 mg/dL (8.4-10.2); Carbon Dioxide 29 mmol/L (22-32); Chloride 98 mmol/L (98-107); Estimated Glomerular Filt Rate > 60 mL/min (>60); Globulin 3.3 g/dL (1.7-4.1); Glucose 120 mg/dL (80-110); HEMOLYSIS 21 (0-50); PTT Partial Thromboplastin Tim 41 SECONDS (25.1-36.5); Potassium 3.6 mmol/L (3.4-5.1); Sodium 135 mmol/L (137-145); Total Protein 6.7 g/dL (6.3-8.2)
[2024-08-30 20:11] LABS: Lactate (Lactic Acid) 2.1 mmol/L (0.7-2.1)
--- NOTE | 2024-08-30 20:15 | ED.SOB ---
HPI - SOB/Dyspnea General Chief Complaint: Shortness of Breath/Dyspnea Stated Complaint: Failure to Thrive Time Seen by Provider: 08/30/24 19:43 Source: patient and EMS Mode of arrival: EMS Limitations: no limitations History of Present Illness HPI Narrative: Patient is an 79-year-old female multiple medical problems including bilateral lower extremity edema, CHF, atrial fibrillation on warfarin presenting today with increasing shortness of breath weakness and diarrhea. She states she is having increasing weakness laid on her couch all day today can not get herself up. She was having multiple episodes of diarrhea she can not always get to the bathroom. EMS reports that her houses unlivable. She denies any sort of fall or head injury. She has some mild abdominal pain. She was noted to be hypoxic requiring oxygen which is new. Feels like her legs are more swollen than normal. She lives alone does not have any sort of family to assist her. Related Data Home Medications Medication Instructions Recorded Confirmed diltiazem HCl 360 mg capsule,24 360 mg PO QDAY ##0 09/04/16 08/11/24 hr,extended release enalapril maleate 20 mg tablet 10 mg PO DAILY 03/15/21 08/11/24 hydrochlorothiazide 50 mg tablet 25 mg PO DAILY 03/15/21 08/11/24 metoprolol succinate 50 mg 50 mg PO DAILY 03/15/21 08/11/24 tablet,extended release 24 hr simvastatin 40 mg tablet 20 mg PO DAILY 03/15/21 08/11/24 warfarin 5 mg tablet 2 tab PO DAILY 11/30/21 08/11/24 furosemide 40 mg tablet 20 mg PO BID 08/11/24 08/11/24 gabapentin 100 mg capsule 300 mg PO TID 08/11/24 08/11/24 Previous Rx's Medication Instructions Recorded doxycycline hyclate 100 mg tablet 100 mg PO BID #10 tabs 08/12/24 Allergies Allergy/AdvReac Type Severity Reaction Status Date / Time pneumococcal vaccine AdvReac Unknown Verified 08/11/24 13:46 Patient History Medical History Hyperlipidemia Hypertension Atrial fibrillation Surgical History History of appendectomy H/O: hysterectomy Social History household members: none Smoking Status: Former smoker Smoking Status: Former smoker alcohol intake frequency: holidays/special occasions only Exam Initial Vital Signs Initial Vital Signs: Vital Signs Pulse Rate 121 H 08/30/24 19:12 Blood Pressure 143/61 H 08/30/24 19:12 Pulse Oximetry 95 08/30/24 19:12 GENERAL: Alert 79-year-old female HEENT: Head atraumatic,EOMI, pupils reactive, face symmetric, [moist] mucous membranes CARDIOVASCULAR: Irregular RESPIRATORY: ABDOMEN: Soft, nontender. Normoactive bowel sounds all 4 quadrants. No guarding or rebound. EXTREMITIES: Normal range of motion, no clubbing or edema. Neurovascularly intact NEUROLOGICAL: Alert and oriented x4.Normal gait and speech. Cranial nerves II through XII grossly intact. SKIN: Left lower extremity there is a wound on the heel some foul smell erythema noted on the left leg mild bilateral lower extremity lymphedema significant scaly skin right leg looks Course Orders Ordered: ED Orders 08/30/24 19:25 Complete Blood Count AUTO DIFF Stat Comprehensive Metabolic Panel Stat Lactate (Lactic Acid) Stat Lipase Stat NT-proBNP (BNP-Adult 18+) Stat PTT Partial Thromboplastin Ovidio Stat Prothrombin Time INR Stat Troponin & CK Cardiac Panel Stat 08/30/24 19:43 XR chest 1V Stat EKG-12 Lead Stat Measure peak expiratory flow ONCE RT Consult Eval and Treat NOW 08/30/24 19:55 Covid-19 + FLU A/B + RSV - PCR Stat 08/30/24 20:25 Blood Culture Stat 08/30/24 21:36 Consult to CARVING MACHINE OPERATOR - Dining Room Host/Hostess Stat 08/30/24 22:10 Urinalysis and Microscopic Stat Urine Culture Stat Acetaminophen (Acetaminophen 325 Mg Tablet) 650 mg PO Q6H PRN PRN Reason: Fever/Mild Pain (1-3) Furosemide (Furosemide 40 Mg/4 Ml Vial) 40 mg IV Q8H ANA Ceftriaxone Sodium 1,000 mg/ (Sodium Chloride) 100 mls @ 200 mls/hr IV Q24H ANA Naloxone HCl (Naloxone 0.4 Mg/Ml Vial) 0.2 mg IV Q2MIN PRN PRN Reason: Opiate Reversal Ondansetron HCl (Ondansetron 4 Mg/2 Ml Inj) 4 mg IV Q4HR PRN PRN Reason: nausea Warfarin Protocol (Warfarin Per Pharmacy (Inr 2-3)) 1 request MISC NOW PRN PRN Reason: atrial fibrilation Discontinued Medications Furosemide (Furosemide 40 Mg/4 Ml Vial) 40 mg IV NOW ONE Stop: 08/30/24 20:44 Last Admin: 08/30/24 21:01 Dose: 40 mg Documented By: MICHELA Ceftriaxone Sodium 1,000 mg/ (Sodium Chloride) 100 mls @ 200 mls/hr IV NOW ONE Stop: 08/30/24 20:44 Last Infusion: 08/30/24 21:59 Dose: Infused Documented By: Admin: 08/30/24 21:02 Dose: 200 mls/hr Documented By: MICHELA Vital Signs Vital signs: Vital Signs - 8 hr 08/30/24 19:12 08/30/24 19:12 08/30/24 19:30 Temperature 97.8 F Pulse Rate 121 H 118 H Respiratory Rate 23 Blood Pressure 143/61 H 145/90 H Pulse Oximetry 95 98 Oxygen Delivery Method Nasal Cannula Oxygen Flow Rate 3 08/30/24 19:30 08/30/24 19:30 08/30/24 20:00 Temperature Pulse Rate 103 H 112 H Respiratory Rate 24 26 H Blood Pressure 145/90 H Pulse Oximetry 98 97 Oxygen Delivery Method Nasal Cannula Oxygen Flow Rate 3 08/30/24 20:00 08/30/24 20:37 08/30/24 20:45 Temperature Pulse Rate 110 H Respiratory Rate Blood Pressure 137/66 157/82 H Pulse Oximetry Oxygen Delivery Method Oxygen Flow Rate 08/30/24 20:45 08/30/24 21:00 08/30/24 21:30 Temperature Pulse Rate 112 H 114 H 115 H Respiratory Rate 26 H 25 H 22 Blood Pressure Pulse Oximetry 95 97 98 Oxygen Delivery Method Nasal Cannula Nasal Cannula Oxygen Flow Rate 3 3 3 08/30/24 21:50 08/30/24 21:50 08/30/24 22:00 Temperature Pulse Rate 108 H 116 H Respiratory Rate 18 20 Blood Pressure 154/67 H Pulse Oximetry 97 98 Oxygen Delivery Method Oxygen Flow Rate 08/30/24 22:00 08/30/24 22:30 08/30/24 22:31 Temperature Pulse Rate 111 H 124 H Respiratory Rate 25 H 34 H Blood Pressure 149/63 H Pulse Oximetry 99 99 Oxygen Delivery Method Oxygen Flow Rate 08/30/24 22:31 Temperature Pulse Rate Respiratory Rate Blood Pressure 147/81 H Pulse Oximetry Oxygen Delivery Method Oxygen Flow Rate MDM - SOB/Dyspnea Lab Data 08/30/24 19:25 08/30/24 19:25 Labs: Lab Results 08/30/24 08/30/24 08/30/24 Range/Units 19:25 19:25 19:55 WBC 8.5 (4.5-11.0) X10^3/uL RBC 3.49 L (4.0-5.2) X10^6/uL Hgb 11.2 L (12.0-16.0) g/dL Hct 33.1 L (36-46) % MCV 94.9 (80-100) fL MCH 32.2 (26-34) PG MCHC 34.0 (30-36) % RDW 14.9 H (11.6-14.8) % Plt Count 278 (150-400) X10^3/uL Neut % (Auto) 81.5 H (50-75) % Lymph % (Auto) 7.4 L (25-40) % Gibson % (Auto) 10.2 (3-14) % Eos % (Auto) 0.1 L (2-4) % Baso % (Auto) 0.8 (0-2) % Neut # (Auto) 7000 (6400-6182) /uL Lymph # (Auto) 600 L (6950-4761) /uL Gibson # (Auto) 900 (0-900) /uL Eos # (Auto) 0 (0-450) /uL Baso # (Auto) 100 (0-100) /uL PT 26.5 H (9.4-12.5) SECONDS INR 2.4 H (0.9-1.3) APTT 41 H (25.1-36.5) SECONDS Sodium 135 L (137-145) mmol/L Potassium 3.6 (3.4-5.1) mmol/L Chloride 98 (98-107) mmol/L Carbon Dioxide 29 (22-32) mmol/L BUN 22 H (7-17) mg/dL Creatinine 0.84 (0.52-1.04) mg/dL Estimated GFR > 60 (>60) mL/min BUN/Creatinine Ratio 26.2 H (6-22) Glucose 120 H (80-110) mg/dL Lactate 2.1 (0.7-2.1) mmol/L Calcium 8.9 (8.4-10.2) mg/dL Total Bilirubin 3.3 H (0.2-1.3) mg/dL AST 38 H (14-36) IU/L ALT 23 (<35) IU/L Alkaline Phosphatase 78 (38-126) U/L Total Creatine Kinase 110 (30-135) U/L Troponin I Cancelled 0.015 NT-Pro-B Natriuret Pep 5490 H (<450) pg/mL Total Protein 6.7 (6.3-8.2) g/dL Albumin 3.4 L (3.5-5.0) g/dL Globulin 3.3 (1.7-4.1) g/dL Albumin/Globulin Ratio 1.0 (1.0-2.8) Lipase 55 (23-300) U/L Urine Color Urine Appearance Urine pH (4.5-8.0) Ur Specific [place] (1.000-1.035) Urine Protein (Negative) Urine Glucose (UA) (Negative) g/dL Urine Ketones (NEGATIVE) Urine Occult Blood (Negative) Urine Nitrate (Negative) Urine Bilirubin (NEGATIVE) Urine Urobilinogen (0.2) E.U./dL Ur Leukocyte Esterase (NEGATIVE) Urine RBC (0-5/HPF) Urine WBC (0-5/HPF) Ur Squamous Epith Cells (0-5/HPF) Urine Bacteria (None) Ur Culture Indicated? Vol Urine Centrifuged SARS-CoV-2 (PCR) Negative (Negative) Influenza A (RT-PCR) Flu a negative (NEGATIVE) Influenza B (RT-PCR) Flu b negative (NEGATIVE) RSV (PCR) Negative (Negative) 08/30/24 08/30/24 Range/Units 21:55 22:10 WBC (4.5-11.0) X10^3/uL RBC (4.0-5.2) X10^6/uL Hgb (12.0-16.0) g/dL Hct (36-46) % MCV (80-100) fL MCH (26-34) PG MCHC (30-36) % RDW (11.6-14.8) % Plt Count (150-400) X10^3/uL Neut % (Auto) (50-75) % Lymph % (Auto) (25-40) % Gibson % (Auto) (3-14) % Eos % (Auto) (2-4) % Baso % (Auto) (0-2) % Neut # (Auto) (9637-6806) /uL Lymph # (Auto) (5467-0694) /uL Gibson # (Auto) (0-900) /uL Eos # (Auto) (0-450) /uL Baso # (Auto) (0-100) /uL PT (9.4-12.5) SECONDS INR (0.9-1.3) APTT (25.1-36.5) SECONDS Sodium (137-145) mmol/L Potassium (3.4-5.1) mmol/L Chloride (98-107) mmol/L Carbon Dioxide (22-32) mmol/L BUN (7-17) mg/dL Creatinine (0.52-1.04) mg/dL Estimated GFR (>60) mL/min BUN/Creatinine Ratio (6-22) Glucose (80-110) mg/dL Lactate 1.5 (0.7-2.1) mmol/L Calcium (8.4-10.2) mg/dL Total Bilirubin (0.2-1.3) mg/dL AST (14-36) IU/L ALT (<35) IU/L Alkaline Phosphatase (38-126) U/L Total Creatine Kinase (30-135) U/L Troponin I NT-Pro-B Natriuret Pep (<450) pg/mL Total Protein (6.3-8.2) g/dL Albumin (3.5-5.0) g/dL Globulin (1.7-4.1) g/dL Albumin/Globulin Ratio (1.0-2.8) Lipase (23-300) U/L Urine Color Yellow Urine Appearance Clear Urine pH 6.5 (4.5-8.0) Ur Specific [place] 1.010 (1.000-1.035) Urine Protein Negative (Negative) Urine Glucose (UA) Negative (Negative) g/dL Urine Ketones Negative (NEGATIVE) Urine Occult Blood 3+ H (Negative) Urine Nitrate Negative (Negative) Urine Bilirubin Negative (NEGATIVE) Urine Urobilinogen 0.2 (0.2) E.U./dL Ur Leukocyte Esterase 1+ H (NEGATIVE) Urine RBC 30-100/hpf H (0-5/HPF) Urine WBC 1-5/hpf (0-5/HPF) Ur Squamous Epith Cells 1-5 /hpf (0-5/HPF) Urine Bacteria Many (>30) H (None) Ur Culture Indicated? Specimen cultured Vol Urine Centrifuged 10ml (spun) SARS-CoV-2 (PCR) (Negative) Influenza A (RT-PCR) (NEGATIVE) Influenza B (RT-PCR) (NEGATIVE) RSV (PCR) (Negative) Imaging Data Chest x-ray: Radiologist's Impression: PROCEDURE: XR CHEST 1V INDICATIONS: Shortness of breath TECHNIQUE: One view of the chest was acquired. COMPARISON: [facility], CR, XR CHEST 1V, 08/11/2024, 16:36. [facility], CR, XR CHEST 2V, 11/30/2021, 12:04. FINDINGS: Surgical changes and devices: None. Lungs and pleura: Perihilar opacities. Small pleural effusions. Peribronchial cuffing. Mediastinum: Mediastinal contours appear normal. Heart size is enlarged. Bones and chest wall: No suspicious bony lesions. Overlying soft tissues appear unremarkable. IMPRESSION: Moderate pulmonary edema with small pleural effusions. Perihilar opacities could be a manifestation of pulmonary edema versus aspiration. Dictated by: Duane Dumont M.D. on 08/30/2024 at 20:37 Approved by: Duane Dumont M.D. on 08/30/2024 at 20:41 ECG Data Attestation: I personally reviewed and interpreted this ECG as follows: Prior ECG tracings: available for review Interpretation: Atrial fibrillation rate [address] changes low voltage similar to previous EKGs MDM Narrative Medical decision making narrative: MDM CC: Shortness of breath weakness Complicating co-morbidities: Atrial fibrillation on warfarin chronic lymphedema chronic wounds Social considerations lives alone, unlivable living conditions Data collected from: Patient EMS Medical records reviewed: Previous echo in 2021 shows normal EF 60-65% with normal right ventricular size function Differential considered: Pneumonia congestive heart failure for we will illness pulmonary embolism Exam documented above, pertinent findings include: Alert 79-year-old female morbidly obese mild conversational dyspnea. Lower extremity edema lymphedema is present bilaterally. Left lower extremity has some erythema wound bottom of heal Lab Test results independently reviewed as above. Pertinent findings: BNP 5490 previously 2300, troponin 0.015 WBC 8.5 hemoglobin 11.2 hematocrit 33 Electrolytes within normal limits no NANNETTE INR 2.4 Independently reviewed EKG as above atrial fibrillation no ischemia Imaging studies independently reviewed: Pulmonary edema Consultations: Dr. Ag accepts patient Treatments: Roberto Lomax Discussion: Patient 79-year-old female presenting today with weakness shortness of breath. She does have a history of atrial fibrillation lymphedema. She was requiring oxygen 2-3 L which is not normal for her. She has an elevated BNP with evidence of pulmonary edema on x-ray. Also possible cellulitis in her left lower extremity. She has a heel wound as well. She lives alone no family. Discharge Plan Departure Patient Disposition: Admitted As Inpatient Clinical Impression: Cellulitis, CHF (congestive heart failure) Admit Date/Time: 08/30/24 22:53 Admit Provider: Kirk Garza
[2024-08-30 20:19] LABS: NT-proBNP (BNP-Adult 18+) 5490 pg/mL (<450)
[2024-08-30 20:22] LABS: Troponin I 0.015 ng/mL (0.01-0.034)
--- NOTE | 2024-08-30 20:23 | EKG_ITS ---
[address] [address] Test Date: 2024-08-30 Pat Name: Ho Hilliard Department: Room: 227 Gender: Female Acidizer Helper: MAGALIE : 1945 Requested By: Order Number: [id number] Reading MD: Van Sosa Measurements Intervals [place] Rate: 113 P: [place]: QRS: 75 QRSD: 58 T: 221 QT: 282 QTc: 386 Interpretive Statements Atrial fibrillation with rapid ventricular response Low voltage QRS Cannot rule out Anterior infarct , age undetermined Electronically Signed On 09-01-2024 7:43:06 PDT by Van Sosa
[2024-08-30 20:36] LABS: Influenza A - CEPHEID Flu A NEGATIVE (NEGATIVE); Influenza B - CEPHEID Flu B NEGATIVE (NEGATIVE); Respiratory Syncytial Virus Negative (Negative)
[2024-08-30 20:37] LABS: COVID-19 CEPHEID 4-PLEX PCR Negative (Negative)
[2024-08-30] MEDS: FUROSEMIDE 40 MG/4 ML VIAL IV (21:01)
[2024-08-30] MEDS: cefTRIAXone 1,000 MG in SODIUM CHLORIDE 0.9% 100 ML 200 MG IV (21:02)
[2024-08-30 21:25] LABS: Reflexed Lactate in 2 Hours Y
--- NOTE | 2024-08-30 21:26 | PC.NURSE ---
This RN and Kalpana RN changed the patient into a gown after she was incontinent, provided yamil care, patient had diffuse redness across her bottom that was blanchable, barrier cream has been applied. Pure wick in place for limited mobility and after giving lasix, see MAR. Compression stocking removed with Dr Boss in the room, 1cm wound on heel noted, no drainage
[2024-08-30 22:18] LABS: Appearance Urine UA CLEAR; Bilirubin Urine UA NEGATIVE (NEGATIVE); Color Urine UA YELLOW; Glucose Urine UA NEGATIVE (Negative); Ketones Urine UA NEGATIVE (NEGATIVE); Leukocyte Esterase Urine UA 1+ (NEGATIVE); Nitrite Urine UA NEGATIVE (Negative); Occult Blood Urine UA 3+ (Negative); Protein Urine UA NEGATIVE (Negative); Urobilinogen Urine UA 0.2 E.U./dL (0.2)
[2024-08-30 22:21] LABS: Lactate 2HR (Lactic Acid Rflx) 1.5 mmol/L (0.7-2.1)
[2024-08-30 22:25] LABS: pH Urine UA 6.5 (4.5-8.0)
[2024-08-30 22:26] LABS: Bacteria Urine Many (>30); RBC Urine 30-100/HPF (0-5/HPF); Squamous Epithelial Cell Urine 1-5 /HPF (0-5/HPF); Urine Volume 10mL (spun); WBC Urine 1-5/HPF (0-5/HPF)
[2024-08-30 22:27] LABS: Culture Indicated Urine Specimen Cultured
--- NOTE | 2024-08-30 23:25 | DI.ECHO.S_ITS ---
[facility] : : [address] : : [place] : : [id number] : : Phone: [phone] Echocardiogram Report + :Name: PATRIC HERNANDEZ Study Date: 08/31/2024 Height: 66 in : :[facility] ReadingLocation: Weight: 250 lb : : Gender: Female BSA: 2.2 m2 : :: 1945 Age: 79 yrs BP: 119/56 mmHg: :Reason For Study: CONGESTIVE HEART FAILURE : :Ordering Physician: LEONOR : :LUDMILA SIMEON Performed By: Hubert Ramos : :Referring: LUDMILA GOODMAN : + Interpretation Summary The patient was in atrial fibrillation with heart rates between 94-149 bpm during the exam. The left ventricular cavity is small. The left ventricular ejection fraction is normal. The ejection fraction is estimated to be 60-65%. No significant change in LVEF. The right ventricle is normal in size and function. There is mild tricuspid regurgitation. The right ventricular systolic pressure is estimated to be at least 45 mmHg based on an estimated right atrial pressure of 3 mm Hg. Bcohd-re-zgoirkwb left pleural effusion. New pleural effusion. Procedure: A two-dimensional transthoracic echocardiogram with color flow and Doppler was performed. The study quality was technically good. Comparison is made with the echocardiogram of 12/01/2021. The patient was in atrial fibrillation with heart rates between 94-149 bpm during the exam. Left Ventricle: There is normal left ventricular wall thickness. The left ventricular cavity is small. There is no thrombus. The ejection fraction is estimated to be 60-65%. The left ventricular ejection fraction is normal. There are no focal wall motion abnormalities. Diastolic function could not be accurately assessed due to atrial fibrillation. Right Ventricle: The right ventricle is normal in size and function. Atria: The left atrial size is normal. There has been no significant change since the previous study. Right atrial size is normal. There is no Doppler evidence for an interatrial shunt. Mitral Valve: The mitral valve leaflets appear normal. There is no evidence of stenosis, fluttering, or prolapse. There is trace mitral regurgitation. Aortic Valve: The aortic valve is trileaflet. The aortic valve is mildly calcified. There is discrete nodular thickening of the non- coronary cusp. There is no hemodynamically significant valvular aortic stenosis. No aortic regurgitation is present. Tricuspid Valve: There is mild tricuspid regurgitation. The right ventricular systolic pressure is estimated to be at least 45 mmHg based on an estimated right atrial pressure of 3 mm Hg. Pulmonic Valve: The pulmonic valve is not well seen, but is grossly normal. There is no pulmonic valvular regurgitation. Great Vessels: The aortic root is normal size. The dimensions of the ascending aorta are normal. The pulmonary artery is normal size. The IVC is of normal diameter and collapses greater than 50% with a sniff. This suggests a low right atrial pressure of 3 mm Hg. Pericardium/ Pleura There is no pericardial effusion. There is an anterior echo-free space consistent with a fat pad. Brhud-eh-gaitzufl left pleural effusion. MMode/2D Measurements & Calculations LVIDd: 3.9 cm LVOT diam: 1.9 cm LVIDs: 2.8 cm Ao root diam: 3.0 cm FS: 27.4 % asc Aorta Diam: 3.2 cm EPSS: 0.52 cm IVSd: 0.97 cm LVPWd: 0.95 cm LV garcia. diameter/BSA (cm/m^2): 1.8 LV sys. diameter/BSA (cm/m^2): 1.3 LA A2 area: 23.0 cm2 RA long axis: 6.1 cm LA A4 area: 21.0 cm2 RA area: 20.3 cm2 LA length (vol): 6.3 cm RA vol: 58.0 ml LA vol: 64.8 ml RA : 26.4 ml/m2 LA vol index: 29.5 ml/m2 IVC diam: 1.9 cm RVD1 (basal): 3.7 cm RVD2 (mid): 3.2 cm TAPSE: 1.5 cm Doppler Measurements & Calculations Ao V2 max: 188.8 cm/sec LVOT Max Himanshu: 97.4 cm/sec Ao V2 mean: 134.4 cm/sec LV V1 max P.8 mmHg Ao max P.3 mmHg LV V1 VTI: 14.9 cm Ao mean P.1 mmHg BALJIT(I,D): 1.5 cm2 Ao V2 VTI: 28.6 cm BALJIT(V,D): 1.5 cm2 sev ratio: 0.52 BALJIT indexed to BSA (cm^2/m^2): 0.68 MV E max himanshu: 96.5 cm/sec TR max himanshu: 324.7 cm/sec MV A max himanshu: 22.9 cm/sec TR max P.2 mmHg MV E/A: 4.2 PA V2 max: 95.8 cm/sec Med Peak E' Himanshu: 7.1 cm/sec PA V2 mean: 59.0 cm/sec E/E' med: 13.6 PA mean P.6 mmHg Lat Peak E' Himanshu: 8.1 cm/sec PA pr(Accel): 34.5 mmHg E/E' lat: 12.0 E/e' average: 12.8 MV dec time: 0.22 sec SV(LVOT): 43.0 ml Reading Physician:01:52 PM
--- NOTE | 2024-08-30 23:30 | P.HP_ITS ---
History of Present Illness History of Present Illness Date Patient Seen: 08/31/24 Time Patient Seen: 02:00 Chief complaint: shortness of breath Narrative: 79 y/o with PMH of HTN, HLD, obesity, JUDIE, A-fib and likely CHF, presented with gradual worsening of b/l leg edema and shortness of breath. Appears congested, fluid overloaded on admission. She had numerous visits over the past few years for recurrent leg/s cellulitis. Today her LLE appears infected, it is tender, erythematous. She has a heel wound. No purulence. Not septic. Treated with diuretic and abx oin the ED. Admitted to continue diuresis for apparent CHF and antibiotic for LLE cellulitis. [facility] Medical History (Updated 08/31/24 @ 04:08 by Kirk Ag MD) JUDIE (obstructive sleep apnea) Obesity Hyperlipidemia Hypertension Atrial fibrillation Surgical History History of appendectomy H/O: hysterectomy Social History household members: none Smoking Status: Former smoker Meds Home Medications and Allergies Home Medications Medication Instructions Recorded Confirmed Type diltiazem HCl 360 mg capsule,24 360 mg PO QDAY ##0 09/04/16 08/31/24 History hr,extended release enalapril maleate 20 mg tablet 5 mg PO DAILY 03/15/21 08/31/24 History hydrochlorothiazide 50 mg tablet 25 mg PO DAILY 03/15/21 08/31/24 History metoprolol succinate 50 mg 50 mg PO DAILY 03/15/21 08/31/24 History tablet,extended release 24 hr simvastatin 40 mg tablet 20 mg PO DAILY 03/15/21 08/31/24 History warfarin 5 mg tablet 5 mg PO DAILY 11/30/21 08/31/24 History furosemide 40 mg tablet 20 mg PO BID 08/11/24 08/31/24 History Allergies Allergy/AdvReac Type Severity Reaction Status Date / Time pneumococcal vaccine AdvReac Unknown Verified 08/11/24 13:46 Review of Systems Review of Systems Narrative: General - w/o fever or chills. Fatigued. Generalized weakness. RS - short of breath, w/o cough CVS - short of breath, orthopnea, swollen legs, w/o palpitations Neuro - w/o focal weakness GI - diarrhea Exam Vital Signs (past 8 hours): - 08/30/24 19:12 08/30/24 19:12 08/30/24 19:30 Temperature 97.8 F Pulse Rate 121 H 118 H Respiratory Rate 23 Blood Pressure 143/61 H 145/90 H Pulse Oximetry 95 98 Oxygen Delivery Method Nasal Cannula Oxygen Flow Rate 3 08/30/24 19:30 08/30/24 19:30 08/30/24 20:00 Temperature Pulse Rate 103 H 112 H Respiratory Rate 24 26 H Blood Pressure 145/90 H Pulse Oximetry 98 97 Oxygen Delivery Method Nasal Cannula Oxygen Flow Rate 3 08/30/24 20:00 08/30/24 20:37 08/30/24 20:45 Temperature Pulse Rate 110 H Respiratory Rate Blood Pressure 137/66 157/82 H Pulse Oximetry Oxygen Delivery Method Oxygen Flow Rate 08/30/24 20:45 08/30/24 21:00 08/30/24 21:30 Temperature Pulse Rate 112 H 114 H 115 H Respiratory Rate 26 H 25 H 22 Blood Pressure Pulse Oximetry 95 97 98 Oxygen Delivery Method Nasal Cannula Nasal Cannula Oxygen Flow Rate 3 3 3 08/30/24 21:50 08/30/24 21:50 08/30/24 22:00 Temperature Pulse Rate 108 H 116 H Respiratory Rate 18 20 Blood Pressure 154/67 H Pulse Oximetry 97 98 Oxygen Delivery Method Oxygen Flow Rate 08/30/24 22:00 08/30/24 22:30 08/30/24 22:31 Temperature Pulse Rate 111 H 124 H Respiratory Rate 25 H 34 H Blood Pressure 149/63 H Pulse Oximetry 99 99 Oxygen Delivery Method Oxygen Flow Rate 08/30/24 22:31 08/30/24 23:00 08/30/24 23:00 Temperature Pulse Rate 117 H Respiratory Rate 23 Blood Pressure 147/81 H 120/75 Pulse Oximetry 100 Oxygen Delivery Method Oxygen Flow Rate 08/30/24 23:27 Temperature Pulse Rate Respiratory Rate Blood Pressure Pulse Oximetry Oxygen Delivery Method Nasal Cannula Oxygen Flow Rate Oxygen Delivery Method Nasal Cannula Oxygen Flow Rate 3 Narrative Exam Narrative: General - in no distress HEENT: oral crowding CVS - irregular, tachycardiac, 2+ b/l leg edema RS - tachypneic GI - obese abdomen Skin - LLE erythema, tender to touch Objective ECG Impression: A-fib 106 Without ischemic changes Imaging Chest x-ray: My impression: Cardiomegaly with pulmonary edema Radiologist's impression: Moderate pulmonary edema with small pleural effusions. Perihilar opacities could be a manifestation of pulmonary edema versus aspiration. Labs 08/30/24 19:25 08/30/24 19:25 Labs: Laboratory Results - last 24 hr 08/30/24 08/30/24 08/30/24 19:25 19:25 19:55 WBC 8.5 RBC 3.49 L Hgb 11.2 L Hct 33.1 L MCV 94.9 MCH 32.2 MCHC 34.0 RDW 14.9 H Plt Count 278 Neut % (Auto) 81.5 H Lymph % (Auto) 7.4 L [place] % (Auto) 10.2 Eos % (Auto) 0.1 L Baso % (Auto) 0.8 Neut # (Auto) 7000 Lymph # (Auto) 600 L [place] # (Auto) 900 Eos # (Auto) 0 Baso # (Auto) 100 PT 26.5 H INR 2.4 H APTT 41 H Sodium 135 L Potassium 3.6 Chloride 98 Carbon Dioxide 29 BUN 22 H Creatinine 0.84 Estimated GFR > 60 BUN/Creatinine Ratio 26.2 H Glucose 120 H Lactate 2.1 Calcium 8.9 Total Bilirubin 3.3 H AST 38 H ALT 23 Alkaline Phosphatase 78 Total Creatine Kinase 110 Troponin I Cancelled 0.015 NT-Pro-B Natriuret Pep 5490 H Total Protein 6.7 Albumin 3.4 L Globulin 3.3 Albumin/Globulin Ratio 1.0 Lipase 55 Urine Color Urine Appearance Urine pH Ur Specific [place] Urine Protein Urine Glucose (UA) Urine Ketones Urine Occult Blood Urine Nitrate Urine Bilirubin Urine Urobilinogen Ur Leukocyte Esterase Urine RBC Urine WBC Ur Squamous Epith Cells Urine Bacteria Ur Culture Indicated? Vol Urine Centrifuged SARS-CoV-2 (PCR) Negative Influenza A (RT-PCR) Flu a negative Influenza B (RT-PCR) Flu b negative RSV (PCR) Negative 08/30/24 08/30/24 21:55 22:10 WBC RBC Hgb Hct MCV MCH MCHC RDW Plt Count Neut % (Auto) Lymph % (Auto) [place] % (Auto) Eos % (Auto) Baso % (Auto) Neut # (Auto) Lymph # (Auto) [place] # (Auto) Eos # (Auto) Baso # (Auto) PT INR APTT Sodium Potassium Chloride Carbon Dioxide BUN Creatinine Estimated GFR BUN/Creatinine Ratio Glucose Lactate 1.5 Calcium Total Bilirubin AST ALT Alkaline Phosphatase Total Creatine Kinase Troponin I NT-Pro-B Natriuret Pep Total Protein Albumin Globulin Albumin/Globulin Ratio Lipase Urine Color Yellow Urine Appearance Clear Urine pH 6.5 Ur Specific [place] 1.010 Urine Protein Negative Urine Glucose (UA) Negative Urine Ketones Negative Urine Occult Blood 3+ H Urine Nitrate Negative Urine Bilirubin Negative Urine Urobilinogen 0.2 Ur Leukocyte Esterase 1+ H Urine RBC 30-100/hpf H Urine WBC 1-5/hpf Ur Squamous Epith Cells 1-5 /hpf Urine Bacteria Many (>30) H Ur Culture Indicated? Specimen cultured Vol Urine Centrifuged 10ml (spun) SARS-CoV-2 (PCR) Influenza A (RT-PCR) Influenza B (RT-PCR) RSV (PCR) Assessment & Plan Assessment and plan (1) CHF (congestive heart failure): Status: Acute (2) Cellulitis of left lower extremity: Status: Acute (3) Atrial fibrillation: Problem details: Anticoagulated on Coumadin, rate controlled with diltiazem Status: Acute (4) Hypertension: Status: Acute (5) Hyperlipidemia: Status: Acute (6) Obesity: Status: Acute (7) JUDIE (obstructive sleep apnea): Status: Acute Assessment & Plan narrative: CHF - clinically, with congestion, swollen legs, pulmonary edema, orthopnea - did not change diet and only recent medication change was decreased Toprol XL - w/o angina or ischemic EKG changes - hypertensive on admission - echocardiogram pending - Lasix IV - home PO HCTZ on hold - she denies taking 20 mg bid of Lasix at home - appears on medication list LLE Cellulitis - Rocephin - leg elevation - recurrent A-fib / HTN - Diltiazem 360 mg daily, Toprol XL 50 mg daily - warfarin per pharmacy, INR therapeutic 2.4 - held home enalapril and HCTZ HLD - statin Obesity / JUDIE - BMI 35 - intolerant of CPAP Impaired mobility and ADLs - PT, OT, SS assessment - lives alone and has difficulty maintaining place livable Time-Based Coding :: [TOTAL MINUTES] spent with patient and on the chart (including review of chart, obtaining history, exam, reviewing outside data, placing orders, documenting exam and treatment plan, and counseling patient) on [DATE].
[2024-08-31] VITALS (14 sets, daily range): BP systolic 108–136; BP diastolic 56–71; PULSE 99–124; RESP 15–27; TEMP 36.4–37.1; O2SAT 92–96; BMI 36.4
--- NOTE | 2024-08-31 00:55 | PC.WOUNDPHOT ---
LLE Left heel LLE LLE LLE Left foot Right foot
--- NOTE | 2024-08-31 01:09 | PC.WOUNDPHOT ---
Left heel LLE LLE LLE Left foot Right foot
--- NOTE | 2024-08-31 01:25 | PC.NURSE ---
Pt. arrived to the unit via stretcher and transferred to bed using a transfer board. Pt. is a&o and pleasant. Skin checked with Kristy Randolph RN and pictures taken on pt's bilateral lower extremities including left heel ulcer. Oriented pt. to call light use and bed control. Instructed to call for help if need anything.
[2024-08-31 03:23] LABS: MRSA (Nasal) PCR NOT DETECTED (Not Detect)
[2024-08-31 04:37] LABS: Add Manual Diff / Slide Review NO; Basophils Absolute Auto 100 /uL (0-100); Basophils Percent Auto 0.9 % (0-2); Eosinophils Absolute Auto 100 /uL (0-450); Eosinophils Percent Auto 1.9 % (2-4); Hematocrit 32.1 % (36-46); Hemoglobin 11.1 g/dL (12.0-16.0); Lymphocytes Absolute Auto 1400 /uL (1100-4500); Lymphocytes Percent Auto 19.6 % (25-40); Mean Corpuscular HGB Conc 34.7 % (30-36); Mean Corpuscular Hemoglobin 32.6 PG (26-34); Mean Corpuscular Volume 94.1 fL (80-100); Monocytes Absolute Auto 800 /uL (0-900); Monocytes Percent Auto 10.9 % (3-14); Neutrophils Absolute Auto 4700 /uL (1500-7000); Neutrophils Percent Auto 66.7 % (50-75); Platelet Count 274 X10^3/uL (150-400); Red Blood Cell Count 3.41 X10^6/uL (4.0-5.2)
[2024-08-31 04:46] LABS: INR 2.3 (0.9-1.3); Prothrombin Time 25.1 SECONDS (9.4-12.5)
[2024-08-31 04:52] LABS: BUN Creatinine Ratio 25.8 (6-22); Blood Urea Nitrogen 24 mg/dL (7-17); Calcium 8.7 mg/dL (8.4-10.2); Carbon Dioxide 33 mmol/L (22-32); Chloride 97 mmol/L (98-107); Estimated Glomerular Filt Rate > 60 mL/min (>60); Glucose 99 mg/dL (80-110); HEMOLYSIS < 15 (0-50); Sodium 137 mmol/L (137-145)
[2024-08-31] MEDS: FUROSEMIDE 40 MG/4 ML VIAL IV ×3 (05:46→21:54)
[2024-08-31] MEDS: POTASSIUM CHLORIDE 20 MEQ TAB 40 MEQ PO (08:10)
[2024-08-31] MEDS: WARFARIN 5 MG TABLET PO (08:10)
[2024-08-31] MEDS: dilTIAZem CD 180 MG CAP 360 MG PO (08:11)
[2024-08-31] MEDS: METOPROLOL ER 50 MG TABLET PO ×2 (08:11→20:22)
[2024-08-31] MEDS: ATORVASTATIN 20 MG TABLET 10 MG PO (08:11)
--- NOTE | 2024-08-31 11:42 | P.PN_ITS ---
Subjective Subjective Interval history: 79 year old female with PMH obesity, HTN, HLD, paroxysmal afib/flutter on Coumadin, JUDIE, chronic LE edema who presented with worsening shortness of breath. Admitted for afib with RVR and suspected acute on chronic diasotlic heart failure. Possible acute cystitis and LLE cellulitis which appears improved today. She feels a bit better this morning, improved dyspnea but remains on supplemental oxygen this morning. She does occasionally feel her palpitations. She has no chest pain. When talking with her many of her complaints have been the same since 2021, it is difficult to discern the acuity of things such as her leg swelling and pain today. Exam Vital Signs (past 8 hours): - 08/31/24 04:00 08/31/24 04:31 08/31/24 05:00 Pulse Rate 120 H 116 H 116 H Respiratory Rate 20 23 16 Blood Pressure 136/71 Pulse Oximetry 95 96 95 Oxygen Delivery Method Oxygen Flow Rate 2 08/31/24 05:30 08/31/24 06:00 08/31/24 06:30 Pulse Rate 107 H 122 H 121 H Respiratory Rate 15 16 17 Blood Pressure Pulse Oximetry 94 94 93 Oxygen Delivery Method Oxygen Flow Rate 08/31/24 07:00 08/31/24 08:11 08/31/24 08:43 Pulse Rate 124 H 123 H Respiratory Rate 24 Blood Pressure 127/60 127/60 Pulse Oximetry 94 Oxygen Delivery Method Nasal Cannula Oxygen Flow Rate 4 08/31/24 09:38 Pulse Rate 117 H Respiratory Rate Blood Pressure 119/56 L Pulse Oximetry Oxygen Delivery Method Oxygen Flow Rate Oxygen Delivery Method Nasal Cannula Oxygen Flow Rate 4 Narrative Exam Narrative: General:? Patient is well developed and well nourished, obese with BMI 35, in no distress at this time. HEENT:? Normocephalic, atraumatic, extraocular muscles intact, oral pharynx is clear and mucous membranes are moist. Lungs:? CTA b/l no wheezing rhonchi or rales but poor effort. Cardio:?tachycardic and irregularly irregular rhythm. Abdomen: S NT ND. Musculoskeletal:? Muscle strength and tone are equal within normal limits, no deformity. Extremities: 2-3 + pitting edema b/l LE with chronic venous stasis changes, no joint effusions. No cyanosis or clubbing. Skin:?No significant erythema, warmth, or tenderness of her LLE today on exam. Neuro:? Alert and orientated x3,? sensation to touch intact in all extremities, no gross deficits noted of cranial nerves. Psych:? Patient has a well-kept appearance, appropriate affect, mental status attitude thought context and judgment are appropriate for age. Objective Labs 08/31/24 04:00 08/31/24 04:00 Labs: Laboratory Results - last 24 hr 08/30/24 08/30/24 08/30/24 19:25 19:25 19:55 WBC 8.5 RBC 3.49 L Hgb 11.2 L Hct 33.1 L MCV 94.9 MCH 32.2 MCHC 34.0 RDW 14.9 H Plt Count 278 Neut % (Auto) 81.5 H Lymph % (Auto) 7.4 L [place] % (Auto) 10.2 Eos % (Auto) 0.1 L Baso % (Auto) 0.8 Neut # (Auto) 7000 Lymph # (Auto) 600 L [place] # (Auto) 900 Eos # (Auto) 0 Baso # (Auto) 100 PT 26.5 H INR 2.4 H APTT 41 H Sodium 135 L Potassium 3.6 Chloride 98 Carbon Dioxide 29 BUN 22 H Creatinine 0.84 Estimated GFR > 60 BUN/Creatinine Ratio 26.2 H Glucose 120 H Lactate 2.1 Calcium 8.9 Total Bilirubin 3.3 H AST 38 H ALT 23 Alkaline Phosphatase 78 Total Creatine Kinase 110 Troponin I Cancelled 0.015 NT-Pro-B Natriuret Pep 5490 H Total Protein 6.7 Albumin 3.4 L Globulin 3.3 Albumin/Globulin Ratio 1.0 Lipase 55 Urine Color Urine Appearance Urine pH Ur Specific [place] Urine Protein Urine Glucose (UA) Urine Ketones Urine Occult Blood Urine Nitrate Urine Bilirubin Urine Urobilinogen Ur Leukocyte Esterase Urine RBC Urine WBC Ur Squamous Epith Cells Urine Bacteria Ur Culture Indicated? Vol Urine Centrifuged Nasal Screen MRSA (PCR) SARS-CoV-2 (PCR) Negative Influenza A (RT-PCR) Flu a negative Influenza B (RT-PCR) Flu b negative RSV (PCR) Negative 08/30/24 08/30/24 08/30/24 21:55 22:10 23:57 WBC RBC Hgb Hct MCV MCH MCHC RDW Plt Count Neut % (Auto) Lymph % (Auto) [place] % (Auto) Eos % (Auto) Baso % (Auto) Neut # (Auto) Lymph # (Auto) [place] # (Auto) Eos # (Auto) Baso # (Auto) PT INR APTT Sodium Potassium Chloride Carbon Dioxide BUN Creatinine Estimated GFR BUN/Creatinine Ratio Glucose Lactate 1.5 Calcium Total Bilirubin AST ALT Alkaline Phosphatase Total Creatine Kinase Troponin I NT-Pro-B Natriuret Pep Total Protein Albumin Globulin Albumin/Globulin Ratio Lipase Urine Color Yellow Urine Appearance Clear Urine pH 6.5 Ur Specific [place] 1.010 Urine Protein Negative Urine Glucose (UA) Negative Urine Ketones Negative Urine Occult Blood 3+ H Urine Nitrate Negative Urine Bilirubin Negative Urine Urobilinogen 0.2 Ur Leukocyte Esterase 1+ H Urine RBC 30-100/hpf H Urine WBC 1-5/hpf Ur Squamous Epith Cells 1-5 /hpf Urine Bacteria Many (>30) H Ur Culture Indicated? Specimen cultured Vol Urine Centrifuged 10ml (spun) Nasal Screen MRSA (PCR) Not detected SARS-CoV-2 (PCR) Influenza A (RT-PCR) Influenza B (RT-PCR) RSV (PCR) 08/31/24 04:00 WBC 7.0 RBC 3.41 L Hgb 11.1 L Hct 32.1 L MCV 94.1 MCH 32.6 MCHC 34.7 RDW 15.0 H Plt Count 274 Neut % (Auto) 66.7 Lymph % (Auto) 19.6 L [place] % (Auto) 10.9 Eos % (Auto) 1.9 L Baso % (Auto) 0.9 Neut # (Auto) 4700 Lymph # (Auto) 1400 [place] # (Auto) 800 Eos # (Auto) 100 Baso # (Auto) 100 PT 25.1 H INR 2.3 H APTT Sodium 137 Potassium 3.0 L Chloride 97 L Carbon Dioxide 33 H BUN 24 H Creatinine 0.93 Estimated GFR > 60 BUN/Creatinine Ratio 25.8 H Glucose 99 Lactate Calcium 8.7 Total Bilirubin AST ALT Alkaline Phosphatase Total Creatine Kinase Troponin I NT-Pro-B Natriuret Pep Total Protein Albumin Globulin Albumin/Globulin Ratio Lipase Urine Color Urine Appearance Urine pH Ur Specific [place] Urine Protein Urine Glucose (UA) Urine Ketones Urine Occult Blood Urine Nitrate Urine Bilirubin Urine Urobilinogen Ur Leukocyte Esterase Urine RBC Urine WBC Ur Squamous Epith Cells Urine Bacteria Ur Culture Indicated? Vol Urine Centrifuged Nasal Screen MRSA (PCR) SARS-CoV-2 (PCR) Influenza A (RT-PCR) Influenza B (RT-PCR) RSV (PCR) [facility] Medical History (Updated 08/31/24 @ 04:08 by Kirk Ag MD) JUDIE (obstructive sleep apnea) Obesity Hyperlipidemia Hypertension Atrial fibrillation Surgical History History of appendectomy H/O: hysterectomy Social History household members: none Smoking Status: Former smoker Assessment & Plan Assessment & Plan narrative: Acute on chronic diastolic heart failure, with acute respiratory failure with hypoxia, POA, active - unclear medication compliance, likely has been in RVR for a while based on discussion with patient today, but she is unsure. - See RVR management below. - echocardiogram pending, prior TTE in 2021 with EF 60-65%. If new HF will discuss with cardiology. - Continue furosemide 40 mg IV BID, monitor electrolytes and Is & Os. Net negative 1.6 L thus far already. - home PO HCTZ on hold - she denies taking 20 mg bid of Lasix at home - appears on medication list - Goal O2 90-96% on supplemental therapy. Paroxysmal atrial fibrillation with rapid ventricular response. POA, Active - Restart home diltiazem and metoprolol. - Diltiazem 360 mg daily, Toprol XL 50 mg increased to BID today. May need to discuss with cardiology if rate not improving. Also awaiting echo ideally before making significant changes. - follow up on TTE later today, may need to stop diltiazem if EF reduced - warfarin per pharmacy, INR therapeutic 2.4 LLE Cellulitis, POA, active - continue 1g q24 hr ceftriaxone, already improving on exam today. Consider switch to PO antibiotics. HTN, chronic - held home enalapril and HCTZ in favor of rate control agents and IV furosemide for diuresis. HLD, chronic - continue home statin Obesity / JUDIE, chronic - BMI 35 - intolerant of CPAP -The patient is at much higher risk for medical and surgical complications because of their obesity. This increases the difficulty and complexity of medical and surgical interventions and increases the chances of poor outcomes such as morbidity and mortality. Impaired mobility and ADLs - PT, OT, SS assessment - lives alone and has difficulty maintaining place livable Asymptomatic bacteuria. POA - UA positive but patient without urinary symptoms. Any bacteuria or acute cystitis will likely be treated with antibiotics given for cellulitis. Elevated bilirubin - no abdominal pain, suspect related to volume overload, continue to follow with diuresis. Consider RUQ US though CT on 08/11/24 was unremarkable. Code: Full, surrogate is patient's sister DVT: On warfarin I have utilized all available immediate resources to obtain, update, or review the patient's current medications. Dispo: patient admitted under inpatient status. Unclear if will be able to discharge home or possible SNF, will have PT/OT evaluations. Additional history obtained via discussions with the overnight provider, shoe caser, and bedside RN today. These discussions contributed to the creation of the above assessment and plan. I have reviewed patient's presenting documentation, labs, and imaging personally. Time-Based Coding :: [TOTAL MINUTES] spent with patient and on the chart (including review of chart, obtaining history, exam, reviewing outside data, placing orders, documenting exam and treatment plan, and counseling patient) on [DATE]. Quality VTE Deep Vein Thrombosis/Pulmonary Embolism Present on Admission: Yes
[2024-08-31 12:31] LABS: Alanine Aminotransferase 19 IU/L (<35); Albumin Globulin Ratio 1.1 (1.0-2.8); Alkaline Phosphatase 78 U/L (38-126); Aspartate Aminotransferase 26 IU/L (14-36); Bilirubin Total 1.9 mg/dL (0.2-1.3); Bilirubin Unconjugated 1.3 mg/dL (0.0-1.1); Globulin 2.8 g/dL (1.7-4.1); HEMOLYSIS < 15 (0-50); Total Protein 5.8 g/dL (6.3-8.2)
--- NOTE | 2024-08-31 14:45 | CM.DANOTE ---
Initial DCP Assessment Note Pt is a 79 yo female, resident of [place], chronic LE edema, presents with worsening SOB, admitted INPT for management of afib w/RVR and suspected acute on chronic CHF. PCP: Elli Silverio Payer: LUIS/Jamal Reviewed chart, met w/patient and her sister Chela Romero P [phone] cell. Patient lives alone in her home in [place], no children. Patient reports she has had difficulty getting around her home lately and is speaking with [employer] about hiring in home care. Sister Chela lives in [place], visits, but cannot care for her sister because she is taking care of her and other family members. Patient would like to discharge to [facility] for strengthening and medication assist. PT/OT order in and pending for Sunday. Emailed new SNF referral to November at [facility]. PASRR completed. Plan: Patient would like to discharge to [facility] before return home; pending review and acceptance. Patient can use her MCR A at SNF starting 09/02. CM team following closely. OSWALDO Conrteras Discharge Planning/Care Management CM Discharge Assessment Start: 08/31/24 14:31 Freq: Status: Active Protocol: Document 08/31/24 14:32 BRIAN (Rec: 08/31/24 14:40 BRIAN [id number]) Discharge Planning Assessment Assigned Truck Despatcher OSWALDO Bess DPOA/Assigned Designee Name Chela Romero, sister (old forge ) Contact Information cell [phone] home Advance Directives? No History Provided By Patient,Family Member,Medical Record Prior Living Arrangements House Household Members none Type of transporation used prior to Relies on Others admit Independent with ADL's Yes: Has been having difficulty getting around her home lately Is patient alert and oriented? Yes Needs Assistance With Meal Prep,Home Chores / Shopping Patient/Family Preference Nursing Home Facility Comment Patient lives alone and relies on [facility] for transport. Patient is planning to contact [facility] to discuss in home care options. Discharge Plan Nursing Home Facility Transportation Arrangement [facility] anticipated Referrals Initiated Nursing Home Additional Comment 1.) [facility]+R
[2024-08-31] MEDS: cefTRIAXone 1,000 MG in SODIUM CHLORIDE 0.9% 100 ML 200 MG IV (20:21)
[2024-08-31] MEDS: SODIUM CHLORIDE 0.9% FLUSH 10 ML IV (20:21)
[2024-09-01] VITALS (30 sets, daily range): BP systolic 100–121; BP diastolic 50–59; PULSE 64–106; RESP 16–47; TEMP 35.9–36.8; O2SAT 92–98
[2024-09-01 04:52] LABS: Add Manual Diff / Slide Review NO; Basophils Absolute Auto 100 /uL (0-100); Basophils Percent Auto 1.1 % (0-2); Eosinophils Absolute Auto 400 /uL (0-450); Eosinophils Percent Auto 5.7 % (2-4); Hematocrit 34.7 % (36-46); Hemoglobin 11.6 g/dL (12.0-16.0); Lymphocytes Absolute Auto 1700 /uL (1100-4500); Lymphocytes Percent Auto 24.3 % (25-40); Mean Corpuscular HGB Conc 33.4 % (30-36); Mean Corpuscular Hemoglobin 31.5 PG (26-34); Mean Corpuscular Volume 94.1 fL (80-100); Monocytes Absolute Auto 900 /uL (0-900); Monocytes Percent Auto 12.7 % (3-14); Neutrophils Absolute Auto 3800 /uL (1500-7000); Neutrophils Percent Auto 56.2 % (50-75); Platelet Count 320 X10^3/uL (150-400); Red Blood Cell Count 3.69 X10^6/uL (4.0-5.2); Red Cell Distribution Width 15.2 % (11.6-14.8); White Blood Cell Count 6.8 X10^3/uL (4.5-11.0)
[2024-09-01 04:58] LABS: INR 1.8 (0.9-1.3); Prothrombin Time 20.1 SECONDS (9.4-12.5)
[2024-09-01 05:02] LABS: Magnesium 1.4 mg/dL (1.6-2.3)
[2024-09-01 05:03] LABS: Alanine Aminotransferase 24 IU/L (<35); Albumin 3.5 g/dL (3.5-5.0); Alkaline Phosphatase 88 U/L (38-126); Aspartate Aminotransferase 34 IU/L (14-36); BUN Creatinine Ratio 30.2 (6-22); Bilirubin Total 0.9 mg/dL (0.2-1.3); Blood Urea Nitrogen 35 mg/dL (7-17); Calcium 8.9 mg/dL (8.4-10.2); Carbon Dioxide 39 mmol/L (22-32); Chloride 92 mmol/L (98-107); Estimated Glomerular Filt Rate 48 mL/min (>60); Globulin 3.4 g/dL (1.7-4.1); Glucose 134 mg/dL (80-110); HEMOLYSIS < 15 (0-50); Potassium 3.2 mmol/L (3.4-5.1); Sodium 136 mmol/L (137-145); Total Protein 6.9 g/dL (6.3-8.2)
[2024-09-01] MEDS: FUROSEMIDE 40 MG/4 ML VIAL IV ×3 (06:02→22:00)
[2024-09-01] MEDS: dilTIAZem CD 180 MG CAP 360 MG PO (09:25)
[2024-09-01] MEDS: ATORVASTATIN 20 MG TABLET 10 MG PO (09:25)
[2024-09-01] MEDS: POTASSIUM CHLORIDE 20 MEQ TAB 40 MEQ PO (09:25)
[2024-09-01] MEDS: MAGNESIUM CHLORIDE 64 MG TABLET 128 MG PO (09:25)
[2024-09-01] MEDS: METOPROLOL ER 50 MG TABLET PO ×2 (09:25→20:26)
[2024-09-01] MEDS: SODIUM CHLORIDE 0.9% FLUSH 10 ML IV ×2 (09:26→20:26)
--- NOTE | 2024-09-01 10:45 | OT.IP.EVAL ---
Current Diagnoses Obesity, unspecified (08/30/24) Hyperlipidemia, unspecified (08/30/24) Obstructive sleep apnea (adult) (pediatric) (08/30/24) Essential (primary) hypertension (08/30/24) Unspecified atrial fibrillation (08/30/24) Heart failure, unspecified (08/30/24) Cellulitis of left lower limb (08/30/24) Past Medical History (Last Updated 08/31/24 @ 04:08 by Kirk Ag MD) Atrial fibrillation Hyperlipidemia Hypertension Obesity JUDIE (obstructive sleep apnea) Surgical History (Last Reviewed 08/31/24 @ 03:26 by Kirk Ag MD) H/O: hysterectomy History of appendectomy Occupational Therapy Inpatient Evaluation/Re-Eval M1 PT/OT-IP Prior Functional Status Start: 09/01/24 10:39 Freq: NEEDED Status: Active Protocol: Document 09/01/24 11:13 CGR (Rec: 09/01/24 11:27 CGR [id number]) Medical Review Prior Functional Status Medical History Reviewed Yes Communication Pt is an effective verbal communicator. Pt needs extra time to respond. Mobility and Gait Furniture walks in the house and appears to have had falls/ sits to the ground but she is not clear about this, uses SPC when she leaves the house and she does drive Activities of Daily Living and IADL's Reports Ind with increased time needs for ADLs. Pt indicates that she uses furniture throughout her home for balance. Social History Household Members none Living Arrangements House Number of Floors (Floors) One Floor Number of Stairs To Enter/Railing? 1 step up to enter from the front door, garage, or patio. Home Environment Standard Height Toilet,Walk in Shower,Built-In Shower Seat Home Equipment Straight Cane Employment Status Retired Additional Social History Comment Pt states she has been sleeping on the couch d/t she cannot get her legs up into a bed. She has her sister who lives near by but is busy caring for others and is able to assist her only minimally. M2 OT-IP Current Condition Start: 09/01/24 11:12 Freq: Status: Active Protocol: Document 09/01/24 11:13 CGR (Rec: 09/01/24 11:27 CGR [id number]) Occupational Therapy Current Condition Current Condition Evaluation Date 09/01/24 Treatment Diagnosis SOB, acute on chronic heart failure, LLE cellulitis Diagnosis Onset Date 08/30/24 M3 OT- IP Subjective and Pain Start: 09/01/24 11:12 Freq: Status: Active Protocol: Document 09/01/24 11:13 CGR (Rec: 09/01/24 11:27 CGR [id number]) OT- Subjective Occupational Therapy Visit Type Type Initial Evaluation Visit Start Time 10:20 Visit Stop Time 10:45 Notes Partial co-treat with P.T. OT Pain Assessment Pain When Pain Assessed At Rest Pain Present Pain Present Denied Pain M4 OT- IP ADL's Start: 09/01/24 11:12 Freq: Status: Active Protocol: Document 09/01/24 11:13 CGR (Rec: 09/01/24 11:27 R [id number]) OT [id number] Comments OT Self-Feeding Comments not meal time OT ADL-Grooming General Evaluation Grooming Ability Standby Assistance Areas Needing Assistance Combing/Brushing Hair Comments OT Grooming Comments pt brushed hair seated in chair with extra time. She states that she has a tender head. This grant writer assisted with getting hair into a ponytail. OT ADL-Oral Care Comments Oral Care Comments pt declined OT ADL-Dressing General Eval Lower Body Dressing Ability Total Assistance Areas Needing Assistance Socks Comments OT Dressing Comments supine in bed, removed while seated in chair and educated pt on how important it is to remove socks d/t them cutting into her LLE. OT ADL-Toileting Comments OT Toileting Comments not performed, pt states she does not need to go. OT ADL-Bathing Comments OT Bathing Comments not performed M5 OT- IP IADL's Start: 09/01/24 11:12 Freq: Status: Active Protocol: Document 09/01/24 11:13 CGR (Rec: 09/01/24 11:27 CGR [id number]) OT-Instrumental Activities of Daily Living Deficits IADL Deficits Identified Deficits Home Safety Awareness Awareness of Need for Assistance at Home Good Awareness Ability to Problem Solve Emergency Able to Problem Solve Situations Medication Management Medication Management Comments Further assessment needed Money Management Money Management Comments Further assessment needed Meal Preparation Meal Preparation Comments Pt will have difficulty performing at ths time 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 Pt needs extra time to respond. OT- Vision and Hearing OT- Hearing Assessment OT- Hearing Assessment WFL OT- Vision Assessment Visual Acuity Glasses For Reading Visual Attentiveness WFL Occular Pursuits WFL Visual Convergence WFL M7 OT- IP Mobility and Balance Start: 09/01/24 11:12 Freq: Status: Active Protocol: Document 09/01/24 11:13 CGR (Rec: 09/01/24 11:27 CGR [id number]) OT- Bed Mobility Assessment Supine to Sit Supine to Sit Assist Standby Assistance,Head of Bed Elevated Scooting Scooting to Edge of Bed Standby Assistance,Head of Bed Elevated OT-Transfer Assessment Sit to and From Stand Sit to and from Stand Contact Guard Assistance Transfers Transfer Ability Contact Guard Assistance Technique Transfer Destination Bed,Chair Transfer Technique Stand Step Pivot Devices Transfer Assistive Devices Gait Belt,Front Wheeled Walker Comments Mobility Comments Pt performed sup to sit wtih SBA and HOB elevated but without bedrails. Pt then transfered to chair with CGA and vc for use of walker and safety with hand placement. OT- Gait Assessment Comments Gait Ability Comments not performed OT- Balance Assessment Sitting Balance and Reactions Static Sitting Balance Ability Good Dynamic Sitting Balance Ability Good M8 OT- IP Objective Assessments Start: 09/01/24 11:12 Freq: Status: Active Protocol: Document 09/01/24 11:13 CGR (Rec: 09/01/24 11:27 CGR [id number]) OT Gross Range of Motion Upper Extremity Range of Motion Assessment Within Functional Limits OT Strength Upper Extremity Strength Assessment Within Functional Limits Comments Strength Comments grossly 4/5 OT- Coordination Assessment Upper Extremity Finger to Nose Test Within Functional Limits Finger Tapping Test Within Functional Limits OT-Muscle Tone Assessment Muscle Tone WNL Yes OT Sensation Assessment Edema Edema Present Edema Comments LLE specifically M9 OT- IP Assessment and Plan Start: 09/01/24 11:12 Freq: Status: Active Protocol: Document 09/01/24 11:13 CGR (Rec: 09/01/24 11:27 CGR [id number]) OT Summary Assessment and Plan Potential Rehabilitation Potential Good Analytic Complexity at Evaluation Moderate Summary OT Impairments Pain,Balance,Functional Cognition,Functional Mobility, Grooming,Dressing,Toileting, Bathing,Toilet Transfers, Shower Transfers,Activity Tolerance Progress Towards Goals Slow Progress due to Medical Issues,Slow Progress due to Activity Tolerance Assessment Summary Pt presents as a moderate complexity evaluation s/p admit for SOB with acute on chronic heart failure and LLE cellulitis. Pt performed well in todays session moving from the bed to the chair and performing minimal ADLs seated . Pt did need time to catch her breath after transfer to chair and voices concern for needing to continue O2 in the future. Pt would be most appropriate for SNF upon discharge given her home status and her current abilities. Pt appears motivated and agreeable to activities in todays session. Goals Self-Feeding Goal Independent Grooming Goal Independent Dressing Goal Independent Toileting Goal Independent Bathing Goal Independent Toilet Transfer Goal Independent Shower Transfer Goal Independent Days to Meet Goals 15 Frequency of Treatment Other frequency 5x per week Treatment Plan OT Treatment Plan ADL Training,Functional Cognition Training,Functional Mobility,Patient/Family Education,Discharge Planning Other Treatment Recommendations and Next SLUMS, ADLs at sink if able, Treatment Focus endurance. Discharge Recommendations OT Discharge Recommendations SNF Rehab Transportation Needs at Discharge Private Vehicle,Wheelchair/ Cabulance
--- NOTE | 2024-09-01 11:05 | PT.IIE ---
Current Diagnoses Obesity, unspecified (08/30/24) Hyperlipidemia, unspecified (08/30/24) Obstructive sleep apnea (adult) (pediatric) (08/30/24) Essential (primary) hypertension (08/30/24) Unspecified atrial fibrillation (08/30/24) Heart failure, unspecified (08/30/24) Cellulitis of left lower limb (08/30/24) Surgical History (Last Reviewed 08/31/24 @ 03:26 by Kirk Ag MD) H/O: hysterectomy History of appendectomy Medical History (Last Updated 08/31/24 @ 04:08 by Kirk Ag MD) Atrial fibrillation Hyperlipidemia Hypertension Obesity JUDIE (obstructive sleep apnea) Physical Therapy Inpatient Evaluation/Re-Eval M1 PT/OT-IP Prior Functional Status Start: 09/01/24 10:39 Freq: NEEDED Status: Active Protocol: Document 09/01/24 10:16 MB (Rec: 09/01/24 11:05 MB [id number]) Medical Review Prior Functional Status Medical History Reviewed Yes Communication Unsure baseline diet. Pt's voice is gravel-like and she has breathing issues and poor vocal quality and respiratory support today Mobility and Gait Furniture walks in the house and appears to have had falls/ sits to the ground but she is not clear about this, uses SPC when she leaves the house and she does drive Activities of Daily Living and IADL's Reports I Social History Household Members none Living Arrangements House Number of Floors (Floors) One Floor Number of Stairs To Enter/Railing? 1 patio step up to enter Home Environment Standard Height Toilet,Walk in Shower,Built-In Shower Seat Home Equipment Straight Cane Additional Social History Comment Pt states she has been sleeping on the couch d/t she cannot get her legs up into a bed M2 PT-IP Current Condition Start: 09/01/24 10:39 Freq: NEEDED Status: Active Protocol: Document 09/01/24 10:16 MB (Rec: 09/01/24 11:05 MB [id number]) Physical Therapy Current Condition Current Condition Evaluation Date 09/01/24 Treatment Diagnosis SOB M3 PT-IP Subjective Start: 09/01/24 10:39 Freq: NEEDED Status: Active Protocol: Document 09/01/24 10:16 MB (Rec: 09/01/24 11:05 MB [id number]) Subjective Physical Therapy Visit Type Type Initial Evaluation Visit Start Time 10:16 Visit Stop Time 10:39 Number of TECHNICAL SALES SUPPORT MANAGER Visits 0 Physical Therapy Visit Comments Patient Comments Pt states she hopes she does not have to d/c home with O2. Her legs bother her and she tries not to scratch them d/t pain and in order not to brush off the scabs. Therapy Pain Assessment Pain When Pain Assessed During Mobility Pain Present Pain Present Pain Reported Location B LEs Scale Used Not rated M4 PT-IP Mobility and Gait Start: 09/01/24 10:39 Freq: NEEDED Status: Active Protocol: Document 09/01/24 10:16 MB (Rec: 09/01/24 11:05 MB [id number]) PT-Bed Mobility Assessment Supine to Sit Supine to Sit Standby Assistance,Head of Bed Elevated Scooting Scooting to Edge of Bed Standby Assistance PT-Transfer Assessment Sit to and From Stand Sit to and from Stand Contact Guard Assistance,1 Person Assistance,Use of Upper Extremities Equipment Transfer Assistive Device Gait Belt,Front Wheeled Walker Orthotic/Prosthetic Devices or Brace: No Transfers Transfer Destination Chair Transfer Technique Stepping Transfer Ability Level of Assist Contact Guard Assistance,1 Person Assistance,Use of Upper Extremities Comments Mobility Comments Pt with 2L O2 donned and pt tends to mouth-breathe and O2 sats decrease to 86% once up in chair and after exertion. HR readings on tele from the low 100s to 140s and RR in the 20s-40s and SAMS, pt takes care not to brush legs too much against the bed with bed mobility and LLE has more edema and scabs than the right Gait Assessment Gait Gait Assistance Required: Contact Guard Assist Distance (Feet) 4 Able to Maintain Weight Bearing Status Yes During Gait Assistive Devices Assistive Device Gait Belt,Front Wheeled Walker Orthotic/Prosthetic Devices or Brace: No Gait Deviations General Gait Pattern Antalgic,Decreased Stride Length,Decreased Feet Clearance,Flexed Trunk,Step-to Gait,Wide Based Gait Factors Limiting Gait Function Factors Limiting Gait Function Decreased Activity Tolerance, Decreased Strength,Limited Range of Motion,Pain,Poor Balance,Poor Safety Awareness PT-Balance Assessment Sitting Balance and Reactions Static Sitting Balance Ability Good Dynamic Sitting Balance Ability Fair Standing Balance and Reactions Static Standing Balance Ability Fair Dynamic Standing Balance Ability Fair Device Used RW M5 PT-IP Objective Assessments Start: 09/01/24 10:39 Freq: NEEDED Status: Active Protocol: Document 09/01/24 10:16 MB (Rec: 09/01/24 11:05 MB [id number]) Orientation Orientation/Cognition Level of Alertness Alert Orientation Name,Age,Birthday,Month,Year, Day of Week,Place,Situation Safety Awareness Decreased Safety Awareness Memory Description No Deficits Noted Gross Range of Motion Upper Extremity ROM Impairments Defer to OT Lower Extremity ROM Assessment Bilaterally Impaired Impairments Left greater than right LE cellulitis, edema, redness and scabs, dried skin falling off with mobility Strength Lower Extremity Strength Assessment Bilaterally Impaired Comments Strength Comments Pt does not tolerate MMT and her strength is functional Coordination Assessment Gross Coordination Gross Coordination Impaired Sensation Assessment Sensation Sensation Description Hyperesthesia M6 PT-IP Treatment Start: 09/01/24 10:39 Freq: NEEDED Status: Active Protocol: Document 09/01/24 10:16 MB (Rec: 09/01/24 11:05 MB [id number]) Physical Therapy Treatment Exercises Exercises Ankle Pumps Education Education Provided Safety M7 PT-IP Assessment and Plan Start: 09/01/24 10:39 Freq: NEEDED Status: Active Protocol: Document 09/01/24 10:16 MB (Rec: 09/01/24 11:05 MB [id number]) PT Summary Assessment and Plan Potential Rehabilitation Potential Fair Status of Condition at Evaluation Evolving Summary Impairments Pain,ROM,Strength,Balance, Coordination,Sensation,Bed Mobility,Transfers,Gait, Activity Tolerance Progress Towards Goals Slow Progress due to Medical Issues,Slow Progress due to Activity Tolerance Assessment Summary Pt is an 79 y/o female who 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 She was adm with SOB and has history of HF and B LE cellulitis. She has had a-fib and RVR in the hospital and her HR is tachycardic and variable during PT assessment. O2 sats on 2L O2 also drop with mobility and pt's LEs do not appear well-managed as far as cellulitis, scabs and dried skin falling off with mobility. Pt will benefit from SNF at d/c to maximize I and gait. Pt will benefit from LRAD training as she is a furniture walker at home, hanging onto pulled out drawers and chairs stacked with magazines. Her safety awareness appears poor. Goals Bed Mobility Goal Independent Transfer Goal Independent,Front Wheeled Walker,Four Wheeled Walker Gait Goal Independent,Front Wheel Walker ,Four Wheel Walker Gait Distance 100 Other Goals Pt will ascend and ascend one step with LRAD and no more than superv to allow safe home entrance. Days to Meet Goals 5 Frequency of Treatment Frequency Of Treatment Once a Day Treatment Plan Physical Therapy Treatment Plan Bed Mobility Training,Transfer Training,Gait Training, Therapeutic Exercise,Balance Retraining,Discharge Planning, Hot or Cold Pack,Neuromuscular Re-ed,Coordination Retraining ,Manual Therapy Precautions Other Precautions Monitor O2 sats and HR, skin integrity of legs Recommendations To Nursing Amount of Assist Needed 1 Person Assist Discharge Recommendations PT Discharge Recommendations SNF Rehab Transportation Needs at Discharge Wheelchair/Cabulance - PT assist x1
--- NOTE | 2024-09-01 14:55 | CM.DPNOTE ---
DCP Note LEATHER GOODS I ASSEMBLER reviewed EMR per provider, could dc to SNF as early as tomorrow, maybe Sunday. Per RN, continuing to work on weaning pt off O2. 2ltrs throughout day. likely switch to PO abx at dc, continues to be in afib with RVR. Per [facility], can likely accept pt. 3rd midnight MCR ready=09/02. PT/OT rec SNF. LEATHER [employer] I ASSEMBLER met with pt in room. pt confirms preference to dc to [facility] for rehab when medically stable.. LEATHER GOODS I ASSEMBLER answered questions to best of ability. PASRR previously completed. P: dc to [facility] for SNF when stable, transport with facility van. CM team will continue to follow closely for DCP coordination. OSWALDO Voss
--- NOTE | 2024-09-01 15:56 | PM.PN.1 ---
Subjective Subjective Interval history: Chief complaint: Painful leg swelling and redness and orthopnea secondary to acute on chronic diastolic congestive heart failure History of present illness: 79-year-old female with a history of chronic diastolic congestive heart failure chronic lower extremity edema with lymphedema noncompliant with diuretics due to inconvenience of frequent urination was admitted 48 hours prior with acute on chronic diastolic congestive heart failure. Patient has been diuresed with a frequent low dose of furosemide 40 mg q.8 hours. This has been effective with a brisk and consistent daily net negative INR and reduction of peripheral edema and improvement in her orthopnea and dyspnea. Today patient is feeling much better but is still having quite a bit of edema nursing care has been diligent with offloading pressure ulcers on her heels and per discussion was enquiring about a wound care consult. Patient has systolic blood pressure in the low to mid 100 but without symptomatic orthostasis. Examination today she has normal heart sound no rales lower extremities does have pruning effect and reduced edema but clear evidence of venous stasis and lymphedema. Review of systems: No fever or chills No difficulty swallowing No chest pain palpitations No orthopnea shortness of breath No nausea vomiting diarrhea No paresthesia paresis Physical exam: Very pleasant elderly female appearing quite a bit younger than stated age HEENT unremarkable Neck too obese to assess for JVD Heart sounds distant no murmurs appreciated Lungs clear from apices to bases but lung sounds are distant due to obesity hepatis Abdomen is benign Extremities as mentioned above. Exam Vital Signs (past 8 hours): - 09/01/24 09:00 09/01/24 09:03 09/01/24 12:14 Temperature 97.7 F Pulse Rate 100 H Respiratory Rate 41 H Blood Pressure 107/58 L 100/53 L Pulse Oximetry 95 Oxygen Flow Rate 2 09/01/24 12:14 09/01/24 12:30 09/01/24 13:00 Temperature Pulse Rate 85 92 H 82 Respiratory Rate 20 47 H 25 H Blood Pressure Pulse Oximetry 95 94 96 Oxygen Flow Rate Fraction of Inspired Oxygen 28 SaO2/FiO2 Ratio 335 Oxygen Delivery Method Nasal Cannula Oxygen Flow Rate 2 Objective Labs 09/01/24 04:20 09/01/24 04:20 Labs: Laboratory Results - last 24 hr 09/01/24 04:20 WBC 6.8 RBC 3.69 L Hgb 11.6 L Hct 34.7 L MCV 94.1 MCH 31.5 MCHC 33.4 RDW 15.2 H Plt Count 320 Neut % (Auto) 56.2 Lymph % (Auto) 24.3 L [place] % (Auto) 12.7 Eos % (Auto) 5.7 H Baso % (Auto) 1.1 Neut # (Auto) 3800 Lymph # (Auto) 1700 [place] # (Auto) 900 Eos # (Auto) 400 Baso # (Auto) 100 PT 20.1 H D INR 1.8 H Sodium 136 L Potassium 3.2 L Chloride 92 L Carbon Dioxide 39 H BUN 35 H Creatinine 1.16 H Estimated GFR 48 L BUN/Creatinine Ratio 30.2 H Glucose 134 H Calcium 8.9 Magnesium 1.4 L Total Bilirubin 0.9 AST 34 ALT 24 Alkaline Phosphatase 88 Total Protein 6.9 Albumin 3.5 Globulin 3.4 Albumin/Globulin Ratio 1.0 PFS Medical History (Updated 08/31/24 @ 04:08 by Kirk Ag MD) JUDIE (obstructive sleep apnea) Obesity Hyperlipidemia Hypertension Atrial fibrillation Surgical History History of appendectomy H/O: hysterectomy Social History household members: none Smoking Status: Former smoker Assessment & Plan Assessment & Plan narrative: Acute on chronic diastolic heart failure, with acute respiratory failure with hypoxia, POA, active - unclear medication compliance, likely has been in RVR for a while based on discussion with patient today, but she is unsure. - management is optimal at this point anticipate another 48-72 hours with disposition plans for transfer to retirement facility - See RVR management below. - echocardiogram pending, prior TTE in 2021 with EF 60-65%. If new HF will discuss with cardiology. - Continue furosemide 40 mg IV BID, monitor electrolytes and Is & Os. Net negative 1.6 L thus far already. - home PO HCTZ on hold - she denies taking 20 mg bid of Lasix at home - appears on medication list - Goal O2 90-96% on supplemental therapy. Paroxysmal atrial fibrillation with rapid ventricular response. POA, Active - Restart home diltiazem and metoprolol. - Diltiazem 360 mg daily, Toprol XL 50 mg increased to BID today. May need to discuss with cardiology if rate not improving. Also awaiting echo ideally before making significant changes. - follow up on TTE later today, may need to stop diltiazem if EF reduced - warfarin per pharmacy, INR therapeutic 2.4 LLE Cellulitis, POA, active - continue 1g q24 hr ceftriaxone, already improving on exam today. Consider switch to PO antibiotics. HTN, chronic - held home enalapril and HCTZ in favor of rate control agents and IV furosemide for diuresis. HLD, chronic - continue home statin Obesity / JUDIE, chronic - BMI 35 - intolerant of CPAP -The patient is at much higher risk for medical and surgical complications because of their obesity. This increases the difficulty and complexity of medical and surgical interventions and increases the chances of poor outcomes such as morbidity and mortality. Impaired mobility and ADLs - PT, OT, SS assessment - lives alone and has difficulty maintaining place livable -considering plans for transfer to nursing facility in 48-72 hours Asymptomatic bacteuria. POA - UA positive but patient without urinary symptoms. Any bacteuria or acute cystitis will likely be treated with antibiotics given for cellulitis. Elevated bilirubin - no abdominal pain, suspect related to volume overload, continue to follow with diuresis. Consider RUQ US though CT on 08/11/24 was unremarkable. Code: Full, surrogate is patient's sister DVT: On warfarin Time-Based Coding :: [TOTAL MINUTES] spent with patient and on the chart (including review of chart, obtaining history, exam, reviewing outside data, placing orders, documenting exam and treatment plan, and counseling patient) on [DATE]. Quality VTE Deep Vein Thrombosis/Pulmonary Embolism Present on Admission: Yes
[2024-09-01] MEDS: WARFARIN 5 MG TABLET PO (16:51)
--- NOTE | 2024-09-01 18:16 | PC.NURSE ---
Day Shift Note Patient alert and oriented x3. On 2L NC with SpO2 mid-90s. Afib SVR/CVR after morning diltiazem and metoprolol administered with rate 50-80s. Denies pain. Up to chair with PT and back to bed with nursing staff, 1 person assist with FWW, cannot stand for long period of time due to pt report of weakness. BLEs cleansed with soap and water and lotion applied to legs. Heels floated, wound to left heel open to air and wound consult ordered by . Wound clinic called at ext. [phone] and notified of wound care order, will see patient likely tomorrow. Call light within reach, using appropriately to make needs known.
[2024-09-01] MEDS: cefTRIAXone 1,000 MG in SODIUM CHLORIDE 0.9% 100 ML 200 MG IV (20:25)
[2024-09-02] VITALS (49 sets, daily range): BP systolic 77–122; BP diastolic 46–62; PULSE 52–91; RESP 14–41; TEMP 35.9–36.4; O2SAT 90–98
[2024-09-02 04:28] LABS: INR 1.5 (0.9-1.3); Prothrombin Time 17.2 SECONDS (9.4-12.5)
[2024-09-02 04:35] LABS: Magnesium 1.5 mg/dL (1.6-2.3)
[2024-09-02 04:36] LABS: Alanine Aminotransferase 25 IU/L (<35); Albumin 3.4 g/dL (3.5-5.0); Alkaline Phosphatase 81 U/L (38-126); Aspartate Aminotransferase 32 IU/L (14-36); Bilirubin Total 0.7 mg/dL (0.2-1.3); Blood Urea Nitrogen 37 mg/dL (7-17); Calcium 8.8 mg/dL (8.4-10.2); Chloride 91 mmol/L (98-107); Estimated Glomerular Filt Rate 50 mL/min (>60); Globulin 3.3 g/dL (1.7-4.1); Glucose 107 mg/dL (80-110); HEMOLYSIS < 15 (0-50); Potassium 3.3 mmol/L (3.4-5.1); Sodium 136 mmol/L (137-145); Total Protein 6.7 g/dL (6.3-8.2)
[2024-09-02 04:47] LABS: Carbon Dioxide 40 mmol/L (22-32)
[2024-09-02] MEDS: FUROSEMIDE 40 MG/4 ML VIAL IV (06:13)
[2024-09-02] MEDS: MAGNESIUM CHLORIDE 64 MG TABLET 128 MG PO (08:44)
[2024-09-02] MEDS: dilTIAZem CD 180 MG CAP 360 MG PO (08:44)
[2024-09-02] MEDS: METOPROLOL ER 50 MG TABLET PO ×2 (08:45→20:08)
[2024-09-02] MEDS: POTASSIUM CHLORIDE 20 MEQ TAB 40 MEQ PO (08:45)
[2024-09-02] MEDS: ATORVASTATIN 20 MG TABLET 10 MG PO (08:45)
[2024-09-02] MEDS: SODIUM CHLORIDE 0.9% FLUSH 10 ML IV ×2 (08:47→20:08)
--- NOTE | 2024-09-02 09:44 | OT.IP.TRT ---
Current Diagnoses Obesity, unspecified (08/30/24) Hyperlipidemia, unspecified (08/30/24) Obstructive sleep apnea (adult) (pediatric) (08/30/24) Essential (primary) hypertension (08/30/24) Unspecified atrial fibrillation (08/30/24) Heart failure, unspecified (08/30/24) Cellulitis of left lower limb (08/30/24) Occupational Therapy Treatment Note M2 OT-IP Current Condition Start: 09/01/24 11:12 Freq: Status: Active Protocol: Document 09/01/24 11:13 CGR (Rec: 09/01/24 11:27 CGR [id number]) Occupational Therapy Current Condition Current Condition Evaluation Date 09/01/24 Treatment Diagnosis SOB, acute on chronic heart failure, LLE cellulitis Diagnosis Onset Date 08/30/24 M3 OT- IP Subjective and Pain Start: 09/01/24 11:12 Freq: Status: Active Protocol: Document 09/02/24 10:17 [facility] (Rec: 09/02/24 10:24 [facility] [id number]) OT- Subjective Occupational Therapy Visit Type Type Treatment Note Visit Start Time 09:20 Visit Stop Time 09:44 Occupational Therapy Visit Comments Patient Comments Pt agreed to get to the edge of the bed to brush her teeth. Patient/Caregiver Goals TO get better. OT Pain Assessment Pain When Pain Assessed During Mobility Pain Present Pain Present Pain Reported Location B LEs Pain Behaviors Facial Grimacing,Moaning M4 OT- IP ADL's Start: 09/01/24 11:12 Freq: Status: Active Protocol: Document 09/02/24 10:17 [facility] (Rec: 09/02/24 10:24 [facility] [id number]) OT ADL-Grooming General Evaluation Grooming Ability Standby Assistance Areas Needing Assistance Combing/Brushing Hair Comments OT Grooming Comments Pt able to do brush her hair into a pony tail while in bed. Pt refused to try to get to the sink at this time. OT ADL-Oral Care General Eval Oral Care Ability Independent Comments Oral Care Comments Set-up while seated on the edge of the bed. OT ADL-Toileting Comments OT Toileting Comments Purewick in place. OT ADL-Bathing Comments OT Bathing Comments not performed M5 OT- IP IADL's Start: 09/01/24 11:12 Freq: Status: Active Protocol: Document 09/01/24 11:13 CGR (Rec: 09/01/24 11:27 CGR [id number]) OT-Instrumental Activities of Daily Living Deficits IADL Deficits Identified Deficits Home Safety Awareness Awareness of Need for Assistance at Home Good Awareness Ability to Problem Solve Emergency Able to Problem Solve Situations Medication Management Medication Management Comments Further assessment needed Money Management Money Management Comments Further assessment needed Meal Preparation Meal Preparation Comments Pt will have difficulty performing at ths time Cadmium Liquor Maker Cadmium Liquor Maker Comments Pt will have difficulty performing at ths time M6 OT- IP Functional Cognition Start: 09/01/24 11:12 Freq: Status: Active Protocol: Document 09/02/24 10:17 [facility] (Rec: 09/02/24 10:24 [facility] [id number]) Cognitive Factors Limiting Selfcare Function Cognitive Comments Cognitive Assessment Comments Pt increased time to respond. Pt realizes that she would benefit from cleaning and getting items/objects up from the floor. Pt states does not want a BSC and feels if she truly needed a BSC that she would just live in a [facility]CI. Pt would benefit from a SLUMS. M7 OT- IP Mobility and Balance Start: 09/01/24 11:12 Freq: Status: Active Protocol: Document 09/02/24 10:17 [facility] (Rec: 09/02/24 10:24 [facility] [id number]) OT- Bed Mobility Assessment Supine to Sit Supine to Sit Assist Standby Assistance,Head of Bed Elevated Scooting Scooting to Edge of Bed Standby Assistance,Head of Bed Elevated OT-Transfer Assessment Comments Mobility Comments Increased time and HOB to get to the edge of the bed. OT- Balance Assessment Sitting Balance and Reactions Static Sitting Balance Ability Fair Dynamic Sitting Balance Ability Fair Comments Other Balance Tests/Deviations/Treatment While on the edge of the bed, : pt posteriorly leaning backwards and needing CGA to vc to lean forwards and try to engage her core. M8 OT- IP Objective Assessments Start: 09/01/24 11:12 Freq: Status: Active Protocol: Document 09/01/24 11:13 CGR (Rec: 09/01/24 11:27 CGR [id number]) OT Gross Range of Motion Upper Extremity Range of Motion Assessment Within Functional Limits OT Strength Upper Extremity Strength Assessment Within Functional Limits Comments Strength Comments grossly 4/5 OT- Coordination Assessment Upper Extremity Finger to Nose Test Within Functional Limits Finger Tapping Test Within Functional Limits OT-Muscle Tone Assessment Muscle Tone WNL Yes OT Sensation Assessment Edema Edema Present Edema Comments LLE specifically M9 OT- IP Assessment and Plan Start: 09/01/24 11:12 Freq: Status: Active Protocol: Document 09/02/24 10:17 [facility] (Rec: 09/02/24 10:24 [facility] [id number]) OT Summary Assessment and Plan Potential Rehabilitation Potential Good Analytic Complexity at Evaluation Moderate Summary OT Impairments Pain,Balance,Functional Cognition,Functional Mobility, Grooming,Dressing,Toileting, Bathing,Toilet Transfers, Shower Transfers,Activity Tolerance Progress Towards Goals Slow Progress due to Medical Issues,Slow Progress due to Activity Tolerance Assessment Summary Pt able to participate in bed mobility and oral care while seated on the edge of the bed. Pt to go to skilled rehab when medically stable. Goals Self-Feeding Goal Independent Grooming Goal Independent Dressing Goal Independent Toileting Goal Independent Bathing Goal Independent Toilet Transfer Goal Independent Shower Transfer Goal Independent Days to Meet Goals 15 Frequency of Treatment Other frequency 5x per week Treatment Plan OT Treatment Plan ADL Training,Functional Cognition Training,Functional Mobility,Patient/Family Education,Discharge Planning Other Treatment Recommendations and Next SLUMS, ADLs at sink if able, Treatment Focus endurance. Discharge Recommendations OT Discharge Recommendations SNF Rehab Transportation Needs at Discharge Private Vehicle,Wheelchair/ Cabulance
--- NOTE | 2024-09-02 10:55 | PT.IPTN ---
Current Diagnoses Obesity, unspecified (08/30/24) Hyperlipidemia, unspecified (08/30/24) Obstructive sleep apnea (adult) (pediatric) (08/30/24) Essential (primary) hypertension (08/30/24) Unspecified atrial fibrillation (08/30/24) Heart failure, unspecified (08/30/24) Lymphedema, not elsewhere classified (08/30/24) Cellulitis of left lower limb (08/30/24) Pressure ulcer of left heel, stage 3 (08/30/24) Physical Therapy Treatment Note M2 PT-IP Current Condition Start: 09/01/24 10:39 Freq: NEEDED Status: Active Protocol: Document 09/01/24 10:16 MB (Rec: 09/01/24 11:05 MB [id number]) Physical Therapy Current Condition Current Condition Evaluation Date 09/01/24 Treatment Diagnosis SOB M3 PT-IP Subjective Start: 09/01/24 10:39 Freq: NEEDED Status: Active Protocol: Document 09/02/24 10:55 AB (Rec: 09/02/24 12:50 AB [id number]) Subjective Physical Therapy Visit Type Type Treatment Note Visit Start Time 10:55 Visit Stop Time 11:10 Number of TELEPATHIST Visits 0 Physical Therapy Visit Comments Patient Comments agreeable to do PT Therapy Pain Assessment Pain When Pain Assessed During Mobility Location B LEs Scale Used pain scale not stated M4 PT-IP Mobility and Gait Start: 09/01/24 10:39 Freq: NEEDED Status: Active Protocol: Document 09/02/24 10:55 AB (Rec: 09/02/24 12:50 AB [id number]) PT-Bed Mobility Assessment Supine to Sit Supine to Sit Contact Guard Assistance,Head of Bed Elevated,Bedrails Scooting Scooting to Edge of Bed Standby Assistance PT-Transfer Assessment Sit to and From Stand Sit to and from Stand Minimal Assistance,Moderate Assistance,1 Person Assistance ,Use of Upper Extremities Equipment Transfer Assistive Device Gait Belt,Front Wheeled Walker Orthotic/Prosthetic Devices or Brace: No Transfers Transfer Destination Toilet Transfer Technique ambulated Transfer Ability Level of Assist Minimal Assistance,Moderate Assistance,1 Person Assistance ,Use of Upper Extremities Comments Mobility Comments pt in bed and agreeable to do PT. pt wants to try to use the toilet. completed supine to sit CGA and max cues. HOB elevated and pt used bed rail to assist. max A for initial sitting balance on EOB. O2 sat: 94% at RA. pt rested sitting on EOB. sit to stand min to mod A and max cues. pt ambulated to the toilet using FWW min to mod A and max cues . presents with stooped posture. c/o dizziness afterwards. pt sat on the toilet. BP checked: 107/56 O2 sat: 94% at RA and AK: 90. nurse in room and aware. pt wants to use the toilet for a few minutes. call light next to pt and instructed to call for assistance when ready . Gait Assessment Gait Gait Assistance Required: Minimum Assistance,Moderate Assistance Distance (Feet) 12 Able to Maintain Weight Bearing Status Yes During Gait Assistive Devices Assistive Device Gait Belt,Front Wheeled Walker Orthotic/Prosthetic Devices or Brace: No Gait Deviations General Gait Pattern Decreased Stride Length, Decreased Feet Clearance, Flexed Trunk,Step-to Gait Factors Limiting Gait Function Factors Limiting Gait Function Abnormal Tonal Influences, Decreased Strength,Pain,Poor Balance,Poor Safety Awareness M5 PT-IP Objective Assessments Start: 09/01/24 10:39 Freq: NEEDED Status: Active Protocol: Document 09/01/24 10:16 MB (Rec: 09/01/24 11:05 MB [id number]) Orientation Orientation/Cognition Level of Alertness Alert Orientation Name,Age,Birthday,Month,Year, Day of Week,Place,Situation Safety Awareness Decreased Safety Awareness Memory Description No Deficits Noted Gross Range of Motion Upper Extremity ROM Impairments Defer to OT Lower Extremity ROM Assessment Bilaterally Impaired Impairments Left greater than right LE cellulitis, edema, redness and scabs, dried skin falling off with mobility Strength Lower Extremity Strength Assessment Bilaterally Impaired Comments Strength Comments Pt does not tolerate MMT and her strength is functional Coordination Assessment Gross Coordination Gross Coordination Impaired Sensation Assessment Sensation Sensation Description Hyperesthesia M6 PT-IP Treatment Start: 09/01/24 10:39 Freq: NEEDED Status: Active Protocol: Document 09/02/24 10:55 AB (Rec: 09/02/24 12:50 AB [id number]) Physical Therapy Treatment Education Education Provided Safety M7 PT-IP Assessment and Plan Start: 09/01/24 10:39 Freq: NEEDED Status: Active Protocol: Document 09/02/24 10:55 AB (Rec: 03/18/25 12:50 AB [id number]) PT Summary Assessment and Plan Potential Rehabilitation Potential Fair Summary Impairments Pain,ROM,Strength,Balance, Coordination,Sensation,Tone, Cognition,Bed Mobility, Transfers,Gait,Activity Tolerance Progress Towards Goals Slow Progress due to Pain,Slow Progress due to Activity Tolerance Assessment Summary pt needing more assistance today and continues to have decrease activity tolerance with (+) SOB during mobility. pt will require assistance at home and will need SNF rehab to improve overall strength and mobility independence. will continue to assess progress. Goals Bed Mobility Goal Independent Transfer Goal Independent,Front Wheeled Walker,Four Wheeled Walker Gait Goal Independent,Front Wheel Walker ,Four Wheel Walker Gait Distance 100 Other Goals Pt will ascend and ascend one step with LRAD and no more than superv to allow safe home entrance. Days to Meet Goals 5 Frequency of Treatment Frequency Of Treatment Once a Day Treatment Plan Physical Therapy Treatment Plan Bed Mobility Training,Transfer Training,Gait Training, Therapeutic Exercise,Balance Retraining,Discharge Planning, Hot or Cold Pack,Neuromuscular Re-ed,Coordination Retraining ,Manual Therapy Precautions Other Precautions O2 sat, HR Recommendations To Nursing Amount of Assist Needed 1 Person Assist Discharge Recommendations PT Discharge Recommendations SNF Rehab Transportation Needs at Discharge Wheelchair/Cabulance - PT assist 1
[2024-09-02] MEDS: ENOXAPARIN 100 MG/ML SYRINGE SUBCUT ×2 (12:07→20:08)
[2024-09-02] MEDS: CIPROFLOXACIN 250 MG TABLET 500 MG PO ×2 (12:07→20:08)
--- NOTE | 2024-09-02 12:13 | PM.PN.1 ---
Subjective Subjective Interval history: Chief complaint: Painful leg swelling and redness and orthopnea secondary to acute on chronic diastolic congestive heart failure History of present illness: 79-year-old female with a history of chronic diastolic congestive heart failure chronic lower extremity edema with lymphedema noncompliant with diuretics due to inconvenience of frequent urination was admitted 48 hours prior with acute on chronic diastolic congestive heart failure. Patient has been diuresed with a frequent low dose of furosemide 40 mg q.8 hours. This has been effective with a brisk and consistent daily net negative INR and reduction of peripheral edema and improvement in her orthopnea and dyspnea. Hospital course: 09/01: Today patient is feeling much better but is still having quite a bit of edema nursing care has been diligent with offloading pressure ulcers on her heels and per discussion was enquiring about a wound care consult. Patient has systolic blood pressure in the low to mid 100 but without symptomatic orthostasis. Examination today she has normal heart sound no rales lower extremities does have pruning effect and reduced edema but clear evidence of venous stasis and lymphedema. 09/02: Patient had significant reduction in lower extremity edema no further orthopnea But had symptomatic orthostasis with steady walking to the bathroom and systolic dropping to the 70s BUN 37 creatinine 1.1 CO2 is 40 suggesting contraction alkalosis DC IV Lasix and start 20 mg q.12h PT INR 1.5 bridging with Lovenox today Echocardiogram demonstrates small left ventricular volume estimated right ventricular systolic pressure of at least 45 Review of systems: No fever or chills No difficulty swallowing No chest pain palpitations No orthopnea shortness of breath No nausea vomiting diarrhea No paresthesia paresis Physical exam: Very pleasant elderly female appearing quite a bit younger than stated age HEENT unremarkable Neck too obese to assess for JVD Irregular rhythm Heart sounds distant no murmurs appreciated Lungs clear from apices to bases but lung sounds are distant due to obesity Abdomen is benign Extremities significantly improved edema Skin shows left heel with callus. Exam Vital Signs (past 8 hours): - 09/02/24 04:30 09/02/24 05:00 09/02/24 05:30 Temperature Pulse Rate 76 73 70 Respiratory Rate 17 16 16 Blood Pressure Pulse Oximetry 93 92 93 Oxygen Delivery Method 09/02/24 06:00 09/02/24 06:30 09/02/24 07:00 Temperature Pulse Rate 79 78 91 H Respiratory Rate 15 18 28 H Blood Pressure Pulse Oximetry 94 96 96 Oxygen Delivery Method 09/02/24 07:30 09/02/24 08:00 09/02/24 08:23 Temperature Pulse Rate 77 80 Respiratory Rate 18 17 Blood Pressure 114/62 Pulse Oximetry 96 95 Oxygen Delivery Method 09/02/24 08:23 09/02/24 08:30 09/02/24 08:45 Temperature Pulse Rate 80 81 Respiratory Rate 27 H 30 H Blood Pressure Pulse Oximetry 95 96 Oxygen Delivery Method Room Air 09/02/24 09:00 09/02/24 09:20 09/02/24 09:30 Temperature Pulse Rate 84 80 83 Respiratory Rate 32 H 37 H Blood Pressure Pulse Oximetry 92 96 Oxygen Delivery Method 09/02/24 10:00 09/02/24 10:30 09/02/24 11:00 Temperature 96.6 F L Pulse Rate 85 81 80 Respiratory Rate 41 H 31 H 21 Blood Pressure Pulse Oximetry 95 93 93 Oxygen Delivery Method 09/02/24 11:30 09/02/24 11:30 09/02/24 11:51 Temperature Pulse Rate 88 80 Respiratory Rate 35 H 30 H Blood Pressure 107/56 L Pulse Oximetry 96 90 L Oxygen Delivery Method 09/02/24 11:51 09/02/24 11:53 09/02/24 11:53 Temperature Pulse Rate 77 Respiratory Rate 33 H Blood Pressure 77/46 L 92/55 L Pulse Oximetry 93 Oxygen Delivery Method 09/02/24 11:58 09/02/24 11:58 09/02/24 12:00 Temperature Pulse Rate 75 73 Respiratory Rate 21 18 Blood Pressure 105/54 L Pulse Oximetry 92 92 Oxygen Delivery Method 09/02/24 12:00 Temperature Pulse Rate Respiratory Rate Blood Pressure Pulse Oximetry 94 Oxygen Delivery Method Fraction of Inspired Oxygen 28 SaO2/FiO2 Ratio 335 Oxygen Delivery Method Room Air Oxygen Flow Rate 1 Objective Imaging Echo: Radiologist's impression: Interpretation Summary The patient was in atrial fibrillation with heart rates between 94-149 bpm during the exam. The left ventricular cavity is small. The left ventricular ejection fraction is normal. The ejection fraction is estimated to be 60-65%. No significant change in LVEF. The right ventricle is normal in size and function. There is mild tricuspid regurgitation. The right ventricular systolic pressure is estimated to be at least 45 mmHg based on an estimated right atrial pressure of 3 mm Hg. [id number] left pleural effusion. New pleural effusion. Labs 09/01/24 04:20 09/02/24 04:00 Labs: Laboratory Results - last 24 hr 09/02/24 04:00 PT 17.2 H INR 1.5 H Sodium 136 L Potassium 3.3 L Chloride 91 L Carbon Dioxide 40 H* BUN 37 H Creatinine 1.12 H Estimated GFR 50 L BUN/Creatinine Ratio 33.0 H Glucose 107 Calcium 8.8 Magnesium 1.5 L Total Bilirubin 0.7 AST 32 ALT 25 Alkaline Phosphatase 81 Total Protein 6.7 Albumin 3.4 L Globulin 3.3 Albumin/Globulin Ratio 1.0 [facility] Medical History (Updated 08/31/24 @ 04:08 by Kirk Ag MD) JUDIE (obstructive sleep apnea) Obesity Hyperlipidemia Hypertension Atrial fibrillation Surgical History History of appendectomy H/O: hysterectomy Social History household members: none Smoking Status: Former smoker Assessment & Plan Assessment & Plan narrative: Acute on chronic diastolic heart failure, with acute respiratory failure with hypoxia, POA, active -noncompliant with diuretic and antihypertensives. Hemodynamically improved while in hospital - management is approaching steady state anticipate another 24-48 hours with disposition plans for transfer to residential facility - See RVR management below. - echocardiogram pending, prior TTE in 2021 with EF 60-65%. Which is unchanged however patient has very small left ventricular chamber volume and at least 45 mm right ventricular systolic pressure - home PO HCTZ likely resume tomorrow 09/03 - Paroxysmal atrial fibrillation with rapid ventricular response. POA, Active - Restarted home diltiazem and metoprolol. - Diltiazem 360 mg daily, Toprol XL 50 mg increased to BID. -echocardiogram d - warfarin per pharmacy, INR 1.5 will bridge with Lovenox LLE Cellulitis, POA, active - continue 1g q24 hr ceftriaxone and switch to p.o. antibiotics HTN, chronic - held home enalapril and HCTZ in favor of rate control agents and IV furosemide for diuresis. HLD, chronic - continue home statin Obesity / JUDIE, chronic - BMI 35 - intolerant of CPAP -The patient is at much higher risk for medical and surgical complications because of their obesity. This increases the difficulty and complexity of medical and surgical interventions and increases the chances of poor outcomes such as morbidity and mortality. Impaired mobility and ADLs - PT, OT, SS assessment - lives alone and has difficulty maintaining place livable -considering plans for transfer to nursing facility in 48-72 hours Asymptomatic bacteuria. POA - UA positive but patient without urinary symptoms. Any bacteuria or acute cystitis will likely be treated with antibiotics given for cellulitis. Elevated bilirubin - no abdominal pain, suspect congestive hepatopathy related to volume overload, continue to follow with diuresis. Consider RUQ US though CT on 08/11/24 was unremarkable. Code: Full, surrogate is patient's sister DVT: On warfarin Time-Based Coding :: 35 minutes spent with patient and on the chart (including review of chart, obtaining history, exam, reviewing outside data, placing orders, documenting exam and treatment plan, and counseling patient) on 09/02/2024. Quality VTE Deep Vein Thrombosis/Pulmonary Embolism Present on Admission: Yes Time-Based Coding :: [TOTAL MINUTES] spent with patient and on the chart (including review of chart, obtaining history, exam, reviewing outside data, placing orders, documenting exam and treatment plan, and counseling patient) on [DATE]. Quality VTE Deep Vein Thrombosis/Pulmonary Embolism Present on Admission: Yes
--- NOTE | 2024-09-02 12:19 | CM.DPNOTE ---
DCP Note SHAKE BACKBOARD NOTCHER reviewed EMR Per provider in morning rounds, anticipate dc to [facility] tomorrow. Per [facility] , can accept pt tomorrow between [id number]. would like CM team to review DCP post rehab with pt. SHAKE BACKBOARD NOTCHER emailed ins card/additional referral information to [facility]. SHAKE BACKBOARD NOTCHER had lengthy DCP conversation with pt in room. Confirm agreement with/preference to dc to [facility]. SHAKE BACKBOARD NOTCHER provided information for PP CGs/inquired about if pt needed additional help post dc. Pt reports that she was enrolled with the [facility] human services when the EMT went to her house when she called 911. She's under the impression that the [facility] has a new program that assists folks with arranging home care/increased care at home. She reports she has a way to contact that program and plans to do so either today vs tomorrow. Pt indicated she has some financial resources if needed to hire additional care. SHAKE BACKBOARD NOTCHER had lengthy conversation about medical DPOA/advance directives. left blank copies of both with pt to review. SHAKE BACKBOARD NOTCHER answered questions to best of ability. PASRR previously completed. P: dc tomorrow pending medical stability to , transport between [id number]. Will continue to follow closely for DCP coordination. OSWALDO Voss
--- NOTE | 2024-09-02 12:30 | PM.CN ---
History of Present Illness Consult details Date Patient Seen: 09/02/24 Time Patient Seen: 08:00 Chief complaint: shortness of breath Narrative: The patient is an 79-year-old female with obesity, hypertension, atrial fibrillation, and lymphedema who was admitted to the hospital August 30, 2024 with CHF. She was found to have an ulcer on her left heel. The patient reports that the ulcer has been present for about 2-3 weeks and is painful especially with ambulation. She has had some slight drainage but has not noted any erythema nor has he had any fever or chills. She has had an ulcer in that same location in the past that healed with local wound care. The patient uses personal compression to help control her lymphedema however recently her lower extremity swelling has worsened. She reports a good appetite. Her lower extremity swelling and shortness of breath have improved since admission. The patient has previously been treated in the lymphedema clinic and has also previously been seen at the wound center. The patient ambulates with the use of a cane. Meds Home Medications and Allergies Home Medications Medication Instructions Recorded Confirmed Type diltiazem HCl 360 mg capsule,24 360 mg PO QDAY ##0 09/04/16 08/31/24 History hr,extended release enalapril maleate 20 mg tablet 5 mg PO DAILY 03/15/21 08/31/24 History hydrochlorothiazide 50 mg tablet 25 mg PO DAILY 03/15/21 08/31/24 History metoprolol succinate 50 mg 50 mg PO DAILY 03/15/21 08/31/24 History tablet,extended release 24 hr simvastatin 40 mg tablet 20 mg PO DAILY 03/15/21 08/31/24 History warfarin 5 mg tablet 5 mg PO DAILY 11/30/21 08/31/24 History furosemide 40 mg tablet 20 mg PO BID 08/11/24 08/31/24 History Allergies Allergy/AdvReac Type Severity Reaction Status Date / Time pneumococcal vaccine AdvReac Unknown Verified 08/11/24 13:46 Review of Systems Cardiovascular Comments: Chest pain Respiratory Comments: Shortness of breath Musculoskeletal Comments: Lower extremity swelling Exam Vital Signs (past 8 hours): - 09/02/24 05:00 09/02/24 05:30 09/02/24 06:00 Temperature Pulse Rate 73 70 79 Respiratory Rate 16 16 15 Blood Pressure Pulse Oximetry 92 93 94 Oxygen Delivery Method 09/02/24 06:30 09/02/24 07:00 09/02/24 07:30 Temperature Pulse Rate 78 91 H 77 Respiratory Rate 18 28 H 18 Blood Pressure Pulse Oximetry 96 96 96 Oxygen Delivery Method 09/02/24 08:00 09/02/24 08:23 09/02/24 08:23 Temperature Pulse Rate 80 80 Respiratory Rate 17 27 H Blood Pressure 114/62 Pulse Oximetry 95 95 Oxygen Delivery Method 09/02/24 08:30 09/02/24 08:45 09/02/24 09:00 Temperature Pulse Rate 81 84 Respiratory Rate 30 H 32 H Blood Pressure Pulse Oximetry 96 92 Oxygen Delivery Method Room Air 09/02/24 09:20 09/02/24 09:30 09/02/24 10:00 Temperature Pulse Rate 80 83 85 Respiratory Rate 37 H 41 H Blood Pressure Pulse Oximetry 96 95 Oxygen Delivery Method 09/02/24 10:30 09/02/24 11:00 09/02/24 11:30 Temperature 96.6 F L Pulse Rate 81 80 88 Respiratory Rate 31 H 21 35 H Blood Pressure Pulse Oximetry 93 93 96 Oxygen Delivery Method 09/02/24 11:30 09/02/24 11:51 09/02/24 11:51 Temperature Pulse Rate 80 Respiratory Rate 30 H Blood Pressure 107/56 L 77/46 L Pulse Oximetry 90 L Oxygen Delivery Method 09/02/24 11:53 09/02/24 11:53 09/02/24 11:58 Temperature Pulse Rate 77 75 Respiratory Rate 33 H 21 Blood Pressure 92/55 L Pulse Oximetry 93 92 Oxygen Delivery Method 09/02/24 11:58 09/02/24 12:00 09/02/24 12:00 Temperature Pulse Rate 73 Respiratory Rate 18 Blood Pressure 105/54 L Pulse Oximetry 92 94 Oxygen Delivery Method Fraction of Inspired Oxygen 28 SaO2/FiO2 Ratio 335 Oxygen Delivery Method Room Air Oxygen Flow Rate 1 Narrative Exam Narrative: Obese female who is alert and oriented, no apparent distress Skin Other: Stage III pressure ulcer left heel, no sign of infection Extrem Other: Bilateral lower extremity lymphedema, left greater than right Objective Labs 09/01/24 04:20 09/02/24 04:00 Labs: Laboratory Results - last 24 hr 09/02/24 04:00 PT 17.2 H INR 1.5 H Sodium 136 L Potassium 3.3 L Chloride 91 L Carbon Dioxide 40 H* BUN 37 H Creatinine 1.12 H Estimated GFR 50 L BUN/Creatinine Ratio 33.0 H Glucose 107 Calcium 8.8 Magnesium 1.5 L Total Bilirubin 0.7 AST 32 ALT 25 Alkaline Phosphatase 81 Total Protein 6.7 Albumin 3.4 L Globulin 3.3 Albumin/Globulin Ratio 1.0 PFSH Medical History JUDIE (obstructive sleep apnea) Obesity Hyperlipidemia Hypertension Atrial fibrillation Surgical History History of appendectomy H/O: hysterectomy Social History household members: none Tobacco & Substance Use Smoking Status: Former smoker Assessment & Plan Assessment and plan (1) Pressure ulcer of left heel, stage 3: Status: Acute (2) Lymphedema, not elsewhere classified: Status: Acute Assessment & Plan narrative: Pressure ulcer left heel associated with lower extremity lymphedema, no sign of infection. Start dressing changes with Iodoflex, pressure offloading, protein supplementation, follow up at wound center after discharge for further treatment. Time-Based Coding :: [45 MINUTES] spent with patient and on the chart (including review of chart, obtaining history, exam, reviewing outside data, placing orders, documenting exam and treatment plan, and counseling patient) on [09/02/24].
--- NOTE | 2024-09-02 15:53 | PC.NURSE ---
Addendum entered by Gay Contreras R.N. 09/02/24 16:16: Dressing placed to left heel, cleansed with saline and iodoflex placed to wound bed and gauze dressing placed over iodoflex. Original Note: Day Shift Note Called to room by PT to assess patient, pt reporting feeling dizzy and has head down on walker while sitting on toilet. Pt is alert and answering questions. VSS at this time (see trends), pt reported feeling better and had large BM. When walking back to chair, pt reported again feeling dizzy and weak, HR in the 80s afib, assisted to chair and BP 77/46. Rechecked in 2 minutes and BP up to 92/55 and BP 105/54 at 1158 with pt denying dizziness. Pt reports that she gets dizzy all the time when up and walking and sometimes I pass out, I am a fainter. Dr. Cummings notified of pt report of dizziness, low blood pressure, and history of dizziness/passing out. New orders received (IV lasix discontinued and PO Lasix to start). Pt currently sitting up in chair, HR in the 50-70s afib, on RA this shift with SpO2 96% or greater. Call light within reach, using appropriately to make needs known.
--- NOTE | 2024-09-02 17:34 | DIET.CONS ---
Dietary Consultation Note Admission Date: 08/30/2024 22:53 Assessment: 79 y F admitted presents with worsening SOB. Dietitian consulted for wound. Met with pt in room this afternoon. Reports good appetite, usually does 2 meals per day. Used to do her own cooking, but having difficulties lately. Is going to dc to [facility]. Has questions regarding nutrition and wound healing. Ht: 168.91 cm Wt: 101.7 kg BMI: 35.6 UBW: 109 kg on 08/11/24 - pt presented with significant edema bilateral lower extremities, 2+, pitting at this visit, limited weight hx, pt unsure UBW Last BM: 09/02/24 (09/02/24 12:00) MNA: 13 Lemuel Score: 19 Diet: 08/31/24 Breakfast Heart Healthy Diet Diet Modifications: Nutrition Percent Meal Consumed 100% 09/02/24 14:00 Percent Meal Consumed 100% 09/01/24 18:00 Percent Meal Consumed 90 08/31/24 18:00 Labs: RBC 3.69 X10^6/uL (4.0-5.2) L 09/01/24 04:20 Hgb 11.6 g/dL (12.0-16.0) L 09/01/24 04:20 Hct 34.7 % (36-46) L 09/01/24 04:20 Creatinine 1.12 mg/dL (0.52-1.04) H 09/02/24 04:00 Lactate 1.5 mmol/L (0.7-2.1) 08/30/24 21:55 NT-Pro-B Natriuret Pep 5490 pg/mL (<450) H 08/30/24 19:25 Nutrition Diagnosis: Increased nutrient needs (protein) r/t healing aeb stage 3 pressure ulcer Interventions: -Oscar BID -Provided handout and educ on Oscar and nutrition to support wound healing with protein reccs. EER: 80 g protein (1.2 g/kg adjusted IBW per wound) Monitoring/Evaluations: Oscar tolerance, po intakes Electronically Signed by: Kathy Massey 09/02/24 17:34 Clinical Dietitian [address] [address]
[2024-09-02] MEDS: WARFARIN 5 MG TABLET PO (17:52)
[2024-09-02] MEDS: FUROSEMIDE 20 MG TABLET PO (17:53)
[2024-09-02] MEDS: WARFARIN 2.5 MG TABLET PO (17:53)
[2024-09-03] VITALS (52 sets, daily range): BP systolic 96–128; BP diastolic 52–82; PULSE 68–164; RESP 13–44; TEMP 35.8–36.4; O2SAT 80–99
[2024-09-03 05:28] LABS: INR 1.5 (0.9-1.3); Prothrombin Time 17.3 SECONDS (9.4-12.5)
[2024-09-03 05:31] LABS: Magnesium 1.7 mg/dL (1.6-2.3)
[2024-09-03 06:00] LABS: Alanine Aminotransferase 22 IU/L (<35); Albumin 3.1 g/dL (3.5-5.0); Albumin Globulin Ratio 1.1 (1.0-2.8); Alkaline Phosphatase 82 U/L (38-126); Aspartate Aminotransferase 28 IU/L (14-36); BUN Creatinine Ratio 33.6 (6-22); Bilirubin Total 0.5 mg/dL (0.2-1.3); Blood Urea Nitrogen 43 mg/dL (7-17); Carbon Dioxide 37 mmol/L (22-32); Chloride 95 mmol/L (98-107); Estimated Glomerular Filt Rate 42 mL/min (>60); Globulin 2.8 g/dL (1.7-4.1); Glucose 118 mg/dL (80-110); HEMOLYSIS < 15 (0-50); Potassium 3.7 mmol/L (3.4-5.1); Sodium 137 mmol/L (137-145); Total Protein 5.9 g/dL (6.3-8.2)
[2024-09-03] MEDS: CIPROFLOXACIN 250 MG TABLET 500 MG PO ×2 (06:34→22:00)
[2024-09-03] MEDS: FUROSEMIDE 20 MG TABLET PO ×2 (08:33→16:49)
[2024-09-03] MEDS: dilTIAZem CD 180 MG CAP 360 MG PO (08:33)
[2024-09-03] MEDS: METOPROLOL ER 50 MG TABLET PO ×2 (08:33→21:59)
[2024-09-03] MEDS: ENOXAPARIN 100 MG/ML SYRINGE SUBCUT ×2 (08:33→21:59)
[2024-09-03] MEDS: ATORVASTATIN 20 MG TABLET 10 MG PO (08:34)
[2024-09-03] MEDS: SODIUM CHLORIDE 0.9% FLUSH 10 ML IV ×2 (08:34→22:00)
[2024-09-03] MEDS: MAGNESIUM CHLORIDE 64 MG TABLET 128 MG PO (09:40)
--- NOTE | 2024-09-03 11:30 | PT.IPTN ---
Current Diagnoses Obesity, unspecified (08/30/24) Hyperlipidemia, unspecified (08/30/24) Obstructive sleep apnea (adult) (pediatric) (08/30/24) Essential (primary) hypertension (08/30/24) Unspecified atrial fibrillation (08/30/24) Heart failure, unspecified (08/30/24) Lymphedema, not elsewhere classified (08/30/24) Cellulitis of left lower limb (08/30/24) Pressure ulcer of left heel, stage 3 (08/30/24) Physical Therapy Treatment Note M2 PT-IP Current Condition Start: 09/01/24 10:39 Freq: NEEDED Status: Active Protocol: Document 09/01/24 10:16 MB (Rec: 09/01/24 11:05 MB [id number]) Physical Therapy Current Condition Current Condition Evaluation Date 09/01/24 Treatment Diagnosis SOB M3 PT-IP Subjective Start: 09/01/24 10:39 Freq: NEEDED Status: Active Protocol: Document 09/03/24 11:30 AB (Rec: 09/03/24 14:23 AB [id number]) Subjective Physical Therapy Visit Type Type Treatment Note Visit Start Time 11:30 Visit Stop Time 12:00 Number of [facility] DIRECT[facility] Visits 0 Physical Therapy Visit Comments Patient Comments agreeable to do PT M4 PT-IP Mobility and Gait Start: 09/01/24 10:39 Freq: NEEDED Status: Active Protocol: Document 09/03/24 11:30 AB (Rec: 09/03/24 14:23 AB [id number]) PT-Transfer Assessment Sit to and From Stand Sit to and from Stand Contact Guard Assistance,1 Person Assistance,Use of Upper Extremities Equipment Transfer Assistive Device Gait Belt,Front Wheeled Walker Orthotic/Prosthetic Devices or Brace: No Transfer Ability Level of Assist Contact Guard Assistance Comments Mobility Comments pt sitting on the chair and agreeable to do PT. BP monitored. BP sittin/53 . sit to stand CGA and ambulated ~ 35 ft using fWW initially needing CGA but towards the end of ambulation min A with increase unsteady gait and pt with c/o feeling weak. pt sat on the chair. (+ ) SOb. O2 sat: 99%. BP checked: 103/52. pt stated that she has chronic low BP issues. pt rested. agreed to walk again. BP checked in sittin/59. sit to stand CGA and ambulated 35ft using FWW CGA to min A. pt sat back on chair. BP: 96/54. positioned pt on the chair. call light and table placed within reach. BP checked again: 119/82. Gait Assessment Gait Gait Assistance Required: Contact Guard Assist,Minimum Assistance Distance (Feet) 35 Able to Maintain Weight Bearing Status Yes During Gait Assistive Devices Assistive Device Gait Belt,Front Wheeled Walker Orthotic/Prosthetic Devices or Brace: No Gait Deviations General Gait Pattern Decreased Stride Length, Decreased Feet Clearance, Flexed Trunk,Step-to Gait Factors Limiting Gait Function Factors Limiting Gait Function Decreased Activity Tolerance, Decreased Strength,Difficulty Following Directions,Limited Range of Motion,Poor Balance, Poor Safety Awareness, Respiratory Distress M5 PT-IP Objective Assessments Start: 09/01/24 10:39 Freq: NEEDED Status: Active Protocol: Document 09/01/24 10:16 MB (Rec: 09/01/24 11:05 MB [id number]) Orientation Orientation/Cognition Level of Alertness Alert Orientation Name,Age,Birthday,Month,Year, Day of Week,Place,Situation Safety Awareness Decreased Safety Awareness Memory Description No Deficits Noted Gross Range of Motion Upper Extremity ROM Impairments Defer to OT Lower Extremity ROM Assessment Bilaterally Impaired Impairments Left greater than right LE cellulitis, edema, redness and scabs, dried skin falling off with mobility Strength Lower Extremity Strength Assessment Bilaterally Impaired Comments Strength Comments Pt does not tolerate MMT and her strength is functional Coordination Assessment Gross Coordination Gross Coordination Impaired Sensation Assessment Sensation Sensation Description Hyperesthesia M6 PT-IP Treatment Start: 09/01/24 10:39 Freq: NEEDED Status: Active Protocol: Document 09/03/24 11:30 AB (Rec: 09/03/24 14:23 AB [id number]) Physical Therapy Treatment Education Education Provided Safety M7 PT-IP Assessment and Plan Start: 09/01/24 10:39 Freq: NEEDED Status: Active Protocol: Document 09/03/24 11:30 AB (Rec: 09/03/24 14:23 AB [id number]) PT Summary Assessment and Plan Potential Rehabilitation Potential Fair Summary Impairments Pain,ROM,Strength,Balance, Coordination,Sensation,Tone, Cognition,Bed Mobility, Transfers,Gait,Activity Tolerance Progress Towards Goals Slow Progress due to Medical Issues,Slow Progress due to Activity Tolerance Assessment Summary pt improving slowy needing CGA to min A with ambulation using FWW but continues to have decrease activity tolerance with decrease in BP after ambulation. pt will benefit from SNF rehab to improve overall strength and mobility independence. Goals Bed Mobility Goal Independent Transfer Goal Independent,Front Wheeled Walker,Four Wheeled Walker Gait Goal Independent,Front Wheel Walker ,Four Wheel Walker Gait Distance 100 Other Goals Pt will ascend and ascend one step with LRAD and no more than superv to allow safe home entrance. Days to Meet Goals 10 Frequency of Treatment Frequency Of Treatment Once a Day Treatment Plan Physical Therapy Treatment Plan Bed Mobility Training,Transfer Training,Gait Training, Therapeutic Exercise,Balance Retraining,Discharge Planning, Hot or Cold Pack,Neuromuscular Re-ed,Coordination Retraining ,Manual Therapy Precautions Other Precautions BP Recommendations To Nursing Amount of Assist Needed 1 Person Assist Discharge Recommendations PT Discharge Recommendations SNF Rehab Transportation Needs at Discharge Wheelchair/Cabulance - PT assist 1
--- NOTE | 2024-09-03 14:43 | OT.IP.TRT ---
Current Diagnoses Obesity, unspecified (08/30/24) Hyperlipidemia, unspecified (08/30/24) Obstructive sleep apnea (adult) (pediatric) (08/30/24) Essential (primary) hypertension (08/30/24) Unspecified atrial fibrillation (08/30/24) Heart failure, unspecified (08/30/24) Lymphedema, not elsewhere classified (08/30/24) Cellulitis of left lower limb (08/30/24) Pressure ulcer of left heel, stage 3 (08/30/24) Occupational Therapy Treatment Note M2 OT-IP Current Condition Start: 09/01/24 11:12 Freq: Status: Active Protocol: Document 09/01/24 11:13 CGR (Rec: 09/01/24 11:27 CGR [id number]) Occupational Therapy Current Condition Current Condition Evaluation Date 09/01/24 Treatment Diagnosis SOB, acute on chronic heart failure, LLE cellulitis Diagnosis Onset Date 08/30/24 M3 OT- IP Subjective and Pain Start: 09/01/24 11:12 Freq: Status: Active Protocol: Document 09/03/24 15:25 CCC (Rec: 09/03/24 15:32 [facility] [id number]) OT- Subjective Occupational Therapy Visit Type Type Treatment Note Visit Start Time 14:43 Visit Stop Time 15:25 Occupational Therapy Visit Comments Patient Comments Pt agreed to do SLUMS. Patient/Caregiver Goals TO get better. M4 OT- IP ADL's Start: 09/01/24 11:12 Freq: Status: Active Protocol: Document 09/02/24 10:17 [facility] (Rec: 09/02/24 10:24 [facility] [id number]) OT ADL-Grooming General Evaluation Grooming Ability Standby Assistance Areas Needing Assistance Combing/Brushing Hair Comments OT Grooming Comments Pt able to do brush her hair into a pony tail while in bed. Pt refused to try tot get to the sink at this time. OT ADL-Oral Care General Eval Oral Care Ability Independent Comments Oral Care Comments Set-up while seated on the edge of the bed. OT ADL-Toileting Comments OT Toileting Comments Purewick in place. OT ADL-Bathing Comments OT Bathing Comments not performed M6 OT- IP Functional Cognition Start: 09/01/24 11:12 Freq: Status: Active Protocol: Document 09/03/24 15:25 CCC (Rec: 09/03/24 15:32 [facility] [id number]) Cognitive Factors Limiting Selfcare Function Cognitive Ability Level of Alertness Alert Patient Orientation Name,Age,Birthday,Month,Date, Year,Day of Week,Place, Situation Attention Span Ability Capable of Focused Attention, Capable of Sustained Attention Ability to Follow Commands Able to Follow Multi-Step Commands Cognitive Tests SLUMS Pt scored 28/30 on the SLUMS which implies normal for cognition. Cognitive Comments Cognitive Assessment Comments Pt scored 110sec on [place] Making Part B however which implies Mild impairment for visual attention, executive functioning, task switching, mental flexibility, and problem solving. Pt's score is 60% for her age. Spoke to pt of expectations and questions to ask while at rehab. Spoke at length with pt regarding stress management and energy conservation needs. Pt is well aware not to drive at this time. M8 OT- IP Objective Assessments Start: 09/01/24 11:12 Freq: Status: Active Protocol: Document 09/01/24 11:13 CGR (Rec: 09/01/24 11:27 CGR [id number]) OT Gross Range of Motion Upper Extremity Range of Motion Assessment Within Functional Limits OT Strength Upper Extremity Strength Assessment Within Functional Limits Comments Strength Comments grossly 4/5 OT- Coordination Assessment Upper Extremity Finger to Nose Test Within Functional Limits Finger Tapping Test Within Functional Limits OT-Muscle Tone Assessment Muscle Tone WNL Yes OT Sensation Assessment Edema Edema Present Edema Comments LLE specifically M9 OT- IP Assessment and Plan Start: 09/01/24 11:12 Freq: Status: Active Protocol: Document 09/03/24 15:25 [facility] (Rec: 09/03/24 15:32 [facility] [id number]) OT Summary Assessment and Plan Potential Rehabilitation Potential Good Analytic Complexity at Evaluation Moderate Summary OT Impairments Pain,Balance,Functional Cognition,Functional Mobility, Grooming,Dressing,Toileting, Bathing,Toilet Transfers, Shower Transfers,Activity Tolerance Progress Towards Goals Progressing Toward Goals Assessment Summary Pt scored 28/30 on the SLUMS which implies normal for cognition. Pt is very motivated to get better and to go to skilled rehab when medically stable. Goals Self-Feeding Goal Independent Grooming Goal Independent Dressing Goal Independent Toileting Goal Independent Bathing Goal Independent Toilet Transfer Goal Independent Shower Transfer Goal Independent Days to Meet Goals 14 Frequency of Treatment Other frequency 5x per week Treatment Plan OT Treatment Plan ADL Training,Functional Cognition Training,Functional Mobility,Patient/Family Education,Discharge Planning Discharge Recommendations OT Discharge Recommendations SNF Rehab Transportation Needs at Discharge Private Vehicle,Wheelchair/ Cabulance
[2024-09-03] MEDS: WARFARIN 5 MG TABLET PO (16:48)
--- NOTE | 2024-09-03 19:27 | P.PN_ITS ---
Subjective Subjective Date Patient Seen: 09/03/24 Time Patient Seen: 08:45 Interval history: Chief complaint: Painful leg swelling and redness and orthopnea secondary to acute on chronic diastolic congestive heart failure History of present illness: 79-year-old female with a history of chronic diastolic congestive heart failure chronic lower extremity edema with lymphedema noncompliant with diuretics due to inconvenience of frequent urination was admitted 48 hours prior with acute on chronic diastolic congestive heart failure. Patient has been diuresed with a frequent low dose of furosemide 40 mg q.8 hours. This has been effective with a brisk and consistent daily net negative INR and reduction of peripheral edema and improvement in her orthopnea and dyspnea. Hospital course: 09/01: Today patient is feeling much better but is still having quite a bit of edema nursing care has been diligent with offloading pressure ulcers on her heels and per discussion was enquiring about a wound care consult. Patient has systolic blood pressure in the low to mid 100 but without symptomatic orthostasis. Examination today she has normal heart sound no rales lower extremities does have pruning effect and reduced edema but clear evidence of venous stasis and lymphedema. 09/02: Patient had significant reduction in lower extremity edema no further orthopnea But had symptomatic orthostasis with steady walking to the bathroom and systolic dropping to the 70s BUN 37 creatinine 1.1 CO2 is 40 suggesting contraction alkalosis DC IV Lasix and start 20 mg q.12h PT INR 1.5 bridging with Lovenox today Echocardiogram demonstrates small left ventricular volume estimated right ventricular systolic pressure of at least 45 09/03: Patient has had no more episodes of orthostasis Is interested in rehab BUN creatinine elevated from yesterday we will continue to monitor Review of systems: No fever or chills No difficulty swallowing No chest pain palpitations No orthopnea shortness of breath No nausea vomiting diarrhea No paresthesia paresis Physical exam: Very pleasant elderly female appearing quite a bit younger than stated age HEENT unremarkable Neck too obese to assess for JVD Irregular rhythm Heart sounds distant no murmurs appreciated Lungs clear from apices to bases but lung sounds are distant due to obesity Abdomen is benign Extremities significantly improved edema Skin shows left heel with callus. Exam Vital Signs (past 8 hours): - 09/03/24 11:30 09/03/24 11:40 09/03/24 11:40 Temperature Pulse Rate 74 76 Respiratory Rate 30 H 29 H Blood Pressure 101/55 L Pulse Oximetry 92 09/03/24 11:41 09/03/24 11:41 09/03/24 11:48 Temperature Pulse Rate 74 Respiratory Rate 25 H Blood Pressure 117/53 L 103/52 L Pulse Oximetry 09/03/24 11:48 09/03/24 11:50 09/03/24 11:51 Temperature Pulse Rate 95 H 81 Respiratory Rate Blood Pressure 115/59 L Pulse Oximetry 95 95 09/03/24 11:54 09/03/24 11:54 09/03/24 11:57 Temperature Pulse Rate 164 H Respiratory Rate Blood Pressure 96/54 L 119/82 Pulse Oximetry 96 09/03/24 12:46 09/03/24 13:00 09/03/24 13:30 Temperature Pulse Rate 73 77 Respiratory Rate 32 H 17 Blood Pressure Pulse Oximetry 80 L 09/03/24 14:08 09/03/24 14:30 09/03/24 15:00 Temperature Pulse Rate 82 74 72 Respiratory Rate 23 38 H 41 H Blood Pressure Pulse Oximetry 93 09/03/24 15:30 09/03/24 16:00 09/03/24 16:00 Temperature 97.1 F L Pulse Rate 76 73 Respiratory Rate 29 H 19 Blood Pressure Pulse Oximetry 09/03/24 16:30 09/03/24 16:50 09/03/24 16:50 Temperature Pulse Rate 81 78 Respiratory Rate 38 H 20 Blood Pressure 110/73 Pulse Oximetry 09/03/24 17:00 09/03/24 17:30 Temperature Pulse Rate 73 78 Respiratory Rate 18 19 Blood Pressure Pulse Oximetry Fraction of Inspired Oxygen 28 SaO2/FiO2 Ratio 335 Oxygen Delivery Method Room Air,Nasal Cannula Oxygen Flow Rate 2 Objective Labs 09/01/24 04:20 09/03/24 04:20 Labs: Laboratory Results - last 24 hr 09/03/24 04:20 PT 17.3 H INR 1.5 H Sodium 137 Potassium 3.7 Chloride 95 L Carbon Dioxide 37 H BUN 43 H Creatinine 1.28 H Estimated GFR 42 L BUN/Creatinine Ratio 33.6 H Glucose 118 H Calcium 9.0 Magnesium 1.7 Total Bilirubin 0.5 AST 28 ALT 22 Alkaline Phosphatase 82 Total Protein 5.9 L Albumin 3.1 L Globulin 2.8 Albumin/Globulin Ratio 1.1 PFSH Medical History JUDIE (obstructive sleep apnea) Obesity Hyperlipidemia Hypertension Atrial fibrillation Surgical History History of appendectomy H/O: hysterectomy Social History household members: none Smoking Status: Former smoker Assessment & Plan Assessment & Plan narrative: Acute on chronic diastolic heart failure, with acute respiratory failure with hypoxia, POA, active -noncompliant with diuretic and antihypertensives. Hemodynamically improved while in hospital - management is approaching steady state anticipate another 24-48 hours with disposition plans for transfer to longterm facility - See RVR management below. - echocardiogram pending, prior TTE in 2021 with EF 60-65%. Which is unchanged however patient has very small left ventricular chamber volume and at least 45 mm right ventricular systolic pressure - home PO HCTZ likely resume tomorrow 09/03 - Paroxysmal atrial fibrillation with rapid ventricular response. POA, Active - Restarted home diltiazem and metoprolol. - Diltiazem 360 mg daily, Toprol XL 50 mg increased to BID. -echocardiogram d - warfarin per pharmacy, INR 1.5 will bridge with Lovenox LLE Cellulitis, POA, active - continue 1g q24 hr ceftriaxone and switch to p.o. antibiotics HTN, chronic - held home enalapril and HCTZ in favor of rate control agents and IV furosemide for diuresis. HLD, chronic - continue home statin Obesity / JUDIE, chronic - BMI 35 - intolerant of CPAP -The patient is at much higher risk for medical and surgical complications because of their obesity. This increases the difficulty and complexity of medical and surgical interventions and increases the chances of poor outcomes such as morbidity and mortality. Impaired mobility and ADLs - PT, OT, SS assessment - lives alone and has difficulty maintaining place livable -considering plans for transfer to nursing facility in 48-72 hours Asymptomatic bacteuria. POA - UA positive but patient without urinary symptoms. Any bacteuria or acute cystitis will likely be treated with antibiotics given for cellulitis. Elevated bilirubin - no abdominal pain, suspect congestive hepatopathy related to volume overload, continue to follow with diuresis. Consider RUQ US though CT on 08/11/24 was unremarkable. Code: Full, surrogate is patient's sister DVT: On warfarin Time-Based Coding :: 35 minutes spent with patient and on the chart (including review of chart, obtaining history, exam, reviewing outside data, placing orders, documenting exam and treatment plan, and counseling patient) on 09/03/2024. Time-Based Coding :: [TOTAL MINUTES] spent with patient and on the chart (including review of chart, obtaining history, exam, reviewing outside data, placing orders, documenting exam and treatment plan, and counseling patient) on [DATE]. Quality VTE Deep Vein Thrombosis/Pulmonary Embolism Present on Admission: Yes
[2024-09-04] VITALS (9 sets, daily range): BP systolic 94–135; BP diastolic 53–84; PULSE 63–81; RESP 17–23; TEMP 35.9–36.5; O2SAT 94–96
[2024-09-04 05:06] LABS: INR 1.6 (0.9-1.3); Prothrombin Time 17.6 SECONDS (9.4-12.5)
[2024-09-04 05:10] LABS: Add Manual Diff / Slide Review NO; Basophils Absolute Auto 100 /uL (0-100); Basophils Percent Auto 1.7 % (0-2); Eosinophils Absolute Auto 500 /uL (0-450); Eosinophils Percent Auto 5.7 % (2-4); Hematocrit 35.9 % (36-46); Lymphocytes Absolute Auto 2300 /uL (1100-4500); Lymphocytes Percent Auto 29.5 % (25-40); Mean Corpuscular HGB Conc 33.5 % (30-36); Mean Corpuscular Hemoglobin 31.5 PG (26-34); Mean Corpuscular Volume 93.9 fL (80-100); Monocytes Absolute Auto 1100 /uL (0-900); Monocytes Percent Auto 13.4 % (3-14); Neutrophils Absolute Auto 4000 /uL (1500-7000); Neutrophils Percent Auto 49.7 % (50-75); Platelet Count 351 X10^3/uL (150-400); Red Blood Cell Count 3.82 X10^6/uL (4.0-5.2); White Blood Cell Count 7.9 X10^3/uL (4.5-11.0)
--- NOTE | 2024-09-04 07:23 | P.DS_ITS ---
History of Present Illness History of Present Illness Date Patient Seen: 09/04/24 Time Patient Seen: 07:23 Chief complaint: shortness of breath Narrative: Chief complaint: Painful leg swelling and redness and orthopnea secondary to acute on chronic diastolic congestive heart failure History of present illness: 79-year-old female with a history of chronic diastolic congestive heart failure chronic lower extremity edema with lymphedema noncompliant with diuretics due to inconvenience of frequent urination was admitted 48 hours prior with acute on chronic diastolic congestive heart failure. Patient has been diuresed with a frequent low dose of furosemide 40 mg q.8 hours. This has been effective with a brisk and consistent daily net negative INR and reduction of peripheral edema and improvement in her orthopnea and dyspnea. Hospital course: 09/01: Today patient is feeling much better but is still having quite a bit of edema nursing care has been diligent with offloading pressure ulcers on her heels and per discussion was enquiring about a wound care consult. Patient has systolic blood pressure in the low to mid 100 but without symptomatic orthostasis. Examination today she has normal heart sound no rales lower extremities does have pruning effect and reduced edema but clear evidence of venous stasis and lymphedema. 09/02: Patient had significant reduction in lower extremity edema no further orthopnea But had symptomatic orthostasis with steady walking to the bathroom and systolic dropping to the 70s BUN 37 creatinine 1.1 CO2 is 40 suggesting contraction alkalosis DC IV Lasix and start 20 mg q.12h PT INR 1.5 bridging with Lovenox today Echocardiogram demonstrates small left ventricular volume estimated right ventricular systolic pressure of at least 45 09/03: Patient has had no more episodes of orthostasis Is interested in rehab BUN creatinine elevated from yesterday we will continue to monitor 09/04: Patient was no longer symptomatic slight elevation of BUN creatinine to 43/1.28 furosemide has held Patient ready for discharge to rehab will need recheck of BUN creatinine daily and resumption of Lasix 20 mg b.i.d. when the creatinine starts to come back down Review of systems: No fever or chills No difficulty swallowing No chest pain palpitations No orthopnea shortness of breath No nausea vomiting diarrhea No paresthesia paresis Physical exam: Very pleasant elderly female appearing quite a bit younger than stated age HEENT unremarkable Neck too obese to assess for JVD Irregular rhythm Heart sounds distant no murmurs appreciated Lungs clear from apices to bases but lung sounds are distant due to obesity Abdomen is benign Extremities significantly improved edema Skin shows left heel with callus. Assessment and plan: Acute on chronic diastolic heart failure, with acute respiratory failure with hypoxia, POA, active -noncompliant with diuretic and antihypertensives. Hemodynamically improved while in hospital - management is approaching steady state anticipate another 24-48 hours with disposition plans for transfer to [facility] facility - See RVR management below. - echocardiogram pending, prior TTE in 2021 with EF 60-65%. Which is unchanged however patient has very small left ventricular chamber volume and at least 45 mm right ventricular systolic pressure -at rehab we will check BUN/creatinine daily until it drops to 25/1.3 and resume furosemide 20 mg twice daily Paroxysmal atrial fibrillation with rapid ventricular response. POA, Active - Restarted home diltiazem and metoprolol. - Diltiazem 360 mg daily, Toprol XL 50 mg increased to BID. -echocardiogram unremarkable - warfarin per pharmacy, INR 1.7 will bridge with Lovenox until at goal 2.0-3.0 LLE Cellulitis, POA, active - continue 1g q24 hr ceftriaxone and switch to p.o. antibiotics HTN, chronic -discontinued home enalapril and HCTZ in favor of rate control agents and p.o. furosemide for diuresis. LEATHA inhibitors are not indicated in diastolic dysfunction HLD, chronic - continue home statin Obesity / JUDIE, chronic - BMI 35 - intolerant of CPAP -The patient is at much higher risk for medical and surgical complications because of their obesity. This increases the difficulty and complexity of medical and surgical interventions and increases the chances of poor outcomes such as morbidity and mortality. Impaired mobility and ADLs - PT, OT, SS assessment - lives alone and has difficulty maintaining place livable -considering plans for transfer to nursing facility in 48-72 hours Asymptomatic bacteuria. POA - UA positive but patient without urinary symptoms. Any bacteuria or acute cystitis will likely be treated with antibiotics given for cellulitis. Elevated bilirubin - no abdominal pain, suspect congestive hepatopathy related to volume overload, continue to follow with diuresis. Consider RUQ US though CT on 08/11/24 was unremarkable. Code: Full, surrogate is patient's sister DVT: On warfarin Time-Based Coding :: 35 minutes spent with patient and on the chart (including review of chart, obtaining history, exam, reviewing outside data, placing orders, documenting exam and treatment plan, and counseling patient) on 09/04/2024. Discharge Providers Provider Date of admission: 08/30/24 22:53 Discharge Date: 09/04/24 Primary care physician: Elli Silverio MD Consults: 08/30/24 21:36 Consult to CONSOLE MANAGER - University Administrative Assistant Stat Comment: University Administrative Assistant Consult needed for:: Unable to care for self Comment: Patient lives alone in hoarding situation, unable to care for self, has no caregiver at home. Told this RN that she would be interested in SNF so that she could return home safely. 08/31/24 14:44 Consult to Occupational Therapy Evaluate & Treat Comment: Physician Instructions: Evaluate and treat Consult to Physical Therapy Evaluate & Treat Comment: Physician Instructions: Evaluate and Treat 09/01/24 15:55 Consult to Dietitian, Adult Urgent Comment: Reason For Exam: chronic wounds Consult to Wound Care Routine Comment: Wound to left heel [facility] Discharge provider: Aldo Cummings MD Exam Vital Signs (past 8 hours): - 09/04/24 00:00 09/04/24 04:00 Temperature 96.6 F L 96.7 F L Pulse Rate 81 63 Respiratory Rate 17 18 Blood Pressure 112/56 L 116/55 L Pulse Oximetry 94 94 Oxygen Flow Rate 0 0 Fraction of Inspired Oxygen 28 SaO2/FiO2 Ratio 335 Oxygen Delivery Method Room Air Oxygen Flow Rate 0 Objective Labs 09/04/24 04:00 09/03/24 04:20 Labs: Laboratory Results - last 24 hr 09/04/24 04:00 WBC 7.9 RBC 3.82 L Hgb 12.0 Hct 35.9 L MCV 93.9 MCH 31.5 MCHC 33.5 RDW 15.0 H Plt Count 351 Neut % (Auto) 49.7 L Lymph % (Auto) 29.5 [place] % (Auto) 13.4 Eos % (Auto) 5.7 H Baso % (Auto) 1.7 Neut # (Auto) 4000 Lymph # (Auto) 2300 [place] # (Auto) 1100 H Eos # (Auto) 500 H Baso # (Auto) 100 PT 17.6 H INR 1.6 H PFSH Medical History UJDIE (obstructive sleep apnea) Obesity Hyperlipidemia Hypertension Atrial fibrillation Surgical History History of appendectomy H/O: hysterectomy Social History household members: none Smoking Status: Former smoker Discharge Plan Discharge Plan Transfer to: [facility] Other facility: Acute rehab Under care of provider: professional development director Provider Discharge Comment: Daily basic metabolic profile and PT INR daily while at rehab facility Resume Lasix 20 mg twice daily when BUN is less than 30 and creatinine is less than 1.4 Bridge with Lovenox until PT INR 2.0-3.0 Discharge orders & Medications Discharge Orders: Discharge (Order); Ordered 09/04/24 Ordered By: Aldo Cummings Prescriptions: New warfarin [Jantoven] 1 mg Tablet 1 request miscellaneous NOW PRN (Reason: atrial fibrilation) 30 Days Qty: 30 3RF metoprolol succinate 50 mg Tablet Extended Release 24 Hr 50 mg PO BID 30 Days Qty: 60 0RF enoxaparin [Lovenox] 100 mg/mL Syringe 100 mg SUBCUT BID 4 Days Qty: 8 0RF Rx Instructions: Daily PT Twice daily bridging for warfarin until PT INR 2-3 ciprofloxacin HCl 250 mg Tablet 500 mg PO 0700,2100 4 Days Qty: 16 0RF Rx Instructions: One twice daily for 4 days BNP and PT INR daily See Rx Instructions .ROUTE .COMPLEX Qty: 1 0RF Rx Instructions: Daily BMP resume Lasix 20 mg p.o. b.i.d. when BUN less than 30 and creatinine less than 1.4 Daily PT INR: Continue bridging Lovenox with Coumadin until PT INR 2-3.0 Continued diltiazem HCl 360 MG capsule,extended release 24 hr 360 mg PO QDAY Qty: 0 simvastatin 40 mg tablet 20 mg PO DAILY warfarin 5 mg tablet 5 mg PO DAILY Rx Instructions: takes 5 mg daily except Sunday, takes 10 mg on \sunday furosemide 40 mg tablet 20 mg PO BID 30 Days Qty: 0 0RF Patient Comments: Does not take it because it makes her go the the bathroom a lot interfering with her activities Rx Instructions: Hold furosemide until BUN and creatinine less than 30/1.4 then resume 20 mg twice daily Discontinued metoprolol succinate 50 mg tablet extended release 24 hr 50 mg PO DAILY hydrochlorothiazide 50 mg tablet 25 mg PO DAILY enalapril maleate 20 mg tablet 5 mg PO DAILY Pharmacist Comment: at rehab we will check BUN/creatinine daily until it drops to 25/1.3 and resume furosemide 20 mg twice daily Follow up/Referrals: Elli Silverio MD [Primary Care Provider] - Diet/Activity/Treatments Diet: Low-sodium [facility] Rehab type: Physical therapy Discharge Data Primary Care Provider: Elli Silverio Quality VTE Deep Vein Thrombosis/Pulmonary Embolism Present on Admission: Yes
[2024-09-04] MEDS: dilTIAZem CD 180 MG CAP 360 MG PO (10:03)
[2024-09-04] MEDS: CIPROFLOXACIN 250 MG TABLET 500 MG PO ×2 (10:04→20:33)
[2024-09-04] MEDS: ENOXAPARIN 100 MG/ML SYRINGE SUBCUT ×2 (10:05→20:34)
[2024-09-04] MEDS: SODIUM CHLORIDE 0.9% FLUSH 10 ML IV ×2 (10:06→20:34)
--- NOTE | 2024-09-04 10:30 | PC.NURSE ---
Pt A&Ox4, tolerating breakfast. C/o discomfort on right PIV in AC. Erythema and purulent drainage visual at IV site. IV d/c'd, provider notified. Pt ambulated SBA w/ FWW to BR, reported dizziness, pt pale, diaphoretic. Assisted back to chair. BP 94/53, MAP 69 but pt symptomatic. Provider notified. Pt up to chair, call light within reach, curtain open. Care ongoing.
[2024-09-04] MEDS: SODIUM CHLORIDE 0.9% 500 ML 1000 ML IV (15:23)
--- NOTE | 2024-09-04 16:05 | PC.WOUNDPHOT ---
Right AC after removal of PIV.
[2024-09-04] MEDS: WARFARIN 5 MG TABLET PO (17:46)
[2024-09-04] MEDS: METOPROLOL ER 50 MG TABLET PO (20:33)
[2024-09-05 01:00] VITALS: BP 109/52; PULSE 80; RESP 18; TEMP 36.4; O2SAT 96
[2024-09-05 04:48] LABS: INR 1.6 (0.9-1.3); Prothrombin Time 17.5 SECONDS (9.4-12.5)
[2024-09-05 05:21] VITALS: BP 113/55; PULSE 70; RESP 18; O2SAT 96
--- NOTE | 2024-09-05 08:10 | PT-IP ANOTE ---
Physical Therapy was held on 09/04/24 since pt had a discharge order and plan was to discharge to SNF. Noted pt did not leave on 09/04/24 due to medical issues. Will continue to follow for therapy while she is hospitalized.
[2024-09-05] MEDS: ENOXAPARIN 100 MG/ML SYRINGE SUBCUT (08:44)
[2024-09-05] MEDS: dilTIAZem CD 180 MG CAP 360 MG PO (08:44)
[2024-09-05] MEDS: ATORVASTATIN 20 MG TABLET 10 MG PO (08:44)
[2024-09-05 08:47] VITALS: BP 109/53; PULSE 106
[2024-09-05] MEDS: METOPROLOL ER 50 MG TABLET PO (08:47)
[2024-09-05] MEDS: SODIUM CHLORIDE 0.9% FLUSH 10 ML IV (08:51)
[2024-09-05 09:00] VITALS: BP 109/53; PULSE 71; RESP 23; TEMP 36.4; O2SAT 96
--- NOTE | 2024-09-05 10:35 | PT.IPTN ---
Current Diagnoses Obesity, unspecified (08/30/24) Hyperlipidemia, unspecified (08/30/24) Obstructive sleep apnea (adult) (pediatric) (08/30/24) Essential (primary) hypertension (08/30/24) Unspecified atrial fibrillation (08/30/24) Heart failure, unspecified (08/30/24) Lymphedema, not elsewhere classified (08/30/24) Cellulitis of left lower limb (08/30/24) Pressure ulcer of left heel, stage 3 (08/30/24) Physical Therapy Treatment Note M2 PT-IP Current Condition Start: 09/01/24 10:39 Freq: NEEDED Status: Active Protocol: Document 09/01/24 10:16 MB (Rec: 09/01/24 11:05 MB [id number]) Physical Therapy Current Condition Current Condition Evaluation Date 09/01/24 Treatment Diagnosis SOB M3 PT-IP Subjective Start: 09/01/24 10:39 Freq: NEEDED Status: Active Protocol: Document 09/05/24 10:35 AB (Rec: 09/05/24 13:41 AB [id number]) Subjective Physical Therapy Visit Type Type Treatment Note Visit Start Time 10:35 Visit Stop Time 11:15 Number of JAVA JSF DEVELOPER Visits 0 Physical Therapy Visit Comments Patient Comments agreeable to do PT M4 PT-IP Mobility and Gait Start: 09/01/24 10:39 Freq: NEEDED Status: Active Protocol: Document 09/05/24 10:35 AB (Rec: 09/05/24 13:41 AB [id number]) PT-Bed Mobility Assessment Supine to Sit Supine to Sit Minimal Assistance,1 Person Assistance PT-Transfer Assessment Sit to and From Stand Sit to and from Stand Contact Guard Assistance,1 Person Assistance,Use of Upper Extremities Equipment Transfer Assistive Device Gait Belt,Front Wheeled Walker Transfers Transfer Destination Chair Transfer Technique Stand Step Pivot Comments Mobility Comments pt in bed and agreed to do PT. BP monitored. BP in supine: 110/53. pt ocmpleted supine to sit min A. able to sit on EOB SBA. BP initial sittin/51. pt sat for a few minutes. BP rechecked: 97/53. sit to stand CGA and step transfer to chair using FWW CGA. stated that she knows when BP is low when she feels tingly on BLE which is felt when she was standing. BP checked: 116/56. pt agreed to stand again to get BP in standing. sit to stand from chair: CGA. BP in standin/51. c/o slight chest pain . pt sat back on chair. BP rechecked: 118/55. no c/o chest pain. positioned pt on the chair. call light and table placed within reach. informed nurse regarding BP and chest pain. M5 PT-IP Objective Assessments Start: 09/01/24 10:39 Freq: NEEDED Status: Active Protocol: Document 09/01/24 10:16 MB (Rec: 09/01/24 11:05 MB [id number]) Orientation Orientation/Cognition Level of Alertness Alert Orientation Name,Age,Birthday,Month,Year, Day of Week,Place,Situation Safety Awareness Decreased Safety Awareness Memory Description No Deficits Noted Gross Range of Motion Upper Extremity ROM Impairments Defer to OT Lower Extremity ROM Assessment Bilaterally Impaired Impairments Left greater than right LE cellulitis, edema, redness and scabs, dried skin falling off with mobility Strength Lower Extremity Strength Assessment Bilaterally Impaired Comments Strength Comments Pt does not tolerate MMT and her strength is functional Coordination Assessment Gross Coordination Gross Coordination Impaired Sensation Assessment Sensation Sensation Description Hyperesthesia M6 PT-IP Treatment Start: 09/01/24 10:39 Freq: NEEDED Status: Active Protocol: Document 09/05/24 10:35 AB (Rec: 09/05/24 13:41 AB [id number]) Physical Therapy Treatment Education Education Provided Safety M7 PT-IP Assessment and Plan Start: 09/01/24 10:39 Freq: NEEDED Status: Active Protocol: Document 09/05/24 10:35 AB (Rec: 09/05/24 13:41 AB [id number]) PT Summary Assessment and Plan Potential Rehabilitation Potential Fair Summary Impairments Pain,ROM,Strength,Balance, Coordination,Sensation,Tone, Cognition,Bed Mobility, Transfers,Gait,Activity Tolerance Progress Towards Goals Slow Progress due to Medical Issues,Slow Progress due to Activity Tolerance Assessment Summary pt requiring CGA for transfers using fWW. ambulation not completed due to pt's c/o low BP. pt presents with drop in BP from 110/53 in supine tl 97 /53 in sitting. pt will require SNF rehab to improve overall strength and mobility . Goals Bed Mobility Goal Independent Transfer Goal Independent,Front Wheeled Walker,Four Wheeled Walker Gait Goal Independent,Front Wheel Walker ,Four Wheel Walker Gait Distance 100 Other Goals Pt will ascend and ascend one step with LRAD and no more than superv to allow safe home entrance. Days to Meet Goals 10 Frequency of Treatment Frequency Of Treatment Once a Day Treatment Plan Physical Therapy Treatment Plan Bed Mobility Training,Transfer Training,Gait Training, Therapeutic Exercise,Balance Retraining,Discharge Planning, Hot or Cold Pack,Neuromuscular Re-ed,Coordination Retraining ,Manual Therapy Precautions Other Precautions BP Recommendations To Nursing Amount of Assist Needed 1 Person Assist Discharge Recommendations PT Discharge Recommendations SNF Rehab Transportation Needs at Discharge Wheelchair/Cabulance - PT assist 1
--- NOTE | 2024-09-05 10:40 | PM.DS.1 ---
History of Present Illness History of Present Illness Date Patient Seen: 09/05/24 Time Patient Seen: 10:40 Chief complaint: shortness of breath Narrative: Date of admission 08/30/2024: Date of discharge 09/05/2024: Discharge diagnoses: Acute on chronic diastolic heart failure Acute respiratory failure with hypoxia Acute kidney injury new line cardiorenal syndrome Congestive hepatopathy Chief complaint: Painful leg swelling and redness and orthopnea secondary to acute on chronic diastolic congestive heart failure History of present illness: 79-year-old female with a history of chronic diastolic congestive heart failure chronic lower extremity edema with lymphedema noncompliant with diuretics due to inconvenience of frequent urination was admitted 48 hours prior with acute on chronic diastolic congestive heart failure. Patient has been diuresed with a frequent low dose of furosemide 40 mg q.8 hours. This has been effective with a brisk and consistent daily net negative INR and reduction of peripheral edema and improvement in her orthopnea and dyspnea. Hospital course: 09/01: Today patient is feeling much better but is still having quite a bit of edema nursing care has been diligent with offloading pressure ulcers on her heels and per discussion was enquiring about a wound care consult. Patient has systolic blood pressure in the low to mid 100 but without symptomatic orthostasis. Examination today she has normal heart sound no rales lower extremities does have pruning effect and reduced edema but clear evidence of venous stasis and lymphedema. 09/02: Patient had significant reduction in lower extremity edema no further orthopnea But had symptomatic orthostasis with steady walking to the bathroom and systolic dropping to the 70s BUN 37 creatinine 1.1 CO2 is 40 suggesting contraction alkalosis DC IV Lasix and start 20 mg q.12h PT INR 1.5 bridging with Lovenox today Echocardiogram demonstrates small left ventricular volume estimated right ventricular systolic pressure of at least 45 09/03: Patient has had no more episodes of orthostasis Is interested in rehab BUN creatinine elevated from yesterday we will continue to monitor 09/04: Patient was no longer symptomatic slight elevation of BUN creatinine to 43/1.28 furosemide has held Patient ready for discharge to rehab will need recheck of BUN creatinine daily and resumption of Lasix 20 mg b.i.d. when the creatinine starts to come back down 09/05: Orthostasis symptoms resolved and patient discharged Review of systems: No fever or chills No difficulty swallowing No chest pain palpitations No orthopnea shortness of breath No nausea vomiting diarrhea No paresthesia paresis Physical exam: Very pleasant elderly female appearing quite a bit younger than stated age HEENT unremarkable Neck too obese to assess for JVD Irregular rhythm Heart sounds distant no murmurs appreciated Lungs clear from apices to bases but lung sounds are distant due to obesity Abdomen is benign Extremities significantly improved edema Skin shows left heel with callus. Assessment and plan: Acute on chronic diastolic heart failure, with acute respiratory failure with hypoxia, POA, active -noncompliant with diuretic and antihypertensives. Hemodynamically improved while in hospital - management is approaching steady state anticipate another 24-48 hours with disposition plans for transfer to retirement facility - See RVR management below. - echocardiogram pending, prior TTE in 2021 with EF 60-65%. Which is unchanged however patient has very small left ventricular chamber volume and at least 45 mm right ventricular systolic pressure -at rehab we will check BUN/creatinine daily until it drops to 25/1.3 and resume furosemide 20 mg twice daily Paroxysmal atrial fibrillation with rapid ventricular response. POA, Active - Restarted home diltiazem and metoprolol. - Diltiazem 360 mg daily, Toprol XL 50 mg increased to BID. -echocardiogram unremarkable - warfarin per pharmacy, INR 1.7 will bridge with Lovenox until at goal 2.0-3.0 LLE Cellulitis, POA, active - continue 1g q24 hr ceftriaxone and switch to p.o. antibiotics HTN, chronic -discontinued home enalapril and HCTZ in favor of rate control agents and p.o. furosemide for diuresis. LEATHA inhibitors are not indicated in diastolic dysfunction HLD, chronic - continue home statin Obesity / JUDIE, chronic - BMI 35 - intolerant of CPAP -The patient is at much higher risk for medical and surgical complications because of their obesity. This increases the difficulty and complexity of medical and surgical interventions and increases the chances of poor outcomes such as morbidity and mortality. Impaired mobility and ADLs - PT, OT, SS assessment - lives alone and has difficulty maintaining place livable -considering plans for transfer to nursing facility in 48-72 hours Asymptomatic bacteuria. POA - UA positive but patient without urinary symptoms. Any bacteuria or acute cystitis will likely be treated with antibiotics given for cellulitis. Elevated bilirubin - no abdominal pain, suspect congestive hepatopathy related to volume overload, continue to follow with diuresis. Consider RUQ US though CT on 08/11/24 was unremarkable. Code: Full, surrogate is patient's sister DVT: On warfarin Time-Based Coding :: 35 minutes spent with patient and on the chart (including review of chart, obtaining history, exam, reviewing outside data, placing orders, documenting exam and treatment plan, and counseling patient) on 09/05/2024. Discharge Providers Provider Date of admission: 08/30/24 22:53 Discharge Date: 09/05/24 Primary care physician: Elli Silverio MD Consults: 08/30/24 21:[address] [facility] - Manual Lathe Machinist Stat Comment: Manual Lathe Machinist Consult needed for:: Unable to care for self Comment: Patient lives alone in hoarding situation, unable to care for self, has no caregiver at home. Told this RN that she would be interested in SNF so that she could return home safely. 08/31/24 14:44 Consult to Occupational Therapy Evaluate & Treat Comment: Physician Instructions: Evaluate and treat Consult to Physical Therapy Evaluate & Treat Comment: Physician Instructions: Evaluate and Treat 09/01/24 15:55 Consult to Dietitian, Adult Urgent Comment: Reason For Exam: chronic wounds Consult to Wound Care Routine Comment: Wound to left heel Consulting Provider: [facility] Discharge provider: Aldo Cummings MD Exam Vital Signs (past 8 hours): - 09/05/24 05:21 09/05/24 08:47 09/05/24 09:00 Temperature 97.6 F Pulse Rate 70 106 H 71 Respiratory Rate 18 23 Blood Pressure 113/55 L 109/53 L 109/53 L Pulse Oximetry 96 96 Oxygen Flow Rate 0 Fraction of Inspired Oxygen 28 SaO2/FiO2 Ratio 335 Oxygen Delivery Method Room Air Oxygen Flow Rate 0 Objective Labs 09/04/24 04:00 09/03/24 04:20 Labs: Laboratory Results - last 24 hr 09/05/24 03:52 PT 17.5 H INR 1.6 H PFSH Medical History JUDIE (obstructive sleep apnea) Obesity Hyperlipidemia Hypertension Atrial fibrillation Surgical History History of appendectomy H/O: hysterectomy Social History household members: none Smoking Status: Former smoker Discharge Plan Discharge Plan Patient Disposition: SNF Transfer to: [facility] Other facility: Acute rehab Under care of provider: director of content and programming Provider Discharge Comment: Daily basic metabolic profile and PT INR daily while at rehab facility Resume Lasix 20 mg twice daily when BUN is less than 30 and creatinine is less than 1.4 Bridge with Lovenox until PT INR 2.0-3.0 Discharge orders & Medications Prescriptions: New metoprolol succinate 50 mg Tablet Extended Release 24 Hr 50 mg PO BID 30 Days Qty: 60 0RF ciprofloxacin HCl 250 mg Tablet 500 mg PO 0700,2100 4 Days Qty: 16 0RF Rx Instructions: One twice daily for 4 days warfarin [Jantoven] 1 mg Tablet 1 request miscellaneous NOW PRN (Reason: atrial fibrilation) 30 Days Qty: 30 3RF enoxaparin [Lovenox] 100 mg/mL Syringe 100 mg SUBCUT BID 4 Days Qty: 8 0RF Rx Instructions: Daily PT Twice daily bridging for warfarin until PT INR 2-3 BNP and PT INR daily See Rx Instructions .ROUTE .COMPLEX Qty: 1 0RF Rx Instructions: Daily BMP resume Lasix 20 mg p.o. b.i.d. when BUN less than 30 and creatinine less than 1.4 Daily PT INR: Continue bridging Lovenox with Coumadin until PT INR 2-3.0 Continued diltiazem HCl 360 MG capsule,extended release 24 hr 360 mg PO QDAY Qty: 0 simvastatin 40 mg tablet 20 mg PO DAILY furosemide 40 mg tablet 20 mg PO BID 30 Days Qty: 0 0RF Patient Comments: Does not take it because it makes her go the the bathroom a lot interfering with her activities Rx Instructions: Hold furosemide until BUN and creatinine less than 30/1.4 then resume 20 mg twice daily warfarin 5 mg tablet 5 mg PO DAILY Rx Instructions: takes 5 mg daily except Sunday, takes 10 mg on \sunday Discontinued metoprolol succinate 50 mg tablet extended release 24 hr 50 mg PO DAILY hydrochlorothiazide 50 mg tablet 25 mg PO DAILY enalapril maleate 20 mg tablet 5 mg PO DAILY Pharmacist Comment: at rehab we will check BUN/creatinine daily until it drops to 25/1.3 and resume furosemide 20 mg twice daily Follow up/Referrals: Elli Silverio MD [Primary Care Provider] - Diet/Activity/Treatments Diet: Low-sodium [facility] Rehab type: Physical therapy Visit Report/Discharge Packet Stand Alone Forms: Patient Portal/API Discharge Data Primary Care Provider: Elli Silverio Quality VTE Deep Vein Thrombosis/Pulmonary Embolism Present on Admission: Yes
[2024-09-05] MEDS: CIPROFLOXACIN 250 MG TABLET 500 MG PO (11:38)
--- NOTE | 2024-09-05 13:11 | OT.IPNOTE ---
Pt going to skilled rehab today.
--- NOTE | 2024-09-05 14:08 | CM.DPC ---
[facility] called regarding this patient and said they were able to pick the patient up at 1:30 today. I discussed this with the patient, she was in approval of going today at the specified time. Orders, PASSR, and DC summary all faxed to [facility]. Nursing care team notified that the patient will be picked up by [facility] around 1:30 today.
--- NOTE | 2024-09-05 14:10 | PC.NURSE ---
Pt agreeable to discharge. Able to ambulate to the SBA w/ FWW. IV d/c'd. [facility] Pt wheeled via facility wheelchair to facility vehicle with facility mill representative at approximately 1405.
--- NOTE | 2024-09-05 14:11 | CM.DPC ---
Olive called from [facility] regarding this patient's active medication list. she wanted to know if Simvastatin is to be given at 20mg or 40mg once a day. I reviewed DC summary and home med list and told Olive this med is ordered at 20mg once a day. Olive said she would set up that medication dose accordingly. Olive phone: [phone]
== END 2024-09-05 14:05 | DRG 291 ==
LOC: ED 22:49 → AC 22:53 → ICU 23:16
PROVIDERS: Internal Medicine; Admitting Provider Internal Medicine; Emergency Provider Emergency Medicine; Family Provider Internal Medicine; PCP Internal Medicine; Referring Provider Emergency Medicine; Visit Provider Internal Medicine
DX: I13.0 Hypertensive heart and chronic kidney disease with heart failure and stage 1 through stage 4 chronic kidney disease, or unspecified chronic kidney disease (principal); I50.33 Acute on chronic diastolic (congestive) heart failure; J96.01 Acute respiratory failure with hypoxia; L89.623 Pressure ulcer of left heel, stage 3; L03.116 Cellulitis of left lower limb; E66.9 Obesity, unspecified; E78.5 Hyperlipidemia, unspecified; G47.33 Obstructive sleep apnea (adult) (pediatric); I48.0 Paroxysmal atrial fibrillation; E80.6 Other disorders of bilirubin metabolism; R82.71 Bacteriuria; T50.2X6A Underdosing of carbonic-anhydrase inhibitors, benzothiadiazides and other diuretics, initial encounter; I89.0 Lymphedema, not elsewhere classified; T50.996A Underdosing of other drugs, medicaments and biological substances, initial encounter; N18.9 Chronic kidney disease, unspecified; K76.1 Chronic passive congestion of liver; Z79.01 Long term (current) use of anticoagulants; Z74.09 Other reduced mobility; Z87.891 Personal history of nicotine dependence; Z68.35 Body mass index [BMI] 35.0-35.9, adult; Z91.148 Patient's other noncompliance with medication regimen for other reason
CPT/HCPCS: 0241U; 36415; 71045; 80048; 80053; 80076; 81001; 82550; 83605; 83690; 83735; 83880; 84484; 85025; 85610; 85730; 87040; 87077; 87086; 87186; 87797; 93005; 93306; 94762; 96365; 96375; 97116; 97129; 97130; 97162; 97166; 97530; 97535; 99285; J0696; J1650; J1940

== ENCOUNTER 2024-09-09 01:05 | Emergency (ER) | payer MEDICARE, OTHER, SELFPAY ==
[2024-08-31 00:17] VITALS: BMI 36.4
[2024-09-09] VITALS (19 sets, daily range): BP systolic 96–144; BP diastolic 51–69; PULSE 67–80; RESP 14–23; TEMP 36.2–36.7; O2SAT 91–97; BMI 35.0
--- NOTE | 2024-09-09 01:06 | DI.RAD.S_ITS ---
PROCEDURE: XR CHEST 1V INDICATIONS: chest pain TECHNIQUE: One view of the chest was acquired. COMPARISON: [facility], CR, XR CHEST 1V, 08/30/2024, 19:45. FINDINGS: Surgical changes and devices: None. Lungs and pleura: Lungs are clear. No pleural effusions or pneumothorax. Mediastinum: Mediastinal contours appear normal. Heart size is normal. Bones and chest wall: No suspicious bony lesions. Overlying soft tissues appear unremarkable. IMPRESSION: No acute cardiopulmonary abnormalities or focal consolidation. Previously seen small bilateral pleural effusions not appreciated on this exam. Dictated by: Alfred Grimaldo M.D. on 09/09/2024 at 1:38 Approved by: Alfred Grimaldo M.D. on 09/09/2024 at 1:38
--- NOTE | 2024-09-09 01:12 | EKG_ITS ---
[facility] [address] [place] [id number] Test Date: 2024-09-09 Pat Name: Ho Hilliard Department: [facility] Room: Gender: Female Nail Expert: DENNIS : 1945 Requested By: Order Number: [id number] Reading MD: Bautista Correa MD Measurements Intervals [place] Rate: 77 P: HI: QRS: 72 QRSD: 72 T: 37 QT: 402 QTc: 454 Interpretive Statements Atrial fibrillation Low voltage QRS Cannot rule out Anterior infarct , age undetermined NO SIGNIFICANT CHANGE FROM PRIOR TRACING Electronically Signed On 09-09-2024 7:45:01 PDT by Bautista Correa MD
--- NOTE | 2024-09-09 01:18 | ED.CHESTPAIN ---
HPI - Chest Pain General Chief Complaint: Chest Pain Stated Complaint: Chest pressure Time Seen by Provider: 09/09/24 01:06 Source: patient, EMS, RN notes reviewed and old records reviewed Mode of arrival: EMS Limitations: no limitations Limitations: no limitations History of Present Illness HPI narrative: 79-year-old female history of hypertension, dyslipidemia, JUDIE, bilateral lower extremity edema/CHF, atrial fibrillation on warfarin patient presents from sound view states that she had chest discomfort that woke her up from sleep. She describes it as substernal did radiate a little to her back. Has resolved. She describes it as pressure. Without any other radiation. No diaphoresis. She felt short of breath initially but that is resolved. She felt itchy. She denies any nausea or vomiting. She denies any cough or orthopnea. No cold cough or congestion symptoms. She was chronic lower extremity edema but states her swelling is much better than it used to be. No abdominal back or flank pain otherwise. No issues with bowel movements. She was got some chronic urinary incontinence. She notes that has a recently been adjusting her enalapril. She notes her INR is elevated at 7 most recently was 1.2 independently little bit trouble adjusting her dosage. Related Data Home Medications Medication Instructions Recorded Confirmed diltiazem HCl 360 mg capsule,24 360 mg PO QDAY ##0 09/04/16 08/31/24 hr,extended release simvastatin 40 mg tablet 20 mg PO DAILY 03/15/21 08/31/24 warfarin 5 mg tablet 5 mg PO DAILY 11/30/21 08/31/24 Previous Rx's Medication Instructions Recorded furosemide 40 mg tablet 20 mg (1/2 x 40 mg) PO BID 30 days 09/04/24 #0 tabs metoprolol succinate 50 mg 50 mg PO BID 30 days #60 tabs 09/04/24 tablet,extended release 24 hr warfarin 1 mg tablet (Jantoven) 1 request miscellaneous NOW PRN 09/04/24 atrial fibrilation 30 days #30 tabs Allergies Allergy/AdvReac Type Severity Reaction Status Date / Time pneumococcal vaccine AdvReac Unknown Verified 08/11/24 13:46 Review of Systems Review of Systems ROS Unobtainable: All systems reviewed & are unremarkable except as noted in HPI and below Patient History Medical History JUDIE (obstructive sleep apnea) Obesity Hyperlipidemia Hypertension Atrial fibrillation Surgical History History of appendectomy H/O: hysterectomy Social History household members: none Smoking Status: Former smoker Smoking Status: Former smoker alcohol intake frequency: holidays/special occasions only Exam Narrative Exam Narrative: GENERAL: Alert and oriented x three, no acute distress, no diaphoresis. HEENT: Head normocephalic, atraumatic, EOMI, pupils reactive, face symmetric, moist mucous membranes NECK: Supple, full range of motion CARDIOVASCULAR: Irregularly irregular rate and rhythm without murmurs, rubs or gallops. No JVD. Patient has chronic venous stasis changes with bilateral lower extremity edema. RESPIRATORY: Breath sounds equal bilaterally, no wheezes rales or rhonchi. No tachypnea or accessory muscle use. Patient's speaks in full sentences ABDOMEN: Soft, nontender. Normoactive bowel sounds all 4 quadrants. No guarding or rebound, rigidity, no mass : No CVA tenderness EXTREMITIES: Normal range of motion. Neurovascularly intact NEUROLOGICAL: Cranial nerves II through XII grossly intact. Moving all extremities SKIN: Warm, dry, no petechiae. Initial Vital Signs Initial Vital Signs: Vital Signs Pulse Rate 75 09/09/24 01:07 Pulse Oximetry 93 09/09/24 01:07 Course Orders Ordered: ED Orders 09/09/24 01:06 XR chest 1V Stat EKG-12 Lead Stat 09/09/24 01:10 Complete Blood Count AUTO DIFF Stat Comprehensive Metabolic Panel Stat Lipase Stat Magnesium Stat NT-proBNP (BNP-Adult 18+) Stat PTT Partial Thromboplastin Ovidio Stat Prothrombin Time INR Stat Troponin & CK Cardiac Panel Stat 09/09/24 03:08 Trop I [Troponin I] Stat Discontinued Medications Aspirin (Aspirin 81 Mg Chew Tab) 324 mg PO NOW ONE Stop: 09/09/24 01:07 Last Admin: 09/09/24 02:12 Dose: 324 mg Documented By: CLINT Vital Signs Vital signs: Vital Signs - 8 hr 09/09/24 01:07 09/09/24 01:08 09/09/24 01:08 Temperature Pulse Rate 75 76 Respiratory Rate Blood Pressure 144/69 H Pulse Oximetry 93 97 Oxygen Delivery Method 09/09/24 01:10 09/09/24 01:30 09/09/24 01:31 Temperature 97.2 F L Pulse Rate 78 78 80 Respiratory Rate 20 15 16 Blood Pressure 144/69 H Pulse Oximetry 97 95 95 Oxygen Delivery Method Room Air 09/09/24 01:31 09/09/24 02:00 09/09/24 02:00 Temperature Pulse Rate 75 Respiratory Rate 16 Blood Pressure 126/63 118/58 L Pulse Oximetry 96 Oxygen Delivery Method 09/09/24 02:30 09/09/24 02:30 09/09/24 03:00 Temperature Pulse Rate 74 78 Respiratory Rate 15 17 Blood Pressure 134/60 Pulse Oximetry 95 97 Oxygen Delivery Method 09/09/24 03:00 09/09/24 03:30 09/09/24 03:30 Temperature Pulse Rate 75 Respiratory Rate 16 Blood Pressure 117/61 109/55 L Pulse Oximetry 96 Oxygen Delivery Method 09/09/24 04:00 09/09/24 04:00 09/09/24 04:30 Temperature Pulse Rate 71 74 Respiratory Rate 14 15 Blood Pressure 115/56 L Pulse Oximetry 96 95 Oxygen Delivery Method 09/09/24 04:30 09/09/24 05:00 09/09/24 05:00 Temperature Pulse Rate 71 Respiratory Rate 16 Blood Pressure 96/51 L 102/51 L Pulse Oximetry 95 Oxygen Delivery Method 09/09/24 05:30 09/09/24 05:30 09/09/24 06:00 Temperature Pulse Rate 75 78 Respiratory Rate 15 17 Blood Pressure 111/53 L Pulse Oximetry 95 96 Oxygen Delivery Method 09/09/24 06:00 09/09/24 06:30 09/09/24 06:31 Temperature Pulse Rate 75 Respiratory Rate 15 Blood Pressure 113/53 L 140/61 Pulse Oximetry 91 Oxygen Delivery Method 09/09/24 06:31 Temperature Pulse Rate 76 Respiratory Rate 18 Blood Pressure Pulse Oximetry 95 Oxygen Delivery Method MDM - Chest Pain Lab Data 09/09/24 01:10 09/09/24 01:10 Labs: Lab Results 09/09/24 09/09/24 Range/Units 01:10 03:08 WBC 7.6 (4.5-11.0) X10^3/uL RBC 4.03 (4.0-5.2) X10^6/uL Hgb 12.7 (12.0-16.0) g/dL Hct 38.1 (36-46) % MCV 94.4 (80-100) fL MCH 31.6 (26-34) PG MCHC 33.5 (30-36) % RDW 15.7 H (11.6-14.8) % Plt Count 316 (150-400) X10^3/uL Neut % (Auto) 49.3 L (50-75) % Lymph % (Auto) 34.2 (25-40) % [place] % (Auto) 11.6 (3-14) % Eos % (Auto) 3.7 (2-4) % Baso % (Auto) 1.2 (0-2) % Neut # (Auto) 3700 (7932-8679) /uL Lymph # (Auto) 2600 (6095-9211) /uL [place] # (Auto) 900 (0-900) /uL Eos # (Auto) 300 (0-450) /uL Baso # (Auto) 100 (0-100) /uL PT 14.6 H (9.4-12.5) SECONDS INR 1.3 (0.9-1.3) APTT 54 H (25.1-36.5) SECONDS Sodium 139 (137-145) mmol/L Potassium 3.8 (3.4-5.1) mmol/L Chloride 101 (98-107) mmol/L Carbon Dioxide 30 (22-32) mmol/L BUN 31 H (7-17) mg/dL Creatinine 1.06 H (0.52-1.04) mg/dL Estimated GFR 53 L (>60) mL/min BUN/Creatinine Ratio 29.2 H (6-22) Glucose 102 (80-110) mg/dL Calcium 9.5 (8.4-10.2) mg/dL Magnesium 2.0 (1.6-2.3) mg/dL Total Bilirubin 0.7 (0.2-1.3) mg/dL AST 70 H (14-36) IU/L ALT 58 H (<35) IU/L Alkaline Phosphatase 97 (38-126) U/L Total Creatine Kinase 32 (30-135) U/L Troponin I < 0.012 < 0.012 (0.01-0.034) ng/mL NT-Pro-B Natriuret Pep 760 H (<450) pg/mL Total Protein 7.3 (6.3-8.2) g/dL Albumin 4.0 (3.5-5.0) g/dL Globulin 3.3 (1.7-4.1) g/dL Albumin/Globulin Ratio 1.2 (1.0-2.8) Lipase 298 D (23-300) U/L ECG Data Attestation: I personally reviewed and interpreted this ECG as follows: Prior ECG tracings: available for review Interpretation: Atrial fibrillation rate of 77 QRS is 72 QTC of 454, no acute ST elevation or depression. Patient has prior EKG from 08/30/2024 also shows atrial fibrillation no significant ST changes appreciated. EKG 2., atrial fibrillation rate of 72 QRS is 70 QTC of 475, no acute ST elevation depression noted. No dynamic changes. MDM Narrative Medical decision making narrative: EKG shows AFib no acute ST changes. Repeat EKG no dynamic changes. Labs normal CBC, INR 1.3 creatinine 1.06 BUN 31 otherwise normal electrolytes glucose of 102 AST ALT are slightly elevated at 70 58 but normal bilirubin lipase of 2982 BNP 760 today much improved from prior which was 5000 range on August 302024 with a troponin less than 0.012. Repeat troponin less than 0.012. Chest x-ray shows no acute cardiopulmonary change or focal consolidation previously seen small bilateral pleural effusions not appreciated on exam today. Patient has a echo on 08/30/2024 was not atrial fibrillation with a rate between 94 and 149 normal ejection fraction 60 65% normal right ventricle mild tricuspid regurg [id number] left pleural effusion, new pleural effusion. No pericardial effusion. Patient continues to feel improved. Discharge Plan Departure Patient Disposition: Home Clinical Impression: Chest pain Instructions: DI for Chest Pain Activity Restrictions/Additional Instructions: Follow up for recheck. Your INR is 1.3 today please take an additional dose of warfarin today and have your level rechecked in the next 24-48 hours. Please return for new or worsening symptoms, severe chest pain, shortness of breath, lightheadedness or passing out, worsening swelling in extremities, coughing up blood, persistent vomiting or other new concerning changes. Prescriptions: No Action diltiazem HCl 360 MG capsule,extended release 24 hr 360 mg PO QDAY Qty: 0 simvastatin 40 mg tablet 20 mg PO DAILY metoprolol succinate 50 mg Tablet Extended Release 24 Hr 50 mg PO BID 30 Days Qty: 60 0RF warfarin [Juntoven] 1 mg Tablet 1 request miscellaneous NOW PRN (Reason: atrial fibrilation) 30 Days Qty: 30 3RF furosemide 40 mg tablet 20 mg PO BID 30 Days Qty: 0 0RF Patient Comments: Does not take it because it makes her go the the bathroom a lot interfering with her activities Rx Instructions: Hold furosemide until BUN and creatinine less than 30/1.4 then resume 20 mg twice daily warfarin 5 mg tablet 5 mg PO DAILY Rx Instructions: takes 5 mg daily except Sunday, takes 10 mg on \sunday Referrals: Elli Silverio MD [Primary Care Provider] - Stand Alone Forms: Patient Portal/API/Survey
[2024-09-09 01:28] LABS: Add Manual Diff / Slide Review NO; Basophils Absolute Auto 100 /uL (0-100); Basophils Percent Auto 1.2 % (0-2); Eosinophils Absolute Auto 300 /uL (0-450); Eosinophils Percent Auto 3.7 % (2-4); Hematocrit 38.1 % (36-46); Hemoglobin 12.7 g/dL (12.0-16.0); Lymphocytes Absolute Auto 2600 /uL (1100-4500); Lymphocytes Percent Auto 34.2 % (25-40); Mean Corpuscular HGB Conc 33.5 % (30-36); Mean Corpuscular Hemoglobin 31.6 PG (26-34); Mean Corpuscular Volume 94.4 fL (80-100); Monocytes Absolute Auto 900 /uL (0-900); Monocytes Percent Auto 11.6 % (3-14); Neutrophils Absolute Auto 3700 /uL (1500-7000); Neutrophils Percent Auto 49.3 % (50-75); Platelet Count 316 X10^3/uL (150-400); Red Blood Cell Count 4.03 X10^6/uL (4.0-5.2); Red Cell Distribution Width 15.7 % (11.6-14.8); White Blood Cell Count 7.6 X10^3/uL (4.5-11.0)
[2024-09-09 01:30] LABS: INR 1.3 (0.9-1.3); Prothrombin Time 14.6 SECONDS (9.4-12.5)
[2024-09-09 01:33] LABS: PTT Partial Thromboplastin Tim 54 SECONDS (25.1-36.5)
[2024-09-09 01:34] LABS: Alanine Aminotransferase 58 IU/L (<35); Albumin Globulin Ratio 1.2 (1.0-2.8); Alkaline Phosphatase 97 U/L (38-126); Aspartate Aminotransferase 70 IU/L (14-36); BUN Creatinine Ratio 29.2 (6-22); Bilirubin Total 0.7 mg/dL (0.2-1.3); Blood Urea Nitrogen 31 mg/dL (7-17); Calcium 9.5 mg/dL (8.4-10.2); Carbon Dioxide 30 mmol/L (22-32); Chloride 101 mmol/L (98-107); Creatine Kinase 32 U/L (30-135); Estimated Glomerular Filt Rate 53 mL/min (>60); Globulin 3.3 g/dL (1.7-4.1); Glucose 102 mg/dL (80-110); HEMOLYSIS < 15 (0-50); Lipase 298 U/L (23-300); Potassium 3.8 mmol/L (3.4-5.1); Sodium 139 mmol/L (137-145); Total Protein 7.3 g/dL (6.3-8.2)
[2024-09-09 01:45] LABS: NT-proBNP (BNP-Adult 18+) 760 pg/mL (<450); Troponin I < 0.012 ng/mL (0.01-0.034)
[2024-09-09] MEDS: ASPIRIN 81 MG CHEW TAB 324 MG PO (02:12)
--- NOTE | 2024-09-09 03:18 | EKG_ITS ---
[address] [address] Test Date: 2024-09-09 Pat Name: Ho Hilliard Department: Room: Gender: Female Image Processing Engineer: : 1945 Requested By: Order Number: [id number] Reading MD: Bautista Correa MD Measurements Intervals [place] Rate: 72 P: [place]: QRS: 53 QRSD: 70 T: 40 QT: 434 QTc: 475 Interpretive Statements Atrial fibrillation Low voltage QRS Cannot rule out Anterior infarct , age undetermined NO SIGNIFICANT CHANGE FROM PRIOR TRACING Electronically Signed On 09-09-2024 7:45:07 PDT by Bautista Correa MD
[2024-09-09 03:36] LABS: Troponin I < 0.012 ng/mL (0.01-0.034)
--- NOTE | 2024-09-09 04:00 | PC.NURSE ---
called [facility] to arrange a ride home for the pt. was instructed to call back about 0630 and ask for Dorota or Bhanu and they can arrange with the transport van to have the pt picked up. pt updated on plan of care
--- NOTE | 2024-09-09 07:16 | PC.NURSE ---
Attempted to call [facility] rehab x 3 without reaching staff. Message left.
--- NOTE | 2024-09-09 07:54 | PC.NURSE ---
Reassessed; no change. Pt remains free of chest pain. Pt alert and oriented. Respirations regular and unlabored
== END 2024-09-09 07:56 | disposition home or self-care (01) ==
PROVIDERS: Emergency Provider Emergency Medicine; Family Provider Internal Medicine; PCP Internal Medicine
DX: R07.9 Chest pain, unspecified (principal); I48.91 Unspecified atrial fibrillation; I10 Essential (primary) hypertension; Z79.01 Long term (current) use of anticoagulants; Z86.79 Personal history of other diseases of the circulatory system; Z87.891 Personal history of nicotine dependence
CPT/HCPCS: 36415; 71045; 80053; 82550; 83690; 83735; 83880; 84484; 85025; 85610; 85730; 93005; 93010; 99284

== ENCOUNTER → 2024-10-01 11:40 | Outpatient (CLI) | payer MEDICARE, OTHER, SELFPAY ==
[2021-11-30 16:00] VITALS: BMI 39.7
[2024-08-31 00:17] VITALS: BMI 36.4
--- NOTE | 2024-10-01 11:42 | DI.RAD.S_ITS ---
PROCEDURE: XR DEXA AXIAL SKELETON INDICATIONS: SCREENING FOR OSTEOPOROSIS COMPARISON: None. FINDINGS: Lumbar Spine: Bone mineral density 1.254 g/cm2, T score 1.9. Left Femoral Neck: Bone mineral density 0.699 g/cm2, T score -1.3. Left Hip: Bone mineral density 0.843 g/cm2, T score -0.8. Fracture Risk Calculation (when applicable): 10-year fracture risk of a major osteoporotic fracture 12 percent and of a hip fracture 2.6 percent. (T score greater or equal to -1.0 to: NORMAL) (T score from -1.1 to -2.4: OSTEOPENIA) (T score less than or equal to -2.5: OSTEOPOROSIS) IMPRESSION: Osteopenia with increased risk of fracture. Follow-up guidelines as follows: Osteoporosis: Consider a repeat DEXA and Vertebral Fracture Assessment (VFA) exam in 2 years or sooner if medically necessary, to reassess this patient's status. Osteopenia: Consider a repeat DEXA in 2-3 years to reassess this patient's status, or if there is a new clinical indication. Normal: Consider a repeat DEXA in 5 years or sooner, or if there is a new clinical indication. All treatment decisions require clinical judgment and consideration of individual patient factors, including patient preferences, comorbidities, previous drug use, risk factors not captured in the FRAX model (e.g., frailty, falls, vitamin D deficiency, increased bone turnover, interval significant decline in bone density ) and possible under- or over-estimation of fracture risk by FRAX. In addition, the NOF Guide recommends that FDA-approved medical therapies be considered in postmenopausal women and men age >= 50 years with a: * Hip or vertebral (clinical or morphometric) fracture * T-score of <=-2.5 at the spine or hip * Ten-year fracture probability by FRAX of >= 3% for hip fracture or >=20% for major osteoporotic fracture. Dictated by: Guilherme Sykes M.D. on 10/01/2024 at 15:44 Approved by: Guilherme Sykes M.D. on 10/01/2024 at 15:50
== END ==
LOC: RAD 11:41
PROVIDERS: Family Provider Internal Medicine; PCP Internal Medicine; Referring Provider Internal Medicine; Visit Provider Internal Medicine
DX: M85.852 Other specified disorders of bone density and structure, left thigh (principal); Z78.0 Asymptomatic menopausal state
CPT/HCPCS: 77080

== ENCOUNTER 2024-10-07 11:20 | Emergency (ER) | payer MEDICARE, OTHER, SELFPAY ==
[2024-08-31 00:17] VITALS: BMI 36.4
[2024-10-07] VITALS (16 sets, daily range): BP systolic 89–133; BP diastolic 42–75; PULSE 60–93; RESP 16–20; TEMP 36.4; O2SAT 96–100; BMI 34.3
--- NOTE | 2024-10-07 | DI.RAD.S_ITS ---
PROCEDURE: XR CHEST 1V INDICATIONS: shortness of breath TECHNIQUE: One view of the chest was acquired. COMPARISON: [facility], KASSY, XR CHEST 1V, 09/09/2024, 1:05. [facility], CR, XR CHEST 1V, 08/30/2024, 19:45. FINDINGS: Surgical changes and devices: None. Lungs and pleura: Lungs are clear. No pleural effusions or pneumothorax. Mediastinum: Mediastinal contours appear normal. Heart size is normal. Bones and chest wall: No suspicious bony lesions. Overlying soft tissues appear unremarkable. IMPRESSION: No acute cardiopulmonary abnormality is seen. Approved by: Manpreet Adams M.D. on 10/07/2024 at 19:46
--- NOTE | 2024-10-07 12:41 | EKG_ITS ---
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
[2024-10-07 12:44] LABS: Add Manual Diff / Slide Review NO; Basophils Absolute Auto 0 /uL (0-100); Basophils Percent Auto 0.3 % (0-2); Eosinophils Absolute Auto 100 /uL (0-450); Eosinophils Percent Auto 0.9 % (2-4); Hematocrit 36.3 % (36-46); Hemoglobin 12.1 g/dL (12.0-16.0); Lymphocytes Absolute Auto 900 /uL (1100-4500); Lymphocytes Percent Auto 9.8 % (25-40); Mean Corpuscular HGB Conc 33.2 % (30-36); Mean Corpuscular Hemoglobin 31.4 PG (26-34); Mean Corpuscular Volume 94.5 fL (80-100); Monocytes Absolute Auto 700 /uL (0-900); Monocytes Percent Auto 7.2 % (3-14); Neutrophils Absolute Auto 7600 /uL (1500-7000); Neutrophils Percent Auto 81.8 % (50-75); Platelet Count 401 X10^3/uL (150-400); Red Blood Cell Count 3.85 X10^6/uL (4.0-5.2); Red Cell Distribution Width 16.5 % (11.6-14.8); White Blood Cell Count 9.3 X10^3/uL (4.5-11.0)
[2024-10-07 12:55] LABS: Alanine Aminotransferase 20 IU/L (<35); Albumin 4.2 g/dL (3.5-5.0); Albumin Globulin Ratio 1.2 (1.0-2.8); Alkaline Phosphatase 99 U/L (38-126); Aspartate Aminotransferase 29 IU/L (14-36); BUN Creatinine Ratio 19.1 (6-22); Bilirubin Total 0.7 mg/dL (0.2-1.3); Blood Urea Nitrogen 74 mg/dL (7-17); Calcium 9.3 mg/dL (8.4-10.2); Carbon Dioxide 25 mmol/L (22-32); Chloride 103 mmol/L (98-107); Estimated Glomerular Filt Rate 11 mL/min (>60); Globulin 3.5 g/dL (1.7-4.1); Glucose 122 mg/dL (70-99); HEMOLYSIS < 15 (0-50); Lipase 288 U/L (23-300); Potassium 4.1 mmol/L (3.4-5.1); Sodium 139 mmol/L (137-145); Total Protein 7.7 g/dL (6.3-8.2)
--- NOTE | 2024-10-07 13:14 | DI.CT.S_ITS ---
PROCEDURE: CT KIDNEY URETER BLADDER (KUB) INDICATIONS: elevated creatinine TECHNIQUE: Axial sections were acquired from the lung bases to the pubic symphysis. Coronal and sagittal reformats were performed. For radiation dose reduction, the following was used: automated exposure control, adjustment of mA and/or kV according to patient size. COMPARISON: [facility], CT, CT KIDNEY URETER BLADDER (KUB), 08/11/2024, 17:55. FINDINGS: Image quality: Diagnostic. Lower Chest: Lung bases are clear. Heart is enlarged. Coronary artery calcifications. URINARY: Right Kidney: No stones or hydronephrosis. Right Ureter: No hydroureter. Left Kidney: No stones or hydronephrosis. Left Ureter: No hydroureter. Bladder: Normal wall thickness. No stones. ABDOMEN: Liver: No contour-deforming solid mass. Gallbladder: No radiopaque gallstones or wall thickening. Biliary ducts: No biliary dilation. Pancreas: No ductal dilation. Spleen: Size is within normal limits. Adrenal Glands: Stable nodularity of the left adrenal gland. Stomach and Bowel: Normal colonic caliber, without significant wall thickening. Diverticulosis without evidence of acute diverticulitis. Peritoneum: No abnormal intraperitoneal fluid. No free air. Ventral Wall: No hernia. Subcutaneous nodularity and stranding within the lower anterior abdominal wall. Abdominal Nodes: No enlarged retroperitoneal or mesenteric lymph nodes. Vessels: Aorta and inferior vena cava are normal in size. Atherosclerotic vascular calcifications. PELVIS: Pelvic Organs: Right ovarian simple appearing cyst measuring 2 cm is stable compared to prior.. Pelvic Nodes: Unremarkable. Miscellaneous: No inguinal hernias are seen. Bones: Multilevel degenerative changes of the spine. IMPRESSION: 1. No acute findings within the abdomen or pelvis. 2. Subcutaneous nodularity and stranding within the lower anterior abdominal wall is new compared to prior. Correlate with injections in this region. 3. Diverticulosis without evidence of acute diverticulitis. 4. Stable 2 cm right ovarian simple appearing cyst. Given age, recommend nonurgent ultrasound follow-up. Dictated by: Dalton Monahan M.D. on 10/07/2024 at 13:57 Approved by: Dalton Monahan M.D. on 10/07/2024 at 14:02
--- NOTE | 2024-10-07 14:08 | EKG_ITS ---
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
--- NOTE | 2024-10-07 14:18 | ED_ITS ---
HPI - Recheck/Abnormal Lab/Rx <Maddie Olsen, DO - Last Filed: 10/12/24 07:07> General Chief Complaint: Recheck/Abnormal Lab/Rx Stated Complaint: sent from PCP for high lab results Time Seen by Provider: 10/07/24 12:29 Source: patient, RN notes reviewed and old records reviewed Mode of arrival: Wheelchair Limitations: no limitations History of Present Illness HPI narrative: 79-year-old female history of hypertension, dyslipidemia, JUDIE, bilateral lower extremity edema/CHF, AFib on warfarin presents for elevated creatinine. Patient had outpatient labs yesterday which showed an increase in her creatinine and was sent to the emergency department. Patient presents with concern for elevated creatinine, states no fevers or chills, no chest pain she states she was got chronic shortness of breath. Has had nausea but no vomiting. States she has been having diarrhea recently sometimes several times. She was noted decrease in urine output. She notes she only urinated 3 times on Sunday and only twice on Sunday. States she normally urinates quite frequently particularly with her diuretics. She notes the swelling in her legs has been increasing again. They has been improving while she was in rehab but has started to swell. They have chronically been left greater than right. She was just discharged from rehab in the last several days. She indicates she was taking furosemide as well as hydrochlorothiazide she states she was has a lot of medication changes recently including a change to her metoprolol, sounds like she was on lisinopril as well as possibly diltiazem and simvastatin. Patient also notes she has a lot of lumps and bruising on her abdomen was receiving either Lovenox or heparin shots because her INR was too low. She states they are not painful they have not gotten red but they have not gone away either. She was taking warfarin for her atrial fibrillation. Dr. Elli Silverio as her primary care physician but she was saw 1 of her partners yesterday who ordered her outpatient labs. Related Data Home Medications Medication Instructions Recorded Confirmed diltiazem HCl 360 mg capsule,24 360 mg PO QDAY ##0 09/04/16 10/06/24 hr,extended release simvastatin 40 mg tablet 20 mg PO DAILY 03/15/21 10/06/24 warfarin 5 mg tablet 5 mg PO DAILY 11/30/21 10/06/24 enalapril maleate 10 mg tablet 10 mg PO DAILY 10/06/24 10/06/24 gabapentin 300 mg capsule 300 mg PO TID 10/06/24 10/06/24 hydrochlorothiazide 50 mg tablet 25 mg PO DAILY 10/06/24 10/06/24 metoprolol succinate 50 mg 50 mg PO DAILY 10/06/24 10/06/24 tablet,extended release 24 hr Previous Rx's Medication Instructions Recorded furosemide 40 mg tablet 20 mg (1/2 x 40 mg) PO BID 30 days 09/04/24 #0 tabs Allergies Allergy/AdvReac Type Severity Reaction Status Date / Time pneumococcal vaccine AdvReac Unknown Verified 10/07/24 11:39 Review of Systems <Maddie Olsen DO - Last Filed: 10/12/24 07:07> Review of Systems ROS Unobtainable: All systems reviewed & are unremarkable except as noted in HPI and below Patient History <Maddie Olsen DO - Last Filed: 10/12/24 07:07> Medical History JUDIE (obstructive sleep apnea) Obesity Hyperlipidemia Hypertension Atrial fibrillation Surgical History History of appendectomy H/O: hysterectomy Social History household members: none alcohol intake frequency: holidays/special occasions only Exam <Maddie Olsen DO - Last Filed: 10/12/24 07:07> Narrative Exam Narrative: GENERAL: Alert and oriented x three, obese female in mild distress. HEENT: Head normocephalic, atraumatic, EOMI, pupils reactive, face symmetric, moist mucous membranes NECK: Supple, full range of motion CARDIOVASCULAR: Regular rate and rhythm without murmurs, rubs or gallops. JVD. Patient was bilateral lower extremity edema. Patient does have 1 small area of breakdown that appreciated in the left anterior, she was chronic venous stasis changes. No other open wounds that I appreciate on her feet or ankles her legs do look improved from the last time I saw her but they are still quite swollen. RESPIRATORY: Breath sounds equal bilaterally, no wheezes rales or rhonchi. No tachypnea or accessory muscle use. ABDOMEN: Soft, nontender. Patient has multiple areas of ecchymosis and some small nodules on her lower abdomen. No warmth erythema no tenderness. Normoactive bowel sounds all 4 quadrants. No guarding or rebound, rigidity, no mass : No CVA tenderness EXTREMITIES: Normal range of motion. Neurovascularly intact. Cap refill less than 2 seconds bilateral lower extremities. NEUROLOGICAL: Cranial nerves II through XII grossly intact. Moving all extremities SKIN: Warm, dry, no petechiae, no rashes or lesions. Initial Vital Signs Initial Vital Signs: Vital Signs Temperature 97.6 F 10/07/24 11:31 Pulse Rate 60 10/07/24 11:31 Respiratory Rate 16 10/07/24 11:31 Blood Pressure 133/60 10/07/24 11:31 Pulse Oximetry 98 10/07/24 11:31 Oxygen Delivery Method Room Air 10/07/24 11:31 <Justin Cat DO - Last Filed: 10/07/24 23:04> Initial Vital Signs Initial Vital Signs: Vital Signs Temperature 97.6 F 10/07/24 11:31 Pulse Rate 60 10/07/24 11:31 Respiratory Rate 16 10/07/24 11:31 Blood Pressure 133/60 10/07/24 11:31 Pulse Oximetry 98 10/07/24 11:31 Oxygen Delivery Method Room Air 10/07/24 11:31 Course <Maddie Olsen, DO - Last Filed: 10/12/24 07:07> Orders Ordered: Discontinued Medications Sodium Chloride (Normal Saline 0.9%) 500 mls @ 1,000 mls/hr IV BOLUS ONE Stop: 10/07/24 14:48 Last Infusion: 10/07/24 15:28 Dose: Infused Documented By: Admin: 10/07/24 14:22 Dose: 1,000 mls/hr Documented By: Sodium Chloride (Normal Saline 0.9%) 500 mls @ 1,000 mls/hr IV BOLUS ONE Stop: 10/07/24 15:26 Last Infusion: 10/07/24 16:12 Dose: Infused Documented By: Admin: 10/07/24 15:27 Dose: 1,000 mls/hr Documented By: DEBBIE Ceftriaxone Sodium 1,000 mg/ (Sodium Chloride) 100 mls @ 200 mls/hr IV NOW ONE Stop: 10/07/24 14:59 Last Infusion: 10/07/24 16:12 Dose: Infused Documented By: Admin: 10/07/24 15:27 Dose: 200 mls/hr Documented By: DEBBIE Vital Signs Vital signs: Vital Signs - 8 hr 10/07/24 15:30 10/07/24 16:00 10/07/24 16:30 Pulse Rate 77 69 65 Respiratory Rate 19 Blood Pressure 117/49 L 101/49 L 110/75 Pulse Oximetry 96 98 98 Oxygen Delivery Method Room Air Room Air Room Air 10/07/24 17:00 10/07/24 18:00 10/07/24 21:30 Pulse Rate 77 65 74 Respiratory Rate 19 18 Blood Pressure 101/65 102/63 118/52 L Pulse Oximetry 99 99 97 Oxygen Delivery Method Room Air Room Air Room Air 10/07/24 22:00 Pulse Rate 77 Respiratory Rate 20 Blood Pressure 104/52 L Pulse Oximetry 98 Oxygen Delivery Method Room Air <Justin Cat DO - Last Filed: 10/07/24 23:04> Orders Ordered: Discontinued Medications Sodium Chloride (Normal Saline 0.9%) 500 mls @ 1,000 mls/hr IV BOLUS ONE Stop: 10/07/24 14:48 Last Infusion: 10/07/24 15:28 Dose: Infused Documented By: Admin: 10/07/24 14:22 Dose: 1,000 mls/hr Documented By: Sodium Chloride (Normal Saline 0.9%) 500 mls @ 1,000 mls/hr IV BOLUS ONE Stop: 10/07/24 15:26 Last Infusion: 10/07/24 16:12 Dose: Infused Documented By: Admin: 10/07/24 15:27 Dose: 1,000 mls/hr Documented By: DEBBIE Ceftriaxone Sodium 1,000 mg/ (Sodium Chloride) 100 mls @ 200 mls/hr IV NOW ONE Stop: 10/07/24 14:59 Last Infusion: 10/07/24 16:12 Dose: Infused Documented By: Admin: 10/07/24 15:27 Dose: 200 mls/hr Documented By: DEBBIE Vital Signs Vital signs: Vital Signs - 8 hr 10/07/24 15:30 10/07/24 16:00 10/07/24 16:30 Pulse Rate 77 69 65 Respiratory Rate 19 Blood Pressure 117/49 L 101/49 L 110/75 Pulse Oximetry 96 98 98 Oxygen Delivery Method Room Air Room Air Room Air 10/07/24 17:00 10/07/24 18:00 10/07/24 21:30 Pulse Rate 77 65 74 Respiratory Rate 19 18 Blood Pressure 101/65 102/63 118/52 L Pulse Oximetry 99 99 97 Oxygen Delivery Method Room Air Room Air Room Air 10/07/24 22:00 Pulse Rate 77 Respiratory Rate 20 Blood Pressure 104/52 L Pulse Oximetry 98 Oxygen Delivery Method Room Air MDM - Recheck/Abnormal Lab/Rx <Maddie Olsen, - Last Filed: 10/12/24 07:07> Lab Data 10/07/24 12:22 10/07/24 16:10 Labs: Lab Results 10/07/24 10/07/24 10/07/24 Range/Units 12:20 12:22 14:27 WBC 9.3 (4.5-11.0) X10^3/uL RBC 3.85 L (4.0-5.2) X10^6/uL Hgb 12.1 (12.0-16.0) g/dL Hct 36.3 (36-46) % MCV 94.5 (80-100) fL MCH 31.4 (26-34) PG MCHC 33.2 (30-36) % RDW 16.5 H (11.6-14.8) % Plt Count 401 H (150-400) X10^3/uL Neut % (Auto) 81.8 H (50-75) % Lymph % (Auto) 9.8 L (25-40) % [place] % (Auto) 7.2 (3-14) % Eos % (Auto) 0.9 L (2-4) % Baso % (Auto) 0.3 (0-2) % Neut # (Auto) 7600 H (7192-0590) /uL Lymph # (Auto) 900 L (0470-8674) /uL [place] # (Auto) 700 (0-900) /uL Eos # (Auto) 100 (0-450) /uL Baso # (Auto) 0 (0-100) /uL PT 38.9 H (9.4-12.5) SECONDS INR 3.5 H (0.9-1.3) VBG pH (7.33-7.43) VBG pCO2 (45-50) mmHg VBG pO2 (35-45) mmHg VBG HCO3 (24-28) mmol/L VBG Total CO2 (24-29) mmol/L VBG O2 Saturation (70-75) % VBG Base Excess (0-4) mmol/L Sodium 139 (137-145) mmol/L Potassium 4.1 (3.4-5.1) mmol/L Chloride 103 (98-107) mmol/L Carbon Dioxide 25 (22-32) mmol/L BUN 74 H (7-17) mg/dL Creatinine 3.87 H (0.52-1.04) mg/dL Estimated GFR 11 L (>60) mL/min BUN/Creatinine Ratio 19.1 (6-22) Glucose 122 H (70-99) mg/dL Calcium 9.3 (8.4-10.2) mg/dL Total Bilirubin 0.7 (0.2-1.3) mg/dL AST 29 (14-36) IU/L ALT 20 (<35) IU/L Alkaline Phosphatase 99 (38-126) U/L Total Protein 7.7 (6.3-8.2) g/dL Albumin 4.2 (3.5-5.0) g/dL Globulin 3.5 (1.7-4.1) g/dL Albumin/Globulin Ratio 1.2 (1.0-2.8) Lipase 288 (23-300) U/L Urine Color Yellow Urine Appearance Clear Urine pH 5.0 (4.5-8.0) Ur Specific [place] >=1.030 H (1.000-1.035) Urine Protein Negative (Negative) Urine Glucose (UA) Negative (Negative) g/dL Urine Ketones Negative (NEGATIVE) Urine Occult Blood Negative (Negative) Urine Nitrate Negative (Negative) Urine Bilirubin 1+ H (NEGATIVE) Ur Bilirubin Confirm Negative (Negative) Urine Urobilinogen 0.2 (0.2) E.U./dL Ur Leukocyte Esterase Negative (NEGATIVE) Urine RBC None seen (0-5/HPF) Urine WBC 0-1/hpf (0-5/HPF) Ur Squamous Epith Cells 1-5 /hpf (0-5/HPF) Urine Bacteria Few (2-10) H (None) Hyaline Casts 0-1/lpf (None) Urine Mucus 1+ H (Negative) Ur Culture Indicated? Cult not indicated Vol Urine Centrifuged 10ml (spun) 10/07/24 10/07/24 Range/Units 16:10 16:26 WBC (4.5-11.0) X10^3/uL RBC (4.0-5.2) X10^6/uL Hgb (12.0-16.0) g/dL Hct (36-46) % MCV (80-100) fL MCH (26-34) PG MCHC (30-36) % RDW (11.6-14.8) % Plt Count (150-400) X10^3/uL Neut % (Auto) (50-75) % Lymph % (Auto) (25-40) % Randolph % (Auto) (3-14) % Eos % (Auto) (2-4) % Baso % (Auto) (0-2) % Neut # (Auto) (1348-0378) /uL Lymph # (Auto) (7208-6012) /uL Randolph # (Auto) (0-900) /uL Eos # (Auto) (0-450) /uL Baso # (Auto) (0-100) /uL PT (9.4-12.5) SECONDS INR (0.9-1.3) VBG pH 7.37 (7.33-7.43) VBG pCO2 49.2 (45-50) mmHg VBG pO2 37 (35-45) mmHg VBG HCO3 28 (24-28) mmol/L VBG Total CO2 28 (24-29) mmol/L VBG O2 Saturation 68 L (70-75) % VBG Base Excess 2.3 (0-4) mmol/L Sodium 139 (137-145) mmol/L Potassium 3.7 (3.4-5.1) mmol/L Chloride 106 (98-107) mmol/L Carbon Dioxide 25 (22-32) mmol/L BUN 73 H (7-17) mg/dL Creatinine 3.27 H (0.52-1.04) mg/dL Estimated GFR 14 L (>60) mL/min BUN/Creatinine Ratio 22.3 H (6-22) Glucose 106 H (70-99) mg/dL Calcium 8.5 (8.4-10.2) mg/dL Total Bilirubin (0.2-1.3) mg/dL AST (14-36) IU/L ALT (<35) IU/L Alkaline Phosphatase (38-126) U/L Total Protein (6.3-8.2) g/dL Albumin (3.5-5.0) g/dL Globulin (1.7-4.1) g/dL Albumin/Globulin Ratio (1.0-2.8) Lipase (23-300) U/L Urine Color Urine Appearance Urine pH (4.5-8.0) Ur Specific [place] (1.000-1.035) Urine Protein (Negative) Urine Glucose (UA) (Negative) g/dL Urine Ketones (NEGATIVE) Urine Occult Blood (Negative) Urine Nitrate (Negative) Urine Bilirubin (NEGATIVE) Ur Bilirubin Confirm (Negative) Urine Urobilinogen (0.2) E.U./dL Ur Leukocyte Esterase (NEGATIVE) Urine RBC (0-5/HPF) Urine WBC (0-5/HPF) Ur Squamous Epith Cells (0-5/HPF) Urine Bacteria (None) Hyaline Casts (None) Urine Mucus (Negative) Ur Culture Indicated? Vol Urine Centrifuged ECG Data Attestation: I personally reviewed and interpreted this ECG as follows: Interpretation: Atrial fibrillation rate of 70, QRS is 64 QTC of 297. MDM Narrative Medical decision making narrative: Labs show white count of 9 hemoglobin of 12 platelets of 401, INR is 3.5. Creatinine is 3.87 on September 09, 2024 creatinine was 1.06 BUN 74 electrolytes are otherwise appropriate with a sodium 139 potassium 4 1 chloride of 103 and CO2 of 25 glucose is 122 LFTs are negative. VBG shows a pH of 7.37 pCO2 of 49 PO2 of 37 bicarb of 28. Repeat BMP UA she was 1+ bilirubin, few bacteria 1+ mucus, 1 white cell 1-5 squamous. EKG atrial fibrillation rate of 71 CT KUB no acute findings in the abdomen or pelvis, subcutaneous nodularity and stranding within lower anterior abdominal wall new compared to prior correlate with injections in that region. Diverticulosis without evidence of diverticulitis stable 2 cm right ovarian simple appearing cyst given age recommend nonurgent ultrasound follow up. Patient received 500 cc bolus, then we will change to blood pressure we will receive an additional 500 cc bolus and re-evaluate. Patient had Rocephin for possible infection although urine has few bacteria and 1 white cell and 1-5 squamous. Spoke with hospitalist Dr. Hernandez, regarding admission for acute on chronic renal failure suspect maybe related to her diuretic use does have history of CHF sounds like she has been more compliant but taking Lasix and HCTZ from her description. He requests VBG as well as repeat BMP after 1L fluids. Updated Dr. Hernandez regarding vbg and bmp at 1647. Patient had improvement in creatinine. Dr. Hernandez down the department to evaluate patient feels patient needs transfer for higher living care given AKA with CHF history. Dr. Cat: Patient was signed out to me, patient presenting for NANNETTE with a history of congestive heart failure, patient is unsure of whether or not she has been taking her diuretics as prescribed. Patient has been evaluated by hospitalist here who is requesting transfer to higher level care given patient with NANNETTE and CHF history. Call placed out to surrounding hospital for transfer [id number]: [facility] Patient was evaluated prior to transfer, stable vital signs patient is safe for transport at this time <Justin Cat, - Last Filed: 10/07/24 23:04> Lab Data Labs: Lab Results 10/07/24 10/07/24 10/07/24 Range/Units 12:20 12:22 14:27 WBC 9.3 (4.5-11.0) X10^3/uL RBC 3.85 L (4.0-5.2) X10^6/uL Hgb 12.1 (12.0-16.0) g/dL Hct 36.3 (36-46) % MCV 94.5 (80-100) fL MCH 31.4 (26-34) PG MCHC 33.2 (30-36) % RDW 16.5 H (11.6-14.8) % Plt Count 401 H (150-400) X10^3/uL Neut % (Auto) 81.8 H (50-75) % Lymph % (Auto) 9.8 L (25-40) % [place] % (Auto) 7.2 (3-14) % Eos % (Auto) 0.9 L (2-4) % Baso % (Auto) 0.3 (0-2) % Neut # (Auto) 7600 H (9673-6945) /uL Lymph # (Auto) 900 L (5096-3348) /uL [place] # (Auto) 700 (0-900) /uL Eos # (Auto) 100 (0-450) /uL Baso # (Auto) 0 (0-100) /uL PT 38.9 H (9.4-12.5) SECONDS INR 3.5 H (0.9-1.3) VBG pH (7.33-7.43) VBG pCO2 (45-50) mmHg VBG pO2 (35-45) mmHg VBG HCO3 (24-28) mmol/L VBG Total CO2 (24-29) mmol/L VBG O2 Saturation (70-75) % VBG Base Excess (0-4) mmol/L Sodium 139 (137-145) mmol/L Potassium 4.1 (3.4-5.1) mmol/L Chloride 103 (98-107) mmol/L Carbon Dioxide 25 (22-32) mmol/L BUN 74 H (7-17) mg/dL Creatinine 3.87 H (0.52-1.04) mg/dL Estimated GFR 11 L (>60) mL/min BUN/Creatinine Ratio 19.1 (6-22) Glucose 122 H (70-99) mg/dL Calcium 9.3 (8.4-10.2) mg/dL Total Bilirubin 0.7 (0.2-1.3) mg/dL AST 29 (14-36) IU/L ALT 20 (<35) IU/L Alkaline Phosphatase 99 (38-126) U/L Total Protein 7.7 (6.3-8.2) g/dL Albumin 4.2 (3.5-5.0) g/dL Globulin 3.5 (1.7-4.1) g/dL Albumin/Globulin Ratio 1.2 (1.0-2.8) Lipase 288 (23-300) U/L Urine Color Yellow Urine Appearance Clear Urine pH 5.0 (4.5-8.0) Ur Specific [place] >=1.030 H (1.000-1.035) Urine Protein Negative (Negative) Urine Glucose (UA) Negative (Negative) g/dL Urine Ketones Negative (NEGATIVE) Urine Occult Blood Negative (Negative) Urine Nitrate Negative (Negative) Urine Bilirubin 1+ H (NEGATIVE) Ur Bilirubin Confirm Negative (Negative) Urine Urobilinogen 0.2 (0.2) E.U./dL Ur Leukocyte Esterase Negative (NEGATIVE) Urine RBC None seen (0-5/HPF) Urine WBC 0-1/hpf (0-5/HPF) Ur Squamous Epith Cells 1-5 /hpf (0-5/HPF) Urine Bacteria Few (2-10) H (None) Hyaline Casts 0-1/lpf (None) Urine Mucus 1+ H (Negative) Ur Culture Indicated? Cult not indicated Vol Urine Centrifuged 10ml (spun) 10/07/24 10/07/24 Range/Units 16:10 16:26 WBC (4.5-11.0) X10^3/uL RBC (4.0-5.2) X10^6/uL Hgb (12.0-16.0) g/dL Hct (36-46) % MCV (80-100) fL MCH (26-34) PG MCHC (30-36) % RDW (11.6-14.8) % Plt Count (150-400) X10^3/uL Neut % (Auto) (50-75) % Lymph % (Auto) (25-40) % [place] % (Auto) (3-14) % Eos % (Auto) (2-4) % Baso % (Auto) (0-2) % Neut # (Auto) (2940-5589) /uL Lymph # (Auto) (3772-4765) /uL [place] # (Auto) (0-900) /uL Eos # (Auto) (0-450) /uL Baso # (Auto) (0-100) /uL PT (9.4-12.5) SECONDS INR (0.9-1.3) VBG pH 7.37 (7.33-7.43) VBG pCO2 49.2 (45-50) mmHg VBG pO2 37 (35-45) mmHg VBG HCO3 28 (24-28) mmol/L VBG Total CO2 28 (24-29) mmol/L VBG O2 Saturation 68 L (70-75) % VBG Base Excess 2.3 (0-4) mmol/L Sodium 139 (137-145) mmol/L Potassium 3.7 (3.4-5.1) mmol/L Chloride 106 (98-107) mmol/L Carbon Dioxide 25 (22-32) mmol/L BUN 73 H (7-17) mg/dL Creatinine 3.27 H (0.52-1.04) mg/dL Estimated GFR 14 L (>60) mL/min BUN/Creatinine Ratio 22.3 H (6-22) Glucose 106 H (70-99) mg/dL Calcium 8.5 (8.4-10.2) mg/dL Total Bilirubin (0.2-1.3) mg/dL AST (14-36) IU/L ALT (<35) IU/L Alkaline Phosphatase (38-126) U/L Total Protein (6.3-8.2) g/dL Albumin (3.5-5.0) g/dL Globulin (1.7-4.1) g/dL Albumin/Globulin Ratio (1.0-2.8) Lipase (23-300) U/L Urine Color Urine Appearance Urine pH (4.5-8.0) Ur Specific [place] (1.000-1.035) Urine Protein (Negative) Urine Glucose (UA) (Negative) g/dL Urine Ketones (NEGATIVE) Urine Occult Blood (Negative) Urine Nitrate (Negative) Urine Bilirubin (NEGATIVE) Ur Bilirubin Confirm (Negative) Urine Urobilinogen (0.2) E.U./dL Ur Leukocyte Esterase (NEGATIVE) Urine RBC (0-5/HPF) Urine WBC (0-5/HPF) Ur Squamous Epith Cells (0-5/HPF) Urine Bacteria (None) Hyaline Casts (None) Urine Mucus (Negative) Ur Culture Indicated? Vol Urine Centrifuged MDM Narrative Medical decision making narrative: Labs show white count of 9 hemoglobin of 12 platelets of 401, INR is 3.5. Creatinine is 3.87 on September 09, 2024 creatinine was 1.06 BUN 74 electrolytes are otherwise appropriate with a sodium 139 potassium 4 1 chloride of 103 and CO2 of 25 glucose is 122 LFTs are negative. VBG shows a pH of 7.37 pCO2 of 49 PO2 of 37 bicarb of 28. Repeat BMP UA she was 1+ bilirubin, few bacteria 1+ mucus, 1 white cell 1-5 squamous. EKG atrial fibrillation rate of 71 CT KUB no acute findings in the abdomen or pelvis, subcutaneous nodularity and stranding within lower anterior abdominal wall new compared to prior correlate with injections in that region. Diverticulosis without evidence of diverticulitis stable 2 cm right ovarian simple appearing cyst given age recommend nonurgent ultrasound follow up. Patient received 500 cc bolus, then we will change to blood pressure we will receive an additional 500 cc bolus and re-evaluate. Patient had Rocephin for possible infection although urine has few bacteria and 1 white cell and 1-5 squamous. Spoke with hospitalist Dr. Hernandez, regarding admission for acute on chronic renal failure suspect maybe related to her diuretic use does have history of CHF sounds like she has been more compliant but taking Lasix and HCTZ from her description. He requests VBG as well as repeat BMP after 1L fluids. Updated Dr. Hernandez regarding vbg and bmp at 1647. Dr. Cat: Patient was signed out to me, patient presenting for NANNETTE with a history of congestive heart failure, patient is unsure of whether or not she has been taking her diuretics as prescribed. Patient has been evaluated by hospitalist here who is requesting transfer to higher level care given patient with NANENTTE and CHF history. Call placed out to surrounding hospital for transfer [id number]: [facility] Patient was evaluated prior to transfer, stable vital signs patient is safe for transport at this time Discharge Plan Departure Patient Disposition: [facility] Clinical Impression: Acute on chronic kidney failure, Dehydration Prescriptions: No Action diltiazem HCl 360 MG capsule,extended release 24 hr 360 mg PO QDAY Qty: 0 gabapentin 300 mg capsule 300 mg PO TID hydrochlorothiazide 50 mg tablet 25 mg PO DAILY metoprolol succinate 50 mg tablet extended release 24 hr 50 mg PO DAILY enalapril maleate 10 mg tablet 10 mg PO DAILY simvastatin 40 mg tablet 20 mg PO DAILY furosemide 40 mg tablet 20 mg PO BID 30 Days Qty: 0 0RF Patient Comments: Does not take it because it makes her go the the bathroom a lot interfering with her activities Rx Instructions: Hold furosemide until BUN and creatinine less than 30/1.4 then resume 20 mg twice daily warfarin 5 mg tablet 5 mg PO DAILY Rx Instructions: takes 5 mg daily except Sunday, takes 10 mg on \sunday Referrals: Elli Silverio MD [Primary Care Provider] -
[2024-10-07] MEDS: SODIUM CHLORIDE 0.9% 500 ML 1000 ML IV ×2 (14:22→15:27)
[2024-10-07 14:27] LABS: INR 3.5 (0.9-1.3); Prothrombin Time 38.9 SECONDS (9.4-12.5)
[2024-10-07 14:38] LABS: Appearance Urine UA CLEAR; Bilirubin Urine UA 1+ (NEGATIVE); Color Urine UA YELLOW; Glucose Urine UA NEGATIVE (Negative); Ketones Urine UA NEGATIVE (NEGATIVE); Leukocyte Esterase Urine UA NEGATIVE (NEGATIVE); Nitrite Urine UA NEGATIVE (Negative); Occult Blood Urine UA NEGATIVE (Negative); Protein Urine UA NEGATIVE (Negative); Specific Gravity Urine UA >=1.030 (1.000-1.035); Urobilinogen Urine UA 0.2 E.U./dL (0.2)
[2024-10-07 14:41] LABS: Bacteria Urine Few (2-10); Ictotest Urine Negative (Negative); RBC Urine None Seen (0-5/HPF); Squamous Epithelial Cell Urine 1-5 /HPF (0-5/HPF); Urine Volume 10mL (spun); WBC Urine 0-1/HPF (0-5/HPF)
[2024-10-07 14:42] LABS: Culture Indicated Urine Cult Not Indicated; Hyaline Casts Urine 0-1/LPF; Mucus Urine 1+ (Negative)
[2024-10-07] MEDS: cefTRIAXone 1,000 MG in SODIUM CHLORIDE 0.9% 100 ML 200 MG IV (15:27)
[2024-10-07 16:30] LABS: Base Excess VBG 2.3 mmol/L (0-4); HCO3 VBG 28 mmol/L (24-28); Oxygen Saturation VBG 68 % (70-75); PCO2 VBG 49.2 mmHg (45-50); PO2 VBG 37 mmHg (35-45); Total CO2 VBG 28 mmol/L (24-29); pH VBG 7.37 (7.33-7.43)
[2024-10-07 16:54] LABS: BUN Creatinine Ratio 22.3 (6-22); Blood Urea Nitrogen 73 mg/dL (7-17); Calcium 8.5 mg/dL (8.4-10.2); Carbon Dioxide 25 mmol/L (22-32); Chloride 106 mmol/L (98-107); Estimated Glomerular Filt Rate 14 mL/min (>60); Glucose 106 mg/dL (70-99); HEMOLYSIS 21 (0-50); Potassium 3.7 mmol/L (3.4-5.1); Sodium 139 mmol/L (137-145)
--- NOTE | 2024-10-07 18:08 | PM.CN ---
History of Present Illness Consult details Date Patient Seen: 10/07/24 Time Patient Seen: 18:09 Chief complaint: sent from PCP for high lab results Reason for consult: NANNETTE Requesting provider: Maddie Olsen Narrative: 79 year old female with PMH obesity, HTN, HLD, paroxysmal afib/flutter on Coumadin, JUDIE, chronic LE edema who presented to the ER today after being referred for outpatient lab abnormality with PCP. Patient was admitted here 08/2024 with afib with RVR and diastolic heart failure exacerbation along with a possible Lower extremity cellulitis. She eventually discharged to rehab, was there approx 3 weeks and returned home approx 3 days ago. She was previously on lasix and thiazide, and she thinks she stopped her furosemide after leaving her rehab. Since then her legs have ballooned up in size, with return of her edema. She is fatigued and chronically dyspnic on exertion, but denies chest pain, abdominal pain, dysuria. Her urine output has been a bit down the last few days. She has chronic mixed constipation and diarrhea. Was seen by surgeon yesterday for fecal incontinence and was referred to colo-rectal surgery. She reports currently stools are soft, not liquidy. She additionally denies rash, fever, chills. She lives at home and mobilizes with walker. She reports no change in her chronic lower leg pain with ambulation. She tells me she was referred because her Cr with PCP was 2.8. On presentation Cr was 3.8 and improved to 3.27 after 1L of IV fluids. She already states her legs are more swollen, she denies shortness of breath currently. UA showed 0-1 WBC, 1-5 Sq cells, was not reflexed for culture, specific gravity was >1.030. Medicine was asked to evaluate for admission to [facility] for NANNETTE. Meds Home Medications and Allergies Home Medications Medication Instructions Recorded Confirmed Type diltiazem HCl 360 mg capsule,24 360 mg PO QDAY ##0 09/04/16 10/06/24 History hr,extended release simvastatin 40 mg tablet 20 mg PO DAILY 03/15/21 10/06/24 History warfarin 5 mg tablet 5 mg PO DAILY 11/30/21 10/06/24 History furosemide 40 mg tablet 20 mg (1/2 x 40 mg) PO BID 30 days 09/04/24 10/06/24 Rx #0 tabs enalapril maleate 10 mg tablet 10 mg PO DAILY 10/06/24 10/06/24 History gabapentin 300 mg capsule 300 mg PO TID 10/06/24 10/06/24 History hydrochlorothiazide 50 mg tablet 25 mg PO DAILY 10/06/24 10/06/24 History metoprolol succinate 50 mg 50 mg PO DAILY 10/06/24 10/06/24 History tablet,extended release 24 hr Allergies Allergy/AdvReac Type Severity Reaction Status Date / Time pneumococcal vaccine AdvReac Unknown Verified 10/07/24 11:39 Review of Systems Review of Systems Narrative: All other systems reviewed with the patient and are negative unless otherwise stated. Exam Vital Signs (past 8 hours): - 10/07/24 11:31 10/07/24 12:00 10/07/24 12:30 Temperature 97.6 F Pulse Rate 60 67 65 Respiratory Rate 16 Blood Pressure 133/60 101/52 L 90/60 Pulse Oximetry 98 100 100 Oxygen Delivery Method Room Air Room Air Room Air 10/07/24 13:00 10/07/24 13:30 10/07/24 13:45 Temperature Pulse Rate 65 67 66 Respiratory Rate Blood Pressure 97/46 L 89/42 L 110/53 L Pulse Oximetry 99 99 98 Oxygen Delivery Method Room Air Room Air Room Air 10/07/24 14:00 10/07/24 14:30 10/07/24 15:00 Temperature Pulse Rate 65 71 93 H Respiratory Rate Blood Pressure 102/49 L 104/53 L 106/56 L Pulse Oximetry 98 99 96 Oxygen Delivery Method Room Air Room Air Room Air 10/07/24 15:30 10/07/24 16:00 Temperature Pulse Rate 77 69 Respiratory Rate Blood Pressure 117/49 L 101/49 L Pulse Oximetry 96 98 Oxygen Delivery Method Room Air Room Air Oxygen Delivery Method Room Air Narrative Exam Narrative: General:? Patient is well developed and well nourished, obese with BMI 35, in no distress at this time. HEENT:? Normocephalic, atraumatic, extraocular muscles intact, oral pharynx is clear and mucous membranes are moist. Lungs:? occasional expiratory wheeze upper lobes bilaterally, improved with cough, no rhonchi or rales. Cardio:irregularly irregular rhythm with normal rate. Abdomen: S NT ND. Musculoskeletal:? Muscle strength and tone are equal within normal limits, no deformity. Extremities: 2-3 + pitting edema b/l LE (R>L) with chronic venous stasis changes, no joint effusions. No cyanosis or clubbing. Skin:?No significant erythema, warmth, or tenderness of her LLE today. Neuro:? Alert and orientated x3,? sensation to touch intact in all extremities, no gross deficits noted of cranial nerves. Psych:? Patient has a well-kept appearance, appropriate affect, mental status attitude thought context and judgment are appropriate for age. Objective Labs 10/07/24 12:22 10/07/24 16:10 Labs: Laboratory Results - last 24 hr 10/07/24 10/07/24 10/07/24 12:20 12:22 14:27 WBC 9.3 RBC 3.85 L Hgb 12.1 Hct 36.3 MCV 94.5 MCH 31.4 MCHC 33.2 RDW 16.5 H Plt Count 401 H Neut % (Auto) 81.8 H Lymph % (Auto) 9.8 L Mckenzie % (Auto) 7.2 Eos % (Auto) 0.9 L Baso % (Auto) 0.3 Neut # (Auto) 7600 H Lymph # (Auto) 900 L Mckenzie # (Auto) 700 Eos # (Auto) 100 Baso # (Auto) 0 PT 38.9 H INR 3.5 H VBG pH VBG pCO2 VBG pO2 VBG HCO3 VBG Total CO2 VBG O2 Saturation VBG Base Excess Sodium 139 Potassium 4.1 Chloride 103 Carbon Dioxide 25 BUN 74 H Creatinine 3.87 H Estimated GFR 11 L BUN/Creatinine Ratio 19.1 Glucose 122 H Calcium 9.3 Total Bilirubin 0.7 AST 29 ALT 20 Alkaline Phosphatase 99 Total Protein 7.7 Albumin 4.2 Globulin 3.5 Albumin/Globulin Ratio 1.2 Lipase 288 Urine Color Yellow Urine Appearance Clear Urine pH 5.0 Ur Specific Crowder >=1.030 H Urine Protein Negative Urine Glucose (UA) Negative Urine Ketones Negative Urine Occult Blood Negative Urine Nitrate Negative Urine Bilirubin 1+ H Ur Bilirubin Confirm Negative Urine Urobilinogen 0.2 Ur Leukocyte Esterase Negative Urine RBC None seen Urine WBC 0-1/hpf Ur Squamous Epith Cells 1-5 /hpf Urine Bacteria Few (2-10) H Hyaline Casts 0-1/lpf Urine Mucus 1+ H Ur Culture Indicated? Cult not indicated Vol Urine Centrifuged 10ml (spun) 10/07/24 10/07/24 16:10 16:26 WBC RBC Hgb Hct MCV MCH MCHC RDW Plt Count Neut % (Auto) Lymph % (Auto) Mckenzie % (Auto) Eos % (Auto) Baso % (Auto) Neut # (Auto) Lymph # (Auto) Mckenzie # (Auto) Eos # (Auto) Baso # (Auto) PT INR VBG pH 7.37 VBG pCO2 49.2 VBG pO2 37 VBG HCO3 28 VBG Total CO2 28 VBG O2 Saturation 68 L VBG Base Excess 2.3 Sodium 139 Potassium 3.7 Chloride 106 Carbon Dioxide 25 BUN 73 H Creatinine 3.27 H Estimated GFR 14 L BUN/Creatinine Ratio 22.3 H Glucose 106 H Calcium 8.5 Total Bilirubin AST ALT Alkaline Phosphatase Total Protein Albumin Globulin Albumin/Globulin Ratio Lipase Urine Color Urine Appearance Urine pH Ur Specific Crowder Urine Protein Urine Glucose (UA) Urine Ketones Urine Occult Blood Urine Nitrate Urine Bilirubin Ur Bilirubin Confirm Urine Urobilinogen Ur Leukocyte Esterase Urine RBC Urine WBC Ur Squamous Epith Cells Urine Bacteria Hyaline Casts Urine Mucus Ur Culture Indicated? Vol Urine Centrifuged [facility] Medical History JUDIE (obstructive sleep apnea) Obesity Hyperlipidemia Hypertension Atrial fibrillation Surgical History History of appendectomy H/O: hysterectomy Social History household members: none Assessment & Plan Assessment & Plan narrative: Diagnoses: Acute Kidney Injury Paroxysmal atrial fibrillation on coumadin. HTN, chronic HLD, chronic Obesity / JUDIE, chronic This is an 79-year-old female with a past medical history of hypertension, hyperlipidemia, JUDIE and obesity, paroxysmal AFib, and chronic diastolic heart failure who currently has an NANNETTE. Suspect probable intravascular hypovolemia given her elevated specific gravity on urinalysis, and recent use furosemide and thiazide. However patient reports stopping one of these over the last 3 days with worsening of her lower extremity edema over the last couple of days. Her initial creatinine did improve with 1 L of IV fluids in the ER, though she has occasional upper airway wheeze, cardiomegaly, and already worsening lower extremity edema. While she may ultimately stabilize, there is significant concern for development of volume overload in this situation, with need for nephrology and cardiology consultations given her current renal function and history of diastolic heart failure. There is no current evidence for infection on available imaging or lab evaluations. At this time I have ordered a chest x-ray for additional evaluation of her current volume status (CT shows clear bases), but given the development of worsening lower extremity edema with just 1 L of fluids, as well as worsening edema over the past couple of days with decreased diuretic at home I recommend transfer for Nephrology consultation with possible need for cardiology as well in the assistance of management of this patient. Code status: Full, surrogate is patient's sister DVT: on [place], INR 3.5 I have utilized all available immediate resources to obtain, update, or review the patient's current medications. Dispo: Recommend transfer to higher level facility at this time. Additional history obtained via discussions with the ER provider and patient's sister. These discussions contributed to the creation of the above assessment and plan. I have reviewed patient's presenting documentation, labs, and imaging personally. Time-Based Coding :: [TOTAL MINUTES] spent with patient and on the chart (including review of chart, obtaining history, exam, reviewing outside data, placing orders, documenting exam and treatment plan, and counseling patient) on [DATE].
== END 2024-10-07 22:35 | disposition short-term general hospital (02) ==
PROVIDERS: Emergency Medicine; Emergency Provider Student in an Organized Health Care Education/Training Program; Family Provider Internal Medicine; PCP Internal Medicine
DX: N17.9 Acute kidney failure, unspecified (principal); I48.0 Paroxysmal atrial fibrillation; E86.0 Dehydration; R06.02 Shortness of breath; E66.9 Obesity, unspecified; Z68.34 Body mass index [BMI] 34.0-34.9, adult
CPT/HCPCS: 36415; 71045; 74176; 80048; 80053; 81001; 82805; 83690; 85025; 85610; 93005; 96361; 96365; 99284; J0696

== ENCOUNTER → 2024-11-03 15:02 | Outpatient (ROUT) | payer MEDICARE, OTHER, SELFPAY ==
[2024-08-31 00:17] VITALS: BMI 36.4
[2024-11-03 15:10] LABS: Add Manual Diff / Slide Review NO; Basophils Absolute Auto 100 /uL (0-100); Basophils Percent Auto 1.1 % (0-2); Eosinophils Absolute Auto 200 /uL (0-450); Hematocrit 39.7 % (36-46); Hemoglobin 13.7 g/dL (12.0-16.0); Lymphocytes Absolute Auto 1300 /uL (1100-4500); Lymphocytes Percent Auto 19.4 % (25-40); Mean Corpuscular HGB Conc 34.6 % (30-36); Mean Corpuscular Hemoglobin 32.3 PG (26-34); Mean Corpuscular Volume 93.4 fL (80-100); Monocytes Absolute Auto 500 /uL (0-900); Monocytes Percent Auto 7.7 % (3-14); Neutrophils Absolute Auto 4700 /uL (1500-7000); Neutrophils Percent Auto 68.8 % (50-75); Platelet Count 245 X10^3/uL (150-400); Red Blood Cell Count 4.25 X10^6/uL (4.0-5.2); Red Cell Distribution Width 15.3 % (11.6-14.8); White Blood Cell Count 6.9 X10^3/uL (4.5-11.0)
[2024-11-03 15:25] LABS: BUN Creatinine Ratio 31.9 (6-22); Blood Urea Nitrogen 36 mg/dL (7-17); Calcium 9.8 mg/dL (8.4-10.2); Carbon Dioxide 33 mmol/L (22-32); Chloride 99 mmol/L (98-107); Estimated Glomerular Filt Rate 49 mL/min (>60); Glucose 101 mg/dL (70-99); HEMOLYSIS < 15 (0-50); Magnesium 1.7 mg/dL (1.6-2.3); Sodium 139 mmol/L (137-145)
== END ==
LOC: LAB 15:03
PROVIDERS: Family Provider Internal Medicine; PCP Internal Medicine; Visit Provider Registered Nurse
DX: N17.9 Acute kidney failure, unspecified (principal); I11.0 Hypertensive heart disease with heart failure; I50.9 Heart failure, unspecified; I48.91 Unspecified atrial fibrillation
CPT/HCPCS: 80048; 83735; 85025

== ENCOUNTER → 2024-12-09 14:05 | Outpatient (CLI) | payer MEDICARE, OTHER, SELFPAY ==
[2024-08-31 00:17] VITALS: BMI 36.4
== END ==
PROVIDERS: Family Provider Internal Medicine; PCP Internal Medicine; Referring Provider Internal Medicine; Visit Provider Surgery
DX: L89.623 Pressure ulcer of left heel, stage 3 (principal); I89.0 Lymphedema, not elsewhere classified; L97.812 Non-pressure chronic ulcer of other part of right lower leg with fat layer exposed; I87.2 Venous insufficiency (chronic) (peripheral); G60.9 Hereditary and idiopathic neuropathy, unspecified; I13.0 Hypertensive heart and chronic kidney disease with heart failure and stage 1 through stage 4 chronic kidney disease, or unspecified chronic kidney disease; N18.9 Chronic kidney disease, unspecified; I50.9 Heart failure, unspecified; I48.91 Unspecified atrial fibrillation; E66.9 Obesity, unspecified; Z79.01 Long term (current) use of anticoagulants; Z87.891 Personal history of nicotine dependence
CPT/HCPCS: 11042; 11045; 87070; 87075; 87077; 87186; 87205; 99214

== ENCOUNTER → 2024-12-10 15:25 | Outpatient (CLI) | payer MEDICARE, OTHER, SELFPAY ==
[2024-08-31 00:17] VITALS: BMI 36.4
--- NOTE | 2024-12-10 15:27 | DI.RAD.S_ITS ---
PROCEDURE: XR FOOT LT MIN 3V INDICATIONS: Eval for osteo. Pressure ulcer L heel. TECHNIQUE: 3 views of the foot were acquired. The inferior posterior aspect of the calcaneus was not included on the lateral film, limiting assessment COMPARISON: None. FINDINGS: Bones: No fractures or dislocations. No suspicious bony lesions. Soft tissues: No tibiotalar joint effusion. Achilles tendon appears normal. IMPRESSION: No acute bony abnormality. Approved by: Juan Ball M.D. on 12/11/2024 at 18:05
== END ==
LOC: RAD 15:26
PROVIDERS: Family Provider Internal Medicine; PCP Internal Medicine; Referring Provider Surgery; Visit Provider Surgery
DX: L89.629 Pressure ulcer of left heel, unspecified stage (principal)
CPT/HCPCS: 73630

== ENCOUNTER → 2024-12-12 13:36 | Outpatient (CLI) | payer MEDICARE, OTHER, SELFPAY ==
[2024-08-31 00:17] VITALS: BMI 36.4
== END ==
PROVIDERS: Family Provider Internal Medicine; PCP Internal Medicine; Referring Provider Internal Medicine; Visit Provider Surgery
DX: L89.623 Pressure ulcer of left heel, stage 3 (principal); L97.812 Non-pressure chronic ulcer of other part of right lower leg with fat layer exposed; I87.2 Venous insufficiency (chronic) (peripheral); I89.0 Lymphedema, not elsewhere classified; L53.9 Erythematous condition, unspecified; R60.0 Localized edema; M79.672 Pain in left foot; M79.661 Pain in right lower leg
CPT/HCPCS: 99213

== ENCOUNTER → 2024-12-16 14:31 | Outpatient (CLI) | payer MEDICARE, OTHER, SELFPAY ==
[2024-08-31 00:17] VITALS: BMI 36.4
== END ==
LOC: WC 15:03
PROVIDERS: Family Provider Internal Medicine; PCP Internal Medicine; Referring Provider Internal Medicine; Visit Provider Surgery
DX: L89.623 Pressure ulcer of left heel, stage 3 (principal); I89.0 Lymphedema, not elsewhere classified; L97.812 Non-pressure chronic ulcer of other part of right lower leg with fat layer exposed; G57.83 Other specified mononeuropathies of bilateral lower limbs; Z79.01 Long term (current) use of anticoagulants
CPT/HCPCS: 11042; 11045; 99213

== ENCOUNTER → 2024-12-18 14:11 | Outpatient (CLI) | payer MEDICARE, OTHER, SELFPAY ==
[2024-08-31 00:17] VITALS: BMI 36.4
== END ==
LOC: WC 14:15
PROVIDERS: Family Provider Internal Medicine; PCP Internal Medicine; Referring Provider Internal Medicine; Visit Provider Surgery
DX: L89.623 Pressure ulcer of left heel, stage 3 (principal); I89.0 Lymphedema, not elsewhere classified; L97.812 Non-pressure chronic ulcer of other part of right lower leg with fat layer exposed
CPT/HCPCS: 99212

== ENCOUNTER → 2024-12-22 16:09 | Outpatient (CLI) | payer MEDICARE, OTHER, SELFPAY ==
[2024-08-31 00:17] VITALS: BMI 36.4
== END ==
PROVIDERS: Family Provider Internal Medicine; PCP Internal Medicine; Referring Provider Internal Medicine; Visit Provider Surgery
DX: L89.623 Pressure ulcer of left heel, stage 3 (principal); R23.4 Changes in skin texture; R60.0 Localized edema; G57.83 Other specified mononeuropathies of bilateral lower limbs; Z79.01 Long term (current) use of anticoagulants
CPT/HCPCS: 11042

== ENCOUNTER → 2024-12-25 13:46 | Outpatient (CLI) | payer MEDICARE, OTHER, SELFPAY ==
[2024-08-31 00:17] VITALS: BMI 36.4
== END ==
PROVIDERS: Family Provider Internal Medicine; PCP Internal Medicine; Referring Provider Internal Medicine; Visit Provider Surgery
DX: L89.623 Pressure ulcer of left heel, stage 3 (principal); R60.0 Localized edema; R23.3 Spontaneous ecchymoses
CPT/HCPCS: 99213

== ENCOUNTER → 2024-12-29 13:23 | Outpatient (CLI) | payer MEDICARE, OTHER, SELFPAY ==
[2024-08-31 00:17] VITALS: BMI 36.4
== END ==
LOC: WC 13:25
PROVIDERS: Family Provider Internal Medicine; PCP Internal Medicine; Referring Provider Internal Medicine; Visit Provider Surgery
DX: L89.623 Pressure ulcer of left heel, stage 3 (principal); I89.0 Lymphedema, not elsewhere classified; G90.09 Other idiopathic peripheral autonomic neuropathy; Z79.01 Long term (current) use of anticoagulants
CPT/HCPCS: 99213

== ENCOUNTER → 2025-01-01 15:43 | Outpatient (CLI) | payer MEDICARE, OTHER, SELFPAY ==
[2024-08-31 00:17] VITALS: BMI 36.4
== END ==
LOC: WC 15:45
PROVIDERS: Family Provider Internal Medicine; PCP Internal Medicine; Referring Provider Internal Medicine; Visit Provider Nurse Practitioner Family
DX: L89.623 Pressure ulcer of left heel, stage 3 (principal)
CPT/HCPCS: 99213

== ENCOUNTER → 2025-01-02 16:21 | Outpatient (CLI) | payer MEDICARE, OTHER, SELFPAY ==
[2024-08-31 00:17] VITALS: BMI 36.4
--- NOTE | 2025-01-02 16:24 | DI.US.S_ITS ---
PROCEDURE: US ARTERIAL DUPLEX LE BI INDICATIONS: Evaluate arterial status for use of compression wraps TECHNIQUE: Color and pulse Doppler interrogation was performed of both lower extremity arterial systems, with image documentation. COMPARISON: None. FINDINGS: Right lower extremity: Common femoral artery: 142 cm/sec, with triphasic flow. Deep femoral artery: 122 cm/sec, with triphasic flow. Proximal superficial femoral artery: 122 cm/sec, with triphasic flow. Mid superficial femoral artery: 123 cm/sec, with triphasic flow. Distal superficial femoral artery: 140 cm/sec, with triphasic flow. Popliteal artery: 127 cm/sec, with triphasic flow. Posterior tibial artery: 147 cm/sec, with biphasic flow. Anterior tibial artery/dorsalis pedis: 141 cm/sec, with biphasic flow. Hogan-scale imaging description: Minimal scattered plaque Left lower extremity: Common femoral artery: 153 cm/sec, with triphasic flow. Deep femoral artery: 145 cm/sec, with triphasic flow. Proximal superficial femoral artery: 153 cm/sec, with triphasic flow. Mid superficial femoral artery: 206 cm/sec, with triphasic flow. Distal superficial femoral artery: 96 cm/sec, with triphasic flow. Popliteal artery: 120 cm/sec, with triphasic flow. Posterior tibial artery: 125 cm/sec, with biphasic flow. Anterior tibial artery/dorsalis pedis: 93 cm/sec, with triphasic flow. Hogan-scale imaging description: Minimal scattered plaque. Incidental note of retrograde flow in the left greater saphenous vein with Valsalva. IMPRESSION: No hemodynamically significant stenosis within the arterial vasculature. Dictated by: Julieta Walters M.D. on 01/06/2025 at 15:08 Approved by: Julieta Walters M.D. on 01/06/2025 at 15:14
== END ==
LOC: US 16:23
PROVIDERS: Family Provider Internal Medicine; PCP Internal Medicine; Referring Provider Surgery; Visit Provider Surgery
DX: L97.312 Non-pressure chronic ulcer of right ankle with fat layer exposed (principal); L89.623 Pressure ulcer of left heel, stage 3; I89.0 Lymphedema, not elsewhere classified
CPT/HCPCS: 93925

== ENCOUNTER → 2025-01-06 13:31 | Outpatient (CLI) | payer MEDICARE, OTHER, SELFPAY ==
[2024-08-31 00:17] VITALS: BMI 36.4
== END ==
LOC: WC 13:34
PROVIDERS: Family Provider Internal Medicine; PCP Internal Medicine; Referring Provider Internal Medicine; Visit Provider Surgery
DX: L89.623 Pressure ulcer of left heel, stage 3 (principal); I89.0 Lymphedema, not elsewhere classified; Z79.01 Long term (current) use of anticoagulants; Z74.09 Other reduced mobility
CPT/HCPCS: 11042; 99213

== ENCOUNTER → 2025-01-09 14:50 | Outpatient (CLI) | payer MEDICARE, OTHER, SELFPAY ==
[2024-08-31 00:17] VITALS: BMI 36.4
== END ==
LOC: WC 14:51
PROVIDERS: Family Provider Internal Medicine; PCP Internal Medicine; Referring Provider Internal Medicine; Visit Provider Physician Assistant
DX: L89.623 Pressure ulcer of left heel, stage 3 (principal)
CPT/HCPCS: 99213

== ENCOUNTER → 2025-01-12 13:42 | Outpatient (CLI) | payer MEDICARE, OTHER, SELFPAY ==
[2024-08-31 00:17] VITALS: BMI 36.4
== END ==
LOC: WC 13:43
PROVIDERS: Family Provider Internal Medicine; PCP Internal Medicine; Referring Provider Internal Medicine; Visit Provider Surgery
DX: L89.623 Pressure ulcer of left heel, stage 3 (principal); I89.0 Lymphedema, not elsewhere classified; G60.9 Hereditary and idiopathic neuropathy, unspecified; I13.0 Hypertensive heart and chronic kidney disease with heart failure and stage 1 through stage 4 chronic kidney disease, or unspecified chronic kidney disease; N18.30 Chronic kidney disease, stage 3 unspecified; I50.9 Heart failure, unspecified; Z79.01 Long term (current) use of anticoagulants; E66.9 Obesity, unspecified; I48.91 Unspecified atrial fibrillation; E78.5 Hyperlipidemia, unspecified
CPT/HCPCS: 11042

== ENCOUNTER → 2025-02-12 14:10 | Outpatient (CLI) | payer MEDICARE, OTHER, SELFPAY ==
[2024-08-31 00:17] VITALS: BMI 36.4
== END ==
PROVIDERS: Family Provider Internal Medicine; PCP Internal Medicine; Referring Provider Internal Medicine; Visit Provider Surgery
DX: I89.0 Lymphedema, not elsewhere classified (principal); L97.812 Non-pressure chronic ulcer of other part of right lower leg with fat layer exposed; L89.623 Pressure ulcer of left heel, stage 3; L84 Corns and callosities
CPT/HCPCS: 29581

== ENCOUNTER → 2025-02-18 14:01 | Outpatient (CLI) | payer MEDICARE, OTHER, SELFPAY ==
[2024-08-31 00:17] VITALS: BMI 36.4
== END ==
LOC: WC 14:04
PROVIDERS: Family Provider Internal Medicine; PCP Internal Medicine; Referring Provider Internal Medicine; Visit Provider Physician Assistant
DX: L89.623 Pressure ulcer of left heel, stage 3 (principal); I89.0 Lymphedema, not elsewhere classified; L97.812 Non-pressure chronic ulcer of other part of right lower leg with fat layer exposed; L84 Corns and callosities; I48.91 Unspecified atrial fibrillation; Z79.01 Long term (current) use of anticoagulants; N18.9 Chronic kidney disease, unspecified; G60.9 Hereditary and idiopathic neuropathy, unspecified; I50.9 Heart failure, unspecified; E66.9 Obesity, unspecified
CPT/HCPCS: 11042; 99213

== ENCOUNTER → 2025-02-23 12:16 | Outpatient (CLI) | payer MEDICARE, OTHER, SELFPAY ==
[2024-08-31 00:17] VITALS: BMI 36.4
== END ==
LOC: WC 12:17
PROVIDERS: Family Provider Internal Medicine; PCP Internal Medicine; Referring Provider Internal Medicine; Visit Provider Surgery
DX: L89.623 Pressure ulcer of left heel, stage 3 (principal); I89.0 Lymphedema, not elsewhere classified; L97.812 Non-pressure chronic ulcer of other part of right lower leg with fat layer exposed; L84 Corns and callosities; I48.91 Unspecified atrial fibrillation; Z79.01 Long term (current) use of anticoagulants; E66.9 Obesity, unspecified; G60.9 Hereditary and idiopathic neuropathy, unspecified; I50.9 Heart failure, unspecified
CPT/HCPCS: 11042

== ENCOUNTER → 2025-02-26 14:20 | Outpatient (CLI) | payer MEDICARE, OTHER, SELFPAY ==
[2024-08-31 00:17] VITALS: BMI 36.4
== END ==
LOC: WC 14:21
PROVIDERS: Family Provider Internal Medicine; PCP Internal Medicine; Referring Provider Internal Medicine; Visit Provider Surgery
DX: I89.0 Lymphedema, not elsewhere classified (principal); L97.812 Non-pressure chronic ulcer of other part of right lower leg with fat layer exposed; L89.623 Pressure ulcer of left heel, stage 3; L84 Corns and callosities
CPT/HCPCS: 29581

== ENCOUNTER → 2025-03-02 15:44 | Outpatient (CLI) | payer MEDICARE, OTHER, SELFPAY ==
[2024-08-31 00:17] VITALS: BMI 36.4
== END ==
LOC: WC 15:45
PROVIDERS: Family Provider Internal Medicine; PCP Internal Medicine; Referring Provider Internal Medicine; Visit Provider Surgery
DX: L89.623 Pressure ulcer of left heel, stage 3 (principal); L97.812 Non-pressure chronic ulcer of other part of right lower leg with fat layer exposed; I89.0 Lymphedema, not elsewhere classified; G57.83 Other specified mononeuropathies of bilateral lower limbs; R60.0 Localized edema; R23.4 Changes in skin texture
CPT/HCPCS: 11042; 97602

== ENCOUNTER → 2025-03-05 14:52 | Outpatient (CLI) | payer MEDICARE, OTHER, SELFPAY ==
[2024-08-31 00:17] VITALS: BMI 36.4
== END ==
LOC: WC 14:54
PROVIDERS: Family Provider Internal Medicine; PCP Internal Medicine; Referring Provider Internal Medicine; Visit Provider Surgery
DX: L89.623 Pressure ulcer of left heel, stage 3 (principal); I89.0 Lymphedema, not elsewhere classified; L97.812 Non-pressure chronic ulcer of other part of right lower leg with fat layer exposed; R60.0 Localized edema; R23.4 Changes in skin texture; L84 Corns and callosities
CPT/HCPCS: 29581

== ENCOUNTER → 2025-03-09 15:04 | Outpatient (CLI) | payer MEDICARE, OTHER, SELFPAY ==
[2024-08-31 00:17] VITALS: BMI 36.4
== END ==
LOC: WC 15:06
PROVIDERS: Family Provider Internal Medicine; PCP Internal Medicine; Referring Provider Internal Medicine; Visit Provider Surgery
DX: I89.0 Lymphedema, not elsewhere classified (principal); L89.629 Pressure ulcer of left heel, unspecified stage; L84 Corns and callosities; E66.9 Obesity, unspecified; G62.9 Polyneuropathy, unspecified; I48.91 Unspecified atrial fibrillation; N18.9 Chronic kidney disease, unspecified; I11.0 Hypertensive heart disease with heart failure; I50.9 Heart failure, unspecified; E78.5 Hyperlipidemia, unspecified; Z79.01 Long term (current) use of anticoagulants; Z87.891 Personal history of nicotine dependence
CPT/HCPCS: 29581; 99213

== ENCOUNTER → 2025-03-16 16:13 | Outpatient (CLI) | payer MEDICARE, OTHER, SELFPAY ==
[2024-08-31 00:17] VITALS: BMI 36.4
== END ==
LOC: WC 16:15
PROVIDERS: Family Provider Internal Medicine; PCP Internal Medicine; Referring Provider Internal Medicine; Visit Provider Surgery
DX: L89.623 Pressure ulcer of left heel, stage 3 (principal)
CPT/HCPCS: 99211; 99213

== ENCOUNTER → 2025-03-30 14:40 | Outpatient (CLI) | payer MEDICARE, OTHER, SELFPAY ==
[2024-08-31 00:17] VITALS: BMI 36.4
== END ==
LOC: WC 14:42
PROVIDERS: Family Provider Internal Medicine; PCP Internal Medicine; Referring Provider Internal Medicine; Visit Provider Surgery
DX: I89.0 Lymphedema, not elsewhere classified (principal)
CPT/HCPCS: 99212; 99213